=== PATIENT | male | born 1985 | race Caucasian/White ===

== ENCOUNTER 2019-12-07 22:58 | Emergency (ER) | payer OTHER ==
[~2019-12-07] VITALS: Ht 188 cm; Wt 106.6 kg
--- NOTE | 2019-12-07 23:02 | NUR ---
PT AAOX4. BIBRA 102 FROM HOME FOR OVERDOSE ON METH. PT AMBULATORY STATED -SI/HI. VSS. PLACED ON MONITOR AND PULSE OX. VSS. NO ACUTE DISTRESS NOTED.
[2019-12-07] MEDS ORDERED: diphenhydrAMINE HCL 50 MG/ML VIAL ONE (23:06)
[2019-12-07] MEDS ORDERED: HALOPERIDOL LACTATE INJ 5 MG/ML VIAL ONE (23:06)
[2019-12-07] MEDS ORDERED: LORAZEPAM INJ 2 MG/ML VIAL ONE (23:06)
[2019-12-07] MEDS ORDERED: diphenhydrAMINE HCL 25 MG CAPSULE ONE (23:23)
[2019-12-07] MEDS ORDERED: LORAZEPAM INJ 2 MG/ML VIAL IV ONE (23:30)
[2019-12-07] MEDS ORDERED: HALOPERIDOL LACTATE INJ 5 MG/ML VIAL IM ONE (23:30)
[2019-12-07] MEDS ORDERED: diphenhydrAMINE HCL 50 MG/ML VIAL IM ONE (23:30)
--- NOTE | 2019-12-07 23:35 | NUR ---
[employer] AT BEDSIDE
--- NOTE | 2019-12-08 00:53 | NUR ---
ambulated to the restroom and back
--- NOTE | 2019-12-08 01:53 | NUR ---
PT ASLEEP. VSS.
--- NOTE | 2019-12-08 03:51 | NUR ---
PT ASLEEP. PROVIDED WITH MORE BLANKETS.
--- NOTE | 2019-12-08 05:52 | NUR ---
PT RESTING COMFORTABLY IN BED. SITTER AT BEDSIDE FOR SAFETY AND CONSTANT MONITORING. VSS. NO ACUTE DISTRESS NOTED.
[2019-12-08 07:01] VITALS: BP 136/74
--- NOTE | 2019-12-08 07:01 | NUR ---
Pt alert and oriented. Pt ok to be discharged per Dr Hampton. Pt provided with meal tray. Patient discharged to home in stable condition. Written and verbal after care instructions given. Patient verbalizes understanding of instruction.Patient is awake and alert to self, day, and place.Pt ambulatory with a steady gait
== END 2019-12-08 07:02 | disposition home or self-care (01) ==
LOC: ER 23:00
DX: F15.10 Other stimulant abuse, uncomplicated (principal); F32.9 Major depressive disorder, single episode, unspecified; F41.9 Anxiety disorder, unspecified; F17.200 Nicotine dependence, unspecified, uncomplicated; R45.1 Restlessness and agitation
CPT/HCPCS: 71045; 96372 ×2; 96374; 99284; J1200; J1630; J2060; Q0163

== ENCOUNTER 2019-12-29 19:41 | Emergency (ER) | payer OTHER ==
[~2019-12-29] VITALS: Ht 177.8 cm; Wt 90.7 kg
--- NOTE | 2019-12-29 20:01 | NUR ---
PT AAOX4. BIBRA 102 FOR C/O ANXIETY AND GENRERALIZED BOSY SPASM S/P USING METH. PT PALCED ON MONITOR AND PULSE OX. AWAITING MD FOR EVAL.
[2019-12-29] MEDS ORDERED: diphenhydrAMINE HCL 50 MG/ML VIAL ONE (20:16)
[2019-12-29] MEDS ORDERED: LORAZEPAM INJ 2 MG/ML VIAL ONE (20:17)
[2019-12-29] MEDS ORDERED: HALOPERIDOL LACTATE INJ 5 MG/ML VIAL ONE (20:17)
[2019-12-29] MEDS ORDERED: diphenhydrAMINE HCL 50 MG/ML VIAL IM ONE (20:30)
[2019-12-29] MEDS ORDERED: HALOPERIDOL LACTATE INJ 5 MG/ML VIAL IM ONE (20:30)
[2019-12-29] MEDS ORDERED: LORAZEPAM INJ 2 MG/ML VIAL IM ONE (20:30)
[2019-12-29] MEDS ORDERED: LIDOCAINE 2% JEL UROJET 10 ML MM ONE (21:01)
[2019-12-29 21:29] LABS: BASOPHILS # (AUTO) 0.1 /CMM (0.0-0.2); BASOPHILS % (AUTO) 0.7 % (0.0-2.0); EOSINOPHILS % (AUTO) 0.5 % (0.0-6.0); HEMATOCRIT 43 % (39-51); HEMOGLOBIN 14.5 g/dL (13.5-17.5); LYMPHOCYTES # (AUTO) 2.4 /CMM (0.8-4.8); LYMPHOCYTES % (AUTO) 23.7 % (20.0-44.0); MEAN CORPUSCULAR HGB CONC 34 g/dl (31.0-36.0); MEAN CORPUSCULAR VOLUME 92 fL (80-96); MONOCYTES # (AUTO) 0.7 /CMM (0.1-1.30); MONOCYTES % (AUTO) 6.7 % (2.0-12.0); NEUTROPHILS % (AUTO) 68.4 % (43.0-81.0); PLATELET COUNT (AUTO) 374 /CMM (150-450); RED BLOOD CELL COUNT(AUTO) 4.68 MIL/uL (4.5-6.0); WHITE BLOOD COUNT (AUTO) 10.2 K/uL (4.3-11.0)
[2019-12-29 21:42] LABS: CARBON DIOXIDE 22 mmol/L (21-32); CHLORIDE 104 mmol/L (98-107); CREATININE 1.1 mg/dL (0.6-1.3); GLUCOSE 105 mg/dL (74-106); POTASSIUM 3.4 mmol/L (3.5-5.1); SODIUM SERUM 138 mmol/L (136-145); UREA NITROGEN, BLOOD 16 mg/dL (7-18)
[2019-12-29 21:48] LABS: ALANINE AMINOTRANSFERASE 34 U/L (12-78); ALBUMIN 3.8 g/dL (3.4-5.0); ALCOHOL, BLOOD < 3 mg/dL (0-0); ALKALINE PHOSPHATASE 103 U/L (46-116); ASPARTATE AMINOTRANSFERASE 28 U/L (15-37); BILIRUBIN,DIRECT 0.1 mg/dL (0.0-0.2); BILIRUBIN,TOTAL 0.5 mg/dL (0.2-1.0); TOTAL PROTEIN, SERUM 7.7 g/dL (6.4-8.2)
[2019-12-29 21:51] LABS: ACETAMINOPHEN 0 ug/ml (10-30)
--- NOTE | 2019-12-29 22:09 | NUR ---
URINE COLLECTED AND SENT TO LAB.
[2019-12-29 22:23] LABS: APPEARANCE,URINE CLEAR (CLEAR); BILIRUBIN,URINE NEGATIVE (NEGATIVE); BLOOD, URINE TRACE-INTA Ery/uL (NEGATIVE); COLOR,URINE YELLOW (YELLOW); KETONES,URINE NEGATIVE (NEGATIVE); LEUKOCYTE ESTERASE ,URINE NEGATIVE (NEGATIVE); NITRITE, URINE NEGATIVE (NEGATIVE); PROTEIN,URINE NEGATIVE (NEGATIVE); UGLUCOSE NEGATIVE (NEGATIVE); UROBILINOGEN,URINE 0.2 EU/dL (0.2)
[2019-12-29 22:38] LABS: BACTERIA,URINE Rare /HPF (None Seen); SQUAMOUS EPITHELIAL CELL,UR Rare /HPF (None Seen); WBC,URINE 0-2 /HPF (0-3)
--- NOTE | 2019-12-30 01:04 | NUR ---
PT ASLEEP. VSS/
--- NOTE | 2019-12-30 03:02 | NUR ---
Patient is resting comfortably in bed with eyes closed. Easily aroused. VSS
--- NOTE | 2019-12-30 03:24 | NUR ---
PT ASLEEP. VSS.
[2019-12-30 06:02] VITALS: BP 111/58
--- NOTE | 2019-12-30 08:46 | NUR ---
RECEIVED A CALL FROM [facility], STATING THAT DR. LEAL WANTS TO HAVE A CRISIS EVALUATION BECAUSE HE BELIEVES PATIENT IS A STRONG CANDIDATE FOR A 5150. GROCERY SUPERVISOR ANA MADE AWARE.
--- NOTE | 2019-12-30 09:47 | NUR ---
8:30 am Patient presented to [facility] ER, per MD note BIBRA 102 FOR C/O ANXIETY AND GENRERALIZED BOSY SPASM S/P USING. Patient is a 34-year-old male. Patient was alert and oriented x3. Patient lying in bed, did not want to open his eyes for this assessment. Patient at times mumbling under his breath. Patient confirmed demographics on face sheet including date of and address stating that is my parents house. Patient stating, he is currently hearing auditory hallucinations. Patient reported suicidal ideation stating, I want to kill myself using pills. Patient did not want to elaborate how he would get a hold of those medications. Patient stating, I cant talk to you right now hearing voices. Patient covered his face with the covers and refused to answer more questions.
--- NOTE | 2019-12-30 09:47 | NUR ---
8:45am This SW received a call from MARCELINO Alejandre that she had spoken with Dr. Thorpe from [facility]. Dr. Thorpe reviewed clinicals and would like that this patient should be evaluated by Crisis Team as patient may be a candidate for a 5150 hold. Addendum: 12/30/19 at 0948 by ANA VILLAVICENCIO Patient to be seen by brian VILLAVICENCIO and Birgit Briggs LCSW before calling Crisis Team.
--- NOTE | 2019-12-30 10:50 | NUR ---
This SW refaxed clinicals to [facility] intake per Miko's request . Patient is willing to enter voluntary psychiatric treatment.
--- NOTE | 2019-12-30 11:05 | NUR ---
This SW received a call from Johanna from [facility]. Johanna requesting new labs as patient's blood pressure and heart rate was high. This SW refaxed labs to [facility].
--- NOTE | 2019-12-30 11:56 | NUR ---
CALL FROM [facility] INTAKE, REQUESTING UPDATED HEART RATE, GIVEN
--- NOTE | 2019-12-30 12:05 | NUR ---
TRANSFER INFO: ACCEPTED BY DR PARRA, UNIT 2 ROOM 203-B, RN [phone] EXT [phone] Addendum: 12/30/19 at 1217 by NASH ACCEPTED TO [facility]
--- NOTE | 2019-12-30 12:10 | NUR ---
CALLED [facility] ETA 1500
--- NOTE | 2019-12-30 12:15 | NUR ---
[facility] ETA 1249
--- NOTE | 2019-12-30 12:45 | NUR ---
REPORT GIVEN TO MILAGROS BENSON AT [facility].
--- NOTE | 2019-12-30 13:14 | NUR ---
PATIENT TRANSFERRED TO [facility]. REPORT GIVEN TO DOOR SLINGER. PATIENT IN STABLE CONDITION. NEEDS ATTENDED. NO BELONGINGS.
== END 2019-12-30 13:16 ==
LOC: ER 19:43
DX: F15.159 Other stimulant abuse with stimulant-induced psychotic disorder, unspecified (principal); F15.10 Other stimulant abuse, uncomplicated; R40.4 Transient alteration of awareness; E87.6 Hypokalemia; R00.0 Tachycardia, unspecified; R44.0 Auditory hallucinations; R45.851 Suicidal ideations; R41.0 Disorientation, unspecified; R45.1 Restlessness and agitation; F32.9 Major depressive disorder, single episode, unspecified; F41.9 Anxiety disorder, unspecified; F17.200 Nicotine dependence, unspecified, uncomplicated
CPT/HCPCS: 36415; 80048; 80076; 80305; 80307; 80329; 81001; 85025; 96372 ×2; 99285; G0480; J1200; J1630; J2060; J3490; 81000-TC

== ENCOUNTER 2021-06-07 18:17 | Inpatient (IN) | payer OTHER ==
[~2021-06-07] VITALS: Ht 182.9 cm; Wt 88.9 kg
[2021-06-07] MEDS ORDERED: LORAZEPAM INJ 2 MG/ML VIAL ONE (18:57)
[2021-06-07] MEDS ORDERED: LORAZEPAM INJ 2 MG/ML VIAL IV ONE (19:00)
--- NOTE | 2021-06-07 19:00 | NUR ---
pt came in c/o sob x2days.pt stated it git worst today.pt is a/ox4.placed on monitor.
[2021-06-07] MEDS ORDERED: IOHEXOL-350 100 ML VIAL IV ONE (19:12)
[2021-06-07] MEDS ORDERED: CT SWABBABLE VALVE TRANS SET 1 EA INFUS.SET MC ONE (19:12)
[2021-06-07] MEDS ORDERED: IV NS 0.9% 250 ML IV ONE (19:13)
[2021-06-07 19:20] LABS: CREATININE 1.1 mg/dL (0.6-1.3); POTASSIUM 4.4 mmol/L (3.5-5.1)
[2021-06-07 19:53] LABS: BASOPHILS # (AUTO) 0.1 K/uL (0.0-0.2); BASOPHILS % (AUTO) 0.9 % (0.0-2.0); EOSINOPHILS % (AUTO) 0.9 % (0.0-6.0); HEMATOCRIT 37 % (39-51); HEMOGLOBIN 11.9 g/dL (13.5-17.5); LYMPHOCYTES # (AUTO) 1.7 K/uL (0.8-4.8); LYMPHOCYTES % (AUTO) 22.7 % (20.0-44.0); MEAN CORPUSCULAR HGB CONC 33 g/dl (31.0-36.0); MEAN CORPUSCULAR VOLUME 88 fL (80-96); MONOCYTES # (AUTO) 0.6 K/uL (0.1-1.30); MONOCYTES % (AUTO) 8.5 % (2.0-12.0); NEUTROPHILS # (AUTO) 5.1 K/uL (1.8-8.9); PLATELET COUNT (AUTO) 400 K/uL (150-450); RED BLOOD CELL COUNT(AUTO) 4.14 MIL/uL (4.5-6.0); WHITE BLOOD COUNT (AUTO) 7.6 K/uL (4.3-11.0)
--- NOTE | 2021-06-07 22:20 | NUR ---
BED ASSIGNMENT: 314-2
--- NOTE | 2021-06-07 22:30 | NUR ---
report given to Carina hamilton).
[2021-06-07] MEDS ORDERED: LOSA25TA27 PO (22:38)
[2021-06-07] MEDS ORDERED: APIX5TAB PO (22:38)
[2021-06-07] MEDS ORDERED: DAPA10TA PO (22:38)
[2021-06-07] MEDS ORDERED: MAG HYDROX/AL HYDROX/SIMETH 30 ML UDC PO PRN (23:00)
[2021-06-07] MEDS ORDERED: ONDANSETRON HCL/PF 4 MG/2 ML VIAL IVP PRN (23:00)
[2021-06-07] MEDS ORDERED: MORPHINE SULFATE INJ 2 MG/ML DISP.SYRIN IV PRN (23:00)
[2021-06-07] MEDS ORDERED: MAGNESIUM HYDROXIDE 30 ML UDC PO PRN (23:00)
[2021-06-07] MEDS ORDERED: DAPAGLIFLOZIN 10 MG PO SCH (23:00)
[2021-06-07] MEDS ORDERED: Z GUARD REMEDY 4 OZ OINT TP PRN (23:00)
[2021-06-07] MEDS ORDERED: HYDROCODONE/APAP 5/325MG TABLET PO PRN (23:00)
[2021-06-07] MEDS ORDERED: ACETAMINOPHEN 325 MG TABLET PO PRN (23:00)
[2021-06-07] MEDS ORDERED: DEXTROSE 50%-WATER 50 ML DISP.SYRIN IV PRN (23:00)
--- NOTE | 2021-06-07 23:37 | NUR ---
report given to yulissa hamilton).
--- NOTE | 2021-06-07 23:37 | NUR ---
RN NOTES REPORT RECEIVED FROM ER NURSE LITO.
[2021-06-08 00:05] VITALS: BP 131/91
--- NOTE | 2021-06-08 00:05 | NUR ---
BELLING MACHINE OPERATOR NOTES RECEIVED PATIENT FROM ER VIA [facility] IN STABLE CONDITION. PATIENT ALERT AND ORIENTED X 4. RESPIRATORY EVEN AND UNLABORED. NO SOB NOTED. NO RESPIRATORY DISTRESS NOTED. AFEBRILE. ON NASAL CANULA AT 3L/MIN SATING AT 100%. NOTED WITH IV ACCESS ON THE LEFT ANTECUBITAL G# 18 INTACT, PATENT AND FLUSHED WITH NS, NO INFILTRATION NOTED AT SITE. BASELINE VITAL SIGNS TAKEN AND RECORDED. COMPLETE BODY ASSESSMENT DONE, SKIN INTACT. ALL SAFETY MEASURES PROVIDED. BED IN THE LOWEST POSITION AND LOCKED. CALL LIGHT AND TABLE WITHIN REACH. WILL CONTINUE TO MONITOR.
[2021-06-08] MEDS: TEMAZEPAM 15 MG CAPSULE PO PRN ×2 (00:59→19:20)
[2021-06-08] MEDS ORDERED: FUROSEMIDE 40 MG/4 ML VIAL IV ONE (01:00)
--- NOTE | 2021-06-08 01:00 | NUR ---
RN NOTES NOTED RR-36 BREATH PER MINUTES, NOTIFIED DNP MARKEL LANDIN WITH NEW ORDER LASIX 40MG ONE TIME IV, NOTED AND CARRIED OUT.
[2021-06-08 04:00] VITALS: BP 132/78
[2021-06-08 06:35] LABS: BASOPHILS # (AUTO) 0.1 K/uL (0.0-0.2); BASOPHILS % (AUTO) 0.9 % (0.0-2.0); EOSINOPHILS % (AUTO) 1.2 % (0.0-6.0); HEMATOCRIT 35 % (39-51); LYMPHOCYTES # (AUTO) 2.1 K/uL (0.8-4.8); LYMPHOCYTES % (AUTO) 28.6 % (20.0-44.0); MEAN CORPUSCULAR HGB CONC 32 g/dl (31.0-36.0); MEAN CORPUSCULAR VOLUME 89 fL (80-96); MONOCYTES # (AUTO) 0.6 K/uL (0.1-1.30); MONOCYTES % (AUTO) 8.2 % (2.0-12.0); NEUTROPHILS # (AUTO) 4.4 K/uL (1.8-8.9); NEUTROPHILS % (AUTO) 61.1 % (43.0-81.0); PLATELET COUNT (AUTO) 365 K/uL (150-450); RED BLOOD CELL COUNT(AUTO) 3.92 MIL/uL (4.5-6.0); WHITE BLOOD COUNT (AUTO) 7.3 K/uL (4.3-11.0)
--- NOTE | 2021-06-08 07:20 | NUR ---
RN CLOSING NOTES REMAIN STABLE THROUGH OUT THE SHIFT, RESPIRATORY EVEN AND UNLABORED. NO SOB NOTED. NO RESPIRATORY DISTRESS NOTED. AFEBRILE. ON NASAL CANULA AT 3L/MIN SATING AT 100%. ALL DUE MEDS GIVEN ORDERED. ALL SAFETY MEASURES PROVIDED. BED IN THE LOWEST POSITION AND LOCKED. CALL LIGHT AND TABLE WITHIN REACH. WILL CONTINUE TO MONITOR.
[2021-06-08 07:30] LABS: THYROID STIMULATING HORMONE 2.11 uIU/mL (0.358-3.74)
--- NOTE | 2021-06-08 07:32 | NUR ---
RN OPENING NOTES RECIEVED PATIENT RESTING IN BED A/O X 4, RESPIRATORY EVEN AND UNLABORED. NO SOB NOTED. NO RESPIRATORY DISTRESS NOTED. AFEBRILE. ON NASAL CANULA AT 3L/MIN SATING AT 100%. ALL DUE MEDS GIVEN ORDERED. ALL SAFETY MEASURES PROVIDED. BED IN THE LOWEST POSITION AND LOCKED. CALL LIGHT AND TABLE WITHIN REACH.
[2021-06-08 07:33] LABS: MAGNESIUM 2.1 mg/dL (1.8-2.4); PHOSPHORUS 5.2 mg/dL (2.5-4.9); POTASSIUM 4.3 mmol/L (3.5-5.1)
[2021-06-08 08:00] VITALS: BP 143/95
[2021-06-08] MEDS: LOSARTAN POTASSIUM 25 MG TABLET PO SCH (08:07)
[2021-06-08] MEDS: ASPIRIN 81 MG TAB.CHEW PO SCH (08:08)
[2021-06-08] MEDS: PANTOPRAZOLE 40 MG TABLET.DR PO SCH (08:08)
[2021-06-08] MEDS: BLOOD SUGAR DIAGNOSTIC 1 EACH STRIP IN SCH ×4 (08:16→21:01)
[2021-06-08] MEDS: INSULIN REGULAR, HUMAN 100 UNIT/ML 3 ML VIAL SQ PRN ×2 (08:18→12:58)
[2021-06-08] MEDS ORDERED: APIXABAN 5 MG TABLET PO SCH ×2 (09:00→10:25)
[2021-06-08 12:00] VITALS: BP 121/85
[2021-06-08] MEDS: [UNRECOGNIZED DRUG - OTHER] PO SCH (12:07)
[2021-06-08] MEDS: DAPAGLIFLOZIN PO SCH (12:07)
[2021-06-08 16:00] VITALS: BP 121/74
[2021-06-08] MEDS: APIXABAN 5 MG TABLET PO SCH (16:49)
--- NOTE | 2021-06-08 18:40 | NUR ---
RN CLOSING NOTES PATIENT RESTING IN BED, A/O X4 ON NASAL CANULA AT 4L/MIN SATING AT 100%. ALL DUE MEDS GIVEN ORDERED.NO COMPLAINTS OF PAIN. IV ACCESS NOTED ON LAC 18G SL. ALL SAFETY MEASURES PROVIDED. BED IN THE LOWEST POSITION AND LOCKED. CALL LIGHT AND TABLE WITHIN REACH. WILL ENDORSE TO NIGHT NURSE FOR NOLBERTO.
--- NOTE | 2021-06-08 19:29 | NUR ---
RN NOTE RECEIVED PATIENT IN BED, AWAKE, ALERT, AND VERBALLY RESPONSIVE. AOX4, ABLE TO MAKE NEEDS KNOWN. BREATHING NOTED WITH MILD SHORTNESS OF BREATH, TACHYPNEIC, ON OXYGEN 4L/MIN VIA NASAL CANNULA, TOLERATING WELL, OXYGEN SATURATION OF 100 PERCENT. NO COUGH AND N/V. DENIES CHEST PAIN AT THIS TIME. SKIN WARM AND DRY, NOTED WITH LEFT AC 18G, NO IVF, FLUSHED WITH 10 CC, NO INFILTRATION. DENIES PAIN AT THIS TIME. URINAL AT BEDSIDE. PATIENT REQUESTING FOR SLEEPING MEDICATION, STATES HE IS UNABLE TO SLEEP. LIGHTS DIMMED, OFFERED EXTRA BLANKETS. ADMINISTERED TEMAZEPAM 15 MG PO. WILL CONTINUE TO MONITOR. REMINDED TO USE CALL LIGHT WHEN ASSISTANCE IS NEEDED. BED LOW IN LOCKED POSITION, CALL LIGHT WITHIN REACH.
[2021-06-08 20:00] VITALS: BP 135/87
[2021-06-09] VITALS: BP 116/79
[2021-06-09 04:00] VITALS: BP 127/84
[2021-06-09 07:05] LABS: CALCIUM, SERUM 8.5 mg/dL (8.5-10.1); CREATININE 1.1 mg/dL (0.6-1.3); POTASSIUM 3.8 mmol/L (3.5-5.1)
[2021-06-09 08:00] VITALS: BP 115/87
[2021-06-09] MEDS: ASPIRIN 81 MG TAB.CHEW PO SCH (08:35)
[2021-06-09] MEDS: LOSARTAN POTASSIUM 25 MG TABLET PO SCH (08:36)
[2021-06-09] MEDS: APIXABAN 5 MG TABLET PO SCH ×2 (08:37→16:49)
[2021-06-09] MEDS: PANTOPRAZOLE 40 MG TABLET.DR PO SCH (08:37)
[2021-06-09] MEDS: BLOOD SUGAR DIAGNOSTIC 1 EACH STRIP IN SCH ×4 (08:39→21:29)
[2021-06-09] MEDS: [UNRECOGNIZED DRUG - OTHER] PO SCH (08:39)
[2021-06-09] MEDS: DAPAGLIFLOZIN PO SCH (08:39)
[2021-06-09] MEDS: SPIRONOLACTONE 25 MG TABLET PO SCH (09:08)
[2021-06-09] MEDS: CARVEDILOL 3.125 MG TABLET PO SCH ×2 (09:08→21:18)
[2021-06-09 12:00] VITALS: BP 123/74
[2021-06-09 16:00] VITALS: BP 114/83
--- NOTE | 2021-06-09 19:40 | NUR ---
RN NOTES RECEIVED PT FOR CONTINUITY OF CARE. PATIENT A/OX4 IN NO S/SX OF ACUTE DISTRESS AT THIS TIME; CURRENTLY ON ROOM AIR; WITH 02 SAT >95% AT THIS TIME. WILL ENSURE SAFETY MEASURES WITHIN THE SHIFT. PATIENT BED ALARM IS ON. HEAD OF BED ELEVATED. BED IS LOCKED, IN LOWEST POSITION AND SIDE RAILS UP. CALL LIGHT WITHIN REACH OF THE PATIENT. APPLICABLE ISOLATION PRECAUTIONS IN PLACE. WILL CONTINUE TO MONITOR AND REASSESS FOR ANY CHANGES AND WILL CARRY OUT ANY ONGOING AND ACTIVE MD ORDER.
[2021-06-09 20:00] VITALS: BP 117/85
[2021-06-09] MEDS: INSULIN REGULAR, HUMAN 100 UNIT/ML 3 ML VIAL SQ PRN (21:30)
[2021-06-10] VITALS: BP 119/85
--- NOTE | 2021-06-10 | NUR ---
RN NOTES PATIENT REMAINED TO BE IN NO SIGNS OF ACUTE RESPIRATORY DISTRESS , VITAL SIGNS WNL AT THIS TIME. DIRECTOR OF MANUFACTURING OPERATIONS MADE AWARE. WILL CONTINUE TO MONITOR AND REASSESS FOR ANY CHANGES THROUGHOUT THE SHIFT.
[2021-06-10 04:00] VITALS: BP 125/81
[2021-06-10] MEDS: LORAZEPAM INJ 2 MG/ML VIAL IV PRN ×3 (04:42→23:16)
[2021-06-10 06:33] LABS: BASOPHILS # (AUTO) 0.1 K/uL (0.0-0.2); BASOPHILS % (AUTO) 0.9 % (0.0-2.0); EOSINOPHILS % (AUTO) 1.8 % (0.0-6.0); HEMATOCRIT 33 % (39-51); HEMOGLOBIN 10.4 g/dL (13.5-17.5); LYMPHOCYTES # (AUTO) 1.7 K/uL (0.8-4.8); LYMPHOCYTES % (AUTO) 25.3 % (20.0-44.0); MEAN CORPUSCULAR HGB CONC 32 g/dl (31.0-36.0); MEAN CORPUSCULAR VOLUME 88 fL (80-96); MONOCYTES # (AUTO) 0.5 K/uL (0.1-1.30); MONOCYTES % (AUTO) 8.2 % (2.0-12.0); NEUTROPHILS # (AUTO) 4.3 K/uL (1.8-8.9); NEUTROPHILS % (AUTO) 63.8 % (43.0-81.0); PLATELET COUNT (AUTO) 363 K/uL (150-450); RED BLOOD CELL COUNT(AUTO) 3.69 MIL/uL (4.5-6.0); WHITE BLOOD COUNT (AUTO) 6.7 K/uL (4.3-11.0)
--- NOTE | 2021-06-10 06:37 | NUR ---
RN CLOSING NOTE: PATIENT REMAINS IN ROOM IN NO SIGNS OF RESPIRATORY DISTRESS, PATIENT STILL ON ROOM AIR ;TOLERATING WELL SATURATING @ >95% SP02. SAFETY MEASURES IMPLEMENTED, BED IN LOWEST POSITION, LOCKED, SIDE RAILS UP, CALL LIGHT WITHIN REACH. ALL NEEDS AND ORDERS ADDRESSED DURING THE SHIFT. IV ACCESS MAINTAINED INTACT, SECURED AND FLUSHING WELL. ALL DUE MEDS GIVEN ORDERED & SCHEDULED ; PATIENT TOLERATED WELL. PATIENT KEPT CLEAN AND COMFORTABLE WITHIN THE SHIFT. PATIENT ENDORSED TO INCOMING SHIFT RN WITH STABLE VITAL SIGN AND FOR CONTINUITY OF CARE.
--- NOTE | 2021-06-10 07:30 | NUR ---
RN OPENING NOTE PATIENT RECEIVED SLEEPING COMFORTABLY IN BED. NO SIGNS OF RESPIRATORY DISTRESS, PATIENT ON ROOM AIR ;TOLERATING WELL SATURATING @ 95% SP02. PATIENT HAS L AC PIV PATENT AND INTACT. SAFETY MEASURES IMPLEMENTED, BED IN LOWEST POSITION, LOCKED, SIDE RAILS UP, CALL LIGHT WITHIN REACH. WILL CONTINUE TO MONITOR.
[2021-06-10 08:00] VITALS: BP 135/65
[2021-06-10 08:04] LABS: CALCIUM, SERUM 8.8 mg/dL (8.5-10.1); MAGNESIUM 2.1 mg/dL (1.8-2.4); PHOSPHORUS 4.4 mg/dL (2.5-4.9); POTASSIUM 3.9 mmol/L (3.5-5.1)
[2021-06-10] MEDS: BLOOD SUGAR DIAGNOSTIC 1 EACH STRIP IN SCH ×4 (08:50→21:12)
[2021-06-10] MEDS: ASPIRIN 81 MG TAB.CHEW PO SCH (08:51)
[2021-06-10] MEDS: CARVEDILOL 3.125 MG TABLET PO SCH ×2 (08:52→21:02)
[2021-06-10] MEDS: SPIRONOLACTONE 25 MG TABLET PO SCH (08:52)
[2021-06-10] MEDS: LOSARTAN POTASSIUM 25 MG TABLET PO SCH (08:52)
[2021-06-10] MEDS: PANTOPRAZOLE 40 MG TABLET.DR PO SCH (08:56)
[2021-06-10] MEDS: [UNRECOGNIZED DRUG - OTHER] PO SCH (08:57)
[2021-06-10] MEDS: DAPAGLIFLOZIN PO SCH (08:57)
[2021-06-10 12:00] VITALS: BP 128/81
[2021-06-10 16:00] VITALS: BP 142/81
--- NOTE | 2021-06-10 18:33 | NUR ---
RN CLOSING NOTE PATIENT REMAINED STABLE THROUGHOUT SHIFT. NO SIGNS OF RESPIRATORY DISTRESS, PATIENT ON NASAL CANNULA @ 3 LPM ;TOLERATING WELL SATURATING @ 97% SP02. PATIENT HAS L AC PIV PATENT AND INTACT. ALL NEEDS MET AND MEDS ADMINISTERED ORDERED DURING SHIFT. ALL SAFETY MEASURES IMPLEMENTED, BED IN LOWEST POSITION, LOCKED, SIDE RAILS UP, CALL LIGHT WITHIN REACH. WILL ENDORSE TO HUMAN RESOURCES LEADER RN.
--- NOTE | 2021-06-10 19:32 | NUR ---
RN NOTES RECEIVED PT FOR CONTINUITY OF CARE. PATIENT A/OX4 IN NO S/SX OF ACUTE DISTRESS AT THIS TIME; CURRENTLY ON 4L OF O2 VIA NC; WITH 02 SAT >95% AT THIS TIME. IV SITE ON L AC #18; PATENT, INTACT AND FLUSHING WELL; NO S/S OF INFECTION OR INFILTRATION.WILL ENSURE SAFETY MEASURES WITHIN THE SHIFT. PATIENT BED ALARM IS ON. HEAD OF BED ELEVATED. BED IS LOCKED, IN LOWEST POSITION AND SIDE RAILS UP. CALL LIGHT WITHIN REACH OF THE PATIENT. APPLICABLE ISOLATION PRECAUTIONS IN PLACE. WILL CONTINUE TO MONITOR AND REASSESS FOR ANY CHANGES AND WILL CARRY OUT ANY ONGOING AND ACTIVE MD ORDER.
[2021-06-10 20:00] VITALS: BP 121/87
[2021-06-10] MEDS: INSULIN REGULAR, HUMAN 100 UNIT/ML 3 ML VIAL SQ PRN (21:13)
[2021-06-10] MEDS: TEMAZEPAM 15 MG CAPSULE PO PRN (21:13)
--- NOTE | 2021-06-10 23:20 | NUR ---
RN NOTES FACILITATED INSERTION OF ADDITIONAL IV LINE/ACCESS ON L HAND G#22; SALINE LOCK, SECURED, INTACT AND FLUSHING WELL. CHEESE WEIGHER MADE AWARE.
[2021-06-11] VITALS: BP 120/85
[2021-06-11 04:00] VITALS: BP 102/60
--- NOTE | 2021-06-11 06:38 | NUR ---
RN CLOSING NOTE: PATIENT REMAINS IN ROOM IN NO SIGNS OF RESPIRATORY DISTRESS, PATIENT STILL ON 4L OF 02 VIA NC;TOLERATING WELL SATURATING @ >95% SP02. NOTED EPISODES OF ANXIETY DURING THE SHIFT, PRN MEDICATION GIVEN PER CLINICAL INDICATION. SAFETY MEASURES IMPLEMENTED, BED IN LOWEST POSITION, LOCKED, SIDE RAILS UP, CALL LIGHT WITHIN REACH. ALL NEEDS AND ORDERS ADDRESSED DURING THE SHIFT. IV ACCESS MAINTAINED INTACT, SECURED AND FLUSHING WELL. ALL DUE MEDS GIVEN ORDERED & SCHEDULED ; PATIENT TOLERATED WELL. PATIENT KEPT CLEAN AND COMFORTABLE WITHIN THE SHIFT. PATIENT ENDORSED TO INCOMING SHIFT RN WITH STABLE VITAL SIGN AND FOR CONTINUITY OF CARE.
[2021-06-11 06:46] LABS: BASOPHILS # (AUTO) 0.1 K/uL (0.0-0.2); HEMATOCRIT 35 % (39-51); HEMOGLOBIN 11.4 g/dL (13.5-17.5); LYMPHOCYTES % (AUTO) 25.8 % (20.0-44.0); MEAN CORPUSCULAR HGB CONC 33 g/dl (31.0-36.0); MEAN CORPUSCULAR VOLUME 87 fL (80-96); MONOCYTES # (AUTO) 0.6 K/uL (0.1-1.30); MONOCYTES % (AUTO) 8.2 % (2.0-12.0); NEUTROPHILS # (AUTO) 4.9 K/uL (1.8-8.9); PLATELET COUNT (AUTO) 381 K/uL (150-450); RED BLOOD CELL COUNT(AUTO) 3.98 MIL/uL (4.5-6.0); WHITE BLOOD COUNT (AUTO) 7.7 K/uL (4.3-11.0)
[2021-06-11 07:10] LABS: CALCIUM, SERUM 8.5 mg/dL (8.5-10.1); CREATININE 1.1 mg/dL (0.6-1.3); POTASSIUM 4.7 mmol/L (3.5-5.1)
--- NOTE | 2021-06-11 07:30 | NUR ---
RN OPENING NOTES RECEIVED PATIENT IN BED, ALERT ORIENTED X 4 VERBALLY RESPONSIVE, NOT IN DISTRESS NO COMPLAINTS OF PAIN NOTED. O2 @ 4LPM VIA NC WITH O2 SAT 96%. IV SITE LEFT AC AND L HAND G22. BED TO LOWEST POSITION AND LOCKED. CALL LIGHT WITHIN REACH.
[2021-06-11 08:00] VITALS: BP 120/56
[2021-06-11] MEDS: PANTOPRAZOLE 40 MG TABLET.DR PO SCH (08:16)
[2021-06-11] MEDS: DAPAGLIFLOZIN PO SCH (08:17)
[2021-06-11] MEDS: ASPIRIN 81 MG TAB.CHEW PO SCH (08:17)
[2021-06-11] MEDS: [UNRECOGNIZED DRUG - OTHER] PO SCH (08:17)
[2021-06-11] MEDS: SPIRONOLACTONE 25 MG TABLET PO SCH (08:17)
[2021-06-11] MEDS: CARVEDILOL 3.125 MG TABLET PO SCH ×2 (08:19→21:57)
[2021-06-11] MEDS: LOSARTAN POTASSIUM 25 MG TABLET PO SCH (08:20)
[2021-06-11] MEDS: BLOOD SUGAR DIAGNOSTIC 1 EACH STRIP IN SCH ×4 (08:25→22:27)
[2021-06-11] MEDS: INSULIN REGULAR, HUMAN 100 UNIT/ML 3 ML VIAL SQ PRN ×4 (08:26→22:27)
[2021-06-11] MEDS: ENOXAPARIN SODIUM 80 MG/0.8 ML DISP.SYRIN SQ SCH ×2 (10:51→21:58)
[2021-06-11 12:00] VITALS: BP 107/76
[2021-06-11] MEDS: LORAZEPAM INJ 2 MG/ML VIAL IV PRN (13:34)
[2021-06-11 16:00] VITALS: BP 96/73
--- NOTE | 2021-06-11 18:37 | NUR ---
RN CLOSING NOTES PATIENT ASLEEP IN BED, NOT DISTRESS, NO COMPLAINTS OF PAIN NOTED. PRN MED ATIVAN GIVEN PER PATIENT'S REQUEST AND VERBALIZED EFFECTIVENESS AFTER. LOVENOX DOSE GIVEN TODAY. FOR PLANNED THORACENTESIS TOMORROW OR SUNDAY.PER CHARGE NURSE ACQUISITIONS ANALYST TO ARRANGE FOR LIFEVEST ORDER FOR PATIENT PER CARDIO. BED TO LOWEST POSITION AND LOCKED. CALL LIGHT WITHIN REACH. WILL ENDORSE TO PUBLIC SPEAKING TEACHER RN ON DUTY.
--- NOTE | 2021-06-11 19:33 | NUR ---
RN NOTES RECEIVED PT FOR CONTINUITY OF CARE. PATIENT A/OX4 IN NO S/SX OF ACUTE DISTRESS AT THIS TIME; CURRENTLY ON 3L OF O2 VIA NC; WITH 02 SAT >95% AT THIS TIME. IV SITE ON L HAND #22; PATENT, INTACT AND FLUSHING WELL; NO S/S OF INFECTION OR INFILTRATION.WILL ENSURE SAFETY MEASURES WITHIN THE SHIFT. PATIENT BED ALARM IS ON. HEAD OF BED ELEVATED. BED IS LOCKED, IN LOWEST POSITION AND SIDE RAILS UP. CALL LIGHT WITHIN REACH OF THE PATIENT. APPLICABLE ISOLATION PRECAUTIONS IN PLACE. WILL CONTINUE TO MONITOR AND REASSESS FOR ANY CHANGES AND WILL CARRY OUT ANY ONGOING AND ACTIVE MD ORDER.
[2021-06-11 20:00] VITALS: BP 114/76
[2021-06-11] MEDS: TEMAZEPAM 15 MG CAPSULE PO PRN (21:58)
[2021-06-12] VITALS: BP 103/75
--- NOTE | 2021-06-12 02:00 | NUR ---
RN NOTES PATIENT REMAINED TO BE IN NO SIGNS OF ACUTE RESPIRATORY DISTRESS , VITAL SIGNS WNL AT THIS TIME. STEAM METER READER MADE AWARE. WILL CONTINUE TO MONITOR AND REASSESS FOR ANY CHANGES THROUGHOUT THE SHIFT.
[2021-06-12 04:00] VITALS: BP 128/86
--- NOTE | 2021-06-12 06:34 | NUR ---
RN CLOSING NOTE: PATIENT REMAINS IN ROOM IN NO SIGNS OF RESPIRATORY DISTRESS, PATIENT STILL ON 3L OF 02 VIA NC ;TOLERATING WELL SATURATING @ >95% SP02. SAFETY MEASURES IMPLEMENTED, BED IN LOWEST POSITION, LOCKED, SIDE RAILS UP, CALL LIGHT WITHIN REACH. ALL NEEDS AND ORDERS ADDRESSED DURING THE SHIFT. IV ACCESS MAINTAINED INTACT, SECURED AND FLUSHING WELL. ALL DUE MEDS GIVEN ORDERED & SCHEDULED ; PATIENT TOLERATED WELL. PATIENT KEPT CLEAN AND COMFORTABLE WITHIN THE SHIFT. PATIENT ENDORSED TO INCOMING SHIFT RN WITH STABLE VITAL SIGN AND FOR CONTINUITY OF CARE.
--- NOTE | 2021-06-12 07:30 | NUR ---
RN OPENING NOTE PATIENT RESTING IN ROOM IN NO SIGNS OF RESPIRATORY DISTRESS, PATIENT ON 3L OF 02 VIA NC ;TOLERATING WELL SATURATING @ >95% SP02. PATIENT HAS L HAND PIV INTACT AND PATENT. SAFETY MEASURES IMPLEMENTED, BED IN LOWEST POSITION, LOCKED, SIDE RAILS UP, CALL LIGHT WITHIN REACH. WILL CONTINUE TO MONITOR..
[2021-06-12 08:00] VITALS: BP 109/82
[2021-06-12] MEDS: BLOOD SUGAR DIAGNOSTIC 1 EACH STRIP IN SCH ×4 (08:14→21:44)
[2021-06-12] MEDS: PANTOPRAZOLE 40 MG TABLET.DR PO SCH (08:44)
[2021-06-12] MEDS: SPIRONOLACTONE 25 MG TABLET PO SCH (08:44)
[2021-06-12] MEDS: CARVEDILOL 3.125 MG TABLET PO SCH ×2 (08:44→21:30)
[2021-06-12] MEDS: ASPIRIN 81 MG TAB.CHEW PO SCH (08:44)
[2021-06-12] MEDS: ENOXAPARIN SODIUM 80 MG/0.8 ML DISP.SYRIN SQ SCH ×2 (08:45→21:36)
[2021-06-12] MEDS: DAPAGLIFLOZIN PO SCH (08:46)
[2021-06-12] MEDS: [UNRECOGNIZED DRUG - OTHER] PO SCH (08:46)
[2021-06-12] MEDS: LOSARTAN POTASSIUM 25 MG TABLET PO SCH (08:47)
[2021-06-12 12:00] VITALS: BP 109/86
[2021-06-12 16:00] VITALS: BP 112/84
--- NOTE | 2021-06-12 18:41 | NUR ---
RN CLOSING NOTE PATIENT REMAINED STABLE THROUGHOUT SHIFT. PATIENT RESTING IN ROOM IN NO SIGNS OF RESPIRATORY DISTRESS, PATIENT ON 3L OF 02 VIA NC ;TOLERATING WELL SATURATING @ >95% SP02. PATIENT HAS L HAND PIV INTACT AND PATENT. SAFETY MEASURES IMPLEMENTED, BED IN LOWEST POSITION, LOCKED, SIDE RAILS UP, CALL LIGHT WITHIN REACH. WILL ENDORSE TO VICE PRESIDENT OF SALES RN.
[2021-06-12 20:00] VITALS: BP 127/83
[2021-06-12] MEDS: TEMAZEPAM 15 MG CAPSULE PO PRN (22:57)
[2021-06-13] VITALS: BP 106/70
[2021-06-13 04:00] VITALS: BP 126/81
[2021-06-13 06:23] LABS: BASOPHILS # (AUTO) 0.1 K/uL (0.0-0.2); EOSINOPHILS % (AUTO) 1.3 % (0.0-6.0); HEMATOCRIT 34 % (39-51); LYMPHOCYTES # (AUTO) 2.4 K/uL (0.8-4.8); LYMPHOCYTES % (AUTO) 31.8 % (20.0-44.0); MEAN CORPUSCULAR HGB CONC 33 g/dl (31.0-36.0); MEAN CORPUSCULAR VOLUME 87 fL (80-96); MONOCYTES # (AUTO) 0.7 K/uL (0.1-1.30); MONOCYTES % (AUTO) 8.8 % (2.0-12.0); NEUTROPHILS # (AUTO) 4.4 K/uL (1.8-8.9); NEUTROPHILS % (AUTO) 57.1 % (43.0-81.0); PLATELET COUNT (AUTO) 333 K/uL (150-450); RED BLOOD CELL COUNT(AUTO) 3.89 MIL/uL (4.5-6.0); WHITE BLOOD COUNT (AUTO) 7.6 K/uL (4.3-11.0)
--- NOTE | 2021-06-13 06:46 | NUR ---
RN CLOSING NOTES PATIENT RESTING IN BED, NO COMPLAINS, ALL MEDS GIVEN, WILL ENDORSE PLAN OF CARE TO AM NURSE.
--- NOTE | 2021-06-13 07:03 | NUR ---
RN CLOSING NOTE PATIENT REMAINED STABLE THROUGHOUT THE NIGHT, NO CHANGES. WILL ENDORSE PLAN OF CARE TO AM NURSE.
[2021-06-13 07:12] LABS: CALCIUM, SERUM 8.2 mg/dL (8.5-10.1); CREATININE 1.1 mg/dL (0.6-1.3); POTASSIUM 4.1 mmol/L (3.5-5.1)
--- NOTE | 2021-06-13 07:15 | NUR ---
RN OPENING NOTES RECEIVED PATIENT IN BED, AWAKE, A/O X4. NO SIGNS OF ACUTE DISTRESS NOTED. REMAINS ON O2 @3LPM VIA N/C, SPO2 @ 98 %. WITH IV ACCESS ON LEFT HAND #22G, INTACT AND PATENT. ON TELE MONITOR WITH CURRENT READING OF SR @ 89. NO C/O PAIN ATB THIS TIME. SAFETY MEASURES IN PLACE. WILL CONTINUE TO MONITOR.
[2021-06-13] MEDS: BLOOD SUGAR DIAGNOSTIC 1 EACH STRIP IN SCH ×4 (07:42→22:04)
[2021-06-13] MEDS: PANTOPRAZOLE 40 MG TABLET.DR PO SCH (07:43)
[2021-06-13] MEDS: INSULIN REGULAR, HUMAN 100 UNIT/ML 3 ML VIAL SQ PRN ×3 (07:43→16:37)
[2021-06-13 08:00] VITALS: BP 120/88
[2021-06-13] MEDS: SPIRONOLACTONE 25 MG TABLET PO SCH (08:12)
[2021-06-13] MEDS: [UNRECOGNIZED DRUG - OTHER] PO SCH (08:12)
[2021-06-13] MEDS: LOSARTAN POTASSIUM 25 MG TABLET PO SCH (08:12)
[2021-06-13] MEDS: ASPIRIN 81 MG TAB.CHEW PO SCH (08:12)
[2021-06-13] MEDS: DAPAGLIFLOZIN PO SCH (08:12)
[2021-06-13] MEDS: ENOXAPARIN SODIUM 80 MG/0.8 ML DISP.SYRIN SQ SCH (08:13)
[2021-06-13] MEDS: CARVEDILOL 3.125 MG TABLET PO SCH ×2 (08:13→21:35)
[2021-06-13 12:00] VITALS: BP 104/75
[2021-06-13 16:00] VITALS: BP 116/82
--- NOTE | 2021-06-13 18:45 | NUR ---
RN CLOSING NOTES PATIENT IN BED, AWAKE, A/O X4. NO SIGNS OF ACUTE DISTRESS NOTED. REMAINS ON O2 @3LPM VIA N/C, SPO2 @ 98 %. WITH IV ACCESS ON LEFT HAND #22G, INTACT AND PATENT, SALINE LOCKED. ON TELE MONITOR WITH CURRENT READING OF SR @ 80. SAFETY MEASURES MAINTAINED, BED IN LOWEST LOCKED POSITION, SR UP X2, CALL LIGHT PLACED WITHIN EASY REACH. WILL ENDORSE TO NEXT SHIFT.
--- NOTE | 2021-06-13 19:26 | NUR ---
RN OPENING NOTES RECEIVED PATIENT IN BED, AWAKE, A/O X4. NO SIGNS OF ACUTE DISTRESS NOTED. REMAINS ON O2 @3LPM VIA N/C, SPO2 @ 99 %. WITH IV ACCESS ON LEFT HAND #22G, INTACT AND PATENT, SALINE LOCKED. ON TELE MONITOR WITH CURRENT READING OF SR IN THE 80S. SAFETY MEASURES MAINTAINED, BED IN LOWEST LOCKED POSITION, SR UP X2, CALL LIGHT PLACED WITHIN EASY REACH. WILL CONTINUE TO MONITOR PATIENT THROUGHOUT THE NIGHT
[2021-06-13 20:00] VITALS: BP 126/81
--- NOTE | 2021-06-13 21:51 | NUR ---
RN NOTE PATIENT COMPLAINING OF SHARP PAIN IN THE ARMS RADIATING DOWN TO HANDS.WILL ADMINISTER TYLENOL FOR PAIN MNGT AND MONITOR.
[2021-06-13] MEDS: LORAZEPAM INJ 2 MG/ML VIAL IV PRN (22:59)
[2021-06-14] VITALS: BP 108/78
[2021-06-14 04:00] VITALS: BP 108/78
[2021-06-14] MEDS: LORAZEPAM INJ 2 MG/ML VIAL IV PRN ×2 (04:35→10:09)
--- NOTE | 2021-06-14 04:35 | NUR ---
RN NOTE FORGOT TO SCAN ATIVAN AT 0435. ADMINISTERED 0.5ML. WASTED PARTIAL DOSE. CHARGE NURSE AWARE. WILL NOTIFY PHARMACY ALSO.
[2021-06-14 07:23] LABS: CALCIUM, SERUM 8.5 mg/dL (8.5-10.1); CREATININE 1.1 mg/dL (0.6-1.3); POTASSIUM 3.9 mmol/L (3.5-5.1)
[2021-06-14] MEDS: PANTOPRAZOLE 40 MG TABLET.DR PO SCH ×2 (07:30→09:34)
--- NOTE | 2021-06-14 07:30 | NUR ---
FAMILY DAY CARE WORKER OPENING NOTES RECEIVED PATIENT ON BED AWAKE AND A/O X4. ON O2 AT 3LPM VIA NASAL CANNULA TOLERATING WELL. NO SOB NOTED. NOT IN DISTRESS. ON TELE MONITOR CURRENTLY READING SINUS RHYTHM AT 85BPM. WITH NO COMPLAINTS OF PAIN OR DISCOMFORT AT THIS TIME. WITH IV ACCESS AT LEFT HAND G22 SALINE LOCKED, PATENT AND INTACT. SAFETY MEASURES IN PLACED. CALL LIGHT WITHIN REACH. BED ON LOWEST LOCKED POSITION, SIDE RAILS UP X2. WILL CONTINUE TO MONITOR.
[2021-06-14 07:57] LABS: BASOPHILS # (AUTO) 0.1 K/uL (0.0-0.2); BASOPHILS % (AUTO) 0.9 % (0.0-2.0); EOSINOPHILS % (AUTO) 1.2 % (0.0-6.0); HEMATOCRIT 33 % (39-51); HEMOGLOBIN 10.7 g/dL (13.5-17.5); LYMPHOCYTES # (AUTO) 2.1 K/uL (0.8-4.8); LYMPHOCYTES % (AUTO) 34.4 % (20.0-44.0); MEAN CORPUSCULAR HGB CONC 32 g/dl (31.0-36.0); MEAN CORPUSCULAR VOLUME 87 fL (80-96); MONOCYTES # (AUTO) 0.5 K/uL (0.1-1.30); MONOCYTES % (AUTO) 7.6 % (2.0-12.0); NEUTROPHILS # (AUTO) 3.4 K/uL (1.8-8.9); NEUTROPHILS % (AUTO) 55.9 % (43.0-81.0); PLATELET COUNT (AUTO) 302 K/uL (150-450); RED BLOOD CELL COUNT(AUTO) 3.81 MIL/uL (4.5-6.0)
[2021-06-14 08:00] VITALS: BP 130/76
[2021-06-14] MEDS: BLOOD SUGAR DIAGNOSTIC 1 EACH STRIP IN SCH ×2 (08:02→12:33)
[2021-06-14] MEDS: ASPIRIN 81 MG TAB.CHEW PO SCH (09:00)
--- NOTE | 2021-06-14 09:25 | NUR ---
RN NOTE CALLED RADIOLOGY AT 3072 TO ASK FOR THE EXACT SCHEDULE FOR THORACENTESIS BUT NO ONE ANSWERED.
[2021-06-14] MEDS: [UNRECOGNIZED DRUG - OTHER] PO SCH (09:32)
[2021-06-14] MEDS: DAPAGLIFLOZIN PO SCH (09:32)
[2021-06-14] MEDS: LOSARTAN POTASSIUM 25 MG TABLET PO SCH (09:33)
[2021-06-14] MEDS: CARVEDILOL 3.125 MG TABLET PO SCH (09:33)
[2021-06-14] MEDS: SPIRONOLACTONE 25 MG TABLET PO SCH (09:33)
--- NOTE | 2021-06-14 10:00 | NUR ---
RN NOTE CALLED RADIOLOGY AND STILL NOT ANSWERED.
--- NOTE | 2021-06-14 10:30 | NUR ---
RN NOTED CALLED RADIOLOGY TO ASK FOR THE EXACT TIME FOR THORACENTESIS AND STILL NO ONE ANSWERED.
[2021-06-14] MEDS ORDERED: SPIR25TA6 PO (11:24)
[2021-06-14] MEDS ORDERED: TEMA15CA5 PO (11:24)
[2021-06-14] MEDS ORDERED: CARV3.122 PO (11:24)
[2021-06-14] MEDS ORDERED: APIX5TAB PO (11:24)
[2021-06-14 12:00] VITALS: BP 116/71
--- NOTE | 2021-06-14 15:37 | NUR ---
MS SECURITIES ANALYST NOTES PATIENT WAS SEEN BY DR. KINGSTON AND ORDERED PATIENT FOR DISCHARGE TO HOME POST THORACENTESIS. DISCHARGE INSTRUCTIONS AND PRESCRIPTION EDUCATION PROVIDED TO THE PATIENT. IV LINE AND NAME WRIST BAND REMOVED. PATIENT VERBALIZED UNDERSTANDING. BELONGINGS LIST AND DISCHARGE INSTRUCTION GIVEN TO THE PATIENT. ACCOMPANIED PATIENT TO THE [facility] AMBULATORY AND LEFT IN STABLE CONDITION. MD AND CHARGE NURSE ARE AWARE OF THE DISCHARGE.
[2021-06-14] MEDS ORDERED: APIXABAN 5 MG TABLET PO SCH (17:00)
== END 2021-06-14 15:39 | disposition home or self-care (01) | DRG 133 ==
LOC: ER 18:21 → TELE 22:22 → TELE1 23:33 → TELE-TD 06-08 05:01 → TELE1 06-08 16:21
PROVIDERS: ADMIT Nurse Practitioner Acute Care; ATTEND Internal Medicine
PROC: 0W993ZZ Drainage of Right Pleural Cavity, Percutaneous Approach (ICD-10-PCS; principal; 2021-06-14)
DX: J96.01 Acute respiratory failure with hypoxia (principal); I26.99 Other pulmonary embolism without acute cor pulmonale; N17.0 Acute kidney failure with tubular necrosis; I21.A1 Myocardial infarction type 2; I42.9 Cardiomyopathy, unspecified; J90 Pleural effusion, not elsewhere classified; D63.8 Anemia in other chronic diseases classified elsewhere; I10 Essential (primary) hypertension; F32.A Depression, unspecified; F41.9 Anxiety disorder, unspecified; E11.9 Type 2 diabetes mellitus without complications; F15.10 Other stimulant abuse, uncomplicated; Z86.59 Personal history of other mental and behavioral disorders; Z86.711 Personal history of pulmonary embolism; Z79.01 Long term (current) use of anticoagulants; Z91.51 Personal history of suicidal behavior
CPT/HCPCS: 36415; 71045-TC; 80048-TC; 80061-TC; 82962-TC; 83735-TC; 83880; 84100-TC; 84155-TC; 84443-TC; 84484-TC; 85025-TC; 85378-TC; 85610-TC; 85730-TC; 87070-TC; 87075-TC; 87081-TC; 87102-TC; 88108-TC; 88305-TC; 89051-TC; 93307-TC; 93970-TC; C9803; G0378; J1650; J1815; J1940; J2060; J7050; Q9967

== ENCOUNTER 2021-06-22 17:53 | Inpatient (IN) | payer OTHER ==
[~2021-06-22] VITALS: Ht 182.9 cm; Wt 88.5 kg
[~2021-06-22 17:53] MED LIST: APIX5TAB PO; CARV3.122 PO; DAPA10TA PO; LOSA25TA27 PO; SPIR25TA6 PO; TEMA15CA5 PO
--- NOTE | 2021-06-22 17:54 | NUR ---
TO ER BED 6, BIB SELF C/O SHARP CHEST PAIN RADIATES TO BILATERAL ARM STARTED 2 HRS INFECTIOUS DISEASES PHYSICIAN, AAOX3, BREATHING EVEN AND NON LABORED, CONNECTED TO MONITOR, CHANGED INTO A GOWN, AWAITING MD MOORE
[2021-06-22] MEDS ORDERED: HYDROCODONE/APAP 10/325MG TABLET PO ONE (18:30)
--- NOTE | 2021-06-22 18:30 | NUR ---
SALINE LOCK ESTABLISHED, BLOOD DRAWN AND SENT TO LAB
[2021-06-22] MEDS ORDERED: HYDROCODONE/APAP 5/325MG TABLET ONE (18:39)
[2021-06-22] MEDS ORDERED: HYDROCODONE/APAP 10/325MG TABLET ONE (18:42)
--- NOTE | 2021-06-22 18:55 | NUR ---
UNABLE TO PROVIDE URINE AT THIS TIME
[2021-06-22 19:13] LABS: CREATININE 1.3 mg/dL (0.6-1.3)
[2021-06-22 19:22] LABS: ALBUMIN 3.4 g/dL (3.4-5.0); BILIRUBIN,DIRECT 0.6 mg/dL (0.0-0.2); BILIRUBIN,TOTAL 1.6 mg/dL (0.2-1.0); TOTAL PROTEIN, SERUM 8.2 g/dL (6.4-8.2)
--- NOTE | 2021-06-22 19:29 | NUR ---
URINE COLLECTED AND SENT TO LAB
[2021-06-22 20:01] LABS: BASOPHILS # (AUTO) 0.1 K/uL (0.0-0.2); BASOPHILS % (AUTO) 0.9 % (0.0-2.0); EOSINOPHILS % (AUTO) 0.2 % (0.0-6.0); HEMATOCRIT 41 % (39-51); HEMOGLOBIN 12.7 g/dL (13.5-17.5); LYMPHOCYTES # (AUTO) 1.6 K/uL (0.8-4.8); LYMPHOCYTES % (AUTO) 21.3 % (20.0-44.0); MEAN CORPUSCULAR HGB CONC 31 g/dl (31.0-36.0); MEAN CORPUSCULAR VOLUME 88 fL (80-96); MONOCYTES # (AUTO) 0.5 K/uL (0.1-1.30); MONOCYTES % (AUTO) 7.2 % (2.0-12.0); NEUTROPHILS # (AUTO) 5.2 K/uL (1.8-8.9); NEUTROPHILS % (AUTO) 70.4 % (43.0-81.0); PLATELET COUNT (AUTO) 313 K/uL (150-450); RED BLOOD CELL COUNT(AUTO) 4.66 MIL/uL (4.5-6.0); WHITE BLOOD COUNT (AUTO) 7.4 K/uL (4.3-11.0)
--- NOTE | 2021-06-22 20:50 | NUR ---
Dane edwards in [facility] - 06/22/21 at 2055 by OSCAR PT TAKEN TO CT VIA [facility]
--- NOTE | 2021-06-22 21:01 | NUR ---
NASH SWABBED AND SENT TO LAB
--- NOTE | 2021-06-22 21:35 | NUR ---
[facility] PAGED
--- NOTE | 2021-06-22 21:54 | NUR ---
TROPONIN 334.5. TRENDING DOWN FROM 335
--- NOTE | 2021-06-22 22:33 | NUR ---
BED 108
--- NOTE | 2021-06-22 22:33 | NUR ---
CONTRACT ADMINISTRATIVE ASSISTANT AT BEDSIDE
--- NOTE | 2021-06-22 22:42 | NUR ---
REPORT GIVEN TO ALEXIS
--- NOTE | 2021-06-22 23:11 | NUR ---
PATIENT TRANSFERRED UNDER ACLS.
[2021-06-22 23:30] VITALS: BP 116/85
[2021-06-22] MEDS ORDERED: DEXTROSE 50%-WATER 50 ML DISP.SYRIN IV PRN (23:30)
[2021-06-22] MEDS ORDERED: FUROSEMIDE 20 MG/2 ML VIAL IV ONE (23:30)
[2021-06-22] MEDS: APIXABAN 5 MG TABLET PO SCH (23:50)
--- NOTE | 2021-06-22 23:56 | NUR ---
RN NOTE 2300 RECEIVED PT FROM ER WITH DIAGNOSIS OF NSTEMI AND CHF EXACERBATION. PT ALERT AND ORIENTED X4. DENIES ANY PAIN AT THIS TIME, PT APPEARS TO BE ANXIOUS, DENIES ANY SHORTNESS OF BREATH, HOOKED TO O2 AT 2L. WITH 100% O2 SATURATION. PT VERBALIZES HE IS SCARED, RELAXATION TECHNIQUES GIVEN, REFUSED ANY MEDICATION REGIMEN FOR ANXIETY. TELE MONITOR SHOWS SR WITH HR OF 86. SKIN INTACT, WARM TO TOUCH. SWELLING NOTED ON BLE. ALL DUE MEDS WERE GIVEN ORDERED. IV ON RAC PATENT AND INTACT, FLUSHES WELL. ORIENTED TO BED OPERATION AND CALL. ALL SAFETY MEASURES IMPLEMENTED PER PROTOCOL. WILL CONTINUE TO MONITOR.
--- NOTE | 2021-06-23 01:00 | NUR ---
RN NOTE TROPONIN RESULT 304, REPORTED TO ROW BOSS LEAD OPERATOR DAVIS. NO ORDERS AT THIS TIME.
[2021-06-23 04:00] VITALS: BP 120/80
--- NOTE | 2021-06-23 06:36 | NUR ---
RN NOTE PT SLEEPING, AROUSES EASILY. PT DENIES ANY CHEST PAIN OR SOB. PT APPEARS TO BE CALM NOW. NO DISTRESS NOTED. REMAIN SR ON TELE MONITOR, ON FREQUENT VISUAL CHECKS. PT ON STRICT I&O. PT USING URINAL. ALL SAFETY MEASURES MAINTAINED. WILL ENDORSE TO NEXT SHIFT NURSE FOR NOLBERTO.
[2021-06-23 06:42] LABS: BASOPHILS # (AUTO) 0.1 K/uL (0.0-0.2); BASOPHILS % (AUTO) 1.1 % (0.0-2.0); EOSINOPHILS % (AUTO) 0.9 % (0.0-6.0); HEMATOCRIT 35 % (39-51); HEMOGLOBIN 11.3 g/dL (13.5-17.5); LYMPHOCYTES # (AUTO) 2.3 K/uL (0.8-4.8); LYMPHOCYTES % (AUTO) 35.1 % (20.0-44.0); MEAN CORPUSCULAR HGB CONC 33 g/dl (31.0-36.0); MEAN CORPUSCULAR VOLUME 87 fL (80-96); MONOCYTES # (AUTO) 0.5 K/uL (0.1-1.30); MONOCYTES % (AUTO) 8.3 % (2.0-12.0); NEUTROPHILS # (AUTO) 3.6 K/uL (1.8-8.9); NEUTROPHILS % (AUTO) 54.6 % (43.0-81.0); PLATELET COUNT (AUTO) 286 K/uL (150-450); RED BLOOD CELL COUNT(AUTO) 3.97 MIL/uL (4.5-6.0); WHITE BLOOD COUNT (AUTO) 6.6 K/uL (4.3-11.0)
[2021-06-23 07:04] LABS: CALCIUM, SERUM 8.7 mg/dL (8.5-10.1); CREATININE 1.1 mg/dL (0.6-1.3); MAGNESIUM 1.9 mg/dL (1.8-2.4); PHOSPHORUS 4.9 mg/dL (2.5-4.9); POTASSIUM 4.9 mmol/L (3.5-5.1)
[2021-06-23 08:00] VITALS: BP 132/89
--- NOTE | 2021-06-23 08:00 | NUR ---
SHIRLEY RN NOTE PATIENT IN BED , ALERT ORIENTED ON 2N NC SATURATION 95% AT THIS TIME
[2021-06-23] MEDS: CARVEDILOL 3.125 MG TABLET PO SCH ×2 (08:37→21:16)
[2021-06-23] MEDS: APIXABAN 5 MG TABLET PO SCH (08:37)
[2021-06-23] MEDS: SPIRONOLACTONE 25 MG TABLET PO SCH (08:37)
[2021-06-23] MEDS: LOSARTAN POTASSIUM 25 MG TABLET PO SCH (08:38)
[2021-06-23] MEDS: PANTOPRAZOLE 40 MG TABLET.DR PO SCH (08:39)
[2021-06-23] MEDS: ASPIRIN 81 MG TAB.CHEW PO SCH (08:39)
[2021-06-23] MEDS: FUROSEMIDE 40 MG/4 ML VIAL IV SCH ×3 (08:39→15:51)
[2021-06-23] MEDS: BLOOD SUGAR DIAGNOSTIC 1 EACH STRIP IN SCH ×4 (08:49→21:24)
--- NOTE | 2021-06-23 08:49 | NUR ---
jan rn note per dr van meng to give Lasix and Aldactone po
[2021-06-23] MEDS ORDERED: CT SWABBABLE VALVE TRANS SET 1 EA INFUS.SET MC ONE (11:27)
[2021-06-23] MEDS ORDERED: IV NS 0.9% 250 ML IV ONE (11:27)
[2021-06-23] MEDS ORDERED: IOHEXOL-350 100 ML VIAL IV ONE (11:27)
--- NOTE | 2021-06-23 11:51 | NUR ---
ORTHODONTIC LAB TECHNICIAN NOTE PULMONARY ANGIOGRAM DONE ORDERED
[2021-06-23 12:21] VITALS: BP 114/79
--- NOTE | 2021-06-23 14:55 | NUR ---
telecommunications network planner note per dr monzon order venous Dopplex and Lovenox will f\o, aware pulmo angio gram result
--- NOTE | 2021-06-23 15:18 | NUR ---
GERMAN PROFESSOR NOTE CALLED TO DR KINGSTON NOTIFIED THAT PATIENT C\O SEVERE ITCHING ON BODY WITH ORDER GIVEN BENADRYL ,ORDER CARRIED OUT
[2021-06-23] MEDS ORDERED: diphenhydrAMINE HCL ELIX 25 MG/10 ML UDC PO PRN (15:30)
[2021-06-23] MEDS: diphenhydrAMINE HCL 25 MG CAPSULE PO PRN (15:48)
[2021-06-23 16:00] VITALS: BP 131/69
--- NOTE | 2021-06-23 16:00 | NUR ---
jan rn not Benadryl 25 mg po given as ordered
--- NOTE | 2021-06-23 16:35 | NUR ---
SS Consult: MAYE metw ith pt. bedside.the pt is a 36 year old male who is familiar to this SW from multiple previous admissions. Upon SS consult, the pt. is Alert & Oriented x 4 and makes good eye contact. The pt. appears unkempt with dysphoric mood and affect. MAYE explored pt.s living situation. Per pt. he lives at home[[address] [facility] [address]; [phone]] with his parents. MAYE explored pt.s drug & ETOH use. Pt. denies any current drug use. Pt. has Hx. of polysubstance abuse and stated he has been sober and his brothers have been helping him. MAYE explored pt.s mental health Hx. Pt. states he is not sure if he has been diagnosed with a mental illness in the past. Pt. denies current SI/HI. Pt. states he huerta have intermittent visual hallucinations of shadow people and auditory hallucinations that tell him to do normal things or to hurt other but I dont listen. Pt. denies HI towards a specific individual. Per pt. he is ambulatory & independent with most his ADLs. MAYE explored pt.s support system. Pt. states his mother, Karine [phone] is his support system. Plan: Pt. states he will return to his previous living arrangement at home[[address] [facility] [address]; [phone]] with his parents. MAYE provided pt. with addiction resources and pt. accepted them. MAYE notified Charge Nurse Alanna about psych consult request. ADDICTION RESOURCES For Drugs and Alcohol [facility] Substance Abuse Helpline([facility] Outpatient treatment, residential treatment, recovery support for youth and adults [facility] www.actionfamilycounsfoc.us.[facility] [place] [place] Teen programs for drug/alcohol education and support [facility] [place]. Program for adults, sliding scale provides support and education [facility] www.Huiyuan.org [place]; Outpatient/residential treatment programs; transition to sober living [facility] www.cri-help.org [place]; Outpatient and residential treatment programs; transition to sober living [facility] Srinivasa [place]; Outpatient education and supportive programs for teens and adults [place] www.oasiswomensrecovery.org [place]; Residential treatment and work program for females only [place] www.[facility]Third [facility].org [place]: Outpatient/residential treatment program for teens and young adults [facility] www.legacy health.org [place] [facility], inpatient, outpatient for adults and youth [facility], [facility]. [place]; Outpatient programs and referrals to community residential programs. Alcoholics Anonymous -SFV information and meeting and schedules www.aa-intergroup.org [place] https://al-anon.org/ [place] support groups for family of alcoholics. Marijuana Anonymous www.madistrict6.org -sfv listing of meetings Narcotics Anonymous www.na.org SOBER LIVING RESOURCES [facility] www.soberhousing.net A non-profit agency that provides resources to recovery and sober living homes throughout [facility] Sober Living Homes: A Work in ProgressScot [facility] Recovery [facility], [facility] Srinivasa [place] Womens Sober Living Homes: [facility] [place] x [phone] [place], [place] [facility] Coed Sober Living Homes: [facility] Counseling--Outpatient [facility] [address] [place] [address] (Specializes in in-depth psychotherapy for emotional distress: anxiety, depression, interpersonal conflicts, life transitions, childhood abuse) [facility] [address] [place] [address] (Assist with solving problem marital difficulties, separation & divorce, aging parents, & grief, chronic & terminal illness) [facility] [address] [place] [address] (Deal with loss & grief, anxiety, marital difficulties) Homebound/Mental Health Services [address] [facility] [address] [place] [address] (Provide in-home mental services to people who are incapable of leaving their homes) [facility] Needs of the Elderly [facility] [address] [place] [address] [facility] [address] [place] [address] Mental Health Services [facility] [address] [place] [address] Services: Outpatient therapy for children, teens, young adults, adults, older adults, and families; Psychiatric services, medication support Psychiatric Outpatient Services [facility] Partial Hospitalization and Intensive Outpatient Program (Managed Care and [place] Only)[address] [facility] [phone] [facility] Partial Hospitalization and Outpatient [id number] [facility] [address] [place], [place] [phone] [facility] Partial Hospitalization and Outpatient [id number] [place], [place] [phone] [facility] Mental Health [place] [id number] [facility] [address] [place], [place] [phone] [facility] Partial Hospitalization and Outpatient [id number] [facility] Srinivasa [place], [phone] Crisis and Hotline Telephone Numbers 24-Hour service unless stated [place] Crisis Hotlines: [facility] Mental Health/Crisis Line........[phone] Suicide Prevention Center (24 Hours).......929.575.2005 Suicide Prevention Crisis Center.......[phone] (24 Hours) Assaults Against Women Hotline.........333.297.5541 (24 Hours -- [facility]) Women and Children Crisis Alf...........[phone] (24 Hours) Child Abuse Hotline............645.226.9983 [facility] (24 Hours)..........[phone] Alcoholics Anonymous (24 Hours)..........[phone] Cocaine Anonymous (24 Hours)............[phone] Narcotics Anonymous (24 Hours)..........[phone] [address] [facility] [address], [place] [address]
--- NOTE | 2021-06-23 17:34 | NUR ---
telecommunicator note called to radiology x3 for duplex study both legs stated that tech will be here soon
--- NOTE | 2021-06-23 18:06 | NUR ---
tele tn note duplex studding doing now
--- NOTE | 2021-06-23 18:20 | NUR ---
telescope operator note all needs attended, a, no sob noted call light within reach, still doing duplex study ,will cont to monitor
--- NOTE | 2021-06-23 19:30 | NUR ---
RN OPENING NOTES RECEIVED CARE OF PATIENT WHILE PATIENT IN BED, A/O X4, ABLE TO VERBALIZE NEEDS. PATIENT EXPRESSES NO DISCOMFORT OR PAIN AT THIS TIME. PATIENT ON O2 VIA NC RUNNING AT 2L/MIN, 02 SAT 100%, NO SOB NOTED. PATIENT ON TELE MONITOR SHOWING NSR WITH HR OF 82, NO DISTRESS NOTED. NO SIGNIFICANT FINDINGS UPON INITIAL NURSING ASSESSMENTS. PATIENT WITH IV ON RAC, PATENT AND FLUSHING WELL. ALL SAFETY MEASURES IMPLEMENTED PER PROTOCOL. WILL CONTINUE TO MONITOR PATIENT.
[2021-06-23 20:00] VITALS: BP 121/86
[2021-06-23] MEDS: ENOXAPARIN SODIUM 100 MG/ML DISP.SYRIN SQ SCH (21:15)
[2021-06-23] MEDS: TEMAZEPAM 15 MG CAPSULE PO PRN (21:30)
[2021-06-24] VITALS: BP 103/69
[2021-06-24 04:00] VITALS: BP 120/82
--- NOTE | 2021-06-24 06:32 | NUR ---
RN CLOSING NOTES WILL ENDORSE CARE OF PATIENT WHILE PATIENT IN BED, SLEEPING, WAKES UP TO NAME. PATIENT A/O X4, ABLE TO MAKE NEEDS KNOWN THROGHOUT SHIFT. ALL NEEDS ATTENDED TO, ALL DUE MEDS GIVEN. NO SIGNIFICANT FINDINGS UPON ALL NURSING ASSESSMENTS. OMN TELE MONITOR SHOWING NSR WITH HR OF 86, NO DISTRESS NOTED. ON O2 VIA NC AT 2L/MIN, O2 SAT 100%, [id number] EVEN AND UNLABORED. ALL SAFETY MEASURES IMPLEMENTED PER PROTOCOL. WILL ENDORSE TO AM NURSE FOR NOLBERTO.
[2021-06-24 06:46] LABS: BASOPHILS % (AUTO) 0.7 % (0.0-2.0); EOSINOPHILS % (AUTO) 1.3 % (0.0-6.0); HEMATOCRIT 34 % (39-51); HEMOGLOBIN 10.8 g/dL (13.5-17.5); LYMPHOCYTES # (AUTO) 1.9 K/uL (0.8-4.8); MEAN CORPUSCULAR HGB CONC 32 g/dl (31.0-36.0); MEAN CORPUSCULAR VOLUME 86 fL (80-96); MONOCYTES # (AUTO) 0.5 K/uL (0.1-1.30); MONOCYTES % (AUTO) 7.6 % (2.0-12.0); NEUTROPHILS # (AUTO) 3.6 K/uL (1.8-8.9); NEUTROPHILS % (AUTO) 59.4 % (43.0-81.0); PLATELET COUNT (AUTO) 267 K/uL (150-450); RED BLOOD CELL COUNT(AUTO) 3.96 MIL/uL (4.5-6.0); WHITE BLOOD COUNT (AUTO) 6.1 K/uL (4.3-11.0)
[2021-06-24 07:18] LABS: ALBUMIN 2.5 g/dL (3.4-5.0); BILIRUBIN,TOTAL 1.1 mg/dL (0.2-1.0); CALCIUM, SERUM 8.5 mg/dL (8.5-10.1); CREATININE 1.1 mg/dL (0.6-1.3); MAGNESIUM 1.9 mg/dL (1.8-2.4); PHOSPHORUS 5.6 mg/dL (2.5-4.9); POTASSIUM 3.8 mmol/L (3.5-5.1); TOTAL PROTEIN, SERUM 6.3 g/dL (6.4-8.2)
--- NOTE | 2021-06-24 07:47 | NUR ---
RN OPENING NOTE PATIENT RECEIVED IN BED, ASLEEP. PATIENT ON 2L O2 NC WITH NO SIGNS OF LABORED BREATHING AT THIS TIME. RIGHT AC 18G SL IN PLACE. NO SIGNS OF ACUTE DISTRESS NOTED AT THIS TIME. BED LOCKED AND IN LOWEST POSITION, CALL LIGHT WITHIN REACH, 2 SIDE RAILS UP. WILL CONTINUE TO MONITOR.
[2021-06-24] MEDS: BLOOD SUGAR DIAGNOSTIC 1 EACH STRIP IN SCH ×4 (07:58→22:00)
[2021-06-24 08:00] VITALS: BP 111/71
[2021-06-24] MEDS: FUROSEMIDE 100 MG/10 ML VIAL IV SCH ×3 (08:23→16:37)
[2021-06-24] MEDS: CARVEDILOL 3.125 MG TABLET PO SCH ×2 (08:24→21:00)
[2021-06-24] MEDS: SPIRONOLACTONE 25 MG TABLET PO SCH (08:24)
[2021-06-24] MEDS: PANTOPRAZOLE 40 MG TABLET.DR PO SCH (08:24)
[2021-06-24] MEDS: POTASSIUM CHLORIDE 20 MEQ TAB.PRT.SR PO SCH ×3 (08:24→11:28)
[2021-06-24] MEDS: ASPIRIN 81 MG TAB.CHEW PO SCH (08:24)
[2021-06-24] MEDS: LOSARTAN POTASSIUM 25 MG TABLET PO SCH (08:24)
[2021-06-24] MEDS: ENOXAPARIN SODIUM 100 MG/ML DISP.SYRIN SQ SCH ×2 (08:25→21:58)
[2021-06-24] MEDS: MORPHINE SULFATE INJ 2 MG/ML DISP.SYRIN IV PRN ×2 (08:26→12:53)
[2021-06-24 12:04] LABS: THYROID STIMULATING HORMONE 2.706 uIU/mL (0.358-3.74)
[2021-06-24 16:00] VITALS: BP 98/49
--- NOTE | 2021-06-24 18:45 | NUR ---
RN CLOSING NOTE PATIENT REMAINS IN BED, AWAKE, A&OX4, PLEASANT. PATIENT ON 2L O2 NC WITH NO SIGNS OF LABORED BREATHING AT THIS TIME. RIGHT AC 18G SL IN PLACE. PATIENT TO BE NPO EXCEPT MEDS AT MIDNIGHT FOR ABD US IN AM. NO SIGNS OF ACUTE DISTRESS NOTED AT THIS TIME. ALL NEEDS ATTENDED DURING SHIFT. BED LOCKED AND IN LOWEST POSITION, CALL LIGHT WITHIN REACH, 2 SIDE RAILS UP. WILL ENDORSE TO TRAVEL COUNSELOR AUTOMOBILE CLUB NURSE.
[2021-06-24 20:00] VITALS: BP_SYST 104; BP_SYST 127; BP_DIAS 63; BP_DIAS 74
[2021-06-24] MEDS: INSULIN REGULAR, HUMAN 100 UNIT/ML 3 ML VIAL SQ PRN (23:32)
[2021-06-25] VITALS: BP_SYST 123; BP_SYST 89; BP_DIAS 56; BP_DIAS 57
[2021-06-25 04:00] VITALS: BP_SYST 101; BP_SYST 89; BP_DIAS 57; BP_DIAS 69
[2021-06-25 07:07] LABS: IMMUNOGLOBULIN A, SERUM 1011 mg/dL (90-386); IMMUNOGLOBULIN G, SERUM 1611 mg/dL (603-1613); IMMUNOGLOBULIN M, SERUM 103 mg/dL (20-172)
[2021-06-25] MEDS: BLOOD SUGAR DIAGNOSTIC 1 EACH STRIP IN SCH ×4 (07:51→22:04)
[2021-06-25 08:00] VITALS: BP 105/64
--- NOTE | 2021-06-25 08:11 | NUR ---
TELE/RN OPENING NOTES RECEIVED PATIENT IN BED, AWAKE, A/O X4. PATIENT ON 2L OXYGEN VIA0 NASAL CANNULA WITH NO SIGNS OF LABORED BREATHING AT THIS TIME. RIGHT AC #18G SL IN PLACE. PATIENT TO BE NPO EXCEPT MEDS AT MIDNIGHT FOR ABD US TOMORROW AM. NO SIGNS OF ACUTE DISTRESS NOTED AT THIS TIME. SAFETY MEASURES IN PLACED: BED LOCKED AND IN LOWEST POSITION, CALL LIGHT WITHIN REACH, 2 SIDE RAILS UP. WILL CONTINUE WITH THE PLAN OF CARE.
[2021-06-25] MEDS: PANTOPRAZOLE 40 MG TABLET.DR PO SCH (08:21)
[2021-06-25] MEDS: SPIRONOLACTONE 25 MG TABLET PO SCH (08:21)
[2021-06-25] MEDS: LOSARTAN POTASSIUM 25 MG TABLET PO SCH (08:22)
[2021-06-25] MEDS: ASPIRIN 81 MG TAB.CHEW PO SCH (08:22)
[2021-06-25] MEDS: CARVEDILOL 3.125 MG TABLET PO SCH ×2 (08:22→22:04)
[2021-06-25] MEDS: ENOXAPARIN SODIUM 100 MG/ML DISP.SYRIN SQ SCH ×2 (08:29→21:59)
[2021-06-25] MEDS: diphenhydrAMINE HCL 25 MG CAPSULE PO PRN (08:31)
[2021-06-25 09:07] LABS: *ANA ANTI-CENTROMERE B AB <0.2 AI (0.0-0.9); *ANA ANTI-DNA(DS) AB, QN <1 IU/mL (0-9); *ANA ANTI-JO-1 <0.2 AI (0.0-0.9); *ANA ANTICHROMATIN ANTIBODY 0.4 AI (0.0-0.9); *ANA RNP ANTIBODIES 0.3 AI (0.0-0.9); *ANA SJOGREN'S ANTI-SS-A <0.2 AI (0.0-0.9); *ANA SJOGREN'S ANTI-SS-B <0.2 AI (0.0-0.9); *ANAANTI-SCLERODERMA-70 AB <0.2 AI (0.0-0.9); *ANASMITH AB <0.2 AI (0.0-0.9)
[2021-06-25 12:20] VITALS: BP 97/65
[2021-06-25 16:28] VITALS: BP 103/67
[2021-06-25] MEDS: FERROUS SULFATE (325 MG) 325 MG/TAB TABLET PO SCH (17:46)
--- NOTE | 2021-06-25 18:58 | NUR ---
TELE/RN CLOSING NOTES PATIENT IN BED, AWAKE, A/O X4. PATIENT ON 2L OXYGEN VIA0 NASAL CANNULA WITH NO SIGNS OF LABORED BREATHING AT THIS TIME. RIGHT AC #18G SL IN PLACE. PATIENT TO BE NPO EXCEPT MEDS AT MIDNIGHT FOR ABD US TOMORROW AM. NO SIGNS OF ACUTE DISTRESS NOTED AT THIS TIME. ALL NEEDS MET. KEPT PATIENT COMFORTABLE THROUGHOUT THE SHIFT. SAFETY MEASURES IN PLACED: BED LOCKED AND IN LOWEST POSITION, CALL LIGHT WITHIN REACH, 2 SIDE RAILS UP. WILL ENDORSE TO THE NEXT SHIFT FOR NOLBERTO.
[2021-06-25 20:00] VITALS: BP 101/62
[2021-06-25] MEDS: TEMAZEPAM 15 MG CAPSULE PO PRN (21:50)
[2021-06-25] MEDS: MORPHINE SULFATE INJ 2 MG/ML DISP.SYRIN IV PRN (22:06)
[2021-06-26] VITALS: BP 96/56
[2021-06-26] MEDS ORDERED: LR IV ONE (03:30)
[2021-06-26 04:00] VITALS: BP 96/53
--- NOTE | 2021-06-26 05:40 | NUR ---
RN notes In bed, resting comfortably with no distress noted. Breathing even and unlabored. On two lpm O2 via nasal cannula tolerating well. Complaining of pain in both upper and lower extremities with tingling sensation. Administered Morphine 2mg and Restoril 15mg for sleep with help and relief. Noted with elevated HR 120's and low BP 89/56. Relayed to MD with orders to give bolus of 200mls of LR. Increased BP to 108/73 and heart rate 104bpm. Kept clean and dry. Will endorse to next shift for continuity of care.
--- NOTE | 2021-06-26 07:51 | NUR ---
RN OPENING NOTE PATIENT IN BED, AWAKE, A/O X4. PATIENT ON 2L OXYGEN VIA0 NASAL CANNULA WITH NO SIGNS OF LABORED BREATHING AT THIS TIME. RIGHT AC #18G SL IN PLACE. NO SIGNS OF ACUTE DISTRESS NOTED AT THIS TIME. ALL SAFETY MEASURES NOTED AND ACCOUNTED FOR. SAFETY MEASURES IN PLACED: BED LOCKED AND IN LOWEST POSITION, CALL LIGHT WITHIN REACH, 2 SIDE RAILS UP. WILL CONTINUE TO MONITOR.
[2021-06-26 08:00] VITALS: BP 99/60
[2021-06-26] MEDS: PANTOPRAZOLE 40 MG TABLET.DR PO SCH (08:21)
[2021-06-26] MEDS: BLOOD SUGAR DIAGNOSTIC 1 EACH STRIP IN SCH ×4 (08:21→22:27)
[2021-06-26] MEDS: SPIRONOLACTONE 25 MG TABLET PO SCH (08:21)
[2021-06-26] MEDS: FERROUS SULFATE (325 MG) 325 MG/TAB TABLET PO SCH ×2 (08:22→16:33)
[2021-06-26] MEDS: ASPIRIN 81 MG TAB.CHEW PO SCH (08:22)
[2021-06-26] MEDS: ENOXAPARIN SODIUM 100 MG/ML DISP.SYRIN SQ SCH ×2 (08:24→21:48)
[2021-06-26] MEDS: CARVEDILOL 3.125 MG TABLET PO SCH ×2 (08:34→22:22)
[2021-06-26] MEDS: LOSARTAN POTASSIUM 25 MG TABLET PO SCH (08:35)
[2021-06-26 12:00] VITALS: BP 104/68
[2021-06-26] MEDS: ACETAMINOPHEN 325 MG TABLET PO PRN ×2 (15:47→21:48)
[2021-06-26 16:00] VITALS: BP 94/63
--- NOTE | 2021-06-26 18:36 | NUR ---
RN CLOSING NOTE PATIENT REMAINED STABLE THROUGHOUT SHIFT. PATIENT IN BED, AWAKE, A/O X4. PATIENT ON 2L OXYGEN VIA0 NASAL CANNULA WITH NO SIGNS OF LABORED BREATHING AT THIS TIME. RIGHT AC #18G SL IN PLACE. NO SIGNS OF ACUTE DISTRESS NOTED AT THIS TIME. ALL NEEDS MET AND MEDS ADM THROUGHOUT SHIFT. ALL SAFETY MEASURES NOTED AND ACCOUNTED FOR. SAFETY MEASURES IN PLACED: BED LOCKED AND IN LOWEST POSITION, CALL LIGHT WITHIN REACH, 2 SIDE RAILS UP. WILL ENDORSE TO AUTO REPAIR TECHNICIAN RN..
[2021-06-26 20:00] VITALS: BP 130/95
[2021-06-26] MEDS ORDERED: VANCOMYCIN 1 GM VIAL ONE (20:29)
[2021-06-26] MEDS ORDERED: VANCOMYCIN 2 GM in IV D5W 500 ML IV ONE (20:30)
--- NOTE | 2021-06-26 20:47 | NUR ---
RN NOTE RECEIVED PT SHIVERING. ALERT AND ORIENTED. BODY TEMP 100.6 WITH BUNDLE OF BLANKETS. REMOVED BLANKETS, COOLING MEASURES APPLIED. PT NOT DUE FOR TYLENOL. PT DENIES ANY PAIN OR SOB. HEART RATE GOES TO 140S. BP 130/95. RR 25. DR CURRY SEEN PT WITH NEW ORDERS. NOTIFIED MICROFICHE CAMERA OPERATOR EGG CANDLER SUSAN REGARDING PTS CONDITION. WITH NEW ORDERS WELL. ALSO ORDERED FOR RAPID COVID TEST. PT SHIVERING IMPROVED AFTER COOLING MEASURES. NO DISTRESS WERE NOTED. IV ATB STARTED ORDERED. WILL CONTINUE TO MONITOR.
--- NOTE | 2021-06-26 21:50 | NUR ---
RN NOTE PT STOPPED SHIVERING, BODY TEMP AXILLARY 103.1, CHECKED RECTALLY 104.4. TYLENOL 650MG GIVEN. NO CHANGES IN LOC NOTED. CONTINUE TO GIVE COOLING MEASURES. BETTE DAVIS MADE AWARE. PT CURRENTLY RECEIVING IV VANCOMYCIN.
--- NOTE | 2021-06-26 22:20 | NUR ---
RN NOTE PT BP 99/63 HR 116. PT DUE WITH COREG 3.125MG. DELIVERY DRIVER ASSISTANT PHOTOGRAPHIC EQUIPMENT TECHNICIAN SUSAN OK TO GIVE.
[2021-06-26 22:26] LABS: BILIRUBIN,URINE NEGATIVE (NEGATIVE); COLOR,URINE ORANGE (YELLOW); LEUKOCYTE ESTERASE ,URINE NEGATIVE (NEGATIVE); NITRITE, URINE NEGATIVE (NEGATIVE); PROTEIN,URINE 100 mg/dl (NEGATIVE); UGLUCOSE NEGATIVE (NEGATIVE)
[2021-06-26 23:01] LABS: BACTERIA,URINE None seen /HPF (None Seen); SQUAMOUS EPITHELIAL CELL,UR Few /HPF (None Seen)
[2021-06-26] MEDS ORDERED: PIPERACILLIN /TAZOBACTAM 3.375 G VIAL IV ONE (23:18)
[2021-06-26] MEDS: PIPERACILLIN /TAZOBACTAM 3.375 G in IV D5W 50 ML IV SCH (23:22)
[2021-06-27] VITALS: BP 90/55
--- NOTE | 2021-06-27 02:13 | NUR ---
RN NOTE PT SLEEPING, AROUSES EASILY. FEVER SUBSIDED. CURRENT TEMP 99.6. NO CHANGES IN LOC NOTED. DUE IV ATBS WERE GIVEN ORDERED.
[2021-06-27 04:00] VITALS: BP 93/58
[2021-06-27] MEDS ORDERED: PIPERACILLIN /TAZOBACTAM 3.375 G VIAL IV ONE (04:52)
[2021-06-27] MEDS: PIPERACILLIN /TAZOBACTAM 3.375 G in IV D5W 50 ML IV SCH ×4 (05:12→23:18)
--- NOTE | 2021-06-27 06:50 | NUR ---
RN NOTE PT SLEEPING AROUSES EASILY. NOT IN ANY DISTRESS. DENIES ANY PAIN OR SOB. CONTINUE ON O2 AT 2L. SR ON TELE MONITOR WITH HR OF 76. LATEST TEMP 97.4. IV REMAIN PATENT AND INTACT. ALL NEEDS WERE ATTENDED. WILL ENDORSE TO NEXT SHIFT NURSE FOR NOLBERTO.
[2021-06-27 07:06] LABS: *SPE A/G RATIO 0.8 (0.7-1.7); *SPE ALPHA-1-GLOBULIN 0.4 g/dL (0.0-0.4); *SPE ALPHA-2-GLOBULIN 0.6 g/dL (0.4-1.0); *SPE BETA GLOBULIN 1.4 g/dL (0.7-1.3); *SPE M-SPIKE Not Observed g/dL (Not Observed)
--- NOTE | 2021-06-27 07:17 | NUR ---
RN OPENING NOTES PATIENT IN BED, ASLEEP, A/O X4. PATIENT ON 2L OXYGEN VIA NASAL CANNULA WITH NO SIGNS OF LABORED BREATHING AT THIS TIME. RIGHT AC #18G SL IN PLACE. NO SIGNS OF ACUTE DISTRESS NOTED AT THIS TIME. ALL SAFETY MEASURES NOTED AND ACCOUNTED FOR. SAFETY MEASURES IN PLACED: BED LOCKED AND IN LOWEST POSITION, CALL LIGHT WITHIN REACH, 2 SIDE RAILS UP. WILL CONTINUE TO MONITOR THROUGHOUT SHIFT.
[2021-06-27 07:33] LABS: CALCIUM, SERUM 7.9 mg/dL (8.5-10.1); CREATININE 1.2 mg/dL (0.6-1.3); POTASSIUM 3.9 mmol/L (3.5-5.1)
[2021-06-27 07:39] LABS: BASOPHILS % (AUTO) 0.2 % (0.0-2.0); HEMATOCRIT 34 % (39-51); HEMOGLOBIN 10.9 g/dL (13.5-17.5); LYMPHOCYTES # (AUTO) 0.3 K/uL (0.8-4.8); LYMPHOCYTES % (AUTO) 3.1 % (20.0-44.0); MEAN CORPUSCULAR HGB CONC 32 g/dl (31.0-36.0); MEAN CORPUSCULAR VOLUME 87 fL (80-96); MONOCYTES # (AUTO) 0.3 K/uL (0.1-1.30); MONOCYTES % (AUTO) 3.6 % (2.0-12.0); NEUTROPHILS # (AUTO) 8.9 K/uL (1.8-8.9); NEUTROPHILS % (AUTO) 93.1 % (43.0-81.0); PLATELET COUNT (AUTO) 171 K/uL (150-450); RED BLOOD CELL COUNT(AUTO) 3.95 MIL/uL (4.5-6.0); WHITE BLOOD COUNT (AUTO) 9.6 K/uL (4.3-11.0)
[2021-06-27] MEDS: BLOOD SUGAR DIAGNOSTIC 1 EACH STRIP IN SCH ×4 (07:48→21:45)
[2021-06-27] MEDS: PANTOPRAZOLE 40 MG TABLET.DR PO SCH (07:48)
[2021-06-27 08:00] VITALS: BP 96/55
[2021-06-27] MEDS: ENOXAPARIN SODIUM 100 MG/ML DISP.SYRIN SQ SCH (08:36)
[2021-06-27] MEDS: PYRIDOXINE HCL 50 MG TABLET PO SCH (08:38)
[2021-06-27] MEDS: LOSARTAN POTASSIUM 25 MG TABLET PO SCH (08:38)
[2021-06-27] MEDS: FOLIC ACID 1 MG TABLET PO SCH (08:38)
[2021-06-27] MEDS: CARVEDILOL 3.125 MG TABLET PO SCH ×2 (08:39→20:13)
[2021-06-27] MEDS: CYANOCOBALAMIN 500 MCG TABLET PO SCH (08:39)
[2021-06-27] MEDS: FERROUS SULFATE (325 MG) 325 MG/TAB TABLET PO SCH ×2 (08:39→16:18)
[2021-06-27] MEDS: ASPIRIN 81 MG TAB.CHEW PO SCH (08:39)
[2021-06-27] MEDS: SPIRONOLACTONE 25 MG TABLET PO SCH (08:40)
[2021-06-27] MEDS: VANCOMYCIN 1.25 GM in IV D5W 250 ML IV SCH ×2 (08:56→20:18)
[2021-06-27 12:00] VITALS: BP 93/61
[2021-06-27] MEDS: ONDANSETRON HCL/PF 4 MG/2 ML VIAL IVP PRN (12:11)
[2021-06-27] MEDS: MORPHINE SULFATE INJ 2 MG/ML DISP.SYRIN IV PRN ×2 (13:31→20:11)
[2021-06-27 16:00] VITALS: BP 96/52
--- NOTE | 2021-06-27 19:00 | NUR ---
RN CLOSING NOTE PATIENT REMAINED STABLE THROUGHOUT SHIFT. NO S/S OF RESP DISTRESS. NO C/O PAIN AT THIS TIME. PATIENT IN BED, AWAKE, A/O X4. PATIENT ON 2L OXYGEN VIA0 NASAL CANNULA WITH NO SIGNS OF LABORED BREATHING AT THIS TIME. LEFT AC #18G SL IN PLACE. ALL NEEDS MET AND MEDS ADM THROUGHOUT SHIFT. ALL SAFETY MEASURES IN PLACE. BED LOCKED AND IN LOWEST POSITION, CALL LIGHT WITHIN REACH, 2 SIDE RAILS UP. WILL ENDORSE TO PROGRAM CONSULTANT NURSE FOR NOLBERTO.
[2021-06-27 20:00] VITALS: BP 95/65
--- NOTE | 2021-06-27 20:00 | NUR ---
RN NOTES, PATIENT A/O X4 ABLE TO VERBALIZE NEEDS AD CONCERNS, NO SOB/ACUTE DISTRESS NOTED, AT 2LPM VIA NC, NSR IN TELE MONITOR, AFEBRILE, C/O PAIN WILL ADM MEDICATION ORDERED, PATIENT WEARING LIFE VEST EVERYTHING IN PLACED, VERBALIZED THE PURPOSE OF THE VEST, ALL NEEDS ATTENDED, 1/2 S/R OF BED X2 UP, CALL LIGHT W/I REACH, WILL CONT TO MONITOR CLOSELY.
[2021-06-27] MEDS: INSULIN REGULAR, HUMAN 100 UNIT/ML 3 ML VIAL SQ PRN (21:45)
[2021-06-27] MEDS: TEMAZEPAM 15 MG CAPSULE PO PRN (23:39)
[2021-06-28] VITALS (7 sets, daily range): BP systolic 87–111; BP diastolic 54–69
[2021-06-28 00:06] LABS: *ANTITHROMBIN III AG 89 % (72-124); *DILUTE PROTHROMBIN TIME (dPT) 50.9 sec (0.0-47.6); *THROMBIN TIME 18.1 sec (0.0-23.0); *dPT CONFIRM RATIO 0.72 Ratio (0.00-1.34); *dRVVT 47.5 sec (0.0-47.0)
[2021-06-28] MEDS: ACETAMINOPHEN 325 MG TABLET PO PRN (04:31)
[2021-06-28] MEDS: PIPERACILLIN /TAZOBACTAM 3.375 G in IV D5W 50 ML IV SCH ×4 (05:02→23:24)
--- NOTE | 2021-06-28 06:42 | NUR ---
RN CLOSING NOTES, PATIENT IN BED, ON 2LPM VIA NC, NO SOB/ACUTE DISTRESS THROUGHOUT THE NIGHT, WITH O2 WNL, NSR IN TELE MONITOR, WEARING LIFE VEST ALL NIGHT, VERBALIZED PURPOSE OF LIFE VEST, IV FLUIDS INFUSING ORDERED, ALL NEEDS ATTENDED, SAFETY PRECAUTIONS AT ALL TIME, WILL HAVE US GUIDED THORACENTESIS TODAY, PT AWARE OF THAT, WITH EPISODE OF FEVER, TYLENOL ADMINISTERED ORDERED, BED LOCKED AND AT LOWEST POSITION. CALL LIGHT WITHIN REACH AT ALL TIMES, WILL ENDORSE CONTINUITY OF CARE TO ONCOMING NURSE.
[2021-06-28 07:07] LABS: *CARD ANTI-CARDIOLIPIN AB IgA <9 APL U/mL (0-11); *CARD ANTI-CARDIOLIPIN AB IgG 12 GPL U/mL (0-14); *CARD ANTI-CARDIOLIPIN AB IgM 15 MPL U/mL (0-12)
[2021-06-28] MEDS: BLOOD SUGAR DIAGNOSTIC 1 EACH STRIP IN SCH ×4 (07:30→22:53)
[2021-06-28] MEDS: PANTOPRAZOLE 40 MG TABLET.DR PO SCH (07:50)
--- NOTE | 2021-06-28 07:58 | NUR ---
RN OPENING NOTE- PT IN BED, ASLEEP, EASILY AWAKENED, A/O X4. PATIENT ON 2L OXYGEN VIA NASAL CANNULA. RIGHT AC #18G SL IN PLACE. NO SIGNS OF ACUTE DISTRESS NOTED AT THIS TIME. ALL SAFETY MEASURES NOTED AND ACCOUNTED FOR. SAFETY MEASURES IN PLACED: BED LOCKED AND IN LOWEST POSITION, CALL LIGHT WITHIN REACH, 2 SIDE RAILS UP. WILL CONTINUE TO MONITOR THROUGHOUT SHIFT.
[2021-06-28] MEDS: SPIRONOLACTONE 25 MG TABLET PO SCH (09:00)
[2021-06-28] MEDS: LOSARTAN POTASSIUM 25 MG TABLET PO SCH (09:00)
[2021-06-28] MEDS: CARVEDILOL 3.125 MG TABLET PO SCH ×2 (09:00→21:01)
[2021-06-28] MEDS: VANCOMYCIN 1.25 GM in IV D5W 250 ML IV SCH (09:18)
[2021-06-28] MEDS: CYANOCOBALAMIN 500 MCG TABLET PO SCH (09:19)
[2021-06-28] MEDS: FERROUS SULFATE (325 MG) 325 MG/TAB TABLET PO SCH ×2 (09:19→17:14)
[2021-06-28] MEDS: PYRIDOXINE HCL 50 MG TABLET PO SCH (09:19)
[2021-06-28] MEDS: ASPIRIN 81 MG TAB.CHEW PO SCH (09:19)
[2021-06-28] MEDS: FOLIC ACID 1 MG TABLET PO SCH (09:19)
[2021-06-28] MEDS: AMIODARONE HCL 200 MG TABLET PO SCH ×3 (09:20→17:00)
[2021-06-28] MEDS: diphenhydrAMINE HCL 25 MG CAPSULE PO PRN (09:51)
--- NOTE | 2021-06-28 09:51 | NUR ---
RN NOTE- PT C/O POPPING IN EARS, ETC. BENADRYL 25 MG CAP ADMINISTERED
[2021-06-28] MEDS: INSULIN REGULAR, HUMAN 100 UNIT/ML 3 ML VIAL SQ PRN ×2 (11:59→17:30)
[2021-06-28 12:20] LABS: BASOPHILS % (AUTO) 0.9 % (0.0-2.0); EOSINOPHILS % (AUTO) 0.3 % (0.0-6.0); HEMATOCRIT 33 % (39-51); HEMOGLOBIN 10.5 g/dL (13.5-17.5); MEAN CORPUSCULAR HGB CONC 32 g/dl (31.0-36.0); MEAN CORPUSCULAR VOLUME 87 fL (80-96); MONOCYTES # (AUTO) 0.6 K/uL (0.1-1.30); NEUTROPHILS # (AUTO) 4.1 K/uL (1.8-8.9); NEUTROPHILS % (AUTO) 70.8 % (43.0-81.0); PLATELET COUNT (AUTO) 149 K/uL (150-450); RED BLOOD CELL COUNT(AUTO) 3.82 MIL/uL (4.5-6.0); WHITE BLOOD COUNT (AUTO) 5.8 K/uL (4.3-11.0)
--- NOTE | 2021-06-28 13:00 | NUR ---
RN NOTE- THORACENTESIS COMPLETED BY MD AT THIS TIME. 1800 CC REMOVED AND SENT TO PATHOLOGY BY THIS RN. TOLERATED WELL. STAT CXR ORDERED. NO SOB OR DYSPNEA
[2021-06-28] MEDS: ENOXAPARIN SODIUM 80 MG/0.8 ML DISP.SYRIN SQ SCH (13:46)
[2021-06-28 16:00] LABS: LYMPHOCYTES % (MANUAL) 11 % (16-48); NEUTROPHILS % (MANUAL) 80 (42-76)
[2021-06-28 16:01] LABS: MONOCYTES % (MANUAL) 9 % (0-11.0)
--- NOTE | 2021-06-28 18:48 | NUR ---
RN CLOSING NOTE- PT IN BED, A/O X4. PATIENT ON 2L OXYGEN VIA NASAL CANNULA. RIGHT AC #18G SL IN PLACE. NO SIGNS OF ACUTE DISTRESS NOTED AT THIS TIME. ALL SAFETY MEASURES NOTED AND ACCOUNTED FOR. SAFETY MEASURES IN PLACED: BED LOCKED AND IN LOWEST POSITION, CALL LIGHT WITHIN REACH, 2 SIDE RAILS UP. MONITOR / ASSIST.
[2021-06-28] MEDS: VANCOMYCIN 1 GM in IV D5W 250 ML IV SCH (21:00)
[2021-06-28] MEDS: MORPHINE SULFATE INJ 2 MG/ML DISP.SYRIN IV PRN (23:20)
[2021-06-29] VITALS: BP 101/63
[2021-06-29] MEDS: ENOXAPARIN SODIUM 80 MG/0.8 ML DISP.SYRIN SQ SCH ×2 (00:56→12:05)
[2021-06-29 04:00] VITALS: BP 108/69
[2021-06-29] MEDS: PIPERACILLIN /TAZOBACTAM 3.375 G in IV D5W 50 ML IV SCH ×3 (06:03→17:27)
[2021-06-29 06:34] LABS: BASOPHILS % (AUTO) 0.7 % (0.0-2.0); EOSINOPHILS % (AUTO) 0.8 % (0.0-6.0); HEMATOCRIT 34 % (39-51); HEMOGLOBIN 10.8 g/dL (13.5-17.5); LYMPHOCYTES # (AUTO) 1.3 K/uL (0.8-4.8); LYMPHOCYTES % (AUTO) 20.9 % (20.0-44.0); MEAN CORPUSCULAR HGB CONC 32 g/dl (31.0-36.0); MEAN CORPUSCULAR VOLUME 86 fL (80-96); MONOCYTES # (AUTO) 0.5 K/uL (0.1-1.30); MONOCYTES % (AUTO) 7.9 % (2.0-12.0); NEUTROPHILS # (AUTO) 4.4 K/uL (1.8-8.9); NEUTROPHILS % (AUTO) 69.7 % (43.0-81.0); PLATELET COUNT (AUTO) 150 K/uL (150-450); RED BLOOD CELL COUNT(AUTO) 3.95 MIL/uL (4.5-6.0); WHITE BLOOD COUNT (AUTO) 6.3 K/uL (4.3-11.0)
[2021-06-29 07:01] LABS: CALCIUM, SERUM 8.1 mg/dL (8.5-10.1); CREATININE 1.2 mg/dL (0.6-1.3)
--- NOTE | 2021-06-29 07:03 | NUR ---
RN NOTE PATIENT RESTING IN BED. A/OX4. ON OXYGEN 2L MIN VIA NASAL CANNULA. NO RESPIRATORY DISTRESS. EQUAL CHEST RISE AND FALL, FOLLOWED UP WITH RADIOLOGY ON CXR S/P RIGHT THORACENTESIS, NO PNEUMOTHORAX SEEN. PAPER RESULTS WERE PLACED IN CHART. MANAGED PAIN WITH MORPHINE. AFEBRILE. VSS. PATIENT IS SINUS RHYTHM/ SINUS TACH, HE DOES HAVE A LIFE VEST ON THROUGHOUT SHIFT. NEW LINE PLACED IN RFA#22. LOVENOX GIVEN ORDERED TO BEGIN AFTER PROCEDURE. PENDING THORACENTESIS CULTURES. SAFETY MEASURES IN PLACE.
--- NOTE | 2021-06-29 07:25 | NUR ---
RN OPENING NOTES RECEIVED PATIENT IN BED, AWAKE, ALERT/ORIENTED X4. PATIENT ON 2L OXYGEN VIA NASAL CANNULA, TOLERATING WELL. NO SIGNS OF RESPIRATORY DISTRESS NOTED AT THE TIME. IV ACCESS ON RIGHT FOREARM #22G SL PATENT, AND INTACT, FLUSHED WELL. NO SIGNS OF INFILTRATION AT THE TIME. SAFETY MEASURES IN PLACED: BED LOCKED AND IN LOWEST POSITION, CALL LIGHT WITHIN REACH, 2 SIDE RAILS UP. WILL CONTINUE TO MONITOR AND ASSESS THROUGHOUT SHIFT.
[2021-06-29 08:00] VITALS: BP 105/51
[2021-06-29] MEDS: BLOOD SUGAR DIAGNOSTIC 1 EACH STRIP IN SCH ×4 (08:06→21:29)
[2021-06-29] MEDS: PANTOPRAZOLE 40 MG TABLET.DR PO SCH (09:02)
[2021-06-29] MEDS: CYANOCOBALAMIN 500 MCG TABLET PO SCH (09:03)
[2021-06-29] MEDS: ASPIRIN 81 MG TAB.CHEW PO SCH (09:03)
[2021-06-29] MEDS: AMIODARONE HCL 200 MG TABLET PO SCH ×3 (09:03→16:43)
[2021-06-29] MEDS: FOLIC ACID 1 MG TABLET PO SCH (09:03)
[2021-06-29] MEDS: PYRIDOXINE HCL 50 MG TABLET PO SCH (09:03)
[2021-06-29] MEDS: FERROUS SULFATE (325 MG) 325 MG/TAB TABLET PO SCH ×2 (09:03→16:39)
[2021-06-29] MEDS: LOSARTAN POTASSIUM 25 MG TABLET PO SCH (09:04)
[2021-06-29] MEDS: SPIRONOLACTONE 25 MG TABLET PO SCH (09:04)
[2021-06-29] MEDS: CARVEDILOL 3.125 MG TABLET PO SCH ×2 (09:04→21:05)
[2021-06-29] MEDS: VANCOMYCIN 1 GM in IV D5W 250 ML IV SCH ×2 (09:09→21:17)
[2021-06-29] MEDS: MORPHINE SULFATE INJ 2 MG/ML DISP.SYRIN IV PRN ×2 (09:51→21:29)
[2021-06-29 12:00] VITALS: BP 97/58
[2021-06-29 16:00] VITALS: BP 88/49
[2021-06-29] MEDS: WARFARIN SODIUM 5 MG TABLET PO SCH (16:41)
--- NOTE | 2021-06-29 16:44 | NUR ---
RN NOTES HELD MED CORDARONE BP 88/49, PULSE 70. NO S/S OF RESPIRATORY DISTRESS NOTED. ALL NEEDS ANTICIPATED. WILL CONTINUE TO MONITOR PATIENT.
[2021-06-29 17:06] LABS: *FACTOR II, DNA ANALYSIS Negative (.)
--- NOTE | 2021-06-29 19:36 | NUR ---
RN CLOSING NOTES PATIENT REMAINS IN STABLE CONDITION THROUGHOUT SHIFT. PATIENT IN BED, AWAKE, ALERT/ORIENTED X4. PATIENT ON 2L OXYGEN VIA NASAL CANNULA, TOLERATING WELL. NO SIGNS OF RESPIRATORY DISTRESS NOTED AT THE TIME. ALL DUE MEDS GIVEN ORDERED. KEPT PATIENT CLEAN, DRY AND COMFORTABLE. ALL NEEDS ATTENDED. SAFETY MEASURES IN PLACED: BED LOCKED AND IN LOWEST POSITION, CALL LIGHT WITHIN REACH, 2 SIDE RAILS UP. ENDORSED TO ONCOMING NURSE FOR CONTINUITY OF CARE.
[2021-06-29 20:00] VITALS: BP 95/58
[2021-06-29] MEDS: INSULIN REGULAR, HUMAN 100 UNIT/ML 3 ML VIAL SQ PRN (21:29)
--- NOTE | 2021-06-29 21:29 | NUR ---
PT C/O GENERALIZED PAIN 12/24, RESTLESSNESS, INCREASED HR, MORPHINE IVP PRN ADMINISTERED ORDERED, WILL CONTINUE TO MONITOR CLOSELY
--- NOTE | 2021-06-29 22:00 | NUR ---
BLOOD SUGAR 117MG/DL NO INSULIN ADMINISTERED PER SLIDING SCALE.
--- NOTE | 2021-06-29 22:33 | NUR ---
PT C/O GENERALIZED PAIN 12/24, RESTLESSNESS, INCREASED HR, MORPHINE IVP PRN ADMINISTERED ORDERED, WILL CONTINUE TO MONITOR CLOSELY.R Addendum: 06/29/21 at 2236 by ALEJANDRA HANNA RN WRONG TIME.
[2021-06-30] VITALS: BP 91/65
[2021-06-30] MEDS: PIPERACILLIN /TAZOBACTAM 3.375 G in IV D5W 50 ML IV SCH ×3 (00:29→12:08)
[2021-06-30] MEDS: ENOXAPARIN SODIUM 80 MG/0.8 ML DISP.SYRIN SQ SCH ×2 (00:39→12:09)
[2021-06-30] MEDS: TEMAZEPAM 15 MG CAPSULE PO PRN ×2 (00:44→22:13)
[2021-06-30 04:00] VITALS: BP 86/51
--- NOTE | 2021-06-30 06:35 | NUR ---
RN CLOSING NOTES, PATIENT IN BED, ON 2LPM VIA NC, NO SOB/ACUTE DISTRESS THROUGHOUT THE NIGHT, WITH O2 WNL, NSR IN TELE MONITOR, WEARING LIFE VEST ALL NIGHT, VERBALIZED PURPOSE OF LIFE VEST, ALL NEEDS ATTENDED, SAFETY PRECAUTIONS AT ALL TIME, X1 MORPHINE ADMINISTERED FOR PAIN DURING THE NIGHT, OTHERWISE NO SIGNIFICANT CHANGE IN CONDITION DURING THE NIGHT, BED LOCKED AND AT LOWEST POSITION. CALL LIGHT WITHIN REACH AT ALL TIMES, WILL ENDORSE CONTINUITY OF CARE TO ONCOMING NURSE.
[2021-06-30 07:12] LABS: CALCIUM, SERUM 8.3 mg/dL (8.5-10.1); CREATININE 1.1 mg/dL (0.6-1.3); POTASSIUM 3.2 mmol/L (3.5-5.1)
--- NOTE | 2021-06-30 07:30 | NUR ---
RN OPENING NOTE PATIENT IN BED, ON 2LPM VIA NC, NO SOB/ACUTE DISTRESS NSR IN TELE MONITOR, WEARING LIFE VEST AND UNDERSTANDS PURPOSE OF LIFE VEST. PATIENT HAS RFA 22G INTACT AND PATENT. NO FLUIDS RUNNING CURRENTLY. SAFETY PRECAUTIONS NOTED AND ACCOUNTED FOR. BED LOCKED AND AT LOWEST POSITION. CALL LIGHT WITHIN REACH AT ALL TIMES, WILL CONTINUE TO MONITOR.
[2021-06-30 08:00] VITALS: BP 96/67
[2021-06-30] MEDS: BLOOD SUGAR DIAGNOSTIC 1 EACH STRIP IN SCH ×4 (08:01→21:29)
[2021-06-30] MEDS: PANTOPRAZOLE 40 MG TABLET.DR PO SCH (08:01)
[2021-06-30] MEDS ORDERED: POTASSIUM CHLORIDE 20 MEQ TAB.PRT.SR PO ONE (09:00)
[2021-06-30] MEDS: PYRIDOXINE HCL 50 MG TABLET PO SCH (09:29)
[2021-06-30] MEDS: CYANOCOBALAMIN 500 MCG TABLET PO SCH (09:30)
[2021-06-30] MEDS: FOLIC ACID 1 MG TABLET PO SCH (09:30)
[2021-06-30] MEDS: LOSARTAN POTASSIUM 25 MG TABLET PO SCH (09:31)
[2021-06-30] MEDS: SPIRONOLACTONE 25 MG TABLET PO SCH (09:32)
[2021-06-30] MEDS: ASPIRIN 81 MG TAB.CHEW PO SCH (09:32)
[2021-06-30] MEDS: AMIODARONE HCL 200 MG TABLET PO SCH ×3 (09:32→16:32)
[2021-06-30] MEDS: CARVEDILOL 3.125 MG TABLET PO SCH ×2 (09:33→21:16)
[2021-06-30] MEDS: FERROUS SULFATE (325 MG) 325 MG/TAB TABLET PO SCH ×2 (09:34→16:29)
[2021-06-30] MEDS ORDERED: VANCOMYCIN HCL 0.75 GM in IV D5W 250 ML IV SCH (10:00)
--- NOTE | 2021-06-30 10:25 | NUR ---
RN NOTE VANCO TROUGH 24 1 GM VANCO HELD AT 0900. GIVE 0.75 GM VANCOMYCIN AT 1000 PER PHARMACY.
[2021-06-30 12:00] VITALS: BP 103/73
[2021-06-30] MEDS: MORPHINE SULFATE INJ 2 MG/ML DISP.SYRIN IV PRN (14:26)
[2021-06-30 16:00] VITALS: BP 104/72
[2021-06-30] MEDS: WARFARIN SODIUM 5 MG TABLET PO SCH (16:33)
[2021-06-30] MEDS: MEROPENEM 1 G in IV NS 0.9% 100 ML IV SCH ×2 (17:06→21:15)
--- NOTE | 2021-06-30 18:38 | NUR ---
RN CLOSING NOTE PATIENT REMAINED STABLE THROUGHOUT SHIFT. PATIENT IN BED, ON 2LPM VIA NC, NO SOB/ACUTE DISTRESS NSR IN TELE MONITOR, WEARING LIFE VEST AND UNDERSTANDS PURPOSE OF LIFE VEST. PATIENT HAS RFA 22G INTACT AND PATENT. NS RUNNING AT 10ML/HR TKO. SAFETY PRECAUTIONS NOTED AND ACCOUNTED FOR. BED LOCKED AND AT LOWEST POSITION. CALL LIGHT WITHIN REACH AT ALL TIMES, WILL ENDORSE TO INDUSTRIAL MACHINE SYSTEM TECHNICIAN RN.
[2021-06-30] MEDS: ONDANSETRON HCL/PF 4 MG/2 ML VIAL IVP PRN (18:52)
--- NOTE | 2021-06-30 19:00 | NUR ---
RN NOTE RECEIVED PATIENT IN BED, AO X 4, IN NO S/SX OF ACUTE DISTRESS AT THIS TIME. RESPIRATIONS UNLABORED, SATURATION AT 100% ON 2LPM, SR ON THE MONITOR, HR IS 72. NOTED IV SITE AT RFA 20G, PATENT AND FLUSHING WELL, NO S/S OF INFECTION OR INFILTRATION. PATIENT AMBULATORY WITH STANDBY ASSIST, CONTINENT AND ABLE TO USE URINAL. SAFETY MEASURES IMPLEMENTED. PATIENT BED ALARM IS ON. HEAD OF BED ELEVATED. BED IS LOCKED, IN LOWEST POSITION AND SIDE RAILS UP. CALL LIGHT WITHIN REACH OF THE PATIENT. WILL CONTINUE TO MONITOR AND REASSESS FOR ANY CHANGES. Addendum: 07/01/21 at 0106 by SIA CRAFT RN PATIENT WITH LIFE VEST ON, FUNCTIONING NORMALLY.
[2021-06-30 22:00] VITALS: BP 101/70
[2021-06-30] MEDS: diphenhydrAMINE HCL 25 MG CAPSULE PO PRN (23:21)
[2021-07-01] VITALS: BP 102/70
[2021-07-01] MEDS: ENOXAPARIN SODIUM 80 MG/0.8 ML DISP.SYRIN SQ SCH ×2 (00:43→13:53)
--- NOTE | 2021-07-01 01:43 | NUR ---
RN NOTE PATIENT IS NOTED TO BE RESTLESS, AND C/O INSOMNIA, RESTORIL 15MG GIVEN AT 220, AND DIPHENHYDRAMINE 25 MG AT 2330 PER ORDERS, PT STATES INEFFECTIVE AND IS REQUESTING FOR A DIFFERENT MEDICATION TO HELP HIM SLEEP. DR DIEHL WAS NOTIFIED, ORDER RECEIVED FRO AMBIEN 5 MG X 1. RESTORATION SILVERSMITHMARCELINO HALL
[2021-07-01] MEDS ORDERED: ZOLPIDEM TARTRATE 5 MG TABLET PO ONE (02:00)
[2021-07-01 04:00] VITALS: BP 111/73
[2021-07-01] MEDS: MEROPENEM 1 G in IV NS 0.9% 100 ML IV SCH ×3 (05:47→21:36)
[2021-07-01 07:29] LABS: CALCIUM, SERUM 8.3 mg/dL (8.5-10.1); POTASSIUM 3.6 mmol/L (3.5-5.1)
--- NOTE | 2021-07-01 07:30 | NUR ---
BRUSH CLEARING LABORER OPENING NOTES RECEIVED PATIENT ON BED RESTING AND A/O X4. ON O2 AT 2LPM VIA NASAL CANNULA TOLERATING WELL. NO SOB NOTED. NOT IN DISTRESS. WITH NO COMPLAINTS OF PAIN OR DISCOMFORT AT THIS TIME. ON TELE MONITOR CURRENTLY READING NORMAL SINUS RHYTHM AT 70BP0M. WITH IV ACCESS AT LEFT HAND G20 SALINE LOCKED, PATENT AND INTACT. SAFETY MEASURES IN PLACED. CALL LIGHT WITHIN REACH. BED ON LOWEST LOCKED POSITION, SIDE RAILS UP X2. WILL CONTINUE TO MONITOR.
[2021-07-01 08:00] VITALS: BP 112/73
[2021-07-01] MEDS: CYANOCOBALAMIN 500 MCG TABLET PO SCH (08:47)
[2021-07-01] MEDS: ASPIRIN 81 MG TAB.CHEW PO SCH (08:47)
[2021-07-01] MEDS: PYRIDOXINE HCL 50 MG TABLET PO SCH (08:47)
[2021-07-01] MEDS: SPIRONOLACTONE 25 MG TABLET PO SCH (08:47)
[2021-07-01] MEDS: PANTOPRAZOLE 40 MG TABLET.DR PO SCH (08:47)
[2021-07-01] MEDS: FERROUS SULFATE (325 MG) 325 MG/TAB TABLET PO SCH ×2 (08:48→16:41)
[2021-07-01] MEDS: AMIODARONE HCL 200 MG TABLET PO SCH ×3 (08:48→16:44)
[2021-07-01] MEDS: LOSARTAN POTASSIUM 25 MG TABLET PO SCH (08:48)
[2021-07-01] MEDS: CARVEDILOL 3.125 MG TABLET PO SCH ×2 (08:49→21:35)
[2021-07-01] MEDS: BLOOD SUGAR DIAGNOSTIC 1 EACH STRIP IN SCH ×4 (08:54→21:36)
[2021-07-01] MEDS: FOLIC ACID 1 MG TABLET PO SCH (09:21)
[2021-07-01 12:00] VITALS: BP 93/50
[2021-07-01 16:00] VITALS: BP 104/65
[2021-07-01] MEDS: WARFARIN SODIUM 5 MG TABLET PO SCH (16:44)
--- NOTE | 2021-07-01 18:41 | NUR ---
VISUAL DISPLAY MANAGER CLOSING NOTES PATIENT ON BED RESTING AND A/O X4. ON O2 AT 2LPM VIA NASAL CANNULA TOLERATING WELL. NO SOB NOTED. NOT IN DISTRESS. WITH NO COMPLAINTS OF PAIN OR DISCOMFORT AT THIS TIME. ON TELE MONITOR CURRENTLY READING NORMAL SINUS RHYTHM AT 75BP0M. WITH IV ACCESS AT LEFT HAND G20 SALINE LOCKED, PATENT AND INTACT. DUE MEDS GIVEN. SAFETY MEASURES IN PLACED. CALL LIGHT WITHIN REACH. BED ON LOWEST LOCKED POSITION, SIDE RAILS UP X2. WILL ENDORSE TO NEXT SHIFT FOR NOLBERTO.
--- NOTE | 2021-07-01 19:00 | NUR ---
RN NOTE RECEIVED PATIENT IN BED, AO X 4, IN NO ACUTE DISTRESS AT THIS TIME. RESPIRATIONS UNLABORED, SATURATION AT 100% ON 2LPM, SR ON THE MONITOR, HR IS 78. PATIENT WITH LIFE VEST IN PLACE, FUNCTIONING EXPECTED. NOTED IV SITE AT L HAND 20G, PATENT AND FLUSHING WELL, NO S/S OF INFECTION OR INFILTRATION. PATIENT AMBULATORY WITH STANDBY ASSIST, CONTINENT AND ABLE TO USE URINAL. SAFETY MEASURES IMPLEMENTED. PATIENT BED ALARM IS ON. HEAD OF BED ELEVATED. BED IS LOCKED, IN LOWEST POSITION AND SIDE RAILS UP. CALL LIGHT WITHIN REACH OF THE PATIENT. WILL CONTINUE TO MONITOR AND REASSESS FOR ANY CHANGES.
[2021-07-01 20:00] VITALS: BP 111/72
[2021-07-01] MEDS: TEMAZEPAM 15 MG CAPSULE PO PRN (23:00)
[2021-07-02] VITALS: BP 103/61
[2021-07-02] MEDS: ENOXAPARIN SODIUM 80 MG/0.8 ML DISP.SYRIN SQ SCH ×2 (00:24→12:39)
[2021-07-02 04:00] VITALS: BP 106/72
[2021-07-02] MEDS: MEROPENEM 1 G in IV NS 0.9% 100 ML IV SCH ×3 (05:39→21:38)
[2021-07-02 07:12] LABS: CALCIUM, SERUM 8.2 mg/dL (8.5-10.1); POTASSIUM 3.6 mmol/L (3.5-5.1)
[2021-07-02] MEDS: BLOOD SUGAR DIAGNOSTIC 1 EACH STRIP IN SCH ×4 (07:48→21:44)
--- NOTE | 2021-07-02 07:56 | NUR ---
RN OPENING NOTE Patient in bed, awake. A/O x 4, able to make needs known. On O2 at 2 LPM via NC, breathing evenly and unlabored. No SOB or s/s of distress noted. IV access on Left hand #20G, SL intact and patent. On tele monitoring showing SR, HR on the 70's. Safety precautions in place: bed in low, locked position; siderails up x 2; call light within reach. Will continue to monitor.
[2021-07-02 08:00] VITALS: BP 106/74
[2021-07-02] MEDS: FERROUS SULFATE (325 MG) 325 MG/TAB TABLET PO SCH ×2 (08:44→17:22)
[2021-07-02] MEDS: LOSARTAN POTASSIUM 25 MG TABLET PO SCH (08:44)
[2021-07-02] MEDS: PANTOPRAZOLE 40 MG TABLET.DR PO SCH (08:44)
[2021-07-02] MEDS: SPIRONOLACTONE 25 MG TABLET PO SCH (08:44)
[2021-07-02] MEDS: ASPIRIN 81 MG TAB.CHEW PO SCH (08:45)
[2021-07-02] MEDS: CYANOCOBALAMIN 500 MCG TABLET PO SCH (08:45)
[2021-07-02] MEDS: CARVEDILOL 3.125 MG TABLET PO SCH ×2 (08:45→21:38)
[2021-07-02] MEDS: PYRIDOXINE HCL 50 MG TABLET PO SCH (08:46)
[2021-07-02] MEDS: AMIODARONE HCL 200 MG TABLET PO SCH ×3 (08:46→17:22)
[2021-07-02] MEDS: FOLIC ACID 1 MG TABLET PO SCH (08:46)
[2021-07-02 14:17] LABS: BASOPHILS # (AUTO) 0.1 K/uL (0.0-0.2); BASOPHILS % (AUTO) 1.2 % (0.0-2.0); EOSINOPHILS % (AUTO) 0.5 % (0.0-6.0); HEMATOCRIT 36 % (39-51); HEMOGLOBIN 11.3 g/dL (13.5-17.5); LYMPHOCYTES # (AUTO) 1.7 K/uL (0.8-4.8); LYMPHOCYTES % (AUTO) 26.8 % (20.0-44.0); MEAN CORPUSCULAR HGB CONC 32 g/dl (31.0-36.0); MEAN CORPUSCULAR VOLUME 86 fL (80-96); MONOCYTES # (AUTO) 0.5 K/uL (0.1-1.30); MONOCYTES % (AUTO) 7.4 % (2.0-12.0); NEUTROPHILS # (AUTO) 4.1 K/uL (1.8-8.9); NEUTROPHILS % (AUTO) 64.1 % (43.0-81.0); PLATELET COUNT (AUTO) 238 K/uL (150-450); RED BLOOD CELL COUNT(AUTO) 4.14 MIL/uL (4.5-6.0); WHITE BLOOD COUNT (AUTO) 6.4 K/uL (4.3-11.0)
[2021-07-02 16:00] VITALS: BP 101/66
[2021-07-02] MEDS: WARFARIN SODIUM 5 MG TABLET PO SCH (17:24)
--- NOTE | 2021-07-02 18:57 | NUR ---
MS RN CLOSING NOTE Patient in bed, awake. A/O x 4, able to make needs known. On O2 at 2 LPM via NC, breathing evenly and unlabored. No SOB or s/s of distress noted. IV access on Left hand #20G, SL intact and patent. All needs attended to. Due meds given. Safety precautions maintained: bed in low, locked position; siderails up x 2; call light within reach. Will endorse to wedding transportation driver nurse for NOLBERTO.
--- NOTE | 2021-07-02 19:36 | NUR ---
RN NOTES RECEIVED PT FOR CONTINUITY OF CARE. PATIENT A/OX4 AND AMBULATORY CURRENTLY IN BED RESTING COMFORTABLY IN NO S/SX OF ACUTE DISTRESS AT THIS TIME; CURRENTLY ON 2L OF 02 VIA NC; WITH 02 SAT OF 95% AT THIS TIME. NO FLUIDS RUNNING. WILL ENSURE SAFETY MEASURES WITHIN THE SHIFT. PATIENT BED ALARM IS ON. HEAD OF BED ELEVATED. BED IS LOCKED, IN LOWEST POSITION AND SIDE RAILS UP. CALL LIGHT WITHIN REACH OF THE PATIENT. APPLICABLE ISOLATION PRECAUTIONS IN PLACE. WILL CONTINUE TO MONITOR AND REASSESS FOR ANY CHANGES AND WILL CARRY OUT ANY ONGOING AND ACTIVE MD ORDER.
[2021-07-02 20:00] VITALS: BP 104/61
[2021-07-02] MEDS: TEMAZEPAM 15 MG CAPSULE PO PRN (21:37)
[2021-07-02] MEDS: INSULIN REGULAR, HUMAN 100 UNIT/ML 3 ML VIAL SQ PRN (21:44)
[2021-07-03] MEDS: ENOXAPARIN SODIUM 80 MG/0.8 ML DISP.SYRIN SQ SCH ×2 (00:11→14:15)
[2021-07-03 04:00] VITALS: BP 100/57
[2021-07-03] MEDS: MEROPENEM 1 G in IV NS 0.9% 100 ML IV SCH ×3 (04:00→21:35)
--- NOTE | 2021-07-03 04:00 | NUR ---
RN NOTES NO NOTED CHANGES IN PATIENT CONDITION AT THIS TIME; PATIENT VITALS STABLE, NO SIGNS OF ACUTE RESPIRATORY DISTRESS. AM PATIENT CARE RENDERED. WILL CONTINUE TO MONITOR AND REASSESS FOR ANY CHANGES THROUGHOUT THE SHIFT.
--- NOTE | 2021-07-03 06:24 | NUR ---
RN CLOSING NOTE: PATIENT REMAINS IN ROOM IN NO SIGNS OF RESPIRATORY DISTRESS, PATIENT STILL ON 2L OF 02 VIA NC;TOLERATING WELL SATURATING @95% SP02. SAFETY MEASURES IMPLEMENTED, BED IN LOWEST POSITION, LOCKED, SIDE RAILS UP, CALL LIGHT WITHIN REACH. ALL NEEDS AND ORDERS ADDRESSED DURING THE SHIFT. IV ACCESS MAINTAINED INTACT, SECURED AND FLUSHING WELL. ALL DUE MEDS GIVEN ORDERED & SCHEDULED ; PATIENT TOLERATED WELL. PATIENT KEPT CLEAN AND COMFORTABLE WITHIN THE SHIFT. PATIENT ENDORSED TO INCOMING SHIFT RN WITH STABLE VITAL SIGN AND FOR CONTINUITY OF CARE.
[2021-07-03 07:04] LABS: CALCIUM, SERUM 8.1 mg/dL (8.5-10.1); CREATININE 0.9 mg/dL (0.6-1.3); POTASSIUM 3.9 mmol/L (3.5-5.1)
[2021-07-03] MEDS: BLOOD SUGAR DIAGNOSTIC 1 EACH STRIP IN SCH ×4 (07:30→21:49)
[2021-07-03] MEDS: ASPIRIN 81 MG TAB.CHEW PO SCH (10:50)
[2021-07-03] MEDS: SPIRONOLACTONE 25 MG TABLET PO SCH (10:50)
[2021-07-03] MEDS: PANTOPRAZOLE 40 MG TABLET.DR PO SCH (10:51)
[2021-07-03] MEDS: FOLIC ACID 1 MG TABLET PO SCH (10:51)
[2021-07-03] MEDS: CYANOCOBALAMIN 500 MCG TABLET PO SCH (10:51)
[2021-07-03] MEDS: PYRIDOXINE HCL 50 MG TABLET PO SCH (10:53)
[2021-07-03] MEDS: LOSARTAN POTASSIUM 25 MG TABLET PO SCH (10:53)
[2021-07-03] MEDS: AMIODARONE HCL 200 MG TABLET PO SCH ×3 (10:54→17:50)
[2021-07-03] MEDS: CARVEDILOL 3.125 MG TABLET PO SCH ×2 (10:55→21:35)
[2021-07-03] MEDS: FERROUS SULFATE (325 MG) 325 MG/TAB TABLET PO SCH ×2 (11:00→17:49)
[2021-07-03 12:00] VITALS: BP 112/62
[2021-07-03] MEDS: WARFARIN SODIUM 5 MG TABLET PO SCH (17:49)
--- NOTE | 2021-07-03 18:50 | NUR ---
RN CLOSING NOTES PATIENT RESTING IN BED, COOPERATIVE, NO SOB, NO SIGNS OF RESPIRATORY DISTRESS, NO DISTRESS, PATIENT STILL ON 2L OF 02 VIA NC;TOLERATING WELL SATURATING @999 % SP02. BS 122 NO INSULIN NEEDED AT THIS TIME, ABLE TO MAKE ALL NEEDS KNOWN, SAFETY MEASURES IN PLACE , BED IN LOWEST POSITION, LOCKED, SIDE RAILS UP X 2 , CALL LIGHT WITHIN REACH. ALL NEEDS AND ORDERS ADDRESSED DURING THE SHIFT. IV ACCESS MAINTAINED INTACT, SECURED AND FLUSHING WELL. ALL DUE MEDS GIVEN ORDERED & SCHEDULED, PATIENT TOLERATING TREATMENTS WELL. PATIENT CLEAN AND COMFORTABLE EDUCATED ON REPOSITIONING SELF AND IMPORTANCE OF DOING SO UNDERSTOOD AND COMPLIANT, ALL VS REMAINED WITHIN NORMAL BASELINE RANGE, PT STABLE AND AWAKE WATCHING TV, IV INTACT PATENT FLUSHING.
[2021-07-03 20:00] VITALS: BP 100/68
[2021-07-03] MEDS: INSULIN REGULAR, HUMAN 100 UNIT/ML 3 ML VIAL SQ PRN (21:50)
[2021-07-04] MEDS: ENOXAPARIN SODIUM 80 MG/0.8 ML DISP.SYRIN SQ SCH (01:19)
[2021-07-04 04:00] VITALS: BP 96/65
[2021-07-04] MEDS: MEROPENEM 1 G in IV NS 0.9% 100 ML IV SCH ×3 (05:22→21:51)
[2021-07-04 06:44] LABS: HEMATOCRIT 34 % (39-51); HEMOGLOBIN 10.7 g/dL (13.5-17.5); LYMPHOCYTES % (AUTO) 33.1 % (20.0-44.0); MEAN CORPUSCULAR HGB CONC 31 g/dl (31.0-36.0); MEAN CORPUSCULAR VOLUME 88 fL (80-96); MONOCYTES % (AUTO) 9.1 % (2.0-12.0); NEUTROPHILS % (AUTO) 55.8 % (43.0-81.0); PLATELET COUNT (AUTO) 275 K/uL (150-450); RED BLOOD CELL COUNT(AUTO) 3.92 MIL/uL (4.5-6.0); WHITE BLOOD COUNT (AUTO) 6.8 K/uL (4.3-11.0)
[2021-07-04 06:45] LABS: BASOPHILS # (AUTO) 0.1 K/uL (0.0-0.2); BASOPHILS % (AUTO) 0.9 % (0.0-2.0); EOSINOPHILS % (AUTO) 1.1 % (0.0-6.0); LYMPHOCYTES # (AUTO) 2.3 K/uL (0.8-4.8); MONOCYTES # (AUTO) 0.6 K/uL (0.1-1.30); NEUTROPHILS # (AUTO) 3.8 K/uL (1.8-8.9)
[2021-07-04 07:01] LABS: CALCIUM, SERUM 8.4 mg/dL (8.5-10.1); CREATININE 0.8 mg/dL (0.6-1.3); POTASSIUM 4.7 mmol/L (3.5-5.1)
--- NOTE | 2021-07-04 07:30 | NUR ---
PATIENT RECEIVED RESTING COMFORTABLY IN BED. NO S/S OR C/O PAIN OR DISTRESS NOTED. SIDE RAILS UP X2, CALL LIGHT LEFT WITHIN REACH. WILL CONTINUE PLAN OF CARE.
--- NOTE | 2021-07-04 07:40 | NUR ---
RN CLOSING NOTES, PATIENT RESTING IN BED, AT ROOM AIR , NO SOB/ NO SIGNS OF RESPIRATORY DISTRESS, WITH OPTIMAL O2 SAT LEVEL, NO SIGNIFICANT CHANGE IN CONDITION, COMPLIANT WEARING LIFE VEST, CALL LIGHT WITHIN REACH, ALL NEEDS PROVIDED, PATIENT KEPT CLEAN, EXTENSIVE WOUND TREATMENT DONE, WILL ENDORSE CONTINUITY OF CARE TO ONCOMING NURSE. Addendum: 07/04/21 at 2049 by ALEJANDRA HANNA RN EXTENSIVE TREATMENT DONE TO ANOTHER PATIENT, THIS PATIENT SKIN INTACT.
[2021-07-04] MEDS: LOSARTAN POTASSIUM 25 MG TABLET PO SCH (09:06)
[2021-07-04] MEDS: PYRIDOXINE HCL 50 MG TABLET PO SCH (09:07)
[2021-07-04] MEDS: PANTOPRAZOLE 40 MG TABLET.DR PO SCH (09:07)
[2021-07-04] MEDS: FERROUS SULFATE (325 MG) 325 MG/TAB TABLET PO SCH ×2 (09:07→17:23)
[2021-07-04] MEDS: FOLIC ACID 1 MG TABLET PO SCH (09:07)
[2021-07-04] MEDS: AMIODARONE HCL 200 MG TABLET PO SCH ×3 (09:07→17:23)
[2021-07-04] MEDS: CARVEDILOL 3.125 MG TABLET PO SCH ×2 (09:08→21:52)
[2021-07-04] MEDS: SPIRONOLACTONE 25 MG TABLET PO SCH (09:08)
[2021-07-04] MEDS: ASPIRIN 81 MG TAB.CHEW PO SCH (09:08)
[2021-07-04] MEDS: CYANOCOBALAMIN 500 MCG TABLET PO SCH (09:08)
[2021-07-04] MEDS: BLOOD SUGAR DIAGNOSTIC 1 EACH STRIP IN SCH (09:09)
[2021-07-04 12:00] VITALS: BP 122/73
[2021-07-04] MEDS: MORPHINE SULFATE INJ 2 MG/ML DISP.SYRIN IV PRN ×2 (17:22→22:01)
[2021-07-04] MEDS: WARFARIN SODIUM 5 MG TABLET PO SCH (17:33)
--- NOTE | 2021-07-04 18:34 | NUR ---
CHANGE OF SHIFT REPORT PT RESTING COMFORTABLY IN BED. NO S/S OR C/O PAIN OR DISTRESS NOTED. SIDE RAILS UP X2, CALL LIGHT LEFT WITHIN REACH. PT KEPT CLEAN, DRY, AND COMFORTABLE. NO SIGNIFICANT CHANGES SINCE PREVIOUS SHIFT. WILL GIVE REPORT TO OSEAS BENSON.
[2021-07-04 20:00] VITALS: BP 102/66
[2021-07-05 04:00] VITALS: BP 98/62
[2021-07-05] MEDS: MEROPENEM 1 G in IV NS 0.9% 100 ML IV SCH ×3 (05:29→20:36)
--- NOTE | 2021-07-05 07:00 | NUR ---
RN CLOSING NOTES, PATIENT RESTING IN BED, AT ROOM AIR , NO SOB/ NO SIGNS OF RESPIRATORY DISTRESS, WITH OPTIMAL O2 SAT LEVEL, NO SIGNIFICANT CHANGE IN CONDITION, COMPLIANT WEARING LIFE VEST, CALL LIGHT WITHIN REACH, ALL NEEDS PROVIDED, WILL ENDORSE CONTINUITY OF CARE TO ONCOMING NURSE.
[2021-07-05] MEDS: LOSARTAN POTASSIUM 25 MG TABLET PO SCH (08:31)
[2021-07-05] MEDS: SPIRONOLACTONE 25 MG TABLET PO SCH (08:32)
[2021-07-05] MEDS: CYANOCOBALAMIN 500 MCG TABLET PO SCH (08:32)
[2021-07-05] MEDS: CARVEDILOL 3.125 MG TABLET PO SCH ×2 (08:32→20:37)
[2021-07-05] MEDS: FERROUS SULFATE (325 MG) 325 MG/TAB TABLET PO SCH ×2 (08:33→17:30)
[2021-07-05] MEDS: ASPIRIN 81 MG TAB.CHEW PO SCH (08:33)
[2021-07-05] MEDS: FOLIC ACID 1 MG TABLET PO SCH (08:33)
[2021-07-05] MEDS: PANTOPRAZOLE 40 MG TABLET.DR PO SCH (08:33)
[2021-07-05] MEDS: PYRIDOXINE HCL 50 MG TABLET PO SCH (08:33)
[2021-07-05] MEDS: AMIODARONE HCL 200 MG TABLET PO SCH ×2 (08:34→17:32)
[2021-07-05] MEDS: MORPHINE SULFATE INJ 2 MG/ML DISP.SYRIN IV PRN (11:44)
[2021-07-05 12:00] VITALS: BP 116/86
[2021-07-05] MEDS: WARFARIN SODIUM 5 MG TABLET PO SCH (17:33)
--- NOTE | 2021-07-05 19:45 | NUR ---
RN OPENING NOTES RECEIVED CARE OF PATIENT WHILE PATIENT IN BED, A/O X4, ABLE TO MAKE NEEDS KNOWN. PATIENT IS AMBULATORY AND INDEPENDENT WITH ADLS. PATIENT EXPRESSES NO DISCOMFORT OR PAIN AT THIS TIME. PATIENT ON ROOM AIR, O2 SAT 95%, BREATHING EVEN AND UNLABORED, NO SOB NOTED. IV ACCESS ON L HAND #20 PATENT AND FLUSHING WELL. NO SIGNIFICANT FINDINGS UPON INITIAL NURSING ASSESSMENTS. SAFETY PRECAUTIONS RENDERED ACCORDING TO HOSPITAL PROTOCOL. WILL CONTINUE TO MONITOR PATIENT.
[2021-07-05 20:00] VITALS: BP 113/79
[2021-07-06 04:00] VITALS: BP 106/73
[2021-07-06] MEDS: MEROPENEM 1 G in IV NS 0.9% 100 ML IV SCH ×2 (05:12→12:00)
--- NOTE | 2021-07-06 06:27 | NUR ---
RN CLOSING NOTES WILL ENDORSE CARE OF PATIENT TO AM NURSE WHILE PATIENT IN BED, A/O X4, ABLE TO MAKE VERBALIZE NEEDS. ON ROOM AIR, NO RESPIRATORY ISSUES NOTED THROUGHOUT SHIFT. ALL PATIENT NEEDS MET, ALL DUE MEDS GIVEN. NO SIGNIFICANT FINDINGS UPON ALL NURSING ASSESSMENTS. SAFETY MEASURES RENDERED ACCORDING TO HOSPITAL PROTOCOL. WILL ENDORSE TO AM NURSE FOR NOLBERTO.
--- NOTE | 2021-07-06 07:27 | NUR ---
RN OPENING NOTES RECEIVED PATIENT IN BED, A/O X4, ABLE TO MAKE NEEDS KNOWN. PATIENT IS AMBULATORY AND INDEPENDENT WITH ADLS. PATIENT EXPRESSES NO DISCOMFORT OR PAIN AT THIS TIME. PATIENT ON ROOM AIR, O2 SAT 95%, BREATHING EVEN AND UNLABORED, NO SOB NOTED. IV ACCESS ON L HAND #20 PATENT AND FLUSHING WELL. NO SIGNIFICANT FINDINGS UPON INITIAL NURSING ASSESSMENTS. SAFETY MEASURES IN PLACE, BED IN LOWEST LOCKED POSITION, CALL LIGHT WITHIN REACH. WILL CONTINUE TO MONITOR PATIENT.
[2021-07-06] MEDS: PANTOPRAZOLE 40 MG TABLET.DR PO SCH (07:44)
[2021-07-06] MEDS: CYANOCOBALAMIN 500 MCG TABLET PO SCH (09:14)
[2021-07-06] MEDS: LOSARTAN POTASSIUM 25 MG TABLET PO SCH (09:14)
[2021-07-06] MEDS: PYRIDOXINE HCL 50 MG TABLET PO SCH (09:14)
[2021-07-06] MEDS: SPIRONOLACTONE 25 MG TABLET PO SCH (09:14)
[2021-07-06] MEDS: FERROUS SULFATE (325 MG) 325 MG/TAB TABLET PO SCH (09:14)
[2021-07-06] MEDS: ASPIRIN 81 MG TAB.CHEW PO SCH (09:14)
[2021-07-06] MEDS: FOLIC ACID 1 MG TABLET PO SCH (09:15)
[2021-07-06] MEDS: AMIODARONE HCL 200 MG TABLET PO SCH (09:15)
[2021-07-06] MEDS: CARVEDILOL 3.125 MG TABLET PO SCH (09:15)
[2021-07-06] MEDS ORDERED: TEMA15CA5 PO (10:54)
[2021-07-06] MEDS ORDERED: MERO1VIA23 IV (10:54)
[2021-07-06] MEDS ORDERED: WARF3TAB59 PO (10:54)
[2021-07-06] MEDS ORDERED: HYDR-3976 PO (11:00)
[2021-07-06 12:00] VITALS: BP 114/89
--- NOTE | 2021-07-06 12:43 | NUR ---
DC NOTES PT DC' D TO HOME IN STABLE CONDITION. DC INSTRUCTIONS GIVEN AND EXPLAINED TO PT AND FAMILY. ALL PARTIES VERBALIZED UNDERSTANDING. ALL PAPERWORK SIGNED AND COMPLETED. ALL BELONGINGS SENT. IV ACCESS IN PLACE FOR HOME HEALTH ANTIBIOTIC TREATMENT. NO S/S OF DISTRESS OR C/O PAIN AT THIS TIME. PT AND FAMILY HAPPILY WALKED OUT OF UNIT.
== END 2021-07-06 12:46 | disposition home or self-care (01) | DRG 194 ==
LOC: ER 17:54 → TELE-TD 22:37 → TELE1 06-23 17:49 → MEDSG1 07-02 07:56
PROVIDERS: ADMIT Nurse Practitioner Family; ATTEND Internal Medicine
PROC: 0W993ZZ Drainage of Right Pleural Cavity, Percutaneous Approach (ICD-10-PCS; principal; 2021-06-30)
DX: I11.0 Hypertensive heart disease with heart failure (principal); I26.99 Other pulmonary embolism without acute cor pulmonale; I21.A1 Myocardial infarction type 2; R78.81 Bacteremia; E87.1 Hypo-osmolality and hyponatremia; E88.09 Other disorders of plasma-protein metabolism, not elsewhere classified; D63.8 Anemia in other chronic diseases classified elsewhere; E11.9 Type 2 diabetes mellitus without complications; B96.5 Pseudomonas (aeruginosa) (mallei) (pseudomallei) as the cause of diseases classified elsewhere; I50.23 Acute on chronic systolic (congestive) heart failure; I42.0 Dilated cardiomyopathy; D64.9 Anemia, unspecified; F32.A Depression, unspecified; Z79.01 Long term (current) use of anticoagulants; Z86.711 Personal history of pulmonary embolism; F41.9 Anxiety disorder, unspecified; K76.0 Fatty (change of) liver, not elsewhere classified; Z79.4 Long term (current) use of insulin; I50.84 End stage heart failure; Z20.822 Contact with and (suspected) exposure to COVID-19; Z79.899 Other long term (current) drug therapy; J90 Pleural effusion, not elsewhere classified; R79.89 Other specified abnormal findings of blood chemistry; Z16.24 Resistance to multiple antibiotics; Z83.3 Family history of diabetes mellitus
CPT/HCPCS: 36415; 71045-TC; 76700-TC; 80048-TC; 80053-TC; 80076-TC; 80202-TC; 81001; 81240; 81241; 82728-TC; 82784; 82962-TC; 83090; 83540-TC; 83735-TC; 83880; 84100-TC; 84155; 84155-TC; 84165; 84443-TC; 84484-TC; 85025-TC; 85300; 85301; 85303; 85610-TC; 85613; 85670; 85705; 85730-TC; 85732; 86140-TC; 86147; 86225; 86235; 86334; 86431-TC; 87040-TC; 87070-TC; 87075-TC; 87081-TC; 87102-TC; 87116; 87186-TC; 87206; 88108-TC; 88305-TC; 89051-TC; 93970-TC; 97530-TC; 97535-TC; C9803; G0378; J1650; J1815; J1940; J2185; J2270; J2405; J2543; J3370; J7030; J7050; J7060; J7120; Q0163; Q9967

== ENCOUNTER 2021-09-14 05:08 | Emergency (ER) | payer OTHER ==
[~2021-09-14] VITALS: Ht 172.7 cm; Wt 81.6 kg
[~2021-09-14 05:08] MED LIST changes: -APIX5TAB PO; +HYDR-3976 PO; +MERO1VIA23 IV; +WARF3TAB59 PO
[2021-09-14 05:27] VITALS: BP 129/87
--- NOTE | 2021-09-14 05:38 | NUR ---
BIBRA TO ER BED 19. AAOX4. NOT IN RESP DISTRESS. BROUGHT IN FOR METH USE. PT IS NOTED JITTERY AND TWITCHING. PT ADMITS TO USING METH YESTERDAY. AWAITING MD FOR EVAL.
[2021-09-14 06:13] LABS: BASOPHILS # (AUTO) 0.1 K/uL (0.0-0.2); BASOPHILS % (AUTO) 0.8 % (0.0-2.0); EOSINOPHILS % (AUTO) 1.7 % (0.0-6.0); HEMATOCRIT 34 % (39-51); HEMOGLOBIN 11.3 g/dL (13.5-17.5); LYMPHOCYTES # (AUTO) 1.5 K/uL (0.8-4.8); MEAN CORPUSCULAR HGB CONC 34 g/dl (31.0-36.0); MEAN CORPUSCULAR VOLUME 88 fL (80-96); MONOCYTES # (AUTO) 0.5 K/uL (0.1-1.30); MONOCYTES % (AUTO) 6.7 % (2.0-12.0); NEUTROPHILS # (AUTO) 5.1 K/uL (1.8-8.9); NEUTROPHILS % (AUTO) 70.8 % (43.0-81.0); PLATELET COUNT (AUTO) 266 K/uL (150-450); RED BLOOD CELL COUNT(AUTO) 3.82 MIL/uL (4.5-6.0); WHITE BLOOD COUNT (AUTO) 7.3 K/uL (4.3-11.0)
--- NOTE | 2021-09-14 06:48 | NUR ---
Patient discharged to home in stable condition. Written and verbal after care instructions given. Patient verbalizes understanding of instruction. Pt ambulatory with a steady gait and is escorted by the security.
--- NOTE | 2021-09-14 06:49 | NUR ---
PT NON- COMPLIANT AND ABUSIVE, WAS SEEN BY MD AND MEDICALLY STABLE PER HIM FOR D/C. PATIENT WAS DISCHARGED WITHOUT DC PAPERS
[2021-09-14 07:30] LABS: ALANINE AMINOTRANSFERASE 25 U/L (12-78); ALBUMIN 3.5 g/dL (3.4-5.0); ALKALINE PHOSPHATASE 87 U/L (46-116); ASPARTATE AMINOTRANSFERASE 23 U/L (15-37); BILIRUBIN,DIRECT 0.2 mg/dL (0.0-0.2); BILIRUBIN,TOTAL 0.6 mg/dL (0.2-1.0); CARBON DIOXIDE 27 mmol/L (21-32); CHLORIDE 104 mmol/L (98-107); CREATININE 0.9 mg/dL (0.6-1.3); GLUCOSE 87 mg/dL (74-106); POTASSIUM 3.7 mmol/L (3.5-5.1); SODIUM SERUM 138 mmol/L (136-145); TOTAL PROTEIN, SERUM 7.1 g/dL (6.4-8.2); UREA NITROGEN, BLOOD 14 mg/dL (7-18)
[2021-09-14 07:31] LABS: ACETAMINOPHEN < 10 ug/ml (10-30); ALCOHOL, BLOOD < 3 mg/dL (0-0)
[2021-09-14 08:13] LABS: CALCIUM, SERUM 9.2 mg/dL (8.5-10.1)
== END 2021-09-14 06:51 | disposition home or self-care (01) ==
LOC: ER 05:09
DX: F15.10 Other stimulant abuse, uncomplicated (principal); Z60.2 Problems related to living alone; Z79.899 Other long term (current) drug therapy
CPT/HCPCS: 36415; 80048-TC; 80076-TC; 85025-TC; G0480

== ENCOUNTER 2022-01-24 08:20 | Inpatient (IN) | payer OTHER ==
[~2022-01-24] VITALS: Ht 182.9 cm; Wt 81.6 kg
[~2022-01-24 08:20] MED LIST changes: +APIX5TAB PO; +LOSA50TA39 PO; +MULT-447 PO; +THIA100T74 PO
--- NOTE | 2022-01-24 08:25 | NUR ---
TO ER BED 4. BIB RA 102 FROM [facility] VN,CHEST PAIN AFTER HAVING COFFEE AND SMOKE THIS MORNING,ASA 324 MG AND NTG X 2 GIVEN SALOONKEEPER. PT STATED PAIN STARTED AT 0100 THIS MORNING MIDSTERNAL SHARP PAIN NON RADIATING, PAIN IS 9/10 ONPAINS SCALE. PT DENIES N/V AND HEADACHE. PT HAS HX OF CHF. ATTACHED TO MONITOR, VITALS ARE WITHIN NORMAL LIMITS. DR ROCKWELL AT BEDSIDE. AWAITING MD ORDERS.
[2022-01-24 08:55] LABS: BASOPHILS # (AUTO) 0.1 K/uL (0.0-0.2); EOSINOPHILS % (AUTO) 2.5 % (0.0-6.0); HEMATOCRIT 38 % (39-51); HEMOGLOBIN 12.1 g/dL (13.5-17.5); LYMPHOCYTES # (AUTO) 1.3 K/uL (0.8-4.8); LYMPHOCYTES % (AUTO) 17.8 % (20.0-44.0); MEAN CORPUSCULAR HGB CONC 32 g/dl (31.0-36.0); MEAN CORPUSCULAR VOLUME 91 fL (80-96); MONOCYTES # (AUTO) 0.4 K/uL (0.1-1.30); MONOCYTES % (AUTO) 5.2 % (2.0-12.0); NEUTROPHILS # (AUTO) 5.5 K/uL (1.8-8.9); NEUTROPHILS % (AUTO) 73.5 % (43.0-81.0); PLATELET COUNT (AUTO) 347 K/uL (150-450); RED BLOOD CELL COUNT(AUTO) 4.16 MIL/uL (4.5-6.0); WHITE BLOOD COUNT (AUTO) 7.4 K/uL (4.3-11.0)
--- NOTE | 2022-01-24 08:57 | NUR ---
URINAL AT BEDSIDE
--- NOTE | 2022-01-24 08:57 | NUR ---
COVID TEST COLLECTED AND SENT
[2022-01-24 09:36] LABS: CALCIUM, SERUM 8.7 mg/dL (8.5-10.1); CARBON DIOXIDE 25 mmol/L (21-32); CHLORIDE 108 mmol/L (98-107); CREATININE 0.9 mg/dL (0.6-1.3); GLUCOSE 96 mg/dL (74-106); POTASSIUM 4.3 mmol/L (3.5-5.1); SODIUM SERUM 140 mmol/L (136-145); UREA NITROGEN, BLOOD 24 mg/dL (7-18)
[2022-01-24 09:58] LABS: ALCOHOL, BLOOD < 3 mg/dL (0-0)
[2022-01-24 10:03] LABS: ACETAMINOPHEN 0 ug/ml (10-30)
[2022-01-24] MEDS ORDERED: TEMA15CA PO (10:27)
[2022-01-24] MEDS ORDERED: FOLI0.8T3 PO (10:27)
[2022-01-24] MEDS ORDERED: FURO40TA5 PO (10:27)
[2022-01-24] MEDS ORDERED: LORA-259 PO (10:27)
[2022-01-24] MEDS ORDERED: ESCI10TA PO (10:27)
[2022-01-24] MEDS ORDERED: QUET200T PO (10:27)
[2022-01-24] MEDS ORDERED: ENOXAPARIN SODIUM 80 MG/0.8 ML DISP.SYRIN SQ ONE ×2 (10:30→11:22)
--- NOTE | 2022-01-24 10:39 | NUR ---
CALLED NURSING SUP FOR BED
--- NOTE | 2022-01-24 11:17 | NUR ---
RN CALLED AND GAVE REPORT TO MARCELINO TOBIAS. ALL QUESTIONS ANSWERED. RN WILL TRANSPORT PT TO TELE FOR ADMIT
[2022-01-24] MEDS ORDERED: FOLIC ACID 1 MG TABLET PO SCH ×2 (11:30→13:00)
[2022-01-24] MEDS ORDERED: TEMAZEPAM 15 MG CAPSULE PO PRN (11:30)
[2022-01-24] MEDS ORDERED: LORAZEPAM 1 MG TABLET PO PRN (11:30)
[2022-01-24] MEDS ORDERED: ESCITALOPRAM OXALATE (10 MG) 10 MG TABLET PO SCH ×2 (11:30→13:00)
[2022-01-24] MEDS ORDERED: FUROSEMIDE 40 MG TABLET PO SCH ×2 (11:30→13:00)
[2022-01-24] MEDS ORDERED: ACETAMINOPHEN 325 MG TABLET PO PRN (11:30)
[2022-01-24] MEDS ORDERED: CARVEDILOL 3.125 MG TABLET PO SCH ×2 (11:30→17:00)
[2022-01-24] MEDS ORDERED: ONDANSETRON HCL/PF 4 MG/2 ML VIAL IVP PRN (11:30)
[2022-01-24] MEDS ORDERED: LOSARTAN POTASSIUM 25 MG TABLET PO SCH ×2 (11:30→13:00)
--- NOTE | 2022-01-24 11:49 | NUR ---
PT REDIRECTED TO [facility], RN GAVE BEDSIDE REPORT TO MARCELINO JC. ALL QUESTIONS ANSWERED.
--- NOTE | 2022-01-24 12:00 | NUR ---
FLATWORK FOLDERHORSE RACING MANAGER NOTES: RECEIVED PT FROM ER STAFF VIA [employer]. OBSERVED PT AMBULATE TO BED. BEDSIDE REPORT GIVEN BY MARCELINO CHILDERS. PT A/O X4, ABLE TO MAKE NEEDS KNOWN. ON RA WITH NO S/S OF SOB NOTED. VITALS WNL: BP 100/72; HR 87, O2 SAT 100%, RR- 18. CURRENTLY DENIES ANY CHEST PAIN. TELE BOX AND ID BAND PLACED; TELE MONITOR READING SR 86. IV ACCESS NOTED AT L WRIST # 20, INTACT, PATENT AND SALINE LOCKED. SKIN INTACT. ORIENTED PT TO STAFF AND UNIT. URINAL PLACED AT BEDSIDE. SAFETY MEASURES IN PLACE, CALL LIGHT TABLE WITHIN REACH, WILL CONTINUE PLAN OF CARE DURING SHIFT. .
[2022-01-24] MEDS: QUETIAPINE FUMARATE 100 MG TABLET PO SCH ×2 (13:15→17:15)
--- NOTE | 2022-01-24 13:28 | NUR ---
HELD BP MEDS AND DIURETIC DUE TO LOW BP- 100/65
[2022-01-24 16:00] VITALS: BP 91/56
--- NOTE | 2022-01-24 18:39 | NUR ---
STAFF ACCOUNTANT CLOSING NOTES: PATIENT IS AWAKE BUT EASILY A/O X4, ABLE TO MAKE NEEDS KNOWN. ON RA WITH NO S/S OF SOB NOTED. CURRENTLY DENIES ANY CHEST PAIN, FAMILY AT BEDSIDE. TELE MONITOR READING SR 105, IV ACCESS NOTED AT L WRIST # 20, INTACT, PATENT AND SALINE LOCKED. SKIN INTACT. URINAL PLACED AT BEDSIDE. DUE MEDS GIVEN, MADE PT COMFORTABLE. SAFETY MEASURES IN PLACE, CALL LIGHT AND TABLE WITHIN REACH, WILL ENDORSE TO PM SHIFT.
--- NOTE | 2022-01-24 19:55 | NUR ---
SENIOR SCHEDULER OPENING NOTE RECEIVED PATIENT AWAKE IN BED, ALERT/ORIENTED X 4, PT ABLE TO MAKE NEEDS KNOWN. PATIENT STABLE ON RA, NO S/S OF DISTRESS OR SOB NOTED, BREATHING EVEN AND UNLABORED. PATIENT DENIES CHEST PAIN AT THIS TIME. PATIENT ON EXTERNAL GARMENT STEAMER READING SINUS TACH, HR: 102. IV ACCESS ON LEFT WRIST #20G INTACT AND SALINE LOCKED. PATIENT AMBULATORY TO BATHROOM. SAFETY MEASURES IN PLACE: CALL LIGHT WITHIN REACH, SIDE RAILS UP X 2, BED LOCKED IN LOWEST POSITION. WILL CONTINUE TO MONITOR PATIENT
[2022-01-24 20:00] VITALS: BP 103/59
[2022-01-24] MEDS ORDERED: ENOXAPARIN SODIUM 80 MG/0.8 ML DISP.SYRIN SQ SCH (21:00)
[2022-01-25] VITALS: BP 98/58
[2022-01-25 04:00] VITALS: BP 111/61
[2022-01-25] MEDS ORDERED: NITROGLYCERIN 0.4 MG/TAB BOTTLE SL PRN (04:00)
--- NOTE | 2022-01-25 04:00 | NUR ---
LUMBER PILER OPERATOR NOTE PATIENT C/O 7/10 CHEST AND RIGHT SIDED HEAD PAIN. PATIENT ON TELE SINUS RHYTHM, HR: 98. BLOOD PRESSURE 111/61, HR: 98, O2: 99% ON ROOM AIR, RESPIRATIONS 22, TEMP 97.5. NOTIFIED MIXER OPERATOR MD WITH ORDERS FOR NITRO SL X 3 PRN. ORDER VERIFIED AND CARRIED OUT. WILL CONTINUE TO MONITOR PATIENT
--- NOTE | 2022-01-25 04:18 | NUR ---
MACHINE ENGRAVER NOTE PATIENT STATES HE'S NO LONGER FEELING CHEST PAIN OR HEADACHE AFTER 1 DOSE OF NITRO 0.4 MG SL. WILL CONTINUE TO MONITOR PATIENT
--- NOTE | 2022-01-25 06:42 | NUR ---
SLURRY PLANT OPERATOR CLOSING NOTE PATIENT AWAKE IN BED, ALERT/ORIENTED X 4, PT ABLE TO MAKE NEEDS KNOWN. PATIENT STABLE ON RA, NO S/S OF DISTRESS OR SOB NOTED, BREATHING EVEN AND UNLABORED. PATIENT DENIES CHEST PAIN AT THIS TIME. PATIENT ON EXTERNAL TECHNICAL SOLUTION ARCHITECT READING SINUS RHYTHM, HR: 98. IV ACCESS ON LEFT WRIST #20G INTACT AND SALINE LOCKED. MEDICATIONS GIVEN ORDERED, PT NEEDS MET THROUGHOUT SHIFT. PATIENT AMBULATORY TO BATHROOM. SAFETY MEASURES IN PLACE: CALL LIGHT WITHIN REACH, SIDE RAILS UP X 2, BED LOCKED IN LOWEST POSITION. WILL ENDORSE TO DAYSHIFT NURSE FOR CONTINUITY OF CARE
[2022-01-25 07:22] LABS: BASOPHILS # (AUTO) 0.1 K/uL (0.0-0.2); BASOPHILS % (AUTO) 1.2 % (0.0-2.0); EOSINOPHILS % (AUTO) 2.5 % (0.0-6.0); HEMATOCRIT 37 % (39-51); HEMOGLOBIN 11.9 g/dL (13.5-17.5); LYMPHOCYTES # (AUTO) 1.8 K/uL (0.8-4.8); MEAN CORPUSCULAR HGB CONC 32 g/dl (31.0-36.0); MEAN CORPUSCULAR VOLUME 92 fL (80-96); MONOCYTES # (AUTO) 0.4 K/uL (0.1-1.30); MONOCYTES % (AUTO) 7.3 % (2.0-12.0); NEUTROPHILS # (AUTO) 3.1 K/uL (1.8-8.9); PLATELET COUNT (AUTO) 376 K/uL (150-450); RED BLOOD CELL COUNT(AUTO) 4.06 MIL/uL (4.5-6.0); WHITE BLOOD COUNT (AUTO) 5.6 K/uL (4.3-11.0)
--- NOTE | 2022-01-25 07:38 | NUR ---
AGAINST MEDICAL ADVICE RN NOTE RECEIVED PT AWAKE SITTING DOWN IN BED. PT IS A/O X4 AND ABLE TO MAKE NEEDS KNOWN. PT VERBALIZING THAT HE WANTS TO LEAVE THE HOSPITAL RIGHT NOW. EXPLAINED HIS CURRENT HEART CONDITION AND THE HIGH RISK OF LEAVING RIGHT NOW. MADE PT AWARE THAT HIS CURRENT TROPONIN LEVEL IS HIGH AT 7860 AND REMINDED HIM THAT HE JUST HAD A CHEST PAIN AT 4AM. ENCOURAGED HIM TO STAY FOR MOTION PICTURE PROJECTIONIST APPRENTICE CONSULT. PT STILL REFUSED TO STAY AND INSISTED ON LEAVING THE FACILITY. MADE CHARGED NURSE, DIANDRA AWARE AND DIANDRA ALSO EXPLAINED THE HIGH RISK AND BENEFITS OF STAYING IN THE HOSPITAL FOR FURTHER EVALUATION OF HIS HEART CONDITION. PT VERBALIZED HE FULLY UNDERSTANDS HIS CONDITION BUT STILL STRONGLY REFUSED AND STILL WANTS TO LEAVE. WHEN ASKED IF HE HAS A FAMILY TO CONTACT, PER PT, HE WOULD JUST CONTACT HIS FAMILY WHILE HE'S ON THE STREET. WHEN ASKED WHERE HE WAS INITIALLY ADMITTED, PER PT HE CAME FROM [facility]. HE ALSO STATED THAT HE VOLUNTARILY WENT THERE TO BE ADMITTED. PT ALSO STATED THAT HE IS NOT SUICIDAL OR AGGRESSIVE TOWARDS ANYTHING OR ANYBODY, HE JUST WANT TO LEAVE. PT SIGNED THE AGAINST MEDICAL ADVICE FORM BUT REFUSED TO TAKE THE EDUCATIONAL MATERIALS WITH HIM. PT LEFT THE UNIT AT 0735, AMBULATORY. PT REFUSED TO BE ACCOMPANIED BY STAFF. IV ACCESS IN L WRIST G #20 REMOVED WITH NO ACTIVE BLEEDING NOTED. DRY PRESSURE DRESSING APPLIED AT SITE. NAME BAND REMOVED. AWARE THAT PT LEFT THE UNIT AGAINST MEDICAL ADVICE. Addendum: 01/25/22 at 1921 by KATLIN THOMAS RN ADDENDUM PT'S TELE BOX REMOVED AND GAVE TO THE RESOURCING ADVISOR.
[2022-01-25 07:46] LABS: ALBUMIN 2.6 g/dL (3.4-5.0); BILIRUBIN,TOTAL 0.6 mg/dL (0.2-1.0); CALCIUM, SERUM 8.4 mg/dL (8.5-10.1); CREATININE 0.9 mg/dL (0.6-1.3); MAGNESIUM 2.1 mg/dL (1.8-2.4); PHOSPHORUS 4.2 mg/dL (2.5-4.9); POTASSIUM 4.1 mmol/L (3.5-5.1); TOTAL PROTEIN, SERUM 6.2 g/dL (6.4-8.2)
[2022-01-25 08:00] VITALS: BP 110/65
[2022-01-25] MEDS ORDERED: ENOXAPARIN SODIUM 40 MG/0.4 ML DISP.SYRIN SQ SCH (09:00)
== END 2022-01-25 08:00 | disposition left against medical advice (07) | DRG 205 ==
LOC: ER 08:22 → TELE1 11:11 → TELE 11:40
PROVIDERS: ADMIT Nurse Practitioner Acute Care; ATTEND Nurse Practitioner Acute Care
DX: I42.0 Dilated cardiomyopathy (principal); I50.23 Acute on chronic systolic (congestive) heart failure; I21.A1 Myocardial infarction type 2; D63.8 Anemia in other chronic diseases classified elsewhere; F20.0 Paranoid schizophrenia; J90 Pleural effusion, not elsewhere classified; F15.90 Other stimulant use, unspecified, uncomplicated; Z79.899 Other long term (current) drug therapy; Z53.29 Procedure and treatment not carried out because of patient's decision for other reasons; Z86.711 Personal history of pulmonary embolism; Z79.01 Long term (current) use of anticoagulants; E11.9 Type 2 diabetes mellitus without complications; F32.A Depression, unspecified
CPT/HCPCS: 36415; 71045-TC; 80048-TC; 80053-TC; 83735-TC; 83880; 84100-TC; 84484-TC; 85025-TC; C9803; G0378; G0480; J1650

== ENCOUNTER 2022-02-16 11:50 | Inpatient (IN) | payer OTHER ==
[~2022-02-16] VITALS: Ht 182.9 cm; Wt 109.8 kg
[~2022-02-16 11:50] MED LIST changes: -APIX5TAB PO; -DAPA10TA PO; +ESCI10TA PO; +FOLI0.8T3 PO; +FURO40TA5 PO; -HYDR-3976 PO; +LORA-259 PO; -LOSA50TA39 PO; -MERO1VIA23 IV; -MULT-447 PO; +QUET200T PO; -SPIR25TA6 PO; +TEMA15CA PO; -TEMA15CA5 PO; -THIA100T74 PO; -WARF3TAB59 PO
--- NOTE | 2022-02-16 12:10 | NUR ---
Received pt 36 yrs male came from home c/o sob for five days and swallen in [facility]
--- NOTE | 2022-02-16 12:30 | NUR ---
INserted angop catheter g 18 on [address] ac blood drow and sent to lab
[2022-02-16 12:37] LABS: HEMATOCRIT 37 % (39-51); HEMOGLOBIN 11.5 g/dL (13.5-17.5); MEAN CORPUSCULAR HGB CONC 32 g/dl (31.0-36.0); MEAN CORPUSCULAR VOLUME 89 fL (80-96); NEUTROPHILS % (AUTO) 66.8 % (43.0-81.0); PLATELET COUNT (AUTO) 227 K/uL (150-450); RED BLOOD CELL COUNT(AUTO) 4.08 MIL/uL (4.5-6.0); WHITE BLOOD COUNT (AUTO) 6.3 K/uL (4.3-11.0)
[2022-02-16 12:38] LABS: BASOPHILS # (AUTO) 0.1 K/uL (0.0-0.2); BASOPHILS % (AUTO) 1.3 % (0.0-2.0); EOSINOPHILS % (AUTO) 1.3 % (0.0-6.0); LYMPHOCYTES # (AUTO) 1.4 K/uL (0.8-4.8); LYMPHOCYTES % (AUTO) 21.4 % (20.0-44.0); MONOCYTES # (AUTO) 0.6 K/uL (0.1-1.30); MONOCYTES % (AUTO) 9.2 % (2.0-12.0); NEUTROPHILS # (AUTO) 4.2 K/uL (1.8-8.9)
[2022-02-16 13:01] LABS: CALCIUM, SERUM 8.6 mg/dL (8.5-10.1); CARBON DIOXIDE 26 mmol/L (21-32); CHLORIDE 106 mmol/L (98-107); CREATININE 1.2 mg/dL (0.6-1.3); GLUCOSE 136 mg/dL (74-106); POTASSIUM 4.6 mmol/L (3.5-5.1); SODIUM SERUM 139 mmol/L (136-145); UREA NITROGEN, BLOOD 30 mg/dL (7-18)
[2022-02-16] MEDS ORDERED: SACU1TAB PO (13:19)
[2022-02-16] MEDS ORDERED: SPIR25TA6 PO (13:19)
[2022-02-16] MEDS ORDERED: TORS20TA3 PO (13:19)
[2022-02-16] MEDS ORDERED: EMPA25TA PO (13:19)
[2022-02-16] MEDS ORDERED: APIX5TAB PO (13:19)
--- NOTE | 2022-02-16 13:56 | NUR ---
DR CRAWFORD AWARE AND NOTTEFYED ABOUT PT ASKING FOR MEDICTION ANXOUSE
--- NOTE | 2022-02-16 14:00 | NUR ---
COVED SWAB SENT TO LAB
[2022-02-16] MEDS ORDERED: DOXYCYCLINE 100 MG in IV D5W 100 ML IV ONE (14:30)
[2022-02-16] MEDS ORDERED: FUROSEMIDE 40 MG/4 ML VIAL IV ONE (14:30)
[2022-02-16] MEDS ORDERED: ASPIRIN 81 MG TAB.CHEW PO ONE (14:30)
[2022-02-16] MEDS ORDERED: FUROSEMIDE 40 MG/4 ML VIAL ONE (14:37)
[2022-02-16] MEDS ORDERED: ASPIRIN 325 MG TABLET ONE (14:38)
[2022-02-16] MEDS ORDERED: DOXYCYCLINE 100 MG VIAL ONE (14:38)
[2022-02-16] MEDS ORDERED: LORAZEPAM 1 MG TABLET PO ONE (15:00)
--- NOTE | 2022-02-16 15:43 | NUR ---
RESTING AND ASLEEPY NO SOB OR DISTRESS
[2022-02-16] MEDS ORDERED: LORAZEPAM 0.5 MG TABLET ONE (16:20)
--- NOTE | 2022-02-16 18:30 | NUR ---
PT VODING TOTALE OF 2500 CLEAR YELLOW COLOR AFTER LASIX 20 MG IVP GIIVEN
[2022-02-16] MEDS ORDERED: MAGNESIUM HYDROXIDE 30 ML UDC PO PRN (19:00)
[2022-02-16] MEDS ORDERED: Z GUARD REMEDY 4 OZ OINT TP PRN (19:00)
[2022-02-16] MEDS ORDERED: MAG HYDROX/AL HYDROX/SIMETH 30 ML UDC PO PRN (19:00)
--- NOTE | 2022-02-16 19:15 | NUR ---
HAND OFF JACQUELINE BENSON
--- NOTE | 2022-02-16 21:29 | NUR ---
REPORT GIVEN TO MARCELINO SALDIVAR FOR NOLBERTO
[2022-02-16 22:00] VITALS: BP 124/84
--- NOTE | 2022-02-16 22:01 | NUR ---
PT TRANSFERRED TO [facility] VIA ACLS PROTOCOL. VSS. ALL BELONGINGS WITH PT.
[2022-02-16 22:15] VITALS: BP 124/54
--- NOTE | 2022-02-16 22:30 | NUR ---
NEIGHBORHOOD PLANNEREDUCATIONAL TECHNOLOGIST NOTE RECEIVED PATIENT FROM ER VIA GURNEY; AMBULATORY. PATIENT IS AWAKE, ALERT AND ORIENTED X 4, VERBALLY RESPONSIVE. BREATHING EVEN AND NONLABORED. ON ROOM AIR; TOLERATING WELL. NOT IN ANY FORM OF RESPIRATORY DISTRESS. DENIES ANY PAIN OR DISCOMFORT AT THIS TIME. ON TELEMETRY MONITORING: SINUS RHYTHM HR-85 BPM. WITH IV ACCESS ON RIGHT ANTECUBITAL 18g: PATENT, INTACT AND SALINE LOCKED. ABLE TO MAKE NEEDS KNOWN. INITIAL VS TAKEN FOLLOWS: T 97.2, LA 87, RR 20, O2 SAT 95%, BP 124/54 MM HG. ORIENTED TO STAFF, ROOM AND UNIT. SAFETY MEASURES IMPLEMENTED: CALL LIGHT AND TABLE WITHIN REACH, SIDE RAILS UP X 2, BED IN LOWEST LOCKED POSITION. WILL CONTINUE PLAN OF CARE.
[2022-02-16] MEDS: FUROSEMIDE 40 MG/4 ML VIAL IV SCH (23:02)
[2022-02-16] MEDS: ENOXAPARIN SODIUM 40 MG/0.4 ML DISP.SYRIN SQ SCH (23:03)
[2022-02-17] VITALS: BP 122/92
[2022-02-17 04:00] VITALS: BP 128/89
--- NOTE | 2022-02-17 06:40 | NUR ---
SHOP TEACHER CLOSING NOTE PATIENT IN BED; AWAKE, A/O X 4, VERBALLY RESPONSIVE. STABLE ON ROOM AIR. BREATHING EQUAL AND UNLABORED. IN NO ACUTE DISTRESS. NO C/O ANY PAIN OR DISCOMFORT AT THIS TIME. ON TELE MONITOR: SR HR- 98 BPM. WITH IV ACCESS ON RIGHT AC 18g: PATENT, INTACT AND SALINE LOCKED. ALL NEEDS ATTENDED. ALL DUE MEDS GIVEN ORDERED. SAFETY MEASURES MAINTAINED: CALL LIGHT AND TABLE WITHIN EASY REACH, SIDE RAILS UP X 2, BED IN LOWEST LOCKED POSITION. ENDORSED TO MORNING SHIFT FOR NOLBERTO.
[2022-02-17 07:00] VITALS: BP 128/86
--- NOTE | 2022-02-17 07:30 | NUR ---
RN OPENING NOTE RECEIVED PATIENT IN BED, AWAKE, A/O X4, VERBALLY RESPONSIVE. NO SIGNS OF ACUTE DISTRESS NOTED. CURRENTLY ON ROOM AIR, O2 @ 2LPM VIA N/C PRN FOR C/O SOB. NO SOB NOTED AT THIS TIME. BREATHING EVEN AND UNLABORED. ON YARD MANAGER, SHOWING SINUS RHYTHM, HR @ 95. DENIES ANY PAIN AT THIS TIME. NOTED WITH IV ACCESS ON RIGHT AC #18G, INTACT AND PATENT, SALINE LOCKED. SAFETY MEASURE IN PLACE. BED IN LOWEST AND LOCKED POSITION. SIDE RAILS UP X2, CALL LIGHT PLACED WITHIN EASY REACH. WILL CONTINUE TO MONITOR PATIENT.
[2022-02-17 07:39] LABS: BASOPHILS # (AUTO) 0.1 K/uL (0.0-0.2); BASOPHILS % (AUTO) 0.9 % (0.0-2.0); HEMATOCRIT 35 % (39-51); HEMOGLOBIN 11.2 g/dL (13.5-17.5); LYMPHOCYTES % (AUTO) 30.8 % (20.0-44.0); MEAN CORPUSCULAR HGB CONC 32 g/dl (31.0-36.0); MEAN CORPUSCULAR VOLUME 89 fL (80-96); MONOCYTES # (AUTO) 0.6 K/uL (0.1-1.30); MONOCYTES % (AUTO) 8.7 % (2.0-12.0); NEUTROPHILS # (AUTO) 3.9 K/uL (1.8-8.9); NEUTROPHILS % (AUTO) 58.6 % (43.0-81.0); PLATELET COUNT (AUTO) 226 K/uL (150-450); RED BLOOD CELL COUNT(AUTO) 3.95 MIL/uL (4.5-6.0); WHITE BLOOD COUNT (AUTO) 6.6 K/uL (4.3-11.0)
[2022-02-17 08:10] LABS: THYROID STIMULATING HORMONE 3.129 uIU/mL (0.358-3.74)
[2022-02-17 08:19] LABS: CALCIUM, SERUM 8.9 mg/dL (8.5-10.1); CREATININE 1.2 mg/dL (0.6-1.3); MAGNESIUM 2.1 mg/dL (1.8-2.4); PHOSPHORUS 4.3 mg/dL (2.5-4.9); POTASSIUM 3.8 mmol/L (3.5-5.1)
[2022-02-17] MEDS: APIXABAN 5 MG TABLET PO SCH ×2 (08:39→16:44)
[2022-02-17] MEDS: FUROSEMIDE 40 MG/4 ML VIAL IV SCH ×4 (08:40→17:48)
[2022-02-17] MEDS: EMPAGLIFLOZIN 25 MG TABLET PO SCH (08:40)
[2022-02-17] MEDS: PANTOPRAZOLE 40 MG TABLET.DR PO SCH (08:40)
[2022-02-17] MEDS: ASPIRIN 81 MG TAB.CHEW PO SCH (08:41)
[2022-02-17] MEDS: SPIRONOLACTONE 25 MG TABLET PO SCH (08:41)
[2022-02-17] MEDS: CARVEDILOL 3.125 MG TABLET PO SCH ×2 (08:41→16:45)
--- NOTE | 2022-02-17 09:56 | NUR ---
RN NOTE LASIX 40 MG DOSE @0930 NOT ADMINISTERED. 1 DOSE ADMINISTERED ALREADY AT 0842 AM. PHARMACY AWARE C/O HIRAM.
[2022-02-17] MEDS: POTASSIUM CHLORIDE 20 MEQ TAB.PRT.SR PO SCH ×3 (09:59→12:12)
[2022-02-17] MEDS: SACUBITRIL/VALSARTAN 1 EACH TABLET PO SCH ×2 (10:03→16:44)
[2022-02-17] MEDS: ACETAMINOPHEN 325 MG TABLET PO PRN (10:42)
[2022-02-17 12:00] VITALS: BP_SYST 104; BP_SYST 121; BP_DIAS 59; BP_DIAS 64
--- NOTE | 2022-02-17 13:00 | NUR ---
RN NOTE PATIENT NOTED WITH EPISODES OF VTACH, JANNETH DIEHL AND DR. YEE MADE AWARE.
[2022-02-17] MEDS: AMIODARONE HCL 200 MG TABLET PO SCH ×2 (13:41→16:46)
--- NOTE | 2022-02-17 18:51 | NUR ---
RN CLOSING NOTE PATIENT IN BED, AWAKE. VERBALLY RESPONSIVE. NO SIGNS OF ACUTE DISTRESS NOTED. CURRENTLY ON ROOM AIR. NO SOB NOTED AT THIS TIME. BREATHING EVEN AND UNLABORED. ON PUTTER IN, SHOWING SINUS RHYTHM, HR @ 69. IV ACCESS ON RIGHT AC #18G, INTACT AND PATENT, SALINE LOCKED. SAFETY MEASURE IN PLACE. BED IN LOWEST AND LOCKED POSITION. SIDE RAILS UP X2, CALL LIGHT PLACED WITHIN EASY REACH. WILL ENDORSE TO NEXT SHIFT FOR NOLBERTO.
[2022-02-17] MEDS ORDERED: diphenhydrAMINE HCL 25 MG CAPSULE PO ONE (21:00)
[2022-02-17] MEDS: ENOXAPARIN SODIUM 40 MG/0.4 ML DISP.SYRIN SQ SCH (21:27)
[2022-02-17] MEDS: ONDANSETRON HCL/PF 4 MG/2 ML VIAL IVP PRN (21:42)
[2022-02-17 21:45] VITALS: BP 85/54
[2022-02-17 21:47] VITALS: BP 120/69
[2022-02-18] VITALS (7 sets, daily range): BP systolic 89–118; BP diastolic 56–84
--- NOTE | 2022-02-18 00:33 | NUR ---
RN NOTE PT REPORTING DIZZINESS WHEN STANDING UP PER PT " I FEEL LIKE IM GOING TO PASS OUT WHEN I MOVE" PT BP NOTED TO BE LOW OTHER VITALS WITHIN NORMAL LIMITS PT ALSO HAD AN EPISODE OF EMESIS PRN ZOFRAN GIVEN. RIP MACHINE OPERATOR ORDERED NS 500ML [id number] WILL ADMINISTER ALL THOUGH PT FEELS DIZZY IS NOT COMPLAINT WITH ASKING FOR HELP WHEN GETTING UP BED ALARM ARMED FOR SAFETY. HOB ELEVATED. EMESIS BASIN PROVIDED WELL.
[2022-02-18] MEDS ORDERED: IV NS 0.9% 500 ML IV ONE (01:00)
--- NOTE | 2022-02-18 06:42 | NUR ---
N CLOSING NOTE PATIENT IN BED, AWAKE. VERBALLY RESPONSIVE. NO SIGNS OF ACUTE DISTRESS NOTED. CURRENTLY ON ROOM AIR. NO SOB NOTED AT THIS TIME. BREATHING EVEN AND UNLABORED. ON STUDIO DATA ANALYST, SHOWING SINUS RHYTHM, HR @ 70S. IV ACCESS ON RIGHT AC #18G, INTACT AND PATENT, SALINE LOCKED. SAFETY MEASURE IN PLACE. BED IN LOWEST AND LOCKED POSITION. SIDE RAILS UP X2, CALL LIGHT PLACED WITHIN EASY REACH. WILL ENDORSE TO NEXT SHIFT FOR NOLBERTO.
[2022-02-18 07:01] LABS: BASOPHILS % (AUTO) 0.8 % (0.0-2.0); EOSINOPHILS % (AUTO) 1.1 % (0.0-6.0); HEMATOCRIT 38 % (39-51); HEMOGLOBIN 12.2 g/dL (13.5-17.5); LYMPHOCYTES # (AUTO) 1.7 K/uL (0.8-4.8); LYMPHOCYTES % (AUTO) 25.8 % (20.0-44.0); MEAN CORPUSCULAR HGB CONC 32 g/dl (31.0-36.0); MEAN CORPUSCULAR VOLUME 89 fL (80-96); MONOCYTES # (AUTO) 0.7 K/uL (0.1-1.30); MONOCYTES % (AUTO) 10.1 % (2.0-12.0); NEUTROPHILS # (AUTO) 4.1 K/uL (1.8-8.9); NEUTROPHILS % (AUTO) 62.2 % (43.0-81.0); PLATELET COUNT (AUTO) 227 K/uL (150-450); RED BLOOD CELL COUNT(AUTO) 4.31 MIL/uL (4.5-6.0); WHITE BLOOD COUNT (AUTO) 6.6 K/uL (4.3-11.0)
[2022-02-18 07:15] LABS: CREATININE 1.5 mg/dL (0.6-1.3); MAGNESIUM 2.1 mg/dL (1.8-2.4); PHOSPHORUS 5.1 mg/dL (2.5-4.9); POTASSIUM 4.8 mmol/L (3.5-5.1)
--- NOTE | 2022-02-18 08:16 | NUR ---
RN OPENING NOTE PATIENT RECEIVED IN BED, AO X 4, FORGETFUL AND ANXIOUS, ABLE TO RESPONDS ALL STIMULI. IN NO ACUTE DISTRESS NOTED. RESPIRATORY EVEN AND UNLABORED IN ROOM AIR. SKIN IS WARM TO TOUCH, KEEP CLEAN/DRY. KEPT ELEVATED HOB FOR ENSURE AIRWAY AND ASPIRATION PRECAUTION, ALSO LOWEST POSITION OF THE BED, S/R UP X 2, BED ALARM IS ON AT ALL THE TIMES. ALL SAFETY PRECAUTION APPLIED. CALL LIGHT WITHIN REACH, WILL CONTINUE TO MONITOR.
[2022-02-18] MEDS: CARVEDILOL 3.125 MG TABLET PO SCH ×2 (09:00→17:00)
[2022-02-18] MEDS: SACUBITRIL/VALSARTAN 1 EACH TABLET PO SCH ×2 (09:00→17:00)
[2022-02-18] MEDS: SPIRONOLACTONE 25 MG TABLET PO SCH (09:00)
[2022-02-18] MEDS: ASPIRIN 81 MG TAB.CHEW PO SCH (09:33)
[2022-02-18] MEDS: APIXABAN 5 MG TABLET PO SCH ×2 (09:34→17:44)
[2022-02-18] MEDS: AMIODARONE HCL 200 MG TABLET PO SCH ×3 (09:38→17:00)
[2022-02-18] MEDS: PANTOPRAZOLE 40 MG TABLET.DR PO SCH (09:44)
[2022-02-18] MEDS: EMPAGLIFLOZIN 25 MG TABLET PO SCH (09:44)
[2022-02-18] MEDS ORDERED: ALPRAZOLAM 0.25 MG TABLET PO ONE (13:00)
[2022-02-18] MEDS ORDERED: ALPRAZOLAM 0.25 MG TABLET PO PRN ×2 (13:00→17:30)
[2022-02-18] MEDS: SERTRALINE HCL 25 MG TABLET PO SCH ×2 (13:12→17:43)
--- NOTE | 2022-02-18 17:26 | NUR ---
PATIENT RECEIVED XANAX 0.5 MG PRN FOR ANXIETY HOWEVER, C/O DIZZINESS AND PASSED OUT. DR. JENNINGS MADE AWARE AND REDUCED 0.25 MG PRN Q6 HOURS.
--- NOTE | 2022-02-18 18:40 | NUR ---
RN CLOSING NOTE PATIENT IN BED RESTING. IN NO ACUTE DISTRESS NOTED, KEPT TAKE OFF OXYGEN, OXYGEN SATURATION 94% IN ROOM AIR AND 99% ON OXYGEN AT 2Ls VIA NC. SKIN IS WARM TO TOUCH, KEEP CLEAN/DRY. KEPT ELEVATED HOB FOR ENSURE AIRWAY AND ASPIRATION PRECAUTION. BED IN LOWEST POSITION AND LOCKED. BED ALARM IS ON AT ALL THE TIMES. ALL SAFETY MEASURE APPLIED. CALL LIGHT WITHIN REACH, WILL ENDORSED TO NEXT SHIFT.
--- NOTE | 2022-02-18 19:40 | NUR ---
RN OPENING NOTES; PATIENT RECEIVED IN BED,A AO X 4,ARMOND WELL ON RM AIR,NO SIGN SOB/DISTRESS NOTED,BREATHING EVEN AND UNLABORED IN ROOM AIR.IV ACCESS ON RAC 18G PATENT AND INTACT,NO COMPLAINE OF PAIN/DISCOMFORT AT THIS TIME,ALL SAFETY PRECAUTION APPLIED. CALL LIGHT WITHIN REACH, WILL CONTINUE TO MONITOR.
[2022-02-18] MEDS: ENOXAPARIN SODIUM 40 MG/0.4 ML DISP.SYRIN SQ SCH (20:25)
[2022-02-18] MEDS: ZOLPIDEM TARTRATE 5 MG TABLET PO PRN (21:09)
[2022-02-19] VITALS: BP 110/71
[2022-02-19 04:00] VITALS: BP 123/79
--- NOTE | 2022-02-19 06:24 | NUR ---
RN CLOSING NOTES; PATIENT IN BED,A AO X 4,ARMOND WELL ON RM AIR,NO SIGN SOB/DISTRESS NOTED,BREATHING EVEN AND UNLABORED,NO COMPLAINED OF PAIN/DISCOMFORT AT THIS TIME,DUE MEDS GIVEN ORDER,ALL NEEDS ATTENDED,IV ACCESS ON RAC 18G PATENT AND INTACT,NO COMPLAINE OF PAIN/DISCOMFORT DURING SHIFT,ALL NEEDS ATTENDED,,ALL SAFETY PRECAUTION APPLIED. CALL LIGHT WITHIN REACH, WILL ENDORSED TO NEXT SHIFT.
[2022-02-19 07:13] LABS: BASOPHILS % (AUTO) 0.7 % (0.0-2.0); EOSINOPHILS % (AUTO) 0.2 % (0.0-6.0); HEMATOCRIT 37 % (39-51); HEMOGLOBIN 11.8 g/dL (13.5-17.5); LYMPHOCYTES # (AUTO) 1.3 K/uL (0.8-4.8); LYMPHOCYTES % (AUTO) 20.2 % (20.0-44.0); MEAN CORPUSCULAR HGB CONC 32 g/dl (31.0-36.0); MEAN CORPUSCULAR VOLUME 88 fL (80-96); MONOCYTES # (AUTO) 0.7 K/uL (0.1-1.30); MONOCYTES % (AUTO) 10.6 % (2.0-12.0); NEUTROPHILS # (AUTO) 4.5 K/uL (1.8-8.9); NEUTROPHILS % (AUTO) 68.3 % (43.0-81.0); PLATELET COUNT (AUTO) 263 K/uL (150-450); RED BLOOD CELL COUNT(AUTO) 4.23 MIL/uL (4.5-6.0); WHITE BLOOD COUNT (AUTO) 6.6 K/uL (4.3-11.0)
[2022-02-19 07:20] LABS: CALCIUM, SERUM 8.9 mg/dL (8.5-10.1); CREATININE 1.6 mg/dL (0.6-1.3); MAGNESIUM 2.1 mg/dL (1.8-2.4); PHOSPHORUS 5.2 mg/dL (2.5-4.9); POTASSIUM 5.3 mmol/L (3.5-5.1)
--- NOTE | 2022-02-19 07:35 | NUR ---
CHARTER BOAT OPERATOR OPENING NOTE RECEIVED PATIENT IN BED, AWAKE, A/O X4, VERBALLY RESPONSIVE. NO SIGNS OF ANY ACUTE DISTRESS NOTED. ON ROOM AIR, TOLERATING WELL WITH NO SOB NOTED AT THIS TIME. BREATHING EVEN AND UNLABORED. TELE MONITOR SHOWS SINUS RHYTHM, HR @ 67. DENIES ANY PAIN AT THIS TIME. WITH IV ACCESS ON RIGHT AC #18G, SALINE LOCKED, INTACT AND PATENT. SAFETY MEASURE IN PLACE. BED IN LOWEST AND LOCKED POSITION. SIDE RAILS UP X2, CALL LIGHT AND TRAY TABLE WITHIN EASY REACH. WILL CONTINUE TO MONITOR PATIENT.
[2022-02-19] MEDS: PANTOPRAZOLE 40 MG TABLET.DR PO SCH (07:40)
[2022-02-19 08:00] VITALS: BP 116/81
[2022-02-19] MEDS: SACUBITRIL/VALSARTAN 1 EACH TABLET PO SCH ×2 (08:20→16:37)
[2022-02-19] MEDS: EMPAGLIFLOZIN 25 MG TABLET PO SCH (08:20)
[2022-02-19] MEDS: AMIODARONE HCL 200 MG TABLET PO SCH ×3 (08:21→16:37)
[2022-02-19] MEDS: ASPIRIN 81 MG TAB.CHEW PO SCH (08:21)
[2022-02-19] MEDS: CARVEDILOL 3.125 MG TABLET PO SCH ×2 (08:22→16:37)
[2022-02-19] MEDS: SPIRONOLACTONE 25 MG TABLET PO SCH (08:22)
[2022-02-19] MEDS: SERTRALINE HCL 25 MG TABLET PO SCH ×2 (08:23→16:37)
[2022-02-19] MEDS: APIXABAN 5 MG TABLET PO SCH ×2 (08:24→16:36)
[2022-02-19 12:00] VITALS: BP 99/62
[2022-02-19] MEDS: ALPRAZOLAM 0.25 MG TABLET PO PRN (14:44)
[2022-02-19] MEDS: ONDANSETRON HCL/PF 4 MG/2 ML VIAL IVP PRN (14:48)
--- NOTE | 2022-02-19 15:00 | NUR ---
RN NOTES - N/V PT HAD 1 EPISODE OF VOMITING, ADMINISTERED ZOFRAN 4MG VIA IV VIA LEFT HAND G#20 (NEW LINE). PATIENT'S RAC IV ACCESS DISLODGED.
--- NOTE | 2022-02-19 15:30 | NUR ---
RN NOTES - ANXIETY AND SOB PATIENT REPORTS SHORTNESS OF BREATH, DIZZINESS, AND N/V. PATIENT WALKED TO THE BATHROOM AND FELT EXHAUSTED AFTER, CHECK VS SIGNS AND TELE MONITORING, STABLE EXCEPT FOR O2 SAT AT 88%. PATIENT LOOKED ANXIOUS AND WAS TOSSING AND TURNING IN HIS BED. ADMINISTERED XANAX 0.5 MG ORDERED. PATIENT REPORTS FEELING BETTER AFTER PUTTING OXYGEN 3LPM VIA NC. WILL CONTINUE TO MONITOR.
[2022-02-19 16:00] VITALS: BP 127/50
--- NOTE | 2022-02-19 19:25 | NUR ---
TRAVEL MONEY ADVISOR CLOSING NOTE PATIENT IN BED, SLEEPING, EASILY AWAKEN, A/O X4, NO SIGNS OF ANY ACUTE DISTRESS NOTED. ON 3 LPM O2 VIA NCA ORDERED TOLERATING WELL AT 98%. BREATHING EVEN AND UNLABORED. TELE MONITOR SHOWS SINUS RHYTHM WITH DEPRESSED ST AT HR @ 60 BPM. DENIES ANY PAIN AT THIS TIME. WITH IV ACCESS ON LEFT HAND G#20, SALINE LOCKED, INTACT AND PATENT. SAFETY MEASURE MAINTAINED. BED IN LOWEST AND LOCKED POSITION. SIDE RAILS UP X2, CALL LIGHT AND TRAY TABLE WITHIN EASY REACH. ALL NEEDS MET. ALL DUE MEDS GIVEN. ENDORSED TO TRAFFIC MONITOR SPECIALIST.
--- NOTE | 2022-02-19 19:30 | NUR ---
RN OPENING NOTES; PATIENT RECEIVED IN BED,A AO X 4,ARMOND WELL ON RM AIR,NO SIGN SOB/DISTRESS NOTED,BREATHING EVEN AND UNLABORED IN ROOM AIR.IV ACCESS ON LHAND 18G PATENT AND INTACT,NO COMPLAINE OF PAIN/DISCOMFORT AT THIS TIME,ALL SAFETY PRECAUTION APPLIED. CALL LIGHT WITHIN REACH, WILL CONTINUE TO MONITOR.
[2022-02-19 20:00] VITALS: BP 94/50
[2022-02-19] MEDS: ENOXAPARIN SODIUM 40 MG/0.4 ML DISP.SYRIN SQ SCH (20:26)
[2022-02-19] MEDS: ZOLPIDEM TARTRATE 5 MG TABLET PO PRN (23:44)
[2022-02-20] VITALS: BP 91/52
[2022-02-20 04:00] VITALS: BP 96/62
--- NOTE | 2022-02-20 06:13 | NUR ---
RN CLOSING NOTES; PATIENT IN BED,A AO X 4,ARMOND WELL ON RM AIR,NO SIGN SOB/DISTRESS NOTED,BREATHING EVEN AND UNLABORED,NO COMPLAINED OF PAIN/DISCOMFORT AT THIS TIME,DUE MEDS GIVEN ORDER,ALL NEEDS ATTENDED,IV ACCESS ON LHAND 20G PATENT AND INTACT,NO COMPLAINE OF PAIN/DISCOMFORT DURING SHIFT,ALL NEEDS ATTENDED,,ALL SAFETY PRECAUTION APPLIED. CALL LIGHT WITHIN REACH, WILL ENDORSED TO NEXT SHIFT.
[2022-02-20 06:48] LABS: BASOPHILS % (AUTO) 0.5 % (0.0-2.0); EOSINOPHILS % (AUTO) 0.7 % (0.0-6.0); HEMATOCRIT 36 % (39-51); HEMOGLOBIN 11.5 g/dL (13.5-17.5); LYMPHOCYTES # (AUTO) 1.6 K/uL (0.8-4.8); LYMPHOCYTES % (AUTO) 25.5 % (20.0-44.0); MEAN CORPUSCULAR HGB CONC 32 g/dl (31.0-36.0); MEAN CORPUSCULAR VOLUME 88 fL (80-96); MONOCYTES # (AUTO) 0.7 K/uL (0.1-1.30); MONOCYTES % (AUTO) 10.8 % (2.0-12.0); NEUTROPHILS % (AUTO) 62.5 % (43.0-81.0); PLATELET COUNT (AUTO) 266 K/uL (150-450); RED BLOOD CELL COUNT(AUTO) 4.09 MIL/uL (4.5-6.0); WHITE BLOOD COUNT (AUTO) 6.3 K/uL (4.3-11.0)
--- NOTE | 2022-02-20 07:10 | NUR ---
COURT ABSTRACTOR OPENING NOTE RECEIVED PT AWAKE IN BED, WATCHING TV AT THIS TIME. A/O X4. ON RA WITH NO SIGNS OF SOB OR LABORED BREATHING. PT DENIES PAIN/DISCOMFORT AT THIS TIME. IV L HAND #20G SL, PATENT AND INTACT. SAFETY PRECAUTIONS IN PLACE: BED IN LOW, LOCKED POSITION; SIDE RAILS UP X3; CALL LIGHT AND TRAY TABLE WITHIN REACH. WILL CONTINUE TO MONITOR AND ASSIST.
[2022-02-20 07:26] LABS: CALCIUM, SERUM 8.8 mg/dL (8.5-10.1); CREATININE 1.7 mg/dL (0.6-1.3); MAGNESIUM 2.3 mg/dL (1.8-2.4); PHOSPHORUS 4.7 mg/dL (2.5-4.9); POTASSIUM 4.8 mmol/L (3.5-5.1)
[2022-02-20] MEDS: PANTOPRAZOLE 40 MG TABLET.DR PO SCH (07:36)
[2022-02-20 08:00] VITALS: BP 111/76
[2022-02-20] MEDS: EMPAGLIFLOZIN 25 MG TABLET PO SCH (08:14)
[2022-02-20] MEDS: SPIRONOLACTONE 25 MG TABLET PO SCH (08:14)
[2022-02-20] MEDS: SACUBITRIL/VALSARTAN 1 EACH TABLET PO SCH ×2 (08:14→17:00)
[2022-02-20] MEDS: SERTRALINE HCL 25 MG TABLET PO SCH ×2 (08:18→17:01)
[2022-02-20] MEDS: APIXABAN 5 MG TABLET PO SCH ×2 (08:18→17:02)
[2022-02-20] MEDS: AMIODARONE HCL 200 MG TABLET PO SCH ×3 (08:19→17:00)
[2022-02-20] MEDS: ASPIRIN 81 MG TAB.CHEW PO SCH (08:19)
[2022-02-20] MEDS: CARVEDILOL 3.125 MG TABLET PO SCH ×2 (08:21→17:00)
[2022-02-20 12:00] VITALS: BP 89/59
[2022-02-20] MEDS: ALPRAZOLAM 0.25 MG TABLET PO PRN (12:04)
[2022-02-20] MEDS: ACETAMINOPHEN 325 MG TABLET PO PRN (12:04)
[2022-02-20] MEDS: MIDODRINE HCL (5MG) 5 MG TABLET PO SCH ×2 (12:44→17:00)
[2022-02-20 16:58] VITALS: BP 98/49
--- NOTE | 2022-02-20 18:40 | NUR ---
VAULT WORKER CLOSING NOTE PT SLEEPING IN BED AT THIS TIME. A/O X4. EASILY AROUSABLE. STABLE ON RA WITH NO SIGNS OF SOB OR LABORED BREATHING. ON TELE MONITOR WITH CURRENT READING OF SR @ 60 BPM. IV ACCESS L HAND #20G SL, PATENT AND INTACT. ALL NEEDS AND CARE PROVIDED. PRESCRIBED MEDS ADMINISTERED AND TOLERATED. SAFETY PRECAUTIONS MAINTAINED: BED IN LOW, LOCKED POSITION; SIDE RAILS UP X2; CALL LIGHT AND TRAY TABLE WITHIN REACH. WILL ENDORSE NOLBERTO TO CD MANUFACTURING SUPERVISOR NURSE.
--- NOTE | 2022-02-20 19:55 | NUR ---
RN OPENING NOTES RECEIVED PT IN BED, ASLEEP, AWAKENS TO VERBAL STIMULI. AOx4, ABLE TO MAKE NEEDS KNOWN. ON RA AND TOLERATING WELL. NO SOB NOTED. NO S/SX OF RESPIRATORY DISTRESS NOTED. TELE MONITOR DETECTS SINUS RHYTHM WITH RATE OF 64. IV ACCESS IN L HAND #20G. IV IS INTACT, PATENT, AND FLUSHING WELL. SAFETY PRECAUTIONS IN PLACE: BED IN LOWEST, LOCKED POSITION, SIDERAILS UPx2, AND BRAKES ON. TABLE AND CALL LIGHT WITHIN REACH. ALL NEEDS MET AT THIS TIME.
[2022-02-20 20:00] VITALS: BP 95/58
[2022-02-20] MEDS: ENOXAPARIN SODIUM 40 MG/0.4 ML DISP.SYRIN SQ SCH (20:18)
[2022-02-21] VITALS: BP 129/57
[2022-02-21 04:00] VITALS: BP 96/58
[2022-02-21 06:22] LABS: BASOPHILS % (AUTO) 0.6 % (0.0-2.0); EOSINOPHILS % (AUTO) 0.9 % (0.0-6.0); HEMATOCRIT 37 % (39-51); HEMOGLOBIN 11.6 g/dL (13.5-17.5); LYMPHOCYTES # (AUTO) 1.5 K/uL (0.8-4.8); LYMPHOCYTES % (AUTO) 27.2 % (20.0-44.0); MEAN CORPUSCULAR HGB CONC 32 g/dl (31.0-36.0); MEAN CORPUSCULAR VOLUME 89 fL (80-96); MONOCYTES # (AUTO) 0.7 K/uL (0.1-1.30); MONOCYTES % (AUTO) 12.6 % (2.0-12.0); NEUTROPHILS # (AUTO) 3.3 K/uL (1.8-8.9); NEUTROPHILS % (AUTO) 58.7 % (43.0-81.0); PLATELET COUNT (AUTO) 264 K/uL (150-450); RED BLOOD CELL COUNT(AUTO) 4.15 MIL/uL (4.5-6.0); WHITE BLOOD COUNT (AUTO) 5.6 K/uL (4.3-11.0)
[2022-02-21 06:39] LABS: CALCIUM, SERUM 8.6 mg/dL (8.5-10.1); CREATININE 1.8 mg/dL (0.6-1.3); MAGNESIUM 2.3 mg/dL (1.8-2.4); PHOSPHORUS 4.3 mg/dL (2.5-4.9); POTASSIUM 4.6 mmol/L (3.5-5.1)
--- NOTE | 2022-02-21 06:46 | NUR ---
RN CLOSING NOTES PT IN BED, AWAKE, WATCHING TV. AOx4, ABLE TO MAKE NEEDS KNOWN. ON RA AND TOLERATING WELL. NO SOB NOTED. NO S/SX OF RESPIRATORY DISTRESS NOTED. TELE MONITOR DETECTS SINUS RHYTHM WITH RATE OF 64. IV ACCESS IN L HAND #20G. IV IS INTACT, PATENT, AND FLUSHING WELL. ALL ORDERS CARRIED OUT. ALL NEEDS MET. PT KEPT CLEAN AND DRY. SAFETY PRECAUTIONS IN PLACE: BED IN LOWEST, LOCKED POSITION, SIDERAILS UPx2, AND BRAKES ON. TABLE AND CALL LIGHT WITHIN REACH. WILL ENDORSE TO ONCOMING SHIFT FOR NOLBERTO.
[2022-02-21 07:00] VITALS: BP 100/75
--- NOTE | 2022-02-21 07:55 | NUR ---
RN OPENING NOTES PATIENT AWAKE IN BED RESTING, A/O X 4. NO S/S OF PAIN NOTED AT THIS TIME. ON ROOM AIR, NO DISTRESS OR SHORTNESS OF BREATH NOTED. IV ACCESS L HAND #20G, INTACT, PATENT, FLUSHING WELL. 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 FALL AND SAFETY MEASURES IN PLACE, BED ALARM ON, BED IN LOW LOCK POSITION, CALL LIGHT AND TABLE WITHIN EASY REACH, SIDE RAILS UP X2. WILL CONTINUE TO MONITOR.
[2022-02-21] MEDS: ONDANSETRON HCL/PF 4 MG/2 ML VIAL IVP PRN (08:45)
[2022-02-21] MEDS: SACUBITRIL/VALSARTAN 1 EACH TABLET PO SCH ×2 (08:49→18:04)
[2022-02-21] MEDS: SERTRALINE HCL 25 MG TABLET PO SCH ×2 (08:50→17:55)
[2022-02-21] MEDS: PANTOPRAZOLE 40 MG TABLET.DR PO SCH (08:50)
[2022-02-21] MEDS: EMPAGLIFLOZIN 25 MG TABLET PO SCH (08:50)
[2022-02-21] MEDS: SPIRONOLACTONE 25 MG TABLET PO SCH (08:51)
[2022-02-21] MEDS: APIXABAN 5 MG TABLET PO SCH ×2 (08:51→17:55)
[2022-02-21] MEDS: MIDODRINE HCL (5MG) 5 MG TABLET PO SCH ×3 (08:52→17:56)
[2022-02-21] MEDS: AMIODARONE HCL 200 MG TABLET PO SCH ×3 (08:52→17:00)
[2022-02-21] MEDS: CARVEDILOL 3.125 MG TABLET PO SCH ×2 (08:52→17:00)
[2022-02-21] MEDS: ASPIRIN 81 MG TAB.CHEW PO SCH (08:53)
[2022-02-21] MEDS: ALPRAZOLAM 0.25 MG TABLET PO PRN (11:17)
--- NOTE | 2022-02-21 19:09 | NUR ---
RN CLOSING NOTES PATIENT AWAKE IN BED RESTING, A/O X 4. NO S/S OF PAIN NOTED AT THIS TIME. ON ROOM AIR, NO DISTRESS OR SHORTNESS OF BREATH NOTED. IV ACCESS L HAND #20G, INTACT, PATENT, FLUSHING WELL. 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 SCHEDULE MEDICATIONS ADMINISTERED. ALL NEEDS ATTENDED AND ANTICIPATED. FALL AND SAFETY MEASURES IN PLACE, BED ALARM ON, BED IN LOW LOCK POSITION, CALL LIGHT AND TABLE WITHIN EASY REACH, SIDE RAILS UP X2. WILL ENDORSE TO ADA ACCOMMODATION CONSULTANT.
--- NOTE | 2022-02-21 19:40 | NUR ---
RN CLOSING NOTES PT IN BED, ASLEEP, AWAKENS TO VERBAL STIMULI. AOx4, ABLE TO MAKE NEEDS KNOWN. ON RA AND TOLERATING WELL. NO SOB NOTED. NO S/SX OF RESPIRATORY DISTRESS NOTED. TELE MONITOR DETECTS SINUS RHYTHM WITH RATE OF 64. IV ACCESS IN L HAND #20G. IV IS INTACT, PATENT, AND FLUSHING WELL. SAFETY PRECAUTIONS IN PLACE: BED IN LOWEST, LOCKED POSITION, SIDERAILS UPx2, AND BRAKES ON. TABLE AND CALL LIGHT WITHIN REACH. ALL NEEDS MET AT THIS TIME. Addendum: 02/22/22 at 0636 by VENTURA PADGETT RN SHOULD READ RN OPENING NOTES
[2022-02-21 20:00] VITALS: BP 152/66
[2022-02-22] VITALS (7 sets, daily range): BP systolic 99–135; BP diastolic 63–77
[2022-02-22] MEDS ORDERED: ALBUTEROL FS 2.5 MG/0.5 ML VIAL.NEB NEB PRN (06:30)
[2022-02-22] MEDS ORDERED: IPRATROPIUM NEB FS 0.5 MG/2.5 ML AMPUL.NEB NEB PRN (06:30)
[2022-02-22] MEDS: PANTOPRAZOLE 40 MG TABLET.DR PO SCH (06:35)
[2022-02-22] MEDS: ALPRAZOLAM 0.25 MG TABLET PO PRN ×2 (06:36→22:05)
--- NOTE | 2022-02-22 06:36 | NUR ---
RN NOTES ADMINISTERED XANAX FOR ANXIETY PER MD ORDER. VS WNL.
--- NOTE | 2022-02-22 06:44 | NUR ---
RN CLOSING NOTES PT IN BED,AWAKE, TEXTING ON PHONE. AOx4, ABLE TO MAKE NEEDS KNOWN. ON RA AND TOLERATING WELL. NO SOB NOTED. NO S/SX OF RESPIRATORY DISTRESS NOTED. TELE MONITOR DETECTS SINUS RHYTHM WITH RATE OF 64. IV ACCESS IN L HAND #20G. IV IS INTACT, PATENT, AND FLUSHING WELL.ALL ORDERS CARRIED OUT. ALL NEEDS MET. PT KEPT CLEAN AND DRY. SAFETY PRECAUTIONS IN PLACE: BED IN LOWEST, LOCKED POSITION, SIDERAILS UPx2, AND BRAKES ON. TABLE AND CALL LIGHT WITHIN REACH. WILL ENDORSE TO ONCOMING SHIFT FOR NOLBERTO.
--- NOTE | 2022-02-22 07:30 | NUR ---
RN Receiving Report Patient AOx4 able to express his own concerns. Patient sleeping, easily aroused. Discussed plan of care, patient agrees. Will monitor and provide care as needed throughout shift. All safety precautions taken, call light and table within reach, bed at lowest position.
[2022-02-22] MEDS: APIXABAN 5 MG TABLET PO SCH ×2 (08:48→16:41)
[2022-02-22] MEDS: MIDODRINE HCL (5MG) 5 MG TABLET PO SCH ×3 (08:49→16:41)
[2022-02-22] MEDS: SERTRALINE HCL 25 MG TABLET PO SCH ×2 (08:49→16:40)
[2022-02-22] MEDS: ASPIRIN 81 MG TAB.CHEW PO SCH (08:49)
[2022-02-22] MEDS: SPIRONOLACTONE 25 MG TABLET PO SCH (08:53)
[2022-02-22] MEDS: EMPAGLIFLOZIN 25 MG TABLET PO SCH (08:54)
[2022-02-22] MEDS: SACUBITRIL/VALSARTAN 1 EACH TABLET PO SCH ×2 (09:12→16:40)
[2022-02-22] MEDS: CARVEDILOL 3.125 MG TABLET PO SCH ×2 (11:23→16:41)
[2022-02-22] MEDS: AMIODARONE HCL 200 MG TABLET PO SCH ×3 (11:23→16:41)
--- NOTE | 2022-02-22 17:57 | NUR ---
RN closing report. Patient AOx4 with family at bedside. Per patient, ok to answer mothers questions. Patient and mother made aware of plan of care and procedure scheduled for tomorrow. Patient confirmed agreement and states he decided to go forward as scheduled. Patients medications administered as scheduled, b/p med and eliquis were held, MD notified. All safety precautions taken, call light and table within reach.
--- NOTE | 2022-02-22 19:29 | NUR ---
RN Opening report Patient AOx4 pt for procedure tomorrow to be NPO after midnight Patient confirmed agreement and states he decided to go forward as scheduled. All safety precautions taken, call light and table within reach.
--- NOTE | 2022-02-22 22:06 | NUR ---
RN NOTE prn xanax given per pt request tolerated well.
--- NOTE | 2022-02-22 22:08 | NUR ---
rn note pr reminded he is to be npo after midnight pt agreed.
[2022-02-23] VITALS (8 sets, daily range): BP systolic 102–119; BP diastolic 58–88
--- NOTE | 2022-02-23 06:11 | NUR ---
RN Closing report Patient AOx4 pt NPO since midnight for icd placement today @1:[address] Rene.consents signed and in chart. all nursing needs met throughout the shift. All safety precautions taken, call light and table within reach. will endorse care to day shift nurse.
[2022-02-23 06:40] LABS: BASOPHILS % (AUTO) 0.7 % (0.0-2.0); EOSINOPHILS % (AUTO) 0.7 % (0.0-6.0); HEMATOCRIT 37 % (39-51); HEMOGLOBIN 12.1 g/dL (13.5-17.5); LYMPHOCYTES # (AUTO) 1.7 K/uL (0.8-4.8); LYMPHOCYTES % (AUTO) 28.8 % (20.0-44.0); MEAN CORPUSCULAR HGB CONC 33 g/dl (31.0-36.0); MEAN CORPUSCULAR VOLUME 88 fL (80-96); MONOCYTES # (AUTO) 0.6 K/uL (0.1-1.30); MONOCYTES % (AUTO) 10.9 % (2.0-12.0); NEUTROPHILS # (AUTO) 3.5 K/uL (1.8-8.9); NEUTROPHILS % (AUTO) 58.9 % (43.0-81.0); PLATELET COUNT (AUTO) 262 K/uL (150-450); RED BLOOD CELL COUNT(AUTO) 4.22 MIL/uL (4.5-6.0); WHITE BLOOD COUNT (AUTO) 5.9 K/uL (4.3-11.0)
[2022-02-23 07:04] LABS: CALCIUM, SERUM 8.4 mg/dL (8.5-10.1); CREATININE 1.6 mg/dL (0.6-1.3); MAGNESIUM 2.6 mg/dL (1.8-2.4); POTASSIUM 4.4 mmol/L (3.5-5.1)
[2022-02-23] MEDS: PANTOPRAZOLE 40 MG TABLET.DR PO SCH (07:30)
--- NOTE | 2022-02-23 07:30 | NUR ---
RN Opening Note Patient AOx4 able to express his own concerns. Patient sleeping, easily aroused. Discussed plan of care, and made aware of patients scheduled procedure at 1 pm, patient agrees. Will monitor and provide care as needed throughout shift. All safety precautions taken, call light and table within reach, bed at lowest position.
[2022-02-23] MEDS: SACUBITRIL/VALSARTAN 1 EACH TABLET PO SCH ×2 (09:00→18:15)
[2022-02-23] MEDS: SPIRONOLACTONE 25 MG TABLET PO SCH (09:00)
[2022-02-23] MEDS: CARVEDILOL 3.125 MG TABLET PO SCH ×2 (09:00→18:12)
[2022-02-23] MEDS: MIDODRINE HCL (5MG) 5 MG TABLET PO SCH ×3 (09:00→18:13)
[2022-02-23] MEDS: AMIODARONE HCL 200 MG TABLET PO SCH ×3 (09:00→18:12)
[2022-02-23] MEDS: ASPIRIN 81 MG TAB.CHEW PO SCH (09:00)
[2022-02-23] MEDS: APIXABAN 5 MG TABLET PO SCH ×2 (09:00→17:00)
[2022-02-23] MEDS: EMPAGLIFLOZIN 25 MG TABLET PO SCH (09:00)
[2022-02-23] MEDS: SERTRALINE HCL 25 MG TABLET PO SCH ×2 (09:00→18:13)
[2022-02-23] MEDS ORDERED: IOHEXOL 240MG/ML 50 ML IV ONE (09:33)
[2022-02-23] MEDS ORDERED: LIDOCAINE 1% INJ 50 ML MDV IJ ONE ×2 (09:34→15:33)
[2022-02-23] MEDS ORDERED: BUPIVACAINE 0.25% 75 MG/30 ML VIAL ONE (09:34)
--- NOTE | 2022-02-23 13:50 | NUR ---
RN note Patient transported out of unit to surgery unit.
[2022-02-23] MEDS ORDERED: FENTANYL PF 100MCG/2ML AMPUL ONE (14:17)
[2022-02-23] MEDS ORDERED: MIDAZOLAM HCL 2 MG/2ML VIAL ONE (14:34)
--- NOTE | 2022-02-23 15:30 | NUR ---
RN Accepting Report. Patien arrived to unit from surgery, Vitals signs stable, all safety precautions taken. Patient able to express his concerns, states he is in no pain but hungry. Educated on importance of slowly advancing from NPO diet. Educated on signs and symptoms that require medical attention. Patient verbalized understanding. No signs of distress. IV site s/l, no signs of infiltration.
--- NOTE | 2022-02-23 18:51 | NUR ---
RN Closing Report Patient AOx4 able to express his own concerns. Monitored patient after procedure, remained stable, vitals stable, Patient being monitored on Tele. Patient remained safe throughout shift, all safety precautions taken, call light and table within reach, bed at lowest position..
--- NOTE | 2022-02-23 19:30 | NUR ---
RN Opening Note Patient AOx4 able to express his own concerns. pt s/p icd placement and s/p thoracenteses Patient being monitored on Tele.all safety precautions taken, call light and table within reach, bed at lowest position.
[2022-02-24] VITALS: BP 108/66
[2022-02-24] MEDS: HYDROCODONE/APAP 5/325MG TABLET PO PRN ×3 (01:13→13:48)
--- NOTE | 2022-02-24 01:15 | NUR ---
RN NOTE COVERING FOR MARCELINO GRAMAJO. PT COMPLAINED OF PAIN OF RIGHT CHEST PAIN 10/23. ADMINISTERED NORCO 5/323 MG FOR MODERATE PAIN ORDERED. MADE COMFORTABLE IN BED. ALL NEEDS MET AT THIS TIME.
[2022-02-24 04:00] VITALS: BP 110/62
--- NOTE | 2022-02-24 06:31 | NUR ---
RN Closing Note Patient AOx4 able to express his own concerns. pt s/p icd placement and s/p thoracenteses yesterday both on the right side Patient being monitored on Tele.all safety precautions taken, call light and table within reach, bed at lowest position.will endorse care to day shift nurse.
--- NOTE | 2022-02-24 07:30 | NUR ---
RN OPENING NOTE- PT IN BED, AWAKE, . AOx4, ABLE TO MAKE NEEDS KNOWN. ON RA AND TOLERATING WELL. NO SOB NOTED. NO S/SX OF RESPIRATORY DISTRESS NOTED. TELE MONITOR DC THIS MORNING BY DR YEE, IV ACCESS IN L HAND #20G. IV ALL ORDERS CARRIED OUT. RX FOR PAIN, ALL NEEDS MET. SAFETY PRECAUTIONS IN PLACE: BED IN LOWEST, LOCKED POSITION, SIDERAILS UPx2, AND LOCKED. TABLE AND CALL LIGHT WITHIN REACH.
[2022-02-24 07:48] LABS: CALCIUM, SERUM 8.5 mg/dL (8.5-10.1); CREATININE 1.3 mg/dL (0.6-1.3); POTASSIUM 4.5 mmol/L (3.5-5.1)
[2022-02-24 07:56] LABS: BASOPHILS % (AUTO) 0.2 % (0.0-2.0); EOSINOPHILS % (AUTO) 0.4 % (0.0-6.0); HEMATOCRIT 35 % (39-51); HEMOGLOBIN 11.2 g/dL (13.5-17.5); LYMPHOCYTES % (AUTO) 14.3 % (20.0-44.0); MEAN CORPUSCULAR HGB CONC 32 g/dl (31.0-36.0); MEAN CORPUSCULAR VOLUME 89 fL (80-96); MONOCYTES # (AUTO) 0.6 K/uL (0.1-1.30); MONOCYTES % (AUTO) 9.2 % (2.0-12.0); NEUTROPHILS # (AUTO) 5.2 K/uL (1.8-8.9); NEUTROPHILS % (AUTO) 75.9 % (43.0-81.0); PLATELET COUNT (AUTO) 235 K/uL (150-450); RED BLOOD CELL COUNT(AUTO) 3.98 MIL/uL (4.5-6.0); WHITE BLOOD COUNT (AUTO) 6.9 K/uL (4.3-11.0)
[2022-02-24] MEDS: PANTOPRAZOLE 40 MG TABLET.DR PO SCH (07:57)
[2022-02-24] MEDS: SERTRALINE HCL 25 MG TABLET PO SCH ×2 (09:06→16:37)
[2022-02-24] MEDS: SPIRONOLACTONE 25 MG TABLET PO SCH (09:06)
[2022-02-24] MEDS: ASPIRIN 81 MG TAB.CHEW PO SCH (09:06)
[2022-02-24] MEDS: AMIODARONE HCL 200 MG TABLET PO SCH ×2 (09:07→16:39)
[2022-02-24] MEDS: CARVEDILOL 3.125 MG TABLET PO SCH ×2 (09:08→16:39)
[2022-02-24] MEDS: APIXABAN 5 MG TABLET PO SCH ×2 (09:08→16:38)
[2022-02-24] MEDS: EMPAGLIFLOZIN 25 MG TABLET PO SCH (09:10)
[2022-02-24] MEDS: SACUBITRIL/VALSARTAN 1 EACH TABLET PO SCH ×2 (09:10→16:39)
[2022-02-24 09:32] VITALS: BP 110/74
[2022-02-24] MEDS: ALPRAZOLAM 0.25 MG TABLET PO PRN (11:33)
--- NOTE | 2022-02-24 11:34 | NUR ---
RN NOTE- ANXIETY AND RESTLESSNESS. XANAX 0.5 MG GIVEN
[2022-02-24 16:16] VITALS: BP 104/68
--- NOTE | 2022-02-24 18:41 | NUR ---
RN CLOSING NOTE- PT IN BED, AWAKE, . AOx4, ABLE TO MAKE NEEDS KNOWN. ON RA AND TOLERATING WELL. NO SOB NOTED. NO S/SX OF RESPIRATORY DISTRESS NOTED. IV ACCESS IN L HAND #20G. IV ALL ORDERS CARRIED OUT. RX FOR PAIN, ALL NEEDS MET. SAFETY PRECAUTIONS IN PLACE: BED IN LOWEST, LOCKED POSITION, SIDERAILS UPx2, AND LOCKED. TABLE AND CALL LIGHT WITHIN REACH.
--- NOTE | 2022-02-24 19:30 | NUR ---
MS RN OPENING NOTE RECEIVED PT AWAKE IN BED. A/O X4 AND ABLE TO MAKE NEEDS KNOWN. PT STABLE ON ROOM AIR. NO SOB OR S/S OF RESPIRATORY DISTRESS. BREATHING EVEN AND UNLABORED. IV ACCESS R HAND 20 G, INTACT AND PATENT. SAFETY PRECAUTIONS IN PLACE. BED IN LOWEST LOCKED POSITION, HOB ELEVATED, SIDE RAILS UP X2, AND CALL LIGHT AND TABLE WITHIN REACH. ALL NEEDS MET AT THIS TIME.
--- NOTE | 2022-02-24 22:48 | NUR ---
RN NOTE PT COMPLAINING OF PRURITUS. NO RASH NOTED. PT REQUESTING BENEDRYL. INFORMED BACKUP OPERATOR DAVIS WITH NEW ORDER. ADMINISTERED BENEDRYL 25 MG FOR PRURITUS ORDERED. ALL NEEDS MET AT THIS TIME.
[2022-02-24] MEDS ORDERED: diphenhydrAMINE HCL 25 MG CAPSULE PO PRN (23:00)
--- NOTE | 2022-02-25 06:52 | NUR ---
MS RN CLOSING NOTE PT AWAKE IN BED. A/O X4 AND ABLE TO MAKE NEEDS KNOWN. PT STABLE ON ROOM AIR. NO SOB OR S/S OF RESPIRATORY DISTRESS. BREATHING EVEN AND UNLABORED. IV ACCESS R HAND 20 G, INTACT AND PATENT. ALL DUE MEDS GIVEN ORDERED. SAFETY PRECAUTIONS IN PLACE AT ALL TIMES. BED IN LOWEST LOCKED POSITION, HOB ELEVATED, SIDE RAILS UP X2, AND CALL LIGHT AND TABLE WITHIN REACH. ALL NEEDS MET AT THIS TIME AND WILL ENDORSE TO ONCOMING NURSE FOR NOLBERTO.
--- NOTE | 2022-02-25 07:49 | NUR ---
MS RN OPENING NOTE: RECEIVED PT ASLEEP IN BED. A/O X4 AND ABLE TO MAKE NEEDS KNOWN. PT STABLE ON ROOM AIR. NO SOB OR S/S OF RESPIRATORY DISTRESS NOTED. BREATHING EVEN AND UNLABORED. IV ACCESS R HAND 20 G, INTACT AND PATENT. SAFETY PRECAUTIONS IN PLACE AT ALL TIMES. BED IN LOWEST LOCKED POSITION, HOB ELEVATED, SIDE RAILS UP X2, AND CALL LIGHT AND TABLE WITHIN REACH, WILL CONT WITH PLAN OF CARE DURING SHIFT.
[2022-02-25 08:00] VITALS: BP 110/78
[2022-02-25] MEDS: ASPIRIN 81 MG TAB.CHEW PO SCH (08:56)
[2022-02-25] MEDS: PANTOPRAZOLE 40 MG TABLET.DR PO SCH (08:57)
[2022-02-25] MEDS: AMIODARONE HCL 200 MG TABLET PO SCH (08:57)
[2022-02-25] MEDS: APIXABAN 5 MG TABLET PO SCH (08:59)
[2022-02-25 09:00] VITALS: BP 110/78
[2022-02-25] MEDS: CARVEDILOL 3.125 MG TABLET PO SCH (09:00)
[2022-02-25] MEDS: HYDROCODONE/APAP 5/325MG TABLET PO PRN (09:01)
[2022-02-25] MEDS: SERTRALINE HCL 25 MG TABLET PO SCH (09:01)
[2022-02-25] MEDS: SPIRONOLACTONE 25 MG TABLET PO SCH (09:01)
[2022-02-25] MEDS: EMPAGLIFLOZIN 25 MG TABLET PO SCH (09:05)
[2022-02-25] MEDS: SACUBITRIL/VALSARTAN 1 EACH TABLET PO SCH (09:05)
--- NOTE | 2022-02-25 11:14 | NUR ---
MS RN DC NOTES: PT IS STABLE FOR DC, MD ORDERS CARRIED OUT. PT STABLE ON RA, NO S/S OF SOB OR ACUTE DISTRESS, DENIES PAIN, VS WNL. NEW MEDICATIONS, DISCHARGE INSTRUCTIONS AND FOLLOW UP APPOINTMENTS DISCUSSED WITH PATIENT, ADDRESSED QUESTIONS AND CONCERNS APPROPRIATE, PT VERBALIZED UNDERSTANDING. BELONGINGS RETURNED, DC DOCS SIGNED. IV ACCESS AND ID BAND REMOVED, ESCORTED PT TO LOBBY BY 2 NURSING STUDENTS.
== END 2022-02-25 11:45 | disposition home or self-care (01) | DRG 179 ==
LOC: ER 11:51 → TELE 20:52 → MED 02-24 08:07
PROVIDERS: ADMIT Student in an Organized Health Care Education/Training Program; ATTEND Nurse Practitioner Acute Care
PROC: 0JH608Z Insertion of Defibrillator Generator into Chest Subcutaneous Tissue and Fascia, Open Approach (ICD-10-PCS; principal; 2022-02-23)
PROC: 02HK3KZ Insertion of Defibrillator Lead into Right Ventricle, Percutaneous Approach (ICD-10-PCS; 2022-02-23)
PROC: 0W993ZZ Drainage of Right Pleural Cavity, Percutaneous Approach (ICD-10-PCS; 2022-02-23)
PROC: B517YZZ Fluoroscopy of Left Subclavian Vein using Other Contrast (ICD-10-PCS; 2022-02-23)
DX: I11.0 Hypertensive heart disease with heart failure (principal); I21.4 Non-ST elevation (NSTEMI) myocardial infarction; I42.7 Cardiomyopathy due to drug and external agent; F20.0 Paranoid schizophrenia; J90 Pleural effusion, not elsewhere classified; E11.9 Type 2 diabetes mellitus without complications; F15.20 Other stimulant dependence, uncomplicated; D64.9 Anemia, unspecified; I50.23 Acute on chronic systolic (congestive) heart failure; Z79.01 Long term (current) use of anticoagulants; Z20.822 Contact with and (suspected) exposure to COVID-19; Z86.711 Personal history of pulmonary embolism; Z83.3 Family history of diabetes mellitus; F32.A Depression, unspecified; T43.655A Adverse effect of methamphetamines, initial encounter; Y92.009 Unspecified place in unspecified non-institutional (private) residence as the place of occurrence of the external cause; F39 Unspecified mood [affective] disorder; F41.9 Anxiety disorder, unspecified; J98.11 Atelectasis; Z59.00 Homelessness unspecified; Z79.899 Other long term (current) drug therapy; Z72.0 Tobacco use
CPT/HCPCS: 36415; 71045-TC; 71250-TC; 80048-TC; 83735-TC; 83880; 84100-TC; 84443-TC; 84484-TC; 85025-TC; 85730-TC; 87070-TC; 87075-TC; 87081-TC; 87102-TC; 89051-TC; 93307-TC; A4565; A4649; A6209; A6402; C1722; C1769; C9803; G0378; J0690; J1650; J1940; J2250; J2405; J2704; J3010; J3490; J7030; J7040; J7050; J7060; Q0163; Q9966

== ENCOUNTER 2022-03-06 16:15 | Inpatient (IN) | payer OTHER ==
[~2022-03-06] VITALS: Ht 182.9 cm; Wt 103.9 kg
[~2022-03-06 16:15] MED LIST changes: +APIX5TAB PO; -ESCI10TA PO; -FOLI0.8T3 PO; -FURO40TA5 PO; -LORA-259 PO; -LOSA25TA27 PO; -QUET200T PO; +SACU1TAB PO; +SPIR25TA6 PO; -TEMA15CA PO
--- NOTE | 2022-03-06 16:35 | NUR ---
CHEST PAIN, SHORTNESS OF BREATH, HEADACHE SINCE THIS MORNING.
--- NOTE | 2022-03-06 16:38 | NUR ---
STARTED O2 VIA NC AT 2-3L/MIN , O2SAT AT 98
--- NOTE | 2022-03-06 16:38 | NUR ---
EKG PERFORMED BY EMT
--- NOTE | 2022-03-06 16:40 | NUR ---
BILATERAL LEG EDEMA NOTED
--- NOTE | 2022-03-06 16:49 | NUR ---
ESTABLISHED IV LINE RIGHT AC 20 G INFUSING
[2022-03-06] MEDS ORDERED: ACETAMINOPHEN ES 500 MG TABLET ONE (16:52)
[2022-03-06] MEDS ORDERED: ASPIRIN 325 MG TABLET ONE (16:52)
[2022-03-06] MEDS ORDERED: NITROGLYCERIN PACKET 1 GM PACKET ONE (16:53)
[2022-03-06 16:58] LABS: BASOPHILS # (AUTO) 0.1 K/uL (0.0-0.2); BASOPHILS % (AUTO) 0.8 % (0.0-2.0); EOSINOPHILS % (AUTO) 0.9 % (0.0-6.0); HEMATOCRIT 39 % (39-51); HEMOGLOBIN 12.2 g/dL (13.5-17.5); LYMPHOCYTES % (AUTO) 15.3 % (20.0-44.0); MEAN CORPUSCULAR HGB CONC 31 g/dl (31.0-36.0); MEAN CORPUSCULAR VOLUME 88 fL (80-96); MONOCYTES # (AUTO) 0.7 K/uL (0.1-1.30); MONOCYTES % (AUTO) 10.7 % (2.0-12.0); NEUTROPHILS # (AUTO) 4.8 K/uL (1.8-8.9); NEUTROPHILS % (AUTO) 72.3 % (43.0-81.0); PLATELET COUNT (AUTO) 277 K/uL (150-450); RED BLOOD CELL COUNT(AUTO) 4.45 MIL/uL (4.5-6.0); WHITE BLOOD COUNT (AUTO) 6.6 K/uL (4.3-11.0)
[2022-03-06] MEDS ORDERED: NITROGLYCERIN PACKET 1 GM PACKET TD ONE (17:00)
[2022-03-06] MEDS ORDERED: ACETAMINOPHEN ES 500 MG TABLET PO ONE (17:00)
[2022-03-06] MEDS ORDERED: ASPIRIN 325 MG TABLET PO ONE (17:00)
--- NOTE | 2022-03-06 17:05 | NUR ---
MOVE SHEET SUBMITTED.
--- NOTE | 2022-03-06 17:09 | NUR ---
COVID SWAB COLLECTED SENT TO LAB
[2022-03-06 17:12] LABS: ALANINE AMINOTRANSFERASE 30 U/L (12-78); ALBUMIN 3.1 g/dL (3.4-5.0); ALKALINE PHOSPHATASE 102 U/L (46-116); ASPARTATE AMINOTRANSFERASE 25 U/L (15-37); BILIRUBIN,DIRECT 0.9 mg/dL (0.0-0.2); BILIRUBIN,TOTAL 1.8 mg/dL (0.2-1.0); CALCIUM, SERUM 8.2 mg/dL (8.5-10.1); CARBON DIOXIDE 28 mmol/L (21-32); CHLORIDE 114 mmol/L (98-107); CREATININE 1.7 mg/dL (0.6-1.3); GLUCOSE 92 mg/dL (74-106); POTASSIUM 4.3 mmol/L (3.5-5.1); SODIUM SERUM 140 mmol/L (136-145); TOTAL PROTEIN, SERUM 6.8 g/dL (6.4-8.2); UREA NITROGEN, BLOOD 28 mg/dL (7-18)
--- NOTE | 2022-03-06 17:25 | NUR ---
TROPONIN = 257 MADE AWARE
--- NOTE | 2022-03-06 19:03 | NUR ---
CALLED [facility] HOSPITALIST, DR. SOFÍA BULL SPEAKING WITH DR. SALAZAR.
--- NOTE | 2022-03-06 19:04 | NUR ---
DR. BULL [phone]
--- NOTE | 2022-03-06 19:11 | NUR ---
[facility] CALLED MOTOR PATROL OPERATOR PAGED.
--- NOTE | 2022-03-06 19:35 | NUR ---
RECEIVED REPORT FROM MARCELINO CAICEDO. PATIENT CAME HERE FOR CP. PATIENT IS AAOX4. STILL WITH CHEST PAIN. SCALE OF 6/10. ANXIOUS. WITH IV CANNULA G20 ON RIGHT AC. PATIENT IS ATTACHED TO MONITOR. VITALS CHECKED.
[2022-03-06] MEDS ORDERED: FUROSEMIDE 40 MG/4 ML VIAL IV ONE (20:00)
--- NOTE | 2022-03-06 20:47 | NUR ---
BED GIVEN 112-1
[2022-03-06] MEDS ORDERED: ONDANSETRON HCL/PF 4 MG/2 ML VIAL IVP PRN (21:00)
[2022-03-06] MEDS ORDERED: MAG HYDROX/AL HYDROX/SIMETH 30 ML UDC PO PRN (21:00)
[2022-03-06] MEDS ORDERED: IPRATROPIUM NEB FS 0.5 MG/2.5 ML AMPUL.NEB NEB PRN (21:00)
[2022-03-06] MEDS ORDERED: ACETAMINOPHEN 325 MG TABLET PO PRN (21:00)
[2022-03-06] MEDS ORDERED: Z GUARD REMEDY 4 OZ OINT TP PRN (21:00)
[2022-03-06] MEDS ORDERED: ALBUTEROL FS 2.5 MG/3 ML VIAL.NEB NEB PRN (21:00)
[2022-03-06] MEDS ORDERED: MAGNESIUM HYDROXIDE 30 ML UDC PO PRN (21:00)
[2022-03-06] MEDS ORDERED: FUROSEMIDE 40 MG/4 ML VIAL ONE (21:07)
--- NOTE | 2022-03-06 21:36 | NUR ---
REPORT GIVEN TO MARCELINO BARRERA
[2022-03-06 22:00] VITALS: BP 116/80
--- NOTE | 2022-03-06 22:02 | NUR ---
URINE SPECIMEN SENT TO LAB
--- NOTE | 2022-03-06 22:02 | NUR ---
TRANSFER PATIENT TO ROOM
--- NOTE | 2022-03-06 22:10 | NUR ---
RN INITIAL NOTE PT ARRIVED TO UNIT VIA [place], ABLE TO AMBULATE TO BED FROM [facility]. PT IS ON 2L NC WITH CURRENT O2SAT OF 98%; NO S/S OF RESP DISTRESS, NO SOB OR COUGH, NON-LABORED AND EQUAL BREATHING. PT ATTACHED TO EXTERNAL MONITOR, SR WITH HR OF 74. IV ACCESS ON RAC 20G, INTACT AND PATENT; KEPT SL. PT NOTED TO BE VACCINATED AGAINST COVID AND HAS RECEIVED 2 DOSES. ALSO RECEIVED FLU VACCINE. DENIES HISTORY OF SMOKING. PT REPORTS OF HAVING HIS PACEMAKER PLACED JUST ON Sunday03/04/[address] YEE. SKIN ASSESSMENT PERFORMED, NO SKIN ISSUES IDENTIFIED. ALL BELONGINGS, INCLUDING PT'S OWN MEDICATIONS, CHECKED AND ACCOUNTED FOR. BED IN LOWEST POSITION, CALL LIGHT WITHIN REACH, SIDE RAILS UP X2. WILL INITIATE PLAN OF CARE.
[2022-03-06] MEDS: FUROSEMIDE 20 MG/2 ML VIAL IV SCH (22:33)
--- NOTE | 2022-03-06 22:55 | NUR ---
RN NOTE PT COMPLAINS OF 10/10 HEADACHE AND REQUESTS FOR MEDICINE STRONGER THAN TYLENOL. ORDER RECEIVED FROM KATHE FOR TRAMADOL 50 MG PO Q6H PRN. ORDER OBTAINED AND CARRIED OUT.
[2022-03-06] MEDS: TRAMADOL HCL 50 MG TABLET PO PRN (23:10)
--- NOTE | 2022-03-06 23:11 | NUR ---
RN NOTE PT REPORTS OF 10/10 HEADACHE. PT ADMINISTERED TRAMADOL 50 MG. WILL MONITOR FOR EFFECTIVENESS.
[2022-03-06 23:20] LABS: BILIRUBIN,URINE 1+ (NEGATIVE); COLOR,URINE DARK YELLOW (YELLOW); LEUKOCYTE ESTERASE ,URINE NEGATIVE (NEGATIVE); NITRITE, URINE NEGATIVE (NEGATIVE); PROTEIN,URINE NEGATIVE (NEGATIVE); UGLUCOSE NEGATIVE (NEGATIVE)
[2022-03-06 23:33] LABS: BACTERIA,URINE Rare /HPF (None Seen); RBC,URINE 0-2 /HPF (0-2); SQUAMOUS EPITHELIAL CELL,UR Moderate /HPF (None Seen); WBC,URINE 0-2 /HPF (0-3)
[2022-03-07] VITALS: BP 110/72
[2022-03-07 04:00] VITALS: BP 129/77
--- NOTE | 2022-03-07 06:46 | NUR ---
STROKE BELT SANDER OPERATOR CLOSING PT REMAINS IN BED, AWAKE, A&O X4, CALM, COOPERATIVE. CONTINUES TO BE ON 2L NC WITH O2SAT RANGING FROM 95%- 98%; NO S/S OF RESP DISTRESS, NO SOB OR COUGH, NON-LABORED AND EQUAL BREATHING. ATTACHED TO EXTERNAL MONITOR, SR WITH HR RANGING FROM 71-81. IV ACCESS ON RAC 20G, INTACT AND PATENT; NO MEDS/FLUIDS INFUSING THROUGH IT. ALL DUE MEDS ADMINISTERED DURING THE NIGHT. BED IN LOWEST POSITION, CALL LIGHT WITHIN REACH, SIDE RAILS UP X2. WILL CONTINUE WITH PLAN OF CARE.
[2022-03-07 07:24] LABS: BASOPHILS % (AUTO) 0.7 % (0.0-2.0); EOSINOPHILS % (AUTO) 1.1 % (0.0-6.0); HEMATOCRIT 37 % (39-51); HEMOGLOBIN 11.4 g/dL (13.5-17.5); LYMPHOCYTES # (AUTO) 1.7 K/uL (0.8-4.8); MEAN CORPUSCULAR HGB CONC 31 g/dl (31.0-36.0); MEAN CORPUSCULAR VOLUME 88 fL (80-96); MONOCYTES # (AUTO) 0.7 K/uL (0.1-1.30); MONOCYTES % (AUTO) 10.2 % (2.0-12.0); NEUTROPHILS # (AUTO) 4.3 K/uL (1.8-8.9); PLATELET COUNT (AUTO) 264 K/uL (150-450); RED BLOOD CELL COUNT(AUTO) 4.17 MIL/uL (4.5-6.0); WHITE BLOOD COUNT (AUTO) 6.8 K/uL (4.3-11.0)
[2022-03-07 08:00] VITALS: BP 113/76
[2022-03-07 08:10] LABS: CALCIUM, SERUM 8.4 mg/dL (8.5-10.1); CREATININE 1.4 mg/dL (0.6-1.3); MAGNESIUM 2.1 mg/dL (1.8-2.4); PHOSPHORUS 4.1 mg/dL (2.5-4.9); POTASSIUM 3.9 mmol/L (3.5-5.1)
[2022-03-07 08:46] LABS: THYROID STIMULATING HORMONE 8.289 uIU/mL (0.358-3.74)
[2022-03-07] MEDS: FUROSEMIDE 20 MG/2 ML VIAL IV SCH ×2 (08:50→21:04)
[2022-03-07] MEDS: TRAMADOL HCL 50 MG TABLET PO PRN ×3 (08:50→22:26)
[2022-03-07] MEDS: AMIODARONE HCL 200 MG TABLET PO SCH (08:51)
[2022-03-07] MEDS: SERTRALINE HCL 50 MG TABLET PO SCH ×2 (08:51→16:38)
[2022-03-07] MEDS: CARVEDILOL 3.125 MG TABLET PO SCH ×2 (08:51→16:36)
[2022-03-07] MEDS: SPIRONOLACTONE 25 MG TABLET PO SCH (08:51)
[2022-03-07] MEDS: APIXABAN 5 MG TABLET PO SCH ×2 (08:53→16:38)
[2022-03-07] MEDS ORDERED: PANTOPRAZOLE 40 MG VIAL IV SCH (09:00)
[2022-03-07] MEDS: SACUBITRIL/VALSARTAN 1 EACH TABLET PO SCH ×2 (09:01→16:35)
[2022-03-07 12:00] VITALS: BP 113/76
[2022-03-07 16:00] VITALS: BP 101/68
--- NOTE | 2022-03-07 19:42 | NUR ---
RN OPENING NOTE PT A&OX4 SITTING IN HIGH-FOWLERS POSITION. SKIN IS INTACT, WARM AND DRY. RESPIRATIONS EVEN AND UNLABORED ON NC 2LPM. IV R AC IS INTACT AND FLUSHED. PT C/O THROBBING HEADACHE. OFFERED PT TYLENOL BUT PT REFUSED ASKING FOR NORCO. SAFETY PRECAUTIONS IN PLACE. BED LOCKED AND AT LOWEST LEVEL. X2 RAILS UP. CALL LIGHT WITHIN REACH.
[2022-03-07 20:00] VITALS: BP 111/73
[2022-03-07] MEDS: ZOLPIDEM TARTRATE 5 MG TABLET PO PRN (21:04)
[2022-03-08] VITALS: BP 109/83
[2022-03-08 04:00] VITALS: BP 132/81
[2022-03-08 06:00] LABS: BASOPHILS # (AUTO) 0.1 K/uL (0.0-0.2); BASOPHILS % (AUTO) 0.8 % (0.0-2.0); EOSINOPHILS % (AUTO) 1.7 % (0.0-6.0); HEMATOCRIT 36 % (39-51); HEMOGLOBIN 11.3 g/dL (13.5-17.5); LYMPHOCYTES # (AUTO) 1.4 K/uL (0.8-4.8); LYMPHOCYTES % (AUTO) 21.6 % (20.0-44.0); MEAN CORPUSCULAR HGB CONC 32 g/dl (31.0-36.0); MEAN CORPUSCULAR VOLUME 88 fL (80-96); MONOCYTES # (AUTO) 0.7 K/uL (0.1-1.30); MONOCYTES % (AUTO) 10.6 % (2.0-12.0); NEUTROPHILS # (AUTO) 4.1 K/uL (1.8-8.9); NEUTROPHILS % (AUTO) 65.3 % (43.0-81.0); PLATELET COUNT (AUTO) 250 K/uL (150-450); WHITE BLOOD COUNT (AUTO) 6.3 K/uL (4.3-11.0)
--- NOTE | 2022-03-08 06:27 | NUR ---
RN CLOSING NOTE PT A&OX4 BUT WAS UNABLE TO SLEEP DESPITE RECEIVING AMBIEN. SKIN WARM, DRY, AND INTACT. VS WNL. PT AMBULATORY. IV L AC 20G INTACT. SAFETY PRECAUTIONS IN PLACE. BED LOCKED AND AT LOWEST LEVEL WITH 2 RAILS UP. CALL LIGHT WITHIN REACH.
[2022-03-08 06:31] LABS: ALBUMIN 3.2 g/dL (3.4-5.0); BILIRUBIN,TOTAL 1.3 mg/dL (0.2-1.0); CALCIUM, SERUM 8.8 mg/dL (8.5-10.1); CREATININE 1.5 mg/dL (0.6-1.3); PHOSPHORUS 4.7 mg/dL (2.5-4.9); POTASSIUM 3.7 mmol/L (3.5-5.1); TOTAL PROTEIN, SERUM 6.9 g/dL (6.4-8.2)
--- NOTE | 2022-03-08 07:00 | NUR ---
RN OPENING NOTE RECEIVED PT IN BED ASLEEP PER REPORT A/O X 4. SKIN IS INTACT, WARM AND DRY. RESPIRATIONS EVEN AND UNLABORED ON NC 2LPM. IV R AC SALINE LOCK IS INTACT AND FLUSHED. . SAFETY PRECAUTIONS IN PLACE. BED LOCKED AND AT LOWEST LEVEL. X2 RAILS UP. CALL LIGHT WITHIN REACH, WILL MONITOR
[2022-03-08] MEDS: FUROSEMIDE 40 MG/4 ML VIAL IV SCH ×3 (07:45→15:00)
[2022-03-08 08:00] VITALS: BP 102/66
[2022-03-08] MEDS: SPIRONOLACTONE 25 MG TABLET PO SCH (08:41)
[2022-03-08] MEDS: PANTOPRAZOLE 40 MG TABLET.DR PO SCH (08:42)
[2022-03-08] MEDS: APIXABAN 5 MG TABLET PO SCH ×2 (08:43→17:04)
[2022-03-08] MEDS: SERTRALINE HCL 50 MG TABLET PO SCH ×2 (08:43→17:04)
[2022-03-08] MEDS: AMIODARONE HCL 200 MG TABLET PO SCH (08:43)
[2022-03-08] MEDS: SACUBITRIL/VALSARTAN 1 EACH TABLET PO SCH ×4 (08:44→17:00)
[2022-03-08] MEDS: CARVEDILOL 3.125 MG TABLET PO SCH ×2 (08:56→17:04)
--- NOTE | 2022-03-08 15:48 | NUR ---
RN NOTES: BP [address] YEE IF I CAN GIVE IV LAIX40 MG HE SAID TO HOLD THE DOSE Addendum: 03/08/22 at 1549 by PRICILA TILLMAN RN CARLYN HELD PER DR NAKIA SNYDER
[2022-03-08 16:00] VITALS: BP 92/61
--- NOTE | 2022-03-08 17:06 | NUR ---
RN NOTES: BP 113/77 SPOKE TO LEANNE EVANS NP IF OK TO GIVE COREG AND MALDONADO WHO SAID TO GIVE ONLY CARVEDILOL
--- NOTE | 2022-03-08 19:10 | NUR ---
FIELD AGRONOMIST CLOSING NOTES: PT A&OX4 SITTING IN HIGH-FOWLERS POSITION. SKIN IS INTACT, WARM AND DRY. RESPIRATIONS EVEN AND UNLABORED ON ROOM AIR,NO SOB NOTED. IV L FA IS INTACT AND FLUSHED.. SAFETY PRECAUTIONS IN PLACE. BED LOCKED AND AT LOWEST LEVEL. X2 RAILS UP. CALL LIGHT WITHIN REACH.ENDORSED TO IMMIGRATION CASE WORKER RN FO NOLBERTO
--- NOTE | 2022-03-08 19:10 | NUR ---
MS RN OPENING NOTES: RECEIVED PT AWAKE STANDING IN ROOM,PT IS AMBULATORY AND ABLE TO MAKE NEEDS KNOWN. A/OX4, ON RA, TOLERATING WELL, NO S/S OF DISTRESS. IV ACCESS LFA, INTACT AND PATENT S/L.ALL SAFETY PRECAUTIONS IN PLACE. BED LOCKED AND AT LOWEST LEVEL. X2 RAILS UP. CALL LIGHT WITHIN REACH.WILL CONTINUE TO MONITOR THROUGH OUT SHIFT.
[2022-03-08 20:00] VITALS: BP 112/65
[2022-03-09 04:00] VITALS: BP 119/70
[2022-03-09 06:05] LABS: BASOPHILS # (AUTO) 0.1 K/uL (0.0-0.2); BASOPHILS % (AUTO) 0.9 % (0.0-2.0); EOSINOPHILS % (AUTO) 1.7 % (0.0-6.0); HEMATOCRIT 34 % (39-51); HEMOGLOBIN 10.9 g/dL (13.5-17.5); LYMPHOCYTES # (AUTO) 1.2 K/uL (0.8-4.8); LYMPHOCYTES % (AUTO) 20.5 % (20.0-44.0); MEAN CORPUSCULAR HGB CONC 32 g/dl (31.0-36.0); MEAN CORPUSCULAR VOLUME 87 fL (80-96); MONOCYTES # (AUTO) 0.7 K/uL (0.1-1.30); MONOCYTES % (AUTO) 11.3 % (2.0-12.0); NEUTROPHILS # (AUTO) 3.8 K/uL (1.8-8.9); NEUTROPHILS % (AUTO) 65.6 % (43.0-81.0); PLATELET COUNT (AUTO) 230 K/uL (150-450); RED BLOOD CELL COUNT(AUTO) 3.94 MIL/uL (4.5-6.0); WHITE BLOOD COUNT (AUTO) 5.9 K/uL (4.3-11.0)
--- NOTE | 2022-03-09 06:51 | NUR ---
MS RN CLOSING NOTES: PT ASLEEP IN BED EASILY AROUSABLE ,PT IS AMBULATORY AND ABLE TO MAKE NEEDS KNOWN. A/OX4, ON RA, TOLERATING WELL, NO S/S OF DISTRESS. IV ACCESS LFA, INTACT AND PATENT S/L.ALL DUE MEDS GIVEN.ALL SAFETY PRECAUTIONS IN PLACE. BED LOCKED AND AT LOWEST LEVEL. X2 RAILS UP. CALL LIGHT WITHIN REACH. WILL ENDORSE TO MORNING SHIFT FOR NOLBERTO.
[2022-03-09 07:19] LABS: ALBUMIN 2.9 g/dL (3.4-5.0); BILIRUBIN,TOTAL 1.2 mg/dL (0.2-1.0); CALCIUM, SERUM 8.3 mg/dL (8.5-10.1); CREATININE 1.3 mg/dL (0.6-1.3); MAGNESIUM 1.8 mg/dL (1.8-2.4); PHOSPHORUS 4.1 mg/dL (2.5-4.9); POTASSIUM 3.5 mmol/L (3.5-5.1); TOTAL PROTEIN, SERUM 6.5 g/dL (6.4-8.2)
--- NOTE | 2022-03-09 07:55 | NUR ---
MS RN OPENING NOTES: RECEIVED PATIENT, ALERT AND VERBALLY RESPONSIVE WHEN AWAKEN, ON RA, TOLERATING WELL, NO S/S OF DISTRESS. NO C/O OF PAIN OR CHEST PAIN AT THIS TIME. IV ACCESS LFA, INTACT. ALL SAFETY PRECAUTIONS IN PLACE. BED LOCKED AND AT LOWEST LEVEL. X2 RAILS UP. CALL LIGHT WITHIN REACH. WILL CONTINUE PLAN OF CARE.
[2022-03-09] MEDS: SPIRONOLACTONE 25 MG TABLET PO SCH (08:12)
[2022-03-09] MEDS: CARVEDILOL 3.125 MG TABLET PO SCH ×2 (08:12→16:35)
[2022-03-09] MEDS: SERTRALINE HCL 50 MG TABLET PO SCH ×2 (08:12→16:35)
[2022-03-09] MEDS: AMIODARONE HCL 200 MG TABLET PO SCH (08:13)
[2022-03-09] MEDS: PANTOPRAZOLE 40 MG TABLET.DR PO SCH (08:13)
[2022-03-09] MEDS: SACUBITRIL/VALSARTAN 1 EACH TABLET PO SCH ×2 (08:13→16:35)
[2022-03-09] MEDS: APIXABAN 5 MG TABLET PO SCH ×2 (08:14→16:36)
[2022-03-09] MEDS: FUROSEMIDE 40 MG/4 ML VIAL IV SCH ×3 (09:41→16:36)
[2022-03-09] MEDS: POTASSIUM CHLORIDE 20 MEQ TAB.PRT.SR PO SCH ×3 (10:21→12:36)
[2022-03-09 12:00] VITALS: BP 112/71
--- NOTE | 2022-03-09 18:27 | NUR ---
MS RN CLOSING NOTES: PATIENT IS AWAKE, ALERT AND VERBALLY RESPONSIVE, PT IS AMBULATORY AND ABLE TO MAKE NEEDS KNOWN. A/OX4, ON RA, TOLERATING WELL, NO S/S OF DISTRESS. DENIES PAIN OR CHEST PAIN, PIV ACCESS ON RFA, INTACT AND PATENT S/L. CONTINUED ON FLUID RESTRICTION. ALL SAFETY PRECAUTIONS IN PLACE. BED LOCKED AND AT LOWEST LEVEL. X2 RAILS UP. CALL LIGHT WITHIN REACH. WILL ENDORSE TO SCHEDULE HANGER FOR NOLBERTO.
--- NOTE | 2022-03-09 19:10 | NUR ---
MS RN OPENING NOTES: RECEIVED PT AWAKE IN BED,PT IS AMBULATORY AND ABLE TO MAKE NEEDS KNOWN. A/OX4, ON RA, TOLERATING WELL, NO S/S OF DISTRESS. IV ACCESS RFA, INTACT AND PATENT S/L.ALL SAFETY PRECAUTIONS IN PLACE. BED LOCKED AND AT LOWEST LEVEL. X2 RAILS UP. CALL LIGHT WITHIN REACH.WILL CONTINUE TO MONITOR THROUGH OUT SHIFT.
[2022-03-09 20:00] VITALS: BP 107/71
[2022-03-09] MEDS: ZOLPIDEM TARTRATE 5 MG TABLET PO PRN (21:47)
[2022-03-10 04:00] VITALS: BP 98/58
[2022-03-10 06:42] LABS: HEMATOCRIT 31 % (39-51); HEMOGLOBIN 9.9 g/dL (13.5-17.5); LYMPHOCYTES # (AUTO) 1.2 K/uL (0.8-4.8); LYMPHOCYTES % (AUTO) 26.3 % (20.0-44.0); MEAN CORPUSCULAR HGB CONC 32 g/dl (31.0-36.0); MEAN CORPUSCULAR VOLUME 86 fL (80-96); MONOCYTES # (AUTO) 0.5 K/uL (0.1-1.30); MONOCYTES % (AUTO) 11.5 % (2.0-12.0); NEUTROPHILS # (AUTO) 2.6 K/uL (1.8-8.9); NEUTROPHILS % (AUTO) 59.2 % (43.0-81.0); PLATELET COUNT (AUTO) 209 K/uL (150-450); RED BLOOD CELL COUNT(AUTO) 3.58 MIL/uL (4.5-6.0); WHITE BLOOD COUNT (AUTO) 4.4 K/uL (4.3-11.0)
--- NOTE | 2022-03-10 06:44 | NUR ---
MS RN CLOSING NOTES: PT ASLEEP IN BED,AROUSES EASILY,PT IS AMBULATORY AND ABLE TO MAKE NEEDS KNOWN. A/OX4, ON RA, TOLERATING WELL, NO S/S OF DISTRESS. IV ACCESS RFA, INTACT AND PATENT S/L. ALL SAFETY PRECAUTIONS IN PLACE. BED LOCKED AND AT LOWEST LEVEL. X2 RAILS UP. CALL LIGHT WITHIN REACH.WILL ENDORSE TO MORNING SHIFT FOR NOLBERTO.
[2022-03-10 07:15] LABS: ALBUMIN 2.6 g/dL (3.4-5.0); BILIRUBIN,TOTAL 1.5 mg/dL (0.2-1.0); CALCIUM, SERUM 8.6 mg/dL (8.5-10.1); CREATININE 1.2 mg/dL (0.6-1.3); MAGNESIUM 1.8 mg/dL (1.8-2.4); PHOSPHORUS 3.7 mg/dL (2.5-4.9); POTASSIUM 3.7 mmol/L (3.5-5.1); TOTAL PROTEIN, SERUM 5.8 g/dL (6.4-8.2)
--- NOTE | 2022-03-10 07:43 | NUR ---
MS RN NOTES: PT ASLEEP IN BED,AROUSES EASILY ABLE TO MAKE NEEDS KNOWN. A/OX4, ON RA, TOLERATING WELL, NO S/S OF DISTRESS. IV ACCESS RFA, INTACT AND PATENT ON 2L NC NO SOB NOTED AT THIS TIME . ALL SAFETY PRECAUTIONS IN PLACE. BED LOCKED AND AT LOWEST POSITION SIDE . X2 RAILS UP. CALL LIGHT WITHIN REACH.
[2022-03-10 08:00] VITALS: BP 110/77
[2022-03-10] MEDS: SERTRALINE HCL 50 MG TABLET PO SCH (08:39)
[2022-03-10] MEDS: SPIRONOLACTONE 25 MG TABLET PO SCH (08:40)
[2022-03-10] MEDS: CARVEDILOL 3.125 MG TABLET PO SCH (08:40)
[2022-03-10] MEDS: APIXABAN 5 MG TABLET PO SCH (08:41)
[2022-03-10] MEDS: PANTOPRAZOLE 40 MG TABLET.DR PO SCH (08:41)
[2022-03-10] MEDS: AMIODARONE HCL 200 MG TABLET PO SCH (08:41)
[2022-03-10] MEDS: SACUBITRIL/VALSARTAN 1 EACH TABLET PO SCH (08:42)
[2022-03-10 08:50] VITALS: BP 110/77
--- NOTE | 2022-03-10 10:36 | NUR ---
ms rn note rounds made resting comfortably in bed , all needs attended will cont to monitor closely
[2022-03-10] MEDS ORDERED: AMIO200T7 PO (11:44)
[2022-03-10] MEDS ORDERED: SERT50TA PO (11:44)
--- NOTE | 2022-03-10 12:46 | NUR ---
MS RN NOTE PER DR GARDUNO OK TO DISCHARGE PATIENT HOME , DISCHARGE INSTRUCTION GIVEN UNDERSTANDS, EXPLAINED HOW TO TAKE NEW PRESCRIPTION AND HOME MEDS AND POSSIBLE SIDE EFFECTS ,INSTRUCTED PATIENT ABOUT MEDICATION TO BE TAKEN FROM [facility], ADDRESS GIVEN , UNDERSTOOD, INSTRUCTED TO FOLLOW UP WITH PRIMARY CARE DOCTOR WITHIN 2 WEEKS , BELONGING CHECKED BY WICHO ARTEAGA, STATED THAT HIS MOTHER WILL COME TO PICK HIM UP ABOUT 3 PM ,WILL F\U
--- NOTE | 2022-03-10 14:55 | NUR ---
MS RN NOTE HL REMOVED ON RT FA ,DRY DRESSING APPLIED, NO BLEEDING NOTED , HOME MEDS GIVEN TO PATIENT FROM OUR PHARMACY , TAKEN TO LOBBY BY WALKING WITH ACCOMPANY SEO ANALYST , WENT TO HOME WITH STABLE CONDITION
== END 2022-03-10 17:27 | disposition home or self-care (01) | DRG 206 ==
LOC: ER 16:21 → TELE1 20:46 → MEDSG1 03-07 10:35 → TELE1 03-07 21:17 → MEDSG1 03-08 06:28
PROVIDERS: ADMIT Nurse Practitioner Acute Care; ATTEND Internal Medicine
DX: T82.847A Pain due to cardiac prosthetic devices, implants and grafts, initial encounter (principal); N17.0 Acute kidney failure with tubular necrosis; I22.2 Subsequent non-ST elevation (NSTEMI) myocardial infarction; I21.9 Acute myocardial infarction, unspecified; I42.7 Cardiomyopathy due to drug and external agent; J90 Pleural effusion, not elsewhere classified; F20.0 Paranoid schizophrenia; I50.9 Heart failure, unspecified; I13.0 Hypertensive heart and chronic kidney disease with heart failure and stage 1 through stage 4 chronic kidney disease, or unspecified chronic kidney disease; N18.9 Chronic kidney disease, unspecified; Z20.822 Contact with and (suspected) exposure to COVID-19; F15.10 Other stimulant abuse, uncomplicated; Z79.01 Long term (current) use of anticoagulants; Z79.899 Other long term (current) drug therapy; J98.11 Atelectasis; E11.22 Type 2 diabetes mellitus with diabetic chronic kidney disease; Z95.810 Presence of automatic (implantable) cardiac defibrillator; Z87.891 Personal history of nicotine dependence; Z86.711 Personal history of pulmonary embolism; F32.A Depression, unspecified; F41.9 Anxiety disorder, unspecified; Z68.34 Body mass index [BMI] 34.0-34.9, adult; E66.9 Obesity, unspecified; Z91.199 Patient's noncompliance with other medical treatment and regimen due to unspecified reason; Z91.14 Patient's other noncompliance with medication regimen; I25.2 Old myocardial infarction; Z83.3 Family history of diabetes mellitus; Y84.8 Other medical procedures as the cause of abnormal reaction of the patient, or of later complication, without mention of misadventure at the time of the procedure; Y92.009 Unspecified place in unspecified non-institutional (private) residence as the place of occurrence of the external cause
CPT/HCPCS: 36415; 71045-TC; 76770-TC; 80048-TC; 80053-TC; 80061-TC; 80076-TC; 81001; 83735-TC; 84100-TC; 84443-TC; 84484-TC; 85025-TC; 87081-TC; 97116-TC; 97530-TC; C9113; C9803; G0378; J1940

== ENCOUNTER 2022-06-03 16:40 | Emergency (ER) | payer OTHER ==
[~2022-06-03] VITALS: Ht 182.9 cm; Wt 99.8 kg
[~2022-06-03 16:40] MED LIST changes: +AMIO200T7 PO; +SERT50TA PO
--- NOTE | 2022-06-03 16:47 | NUR ---
BIBRA86 FR STREETS,ACTIVE DELIRIUM (TACHYPNEIC, TACHYCARDIC AT 160's AND AGGRESSIVE), ON METH TODAY AT 1545, 5MG VERSED IM & 5MG VERSED IV GIVEN EN ROUTE, BMG/DL, W PACEMAKER, ON ELIQUIS, HAS HISTORY OF METH USE FOR 10YEARS. TO ER BED 11, HOOKED TO TUBING DRIER, CHANGED TO HOSP GOWN, WARM BLANKET PROVIDED, AWAITING MD MOORE
--- NOTE | 2022-06-03 18:47 | NUR ---
Patient discharged to home in stable condition. Written and verbal after care instructions given. Patient verbalizes understanding of instruction.IV removed. Catheter intact and site benign. Pressure and 4x4 applied to site. No bleeding noted.
[2022-06-03 18:48] VITALS: BP 164/88
== END 2022-06-03 18:48 | disposition home or self-care (01) ==
LOC: ER 16:47
DX: F15.10 Other stimulant abuse, uncomplicated (principal); Z98.890 Other specified postprocedural states; Z60.2 Problems related to living alone; Z79.899 Other long term (current) drug therapy

== ENCOUNTER 2022-06-04 22:58 | Emergency (ER) | payer OTHER ==
[~2022-06-04] VITALS: Ht 167.6 cm; Wt 70.3 kg
[2022-06-04] MEDS ORDERED: LORAZEPAM INJ 2 MG/ML VIAL IV ONE (23:30)
[2022-06-04] MEDS ORDERED: ASPIRIN 325 MG TABLET PO ONE (23:30)
[2022-06-04] MEDS ORDERED: LORAZEPAM INJ 2 MG/ML VIAL ONE (23:36)
[2022-06-04] MEDS ORDERED: ASPIRIN 325 MG TABLET ONE (23:40)
[2022-06-05 00:21] LABS: BASOPHILS % (AUTO) 0.1 % (0.0-2.0); EOSINOPHILS % (AUTO) 0.1 % (0.0-6.0); HEMATOCRIT 40 % (39-51); HEMOGLOBIN 11.4 g/dL (13.5-17.5); LYMPHOCYTES # (AUTO) 0.6 K/uL (0.8-4.8); LYMPHOCYTES % (AUTO) 7.8 % (20.0-44.0); MEAN CORPUSCULAR HGB CONC 29 g/dl (31.0-36.0); MEAN CORPUSCULAR VOLUME 98 fL (80-96); MONOCYTES # (AUTO) 0.8 K/uL (0.1-1.30); NEUTROPHILS # (AUTO) 6.1 K/uL (1.8-8.9); PLATELET COUNT (AUTO) 159 K/uL (150-450); RED BLOOD CELL COUNT(AUTO) 4.08 MIL/uL (4.5-6.0); WHITE BLOOD COUNT (AUTO) 7.6 K/uL (4.3-11.0)
--- NOTE | 2022-06-05 00:35 | NUR ---
PT RETURN FROM CT
[2022-06-05 01:05] LABS: CALCIUM, SERUM 9.3 mg/dL (8.5-10.1); CARBON DIOXIDE 11 mmol/L (21-32); CHLORIDE 100 mmol/L (98-107); CREATININE 2.1 mg/dL (0.6-1.3); GLUCOSE 74 mg/dL (74-106); POTASSIUM 5.1 mmol/L (3.5-5.1); SODIUM SERUM 136 mmol/L (136-145); UREA NITROGEN, BLOOD 44 mg/dL (7-18)
[2022-06-05 01:16] LABS: ALANINE AMINOTRANSFERASE 966 U/L (12-78); ALBUMIN 3.4 g/dL (3.4-5.0); ALKALINE PHOSPHATASE 139 U/L (46-116); ASPARTATE AMINOTRANSFERASE 2345 U/L (15-37); BILIRUBIN,DIRECT 1.6 mg/dL (0.0-0.2); BILIRUBIN,TOTAL 2.6 mg/dL (0.2-1.0); TOTAL PROTEIN, SERUM 8.1 g/dL (6.4-8.2)
--- NOTE | 2022-06-05 02:15 | NUR ---
TARIK TO ER BED 14. AAOX3. NOT IN RESP DISTRESS. BROUGHT IN FOR DRUG USE. PT VERBALIZED TO MD THAT HE IS HAVING A L SIDE CP DURING EVAL. WILL WILL CONTINUE TO MONITOR. PT ON MONITOR-+
--- NOTE | 2022-06-05 02:21 | NUR ---
URINE COLLECTED AND SENT TO LAB.
--- NOTE | 2022-06-05 02:38 | NUR ---
DR. DEAN ON THE PHONE WITH DR. ZAPATA FROM [facility] FOR PEER TO PEER
--- NOTE | 2022-06-05 02:38 | NUR ---
DR. ZAPATA ([facility]) [phone]
[2022-06-05] MEDS ORDERED: IV NS 0.9% 500 ML IV ONE (03:00)
--- NOTE | 2022-06-05 03:23 | NUR ---
Patient Tranfers to outside Facility Physician:Dr. Villar Location:[facility] [phone] number for report going to ER.
--- NOTE | 2022-06-05 03:34 | NUR ---
[facility] ETA 7:30
--- NOTE | 2022-06-05 04:03 | NUR ---
[facility] ER and spoke to elana, to call back after shift for report.
--- NOTE | 2022-06-05 07:47 | NUR ---
nurse in [facility] will call in 5 min to get a report ,
--- NOTE | 2022-06-05 07:57 | NUR ---
report given to scotty Burk
[2022-06-05 07:58] VITALS: BP 146/88
--- NOTE | 2022-06-05 07:58 | NUR ---
taken to [address] via transport.
== END 2022-06-05 07:59 | disposition short-term general hospital (02) ==
LOC: ER 23:00
DX: I21.4 Non-ST elevation (NSTEMI) myocardial infarction (principal); F15.10 Other stimulant abuse, uncomplicated; Z98.890 Other specified postprocedural states; Z79.899 Other long term (current) drug therapy; Z60.2 Problems related to living alone; Z20.822 Contact with and (suspected) exposure to COVID-19
CPT/HCPCS: 99285; 96374; 70450; 71045; 93005 ×2; 85025; 80048; 80076; 36415 ×2; 84484 ×3; 80307; 87426; 82962; J2060; C9803

== ENCOUNTER 2022-08-10 03:01 | Inpatient (IN) | payer MEDICAID, OTHER ==
[~2022-08-10] VITALS: Ht 182.9 cm; Wt 98.5 kg
--- NOTE | 2022-08-10 03:19 | NUR ---
BIBSELF FROM HOME WITH CC OF SOB, PT HAS HX OF NSTEMI, + PACEMAKER ON RIGHT CHEST, INSTALLED LAST 02/2022. SOB STARTED YESTERDAY AFTERNOON WITH SLIGHT PAIN, NOW IT INTENSIFY TO 7/10, CRUSHING IN PRESENTATION ON LEFT ANTERIOR CHEST. PATIENT IS AAOX4. ABLE TO MAKE NEEDS KNOWN. ATTACHED TO MONITOR, VITALS CHECKED.
--- NOTE | 2022-08-10 03:20 | NUR ---
EKG DONE AT BEDSIDE
[2022-08-10] MEDS ORDERED: ASPIRIN 325 MG TABLET ONE ×2 (03:23→05:12)
--- NOTE | 2022-08-10 03:28 | NUR ---
ON PRN NASAL CANNULA AT 2LPM SUPPLEMENTARY ONLY
[2022-08-10] MEDS ORDERED: ASPIRIN 325 MG TABLET PO ONE ×2 (03:30→05:30)
[2022-08-10 04:21] LABS: BASOPHILS # (AUTO) 0.1 K/uL (0.0-0.2); BASOPHILS % (AUTO) 1.8 % (0.0-2.0); EOSINOPHILS % (AUTO) 0.2 % (0.0-6.0); HEMATOCRIT 35 % (39-51); LYMPHOCYTES # (AUTO) 1.3 K/uL (0.8-4.8); LYMPHOCYTES % (AUTO) 26.9 % (20.0-44.0); MEAN CORPUSCULAR HGB CONC 32 g/dl (31.0-36.0); MEAN CORPUSCULAR VOLUME 95 fL (80-96); MONOCYTES # (AUTO) 0.5 K/uL (0.1-1.30); MONOCYTES % (AUTO) 10.2 % (2.0-12.0); NEUTROPHILS # (AUTO) 2.9 K/uL (1.8-8.9); NEUTROPHILS % (AUTO) 60.9 % (43.0-81.0); PLATELET COUNT (AUTO) 301 K/uL (150-450); RED BLOOD CELL COUNT(AUTO) 3.68 MIL/uL (4.5-6.0); WHITE BLOOD COUNT (AUTO) 4.7 K/uL (4.3-11.0)
[2022-08-10 04:54] LABS: ALANINE AMINOTRANSFERASE 82 U/L (12-78); ALBUMIN 3.3 g/dL (3.4-5.0); ALKALINE PHOSPHATASE 144 U/L (46-116); ASPARTATE AMINOTRANSFERASE 55 U/L (15-37); BILIRUBIN,DIRECT 0.6 mg/dL (0.0-0.2); BILIRUBIN,TOTAL 1.7 mg/dL (0.2-1.0); CALCIUM, SERUM 9.2 mg/dL (8.5-10.1); CARBON DIOXIDE 23 mmol/L (21-32); CHLORIDE 103 mmol/L (98-107); CREATININE 0.9 mg/dL (0.6-1.3); GLUCOSE 81 mg/dL (74-106); POTASSIUM 4.9 mmol/L (3.5-5.1); SODIUM SERUM 134 mmol/L (136-145); UREA NITROGEN, BLOOD 16 mg/dL (7-18)
[2022-08-10] MEDS ORDERED: NITROGLYCERIN 0.4 MG/TAB BOTTLE SL ONE (05:00)
[2022-08-10] MEDS ORDERED: NITROGLYCERIN 0.4 MG/TAB BOTTLE ONE (05:05)
--- NOTE | 2022-08-10 05:21 | NUR ---
[facility] PAGED
--- NOTE | 2022-08-10 05:26 | NUR ---
DR EMERY DO ON PHONE CALL WITH JENN MOREL NP
[2022-08-10] MEDS ORDERED: ACETAMINOPHEN 325 MG TABLET PO PRN (05:30)
[2022-08-10] MEDS ORDERED: Z GUARD REMEDY 4 OZ OINT TP PRN (05:30)
[2022-08-10] MEDS ORDERED: MAGNESIUM HYDROXIDE 30 ML UDC PO PRN (05:30)
[2022-08-10] MEDS ORDERED: ONDANSETRON HCL/PF 4 MG/2 ML VIAL IVP PRN (05:30)
[2022-08-10] MEDS ORDERED: MAG HYDROX/AL HYDROX/SIMETH 30 ML UDC PO PRN (05:30)
[2022-08-10] MEDS ORDERED: ENOXAPARIN SODIUM 40 MG/0.4 ML DISP.SYRIN SQ SCH (05:30)
[2022-08-10] MEDS ORDERED: FUROSEMIDE 40 MG/4 ML VIAL IV ONE (06:00)
[2022-08-10] MEDS ORDERED: FUROSEMIDE 40 MG/4 ML VIAL ONE (06:39)
--- NOTE | 2022-08-10 06:43 | NUR ---
Note jerry in EDM - 08/10/22 at 0654 by MARRY REC'D A CALL FROM [facility]; PATIENT IS ACCEPTED AT [facility] UNDER CARE OF DR. ROBERTS. GOING TO ED, # FOR REPORT: [phone]. [facility] WITH ETA: [id number]
--- NOTE | 2022-08-10 07:25 | NUR ---
REPORT GIVEN TO MARCELINO CROSS
--- NOTE | 2022-08-10 07:56 | NUR ---
Pt recieved resting in stretcher, pt respirations are equal and unlabored. Pt currently denies CP and SOB
--- NOTE | 2022-08-10 08:51 | NUR ---
room 306-1
--- NOTE | 2022-08-10 08:56 | NUR ---
Attempted to call report to the 3rd floor, no pick up attendant at this time
--- NOTE | 2022-08-10 09:08 | NUR ---
REPORT GIVEN TO MOMO BENSON
--- NOTE | 2022-08-10 09:44 | NUR ---
moved to inpatient room safely per acls protocol
--- NOTE | 2022-08-10 10:00 | NUR ---
TELE ADMISSION NOTES Patient admitted to unit via gurney at 0935 accompanied by molding machine operator helper with diagnosis of NSTEMI. Pt is A/O x 4, able to make needs known, ambulatory. No c/o pain/discomfort at this time. Pt oriented to staff and room. V/S taken and recorded. On room air, tolerating well. Connected to property assessment monitor with current reading of SR-96. Skin intact. IV access in the RAC #20g, sl. Admission care done. Safety measures implemented: bed in lowest locked position, side rails up x 2, call light and tray table within easy reach. Will continue to monitor.
[2022-08-10] MEDS: CARVEDILOL 3.125 MG TABLET PO SCH ×2 (10:28→16:36)
[2022-08-10] MEDS: AMIODARONE HCL 200 MG TABLET PO SCH (10:28)
[2022-08-10] MEDS: SERTRALINE HCL 50 MG TABLET PO SCH ×2 (10:28→16:13)
[2022-08-10] MEDS: ASPIRIN 81 MG TAB.CHEW PO SCH (10:38)
--- NOTE | 2022-08-10 15:15 | NUR ---
RN NOTES Patient c/o pain in the leg, Tylenol 650mg po prn given at 1505. Will continue to monitor.
[2022-08-10] MEDS: APIXABAN 5 MG TABLET PO SCH ×2 (15:37→21:08)
[2022-08-10] MEDS: SACUBITRIL/VALSARTAN 1 EACH TABLET PO SCH (16:37)
--- NOTE | 2022-08-10 18:55 | NUR ---
WATER SAFETY TEACHER CLOSING NOTES Patient resting in bed. A/O x 4, no c/o pain/discomfort at this time. On room air, tolerating well. On night monitor with current reading of SR-62. IV access in the RAC #20g, sl. Needs attended. Safety measures implemented: bed in lowest locked position, side rails up x 2, call light and tray table within easy reach. Will endorse maryan to night time nanny.
--- NOTE | 2022-08-10 19:30 | NUR ---
BREAD WRAPPER OPERATOR OPENING NOTE RECEIVED PATIENT IN BED, ASLEEP BUT EASY TO AROUSE AND RESPONSIVE. ALERT AND ORIENTED X4. ABLE TO MAKE NEEDS KNOWN. AFEBRILE AND NOT IN ANY FORM OF ACUTE DISTRESS. BREATHING EVEN AND NON LABORED. ON TELE MONITORING WITH CURRENT READING OF SR 62. WITH IV ACCESS ON RAC 20G-SL. SAFETY MEASURES IN PLACE. KEPT BED IN LOCKED AND IN LOW POSITION. SIDE RAILS UP X2. ADVISED TO USE THE CALL LIGHT WHEN IN NEED OF ASSISTANCE.
[2022-08-10 20:00] VITALS: BP 107/78
[2022-08-10] MEDS: ZOLPIDEM TARTRATE 5 MG TABLET PO PRN (20:45)
[2022-08-11] VITALS: BP 112/66
[2022-08-11 05:00] VITALS: BP 110/75
[2022-08-11 06:27] LABS: BASOPHILS # (AUTO) 0.1 K/uL (0.0-0.2); BASOPHILS % (AUTO) 1.1 % (0.0-2.0); EOSINOPHILS % (AUTO) 0.6 % (0.0-6.0); HEMATOCRIT 33 % (39-51); HEMOGLOBIN 10.7 g/dL (13.5-17.5); LYMPHOCYTES # (AUTO) 1.2 K/uL (0.8-4.8); LYMPHOCYTES % (AUTO) 25.7 % (20.0-44.0); MEAN CORPUSCULAR HGB CONC 32 g/dl (31.0-36.0); MEAN CORPUSCULAR VOLUME 92 fL (80-96); MONOCYTES # (AUTO) 0.6 K/uL (0.1-1.30); MONOCYTES % (AUTO) 13.7 % (2.0-12.0); NEUTROPHILS # (AUTO) 2.6 K/uL (1.8-8.9); NEUTROPHILS % (AUTO) 58.9 % (43.0-81.0); PLATELET COUNT (AUTO) 272 K/uL (150-450); RED BLOOD CELL COUNT(AUTO) 3.62 MIL/uL (4.5-6.0); WHITE BLOOD COUNT (AUTO) 4.5 K/uL (4.3-11.0)
--- NOTE | 2022-08-11 06:30 | NUR ---
COKE STILL CLEANER CLOSING NOTE PATIENT IN BED, ASLEEP BUT EASY TO AROUSE AND RESPONSIVE. ALERT AND ORIENTED X4. ABLE TO MAKE NEEDS KNOWN. AFEBRILE AND NOT IN ANY FORM OF ACUTE DISTRESS. BREATHING EVEN AND NON LABORED. ON TELE MONITORING WITH CURRENT READING OF SR 66. WITH IV ACCESS ON RAC 20G-SL. MEDICATED ORDERED. SAFETY MEASURES IN PLACE. KEPT BED IN LOCKED AND IN LOW POSITION. SIDE RAILS UP X2. ADVISED TO USE THE CALL LIGHT WHEN IN NEED OF ASSISTANCE. ALL NURSING NEEDS ATTENDED. ENDORSED TO INCOMING SHIFT FOR CONTINUITY OF CARE.
[2022-08-11 07:00] VITALS: BP 134/89
[2022-08-11 07:04] LABS: CALCIUM, SERUM 8.6 mg/dL (8.5-10.1); MAGNESIUM 1.8 mg/dL (1.8-2.4); PHOSPHORUS 3.4 mg/dL (2.5-4.9); POTASSIUM 4.5 mmol/L (3.5-5.1)
--- NOTE | 2022-08-11 07:59 | NUR ---
WEAVER APPRENTICE OPENING NOTE PATIENT AWAKE IN BED, ALERT AND ORIENTED X4. ABLE TO MAKE NEEDS KNOWN. AFEBRILE AND NOT IN ANY FORM OF ACUTE DISTRESS. BREATHING EVEN AND NON LABORED. ON TELE MONITORING WITH CURRENT READING OF SR 65. WITH IV ACCESS ON RAC 20G-SL. SAFETY MEASURES IN PLACE. KEPT BED IN LOCKED AND IN LOW POSITION. SIDE RAILS UP X2. ADVISED TO USE THE CALL LIGHT WHEN IN NEED OF ASSISTANCE. WILL CONTINUE TO MONITOR.
[2022-08-11] MEDS: CARVEDILOL 3.125 MG TABLET PO SCH ×2 (08:43→17:40)
[2022-08-11] MEDS: ASPIRIN 81 MG TAB.CHEW PO SCH (08:43)
[2022-08-11] MEDS: AMIODARONE HCL 200 MG TABLET PO SCH (08:44)
[2022-08-11] MEDS: SERTRALINE HCL 50 MG TABLET PO SCH ×2 (08:44→17:42)
[2022-08-11] MEDS: APIXABAN 5 MG TABLET PO SCH ×2 (08:46→17:41)
[2022-08-11] MEDS: FUROSEMIDE 40 MG/4 ML VIAL IV SCH ×2 (08:50→17:40)
[2022-08-11] MEDS: SACUBITRIL/VALSARTAN 1 EACH TABLET PO SCH ×2 (08:51→17:42)
[2022-08-11 12:00] VITALS: BP 105/63
--- NOTE | 2022-08-11 15:30 | NUR ---
RN NOTES PATIENT C/O CHEST PAIN, VITALS TAKEN,STABLE BP-110/76 HR-75 SPO2-96% TELE MONITOR REVEALS SINUS RHYTHM. CRISTINA SANDERS EQUITY SALES ASSISTANT NOTIFIED WITH STAT ECG AND TROPONIN ORDERED. WILL MONITOR.
--- NOTE | 2022-08-11 18:53 | NUR ---
ACCOUNTS RECEIVABLE CLERK CLOSING NOTE PATIENT AWAKE IN BED ALERT AND ORIENTED X4. ABLE TO MAKE NEEDS KNOWN. AFEBRILE AND NOT IN ANY FORM OF ACUTE DISTRESS. BREATHING EVEN AND NON LABORED. ON TELE MONITORING WITH CURRENT READING OF SR 74. WITH IV ACCESS ON RAC 20G-SL. MEDICATED ORDERED. SAFETY MEASURES IN PLACE. KEPT BED IN LOCKED AND IN LOW POSITION. SIDE RAILS UP X2. ADVISED TO USE THE CALL LIGHT WHEN IN NEED OF ASSISTANCE. ALL NURSING NEEDS ATTENDED. ENDORSED TO INCOMING SHIFT FOR CONTINUITY OF CARE.
--- NOTE | 2022-08-11 19:30 | NUR ---
RN OPENING NOTE RECEIVED PATIENT IN BED; AWAKE, ALERT AND ORIENTED X 4. ON ROOM AIR; TOLERATING WELL SATING @ 98%. AFEBRILE. BREATHING EVEN AND NONLABORED. NOT IN ANY FORM OF RESPIRATORY OR CARDIAC DISTRESS. DENIES ANY PAIN OR DISCOMFORT AT THIS TIME. WITH IV ACCESS ON RIGHT ANTECUBITAL 20g; PATENT, INTACT AND SALINE LOCKED. ABLE TO MAKE NEEDS KNOWN. SAFETY MEASURES IMPLEMENTED: CALL LIGHT AND TABLE WITHIN EASY REACH, SIDE RAILS UP X 2, BED IN LOWEST LOCKED POSITION. WILL CONTINUE TO MONITOR THROUGHOUT SHIFT.
[2022-08-11 20:00] VITALS: BP 101/67
[2022-08-11] MEDS: ZOLPIDEM TARTRATE 5 MG TABLET PO PRN (21:35)
--- NOTE | 2022-08-11 21:35 | NUR ---
RN NOTE PATIENT REQUESTED RACHAEL. PRN ZOLPIDEM 5 MG 1 TAB GIVEN PO ORDERED. WILL CONTINUE TO MONITOR.
[2022-08-12] VITALS: BP 93/61
[2022-08-12 04:00] VITALS: BP 100/63
[2022-08-12 06:06] LABS: BASOPHILS # (AUTO) 0.1 K/uL (0.0-0.2); BASOPHILS % (AUTO) 1.2 % (0.0-2.0); EOSINOPHILS % (AUTO) 0.6 % (0.0-6.0); HEMATOCRIT 34 % (39-51); HEMOGLOBIN 10.9 g/dL (13.5-17.5); LYMPHOCYTES # (AUTO) 1.3 K/uL (0.8-4.8); LYMPHOCYTES % (AUTO) 31.8 % (20.0-44.0); MEAN CORPUSCULAR HGB CONC 32 g/dl (31.0-36.0); MEAN CORPUSCULAR VOLUME 93 fL (80-96); MONOCYTES # (AUTO) 0.5 K/uL (0.1-1.30); MONOCYTES % (AUTO) 11.3 % (2.0-12.0); NEUTROPHILS # (AUTO) 2.3 K/uL (1.8-8.9); NEUTROPHILS % (AUTO) 55.1 % (43.0-81.0); PLATELET COUNT (AUTO) 282 K/uL (150-450); RED BLOOD CELL COUNT(AUTO) 3.69 MIL/uL (4.5-6.0); WHITE BLOOD COUNT (AUTO) 4.2 K/uL (4.3-11.0)
--- NOTE | 2022-08-12 06:40 | NUR ---
RN CLOSING NOTE PATIENT IN BED; AWAKE, ALERT AND ORIENTED X 4. ON ROOM AIR;TOLERATING WELL SATING @ 98%. AFEBRILE. BREATHING EVEN AND NONLABORED. NOT IN ANY FORM OF RESPIRATORY OR CARDIAC DISTRESS. DENIES ANY PAIN OR DISCOMFORT AT THIS TIME. ON TELE MONITORING WITH READING OF SR WITH 1ST DEGREE AV BLOCK HR-63 BPM. WITH IV ACCESS ON RIGHT ANTECUBITAL 20g; PATENT, INTACT AND SALINE LOCKED. ALL NEEDS ATTENDED. SAFETY MEASURES MAINTAINED: CALL LIGHT AND TABLE WITHIN EASY REACH, SIDE RAILS UP X 2, BED IN LOWEST LOCKED POSITION. ENDORSED TO MORNING SHIFT FOR CONTINUITY OF CARE.
[2022-08-12 06:42] LABS: CALCIUM, SERUM 8.7 mg/dL (8.5-10.1); MAGNESIUM 1.8 mg/dL (1.8-2.4); PHOSPHORUS 4.2 mg/dL (2.5-4.9)
--- NOTE | 2022-08-12 07:40 | NUR ---
RETOUCHER PHOTOENGRAVING OPENING NOTES: RECEIVED PATIENT IN BED; A/OX 4, ABLE TO MAKE NEEDS KNOW. ON RA WITH NO S/S OF SOB, DENIES PAIN AT THIS TIME. BREATHING EVEN AND NONLABORED. IV ACCES AT R AC# 20; PATENT, INTACT AND SALINE LOCKED. FINISHED YARN EXAMINER READ SR,, HR= 66. AMBULATES TO TOILET. ALL SAFETY MEASURES IMPLEMENTED: CALL LIGHT AND TABLE WITHIN EASY REACH, WILL CONT WITH PLAN OF CARE DURING SHIFT.
[2022-08-12 08:00] VITALS: BP 102/69
[2022-08-12] MEDS: FUROSEMIDE 40 MG/4 ML VIAL IV SCH ×2 (08:54→16:19)
[2022-08-12] MEDS: ASPIRIN 81 MG TAB.CHEW PO SCH (08:54)
[2022-08-12] MEDS: APIXABAN 5 MG TABLET PO SCH ×2 (08:55→16:16)
[2022-08-12] MEDS: AMIODARONE HCL 200 MG TABLET PO SCH (08:56)
[2022-08-12] MEDS: SERTRALINE HCL 50 MG TABLET PO SCH ×2 (08:56→16:18)
[2022-08-12] MEDS: CARVEDILOL 3.125 MG TABLET PO SCH ×2 (08:56→16:19)
[2022-08-12] MEDS: SACUBITRIL/VALSARTAN 1 EACH TABLET PO SCH ×2 (09:26→16:21)
[2022-08-12 12:00] VITALS: BP 96/70
[2022-08-12 16:00] VITALS: BP 100/62
--- NOTE | 2022-08-12 18:38 | NUR ---
GERONTOLOGY AIDE CLOSING NOTES: PATIENT IN BED; A/OX 4, ABLE TO MAKE NEEDS KNOW. ON RA WITH NO S/S OF SOB, DENIES CHEST PAIN/ GENERAL PAIN AT THIS TIME. BREATHING EVEN AND NONLABORED. IV ACCES AT R AC# 20; PATENT, INTACT AND SALINE LOCKED. RADIOLOGY SCHEDULER READ SR, HR= 65. AMBULATES TO TOILET. ALL DUE MEDS GIVEN, KEPT PT CLEAN, DRY AND COMFORTABLE. ALL SAFETY MEASURES IMPLEMENTED: CALL LIGHT AND TABLE WITHIN EASY REACH, WILL ENDORSE TO PM SHIFT
--- NOTE | 2022-08-12 19:00 | NUR ---
RN OPENING NOTE RECEIVED PATIENT IN BED; A/OX 4, ABLE TO MAKE NEEDS KNOW. ON RA WITH NO S/S OF SOB, DENIES CHEST PAIN/ GENERAL PAIN AT THIS TIME. BREATHING EVEN AND NONLABORED. IV ACCES AT R AC# 20; PATENT, INTACT AND SALINE LOCKED. SUPERVISOR CARDING READ SR, HR 65BPM. AMBULATES TO TOILET. ALL SAFETY MEASURES IMPLEMENTED: BED LOCKED AND IN LOWEST POSITION, CALL LIGHT AND TABLE WITHIN EASY REACH.
[2022-08-12 20:24] VITALS: BP 97/64
[2022-08-13] VITALS: BP 100/69
[2022-08-13 06:01] LABS: BASOPHILS # (AUTO) 0.1 K/uL (0.0-0.2); BASOPHILS % (AUTO) 1.4 % (0.0-2.0); EOSINOPHILS % (AUTO) 0.6 % (0.0-6.0); HEMATOCRIT 35 % (39-51); HEMOGLOBIN 11.1 g/dL (13.5-17.5); LYMPHOCYTES # (AUTO) 1.3 K/uL (0.8-4.8); LYMPHOCYTES % (AUTO) 34.6 % (20.0-44.0); MEAN CORPUSCULAR HGB CONC 31 g/dl (31.0-36.0); MEAN CORPUSCULAR VOLUME 93 fL (80-96); MONOCYTES # (AUTO) 0.6 K/uL (0.1-1.30); MONOCYTES % (AUTO) 14.6 % (2.0-12.0); NEUTROPHILS # (AUTO) 1.9 K/uL (1.8-8.9); NEUTROPHILS % (AUTO) 48.8 % (43.0-81.0); PLATELET COUNT (AUTO) 280 K/uL (150-450); WHITE BLOOD COUNT (AUTO) 3.8 K/uL (4.3-11.0)
[2022-08-13 06:08] LABS: CALCIUM, SERUM 8.9 mg/dL (8.5-10.1); MAGNESIUM 1.9 mg/dL (1.8-2.4); PHOSPHORUS 4.2 mg/dL (2.5-4.9)
--- NOTE | 2022-08-13 06:54 | NUR ---
RN CLOSING NOTE PATIENT IN BED SLEEPING BUT EASILY AWAKEN WHEN CALLED BY NAME; A/OX 4, ABLE TO MAKE NEEDS KNOW. ON ROOM AIR WITH NO S/S OF SOB, DENIES CHEST PAIN/ GENERAL PAIN AT THIS TIME. BREATHING EVEN AND NONLABORED. IV ACCES AT R AC# 20; PATENT, INTACT AND SALINE LOCKED. BEACH EXPERT READ SR, HR 65BPM. AMBULATES TO TOILET INDEPENDENTLY. ALL NEEDS ARE MET. MADE SURE PATIENT IS COMFORTABLE. ALL SAFETY MEASURES IMPLEMENTED: BED LOCKED AND IN LOWEST POSITION, CALL LIGHT AND TABLE WITHIN EASY REACH. ENDORSED TO NEXT SHIFT NURSE FOR CONTINUITY OF CARE.
[2022-08-13 07:00] VITALS: BP 87/50
--- NOTE | 2022-08-13 07:35 | NUR ---
SPEEDER FRAME TENDER OPENING NOTES: RECEIVED PATIENT IN BED; A/OX 4, ABLE TO MAKE NEEDS KNOW. ON RA WITH NO S/S OF SOB, DENIES PAIN AT THIS TIME. BREATHING EVEN AND NONLABORED. IV ACCES AT R AC# 20; PATENT, INTACT AND SALINE LOCKED. RN ENDOCRINOLOGY READ SR,, HR= 69. AMBULATES TO TOILET. ALL SAFETY MEASURES IMPLEMENTED: CALL LIGHT AND TABLE WITHIN EASY REACH, WILL CONT WITH PLAN OF CARE DURING SHIFT.
[2022-08-13] MEDS: FUROSEMIDE 40 MG/4 ML VIAL IV SCH ×2 (08:29→16:35)
[2022-08-13] MEDS: ASPIRIN 81 MG TAB.CHEW PO SCH (08:30)
[2022-08-13] MEDS: SERTRALINE HCL 50 MG TABLET PO SCH ×2 (08:31→16:35)
[2022-08-13] MEDS: APIXABAN 5 MG TABLET PO SCH ×2 (08:33→16:32)
[2022-08-13] MEDS: CARVEDILOL 3.125 MG TABLET PO SCH ×2 (08:34→16:37)
[2022-08-13] MEDS: AMIODARONE HCL 200 MG TABLET PO SCH (08:34)
[2022-08-13] MEDS: SACUBITRIL/VALSARTAN 1 EACH TABLET PO SCH ×2 (09:00→16:39)
--- NOTE | 2022-08-13 09:15 | NUR ---
RN NOTES: MALDONADO RN CALLED PHARMACY, ENTREO IS MISSING FROM PT'S CASSETTE, PHARMACY WILL REFILL
--- NOTE | 2022-08-13 09:30 | NUR ---
RN NOTES: BP MEDS HELD LASIX AND BP MEDS DUE TO LOW BP, MADE MD AWARE 0800- BP = 87/50, HR= 68 0900- BP= 99/57, HR= 70
[2022-08-13 12:00] VITALS: BP 101/58
[2022-08-13 16:09] VITALS: BP 106/64
--- NOTE | 2022-08-13 18:50 | NUR ---
RESIDENCY PROGRAM COORDINATOR CLOSING NOTES: PATIENT IN BED; A/OX 4, ABLE TO MAKE NEEDS KNOW. ON RA WITH NO S/S OF SOB, DENIES CHEST PAIN/ GENERAL PAIN AT THIS TIME. BREATHING EVEN AND NONLABORED. IV ACCES AT R FA# 22; PATENT, INTACT AND SALINE LOCKED. FORESTRY SUPPORT SPECIALIST READ SR, HR= 72. AMBULATES TO TOILET. ALL DUE MEDS GIVEN, KEPT PT CLEAN, DRY AND COMFORTABLE. ALL SAFETY MEASURES IMPLEMENTED: CALL LIGHT AND TABLE WITHIN EASY REACH, WILL ENDORSE TO PM SHIFT
--- NOTE | 2022-08-13 19:00 | NUR ---
RN OPENING NOTE RECEIVED PATIENT IN BED AWAKE WITH FAMILY ON BEDSIDE; A/OX 4, ABLE TO MAKE NEEDS KNOW. ON ROOM AIR WITH NO S/S OF SOB, DENIES CHEST PAIN/ GENERAL PAIN AT THIS TIME. BREATHING EVEN AND NONLABORED. IV ACCES AT RIGHT FOREARM # 22 SALINE LOCK NOTED TO BE PATENT AND INTACT. PATIENT ON PICK UP DRIVER READING OF SR HR 69BPM. AMBULATES TO TOILET INDEPENDENTLY. ALL SAFETY MEASURES IMPLEMENTED: BED LOCKED AND IN LOWEST POSITION, CALL LIGHT AND TABLE WITHIN EASY REACH.
[2022-08-13 20:00] VITALS: BP 97/56
[2022-08-13] MEDS: ZOLPIDEM TARTRATE 5 MG TABLET PO PRN (21:58)
--- NOTE | 2022-08-13 21:58 | NUR ---
RN NOTE PATIENT REQUESTED SOMETHING TO HELP HIM SLEEP. AMBIEN IS GIVEN ORDERED. WILL REASSESS.
--- NOTE | 2022-08-13 22:58 | NUR ---
RN NOTE INSOMNIA RESOLVED. PATIENT IS IN BED SLEEPING BREATHING EVENLY AND UNLABORED.
[2022-08-14] VITALS: BP_SYST 102; BP_DIAS 87; BP_DIAS 89
[2022-08-14 05:00] VITALS: BP 97/65
[2022-08-14 05:57] LABS: BASOPHILS # (AUTO) 0.1 K/uL (0.0-0.2); BASOPHILS % (AUTO) 1.5 % (0.0-2.0); EOSINOPHILS % (AUTO) 0.6 % (0.0-6.0); HEMATOCRIT 34 % (39-51); HEMOGLOBIN 10.8 g/dL (13.5-17.5); LYMPHOCYTES # (AUTO) 1.3 K/uL (0.8-4.8); LYMPHOCYTES % (AUTO) 31.9 % (20.0-44.0); MEAN CORPUSCULAR HGB CONC 32 g/dl (31.0-36.0); MEAN CORPUSCULAR VOLUME 93 fL (80-96); MONOCYTES # (AUTO) 0.7 K/uL (0.1-1.30); MONOCYTES % (AUTO) 16.2 % (2.0-12.0); NEUTROPHILS # (AUTO) 2.1 K/uL (1.8-8.9); NEUTROPHILS % (AUTO) 49.8 % (43.0-81.0); PLATELET COUNT (AUTO) 296 K/uL (150-450); RED BLOOD CELL COUNT(AUTO) 3.62 MIL/uL (4.5-6.0); WHITE BLOOD COUNT (AUTO) 4.2 K/uL (4.3-11.0)
[2022-08-14 06:29] LABS: MAGNESIUM 2.2 mg/dL (1.8-2.4); PHOSPHORUS 4.7 mg/dL (2.5-4.9); POTASSIUM 3.9 mmol/L (3.5-5.1)
--- NOTE | 2022-08-14 06:45 | NUR ---
RN CLOSING NOTE PATIENT IN BED SLEEPING BREATHING EVENLY AND UNLABORED. A/OX 4, ABLE TO MAKE NEEDS KNOW. ON ROOM AIR WITH NO S/S OF SOB, DENIES CHEST PAIN/ GENERAL PAIN AT THIS TIME. IV ACCES AT RIGHT FOREARM # 22 SALINE LOCK NOTED TO BE PATENT AND INTACT. PATIENT ON INBOUND TELEMARKETER READING OF SR HR 67BPM. AMBULATES TO TOILET INDEPENDENTLY. ALL NEEDS ARE MET. MADE SURE PATIENT IS COMFORTABLE.. ALL SAFETY MEASURES IMPLEMENTED: BED LOCKED AND IN LOWEST POSITION, CALL LIGHT AND TABLE WITHIN EASY REACH. WILL ENDORSE TO NEXT SHIFT NURSE FOR CONTINUITY OF CARE.
[2022-08-14 07:00] VITALS: BP 100/64
--- NOTE | 2022-08-14 07:42 | NUR ---
NURSING CLERK OPENING NOTE Patient in bed, awake. A/O x 4, able to make needs known. On room air breathing evenly and unlabored. No SOB or s/s of distress noted. IV access on RFA #22 SL, intact and patent. On external monitoring showing SR, HR on the 60's. Safety precautions in place: bed in low, locked position; siderails up x 2; call light within reach. Will continue to monitor.
--- NOTE | 2022-08-14 07:46 | NUR ---
LENS GENERATOR OPENING NOTE Patient in bed, asleep. A/O x 3-4. On room air breathing evenly and unlabored. No SOB or s/s of distress noted. IV access on RAC #20 infusing NS at 75 ml/hr. On external monitoring showing SR, HR on the 70's. RLE swelling noted. Safety precautions in place: bed in low, locked position; siderails up x 2; call light within reach. Will continue to monitor. Addendum: 08/14/22 at 0748 by TEZ BRAVO RN ERROR: Wrong patient
[2022-08-14] MEDS: FUROSEMIDE 40 MG/4 ML VIAL IV SCH (08:31)
[2022-08-14] MEDS: AMIODARONE HCL 200 MG TABLET PO SCH (08:36)
[2022-08-14] MEDS: APIXABAN 5 MG TABLET PO SCH (08:38)
[2022-08-14] MEDS: ASPIRIN 81 MG TAB.CHEW PO SCH (08:40)
[2022-08-14] MEDS: SERTRALINE HCL 50 MG TABLET PO SCH (08:40)
[2022-08-14] MEDS: SACUBITRIL/VALSARTAN 1 EACH TABLET PO SCH (08:51)
[2022-08-14] MEDS: CARVEDILOL 3.125 MG TABLET PO SCH (10:45)
[2022-08-14] MEDS ORDERED: DAPA10TA PO (11:19)
[2022-08-14] MEDS ORDERED: FURO-144 PO (11:19)
[2022-08-14 11:57] VITALS: BP 106/59
--- NOTE | 2022-08-14 15:22 | NUR ---
Patient stable for d/c. VS WNR. O2 sat @98% RA. Denied pain. No s/s of distress/SOB. D/c instruction and belongings reviewed with patient and signed documents. Med record printed and given to patient. IV access removed. Patient left unit escorted by staff to lobby.
== END 2022-08-14 14:30 | disposition home or self-care (01) | DRG 194 ==
LOC: ER 03:03 → TELE 09:07
PROVIDERS: ADMIT Nurse Practitioner Acute Care; ATTEND Nurse Practitioner Acute Care
DX: I13.0 Hypertensive heart and chronic kidney disease with heart failure and stage 1 through stage 4 chronic kidney disease, or unspecified chronic kidney disease (principal); I21.A1 Myocardial infarction type 2; E44.1 Mild protein-calorie malnutrition; E11.22 Type 2 diabetes mellitus with diabetic chronic kidney disease; E87.1 Hypo-osmolality and hyponatremia; E88.09 Other disorders of plasma-protein metabolism, not elsewhere classified; F20.0 Paranoid schizophrenia; D64.9 Anemia, unspecified; E66.9 Obesity, unspecified; N18.9 Chronic kidney disease, unspecified; I50.43 Acute on chronic combined systolic (congestive) and diastolic (congestive) heart failure; Z95.810 Presence of automatic (implantable) cardiac defibrillator; Z91.199 Patient's noncompliance with other medical treatment and regimen due to unspecified reason; Z86.711 Personal history of pulmonary embolism; Z79.01 Long term (current) use of anticoagulants; Z68.34 Body mass index [BMI] 34.0-34.9, adult; Z83.3 Family history of diabetes mellitus; F17.200 Nicotine dependence, unspecified, uncomplicated; F32.A Depression, unspecified; I25.2 Old myocardial infarction; I48.91 Unspecified atrial fibrillation; Z79.82 Long term (current) use of aspirin; Z79.899 Other long term (current) drug therapy
CPT/HCPCS: 36415; 71045-TC; 80048-TC; 80061-TC; 80076-TC; 83735-TC; 83880; 84100-TC; 84484-TC; 85025-TC; 85730-TC; 87081-TC; 93307-TC; C9803; G0378; J1940

== ENCOUNTER 2022-09-11 13:24 | Inpatient (IN) | payer OTHER ==
[~2022-09-11] VITALS: Ht 182.9 cm; Wt 96.2 kg
[~2022-09-11 13:24] MED LIST changes: +DAPA10TA PO; +FURO-144 PO
--- NOTE | 2022-09-11 13:35 | NUR ---
SHORTNESS OF BREATH SINCE LAST NIGHT. HISTORY OF HEART FAILURE. DENIES CHEST PAIN AT THIS MOMENT. PLACED ON MONITOR. MADE AWARE
[2022-09-11] MEDS ORDERED: LORAZEPAM INJ 2 MG/ML VIAL IV ONE (14:00)
--- NOTE | 2022-09-11 14:00 | NUR ---
PHLEB AT BEDSIDE FOR BLOOD DRAW
[2022-09-11] MEDS ORDERED: LORAZEPAM INJ 2 MG/ML VIAL ONE (14:02)
[2022-09-11 14:08] LABS: BASOPHILS # (AUTO) 0.1 K/uL (0.0-0.2); BASOPHILS % (AUTO) 1.2 % (0.0-2.0); EOSINOPHILS % (AUTO) 0.2 % (0.0-6.0); HEMATOCRIT 35 % (39-51); HEMOGLOBIN 10.9 g/dL (13.5-17.5); LYMPHOCYTES # (AUTO) 1.1 K/uL (0.8-4.8); MEAN CORPUSCULAR HGB CONC 31 g/dl (31.0-36.0); MEAN CORPUSCULAR VOLUME 91 fL (80-96); MONOCYTES # (AUTO) 0.5 K/uL (0.1-1.30); MONOCYTES % (AUTO) 10.2 % (2.0-12.0); NEUTROPHILS # (AUTO) 3.4 K/uL (1.8-8.9); NEUTROPHILS % (AUTO) 66.4 % (43.0-81.0); PLATELET COUNT (AUTO) 230 K/uL (150-450); RED BLOOD CELL COUNT(AUTO) 3.89 MIL/uL (4.5-6.0); WHITE BLOOD COUNT (AUTO) 5.2 K/uL (4.3-11.0)
[2022-09-11 14:30] LABS: ALANINE AMINOTRANSFERASE 27 U/L (12-78); ALBUMIN 3.2 g/dL (3.4-5.0); ALKALINE PHOSPHATASE 130 U/L (46-116); ASPARTATE AMINOTRANSFERASE 27 U/L (15-37); BILIRUBIN,DIRECT 0.9 mg/dL (0.0-0.2); BILIRUBIN,TOTAL 1.8 mg/dL (0.2-1.0); CALCIUM, SERUM 8.8 mg/dL (8.5-10.1); CARBON DIOXIDE 24 mmol/L (21-32); CHLORIDE 102 mmol/L (98-107); GLUCOSE 125 mg/dL (74-106); POTASSIUM 3.7 mmol/L (3.5-5.1); SODIUM SERUM 136 mmol/L (136-145); UREA NITROGEN, BLOOD 17 mg/dL (7-18)
--- NOTE | 2022-09-11 14:36 | NUR ---
TROPONIN 215. DR. MICHAEL MADE AWARE
--- NOTE | 2022-09-11 15:07 | NUR ---
covid swab collected and sent to lab
[2022-09-11] MEDS ORDERED: FUROSEMIDE 40 MG/4 ML VIAL ONE (15:08)
[2022-09-11] MEDS ORDERED: FUROSEMIDE 40 MG/4 ML VIAL IV ONE (15:30)
--- NOTE | 2022-09-11 15:38 | NUR ---
RECEIVED AUTH FROM INSURANCE FOR PT TO STAY, NOTIFIED
--- NOTE | 2022-09-11 17:19 | NUR ---
ROOM 110. ER ADMITTING MADE AWARE.
--- NOTE | 2022-09-11 17:42 | NUR ---
CALLED FOR REPORT NURSE UNAVALABLE.
[2022-09-11] MEDS ORDERED: HOME MED MISCELLANEOUS XX SCH (18:00)
[2022-09-11] MEDS ORDERED: ACETAMINOPHEN 325 MG TABLET PO PRN (18:00)
[2022-09-11] MEDS ORDERED: BUMETANIDE INJ 6 MG in IV NS 0.9% 36 ML IV ONE (18:00)
[2022-09-11] MEDS ORDERED: ONDANSETRON HCL/PF 4 MG/2 ML VIAL IVP PRN (18:00)
[2022-09-11] MEDS ORDERED: Z GUARD REMEDY 4 OZ OINT TP PRN (18:00)
[2022-09-11] MEDS: AMIODARONE HCL 200 MG TABLET PO SCH (18:22)
[2022-09-11] MEDS: CARVEDILOL 3.125 MG TABLET PO SCH (18:22)
[2022-09-11] MEDS: APIXABAN 5 MG TABLET PO SCH (18:23)
--- NOTE | 2022-09-11 18:26 | NUR ---
PT TRANSFERED TO [facility] WITH TELE MONITORING RN AND EMT AT BEDSIDE FOR TRANSFER PT WAS STABLE THROUGHT TRANSPORT.
--- NOTE | 2022-09-11 18:30 | NUR ---
RN NOTE Received patient from ER via [facility]. Report given by MARCELINO Roldan. Patient is A/O x 4, able to make needs known. On O2 at 2 LPM via NC, no distress noted. Patient oriented to room and how to use the call light. VS as follows: BP 146/100, HR 83, RR 21, SPO2 100 %. PM meds given. All needs attended to. IV access on RAC #18 currently infusing Bumex IV at 10 ml/hr. Safety precautions in place: bed in low, locked position; siderails up x 2; call light within reach. Will endorse to ear muff assembler nurse for NOLBERTO. Addendum: 09/11/22 at 1858 by TEZ BRAVO RN ADD: External monitor attached, currently reading SR, HR on the 80's.
--- NOTE | 2022-09-11 19:45 | NUR ---
RN OPENING NOTES: RECEIVED PT IN BED, SLEEPING BUT EASILY AROUSABLE, ALERT/ORIENTED X4 AND VERBALLY RESPONSIVE. ON O2 AT 2L/MIN VIA N/C AND PT TOLERATED WELL. O2 SAT 97%. STILL NOTED SLIGHT SOB. IV ACCESS ON RAC#18G INTACT AND PATENT. NO S/S OF INFILTRATIONS. CURRENTLY RUNNING BUMEX 10CC/HR. BODY ASSESSMENT DONE. NOTED DRY SCABS ALL OVER HIS BODY. NO OPEN SKIN NOTED. NO C/O ITCHINESS. NO C/O PAIN OR DISCOMFORT. NO ACUTE DISTRESS. ABLE TO USE URINAL. ALL SAFETY MEASURES IN PLACE. BED IN LOWEST POSITION AND LOCKED. SIDE RAILS UP X3, PLACE CALL LIGHT WITH IN REACH. WILL CONTINUE TO MONITOR
[2022-09-11 20:00] VITALS: BP 116/86
--- NOTE | 2022-09-11 22:28 | NUR ---
RN NOTES: PT WANTS SOMETHING FOR SLEEPING. NOTIFIED DR. ARCHULETA. ORDER- RESTORIL 15 MG TAB PO QHS PRN. ORDER NOTED AND CARRIED OUT.
[2022-09-11] MEDS: TEMAZEPAM 15 MG CAPSULE PO PRN (23:05)
[2022-09-12] VITALS: BP 113/60
[2022-09-12 04:00] VITALS: BP 115/85
[2022-09-12 06:23] LABS: BASOPHILS # (AUTO) 0.1 K/uL (0.0-0.2); BASOPHILS % (AUTO) 1.5 % (0.0-2.0); EOSINOPHILS % (AUTO) 0.4 % (0.0-6.0); HEMATOCRIT 33 % (39-51); HEMOGLOBIN 10.5 g/dL (13.5-17.5); LYMPHOCYTES # (AUTO) 1.3 K/uL (0.8-4.8); LYMPHOCYTES % (AUTO) 27.1 % (20.0-44.0); MEAN CORPUSCULAR HGB CONC 32 g/dl (31.0-36.0); MEAN CORPUSCULAR VOLUME 89 fL (80-96); MONOCYTES # (AUTO) 0.5 K/uL (0.1-1.30); PLATELET COUNT (AUTO) 229 K/uL (150-450); RED BLOOD CELL COUNT(AUTO) 3.71 MIL/uL (4.5-6.0); WHITE BLOOD COUNT (AUTO) 4.9 K/uL (4.3-11.0)
[2022-09-12 06:41] LABS: CALCIUM, SERUM 8.6 mg/dL (8.5-10.1); MAGNESIUM 1.7 mg/dL (1.8-2.4); PHOSPHORUS 4.2 mg/dL (2.5-4.9); POTASSIUM 3.5 mmol/L (3.5-5.1)
--- NOTE | 2022-09-12 06:41 | NUR ---
RN CLOSING NOTES: PT IN BED, SLEEPING BUT EASILY AROUSABLE, ALERT/ORIENTED X4 AND VERBALLY RESPONSIVE. ON O2 AT 2L/MIN VIA N/C AND PT TOLERATED WELL. O2 SAT 100%. IV ACCESS ON RAC#18G INTACT AND PATENT. NO S/S OF INFILTRATIONS. BUMEX COMPLETED. NO C/O ITCHINESS. NO C/O PAIN OR DISCOMFORT. NO ACUTE DISTRESS. ABLE TO USE URINAL. NO SIGNIFICANT CHANGES NOTED. ALL SAFETY MEASURES IN PLACE. BED IN LOWEST POSITION AND LOCKED. SIDE RAILS UP X3, PLACE CALL LIGHT WITH IN REACH. WILL ENDORSE TO MORNING SHIFT NURSE.
--- NOTE | 2022-09-12 07:30 | NUR ---
BLACK JACK DEALER AM NOTES: RECEIVED PT IN BED, ASLEEP, RESPONDS TO NAME AND TOUCH EASILY, ALERT/ORIENTED X4, ABLE TO MAKE NEEDS KNOWN, ON O2 AT 2L/MIN VIA N/C, O2 SAT AT 98%, NO SOB, RESPIRATION UNLABORED. SR HR 76 WITH BBB, DENIES CHEST PAIN/DISCOMFORT. IV ACCESS ON RAC#18G INTACT AND PATENT. FLUSHES WELL, SITE CLEAR. CARDIAC DIET. DRY SCABS ALL OVER THE BODY, AMBULATORY. POC DISCUSSED VERBALIZED UNDERSTANDING. ALL SAFETY MEASURES IN PLACE. BED IN LOWEST POSITION AND LOCKED. SIDE RAILS UP X3, PLACE CALL LIGHT WITH IN REACH. WILL CONTINUE TO MONITOR
[2022-09-12 08:00] VITALS: BP 99/65
[2022-09-12] MEDS: SERTRALINE HCL 50 MG TABLET PO SCH ×2 (08:42→16:38)
[2022-09-12] MEDS: SPIRONOLACTONE 25 MG TABLET PO SCH (08:42)
[2022-09-12] MEDS: CARVEDILOL 3.125 MG TABLET PO SCH ×2 (08:43→16:38)
[2022-09-12] MEDS: AMIODARONE HCL 200 MG TABLET PO SCH (08:43)
[2022-09-12] MEDS: ASPIRIN EC 81 MG TABLET.DR PO SCH (08:44)
[2022-09-12] MEDS: APIXABAN 5 MG TABLET PO SCH ×2 (08:44→16:37)
[2022-09-12] MEDS: FUROSEMIDE 40 MG TABLET PO SCH ×2 (08:44→16:38)
--- NOTE | 2022-09-12 09:30 | NUR ---
RN NOTES DUE MEDS GIVEN
[2022-09-12] MEDS ORDERED: MAGNESIUM OXIDE 400 MG TABLET PO ONE (10:30)
[2022-09-12 12:00] VITALS: BP 103/56
[2022-09-12 16:00] VITALS: BP 113/86
[2022-09-12] MEDS ORDERED: ALPRAZOLAM 0.5 MG TABLET PO PRN (18:00)
--- NOTE | 2022-09-12 18:49 | NUR ---
ORACLE SCM CONSULTANT CLOSING NOTES: PT IN BED, ASLEEP, RESPONDS TO NAME AND TOUCH EASILY, ALERT/ORIENTED X4, ABLE TO MAKE NEEDS KNOWN, ON O2 AT 2L/MIN VIA N/C, O2 SAT AT 98%, NO SOB, RESPIRATION UNLABORED. SR HR 76 WITH BBB, DENIES CHEST PAIN/DISCOMFORT. IV ACCESS ON RAC#18G INTACT AND PATENT. FLUSHES WELL, SITE CLEAR. CARDIAC DIET. DRY SCABS ALL OVER THE BODY, AMBULATORY. POC DISCUSSED VERBALIZED UNDERSTANDING. ALL SAFETY MEASURES IN PLACE. BED IN LOWEST POSITION AND LOCKED. SIDE RAILS UP X3, PLACE CALL LIGHT WITH IN REACH. ALL NEEDS MET AT THIS TIME. TROPONIN LEVEL TRENDING DOWN FROM [address] JAMAL COFFEY AWARE. NNO
--- NOTE | 2022-09-12 19:40 | NUR ---
RN OPENING NOTES: RECEIVED PT IN BED, SLEEPING BUT EASILY AROUSABLE, ALERT/ORIENTED X4 AND VERBALLY RESPONSIVE. ON O2 AT 2L/MIN VIA N/C AND PT TOLERATED WELL. IV ACCESS ON RAC#18G INTACT AND PATENT. NO S/S OF INFILTRATIONS. NO C/O ITCHINESS. NO C/O PAIN OR DISCOMFORT. NO ACUTE DISTRESS. ABLE TO USE URINAL. ALL SAFETY MEASURES IN PLACE. BED IN LOWEST POSITION AND LOCKED. SIDE RAILS UP X3, PLACE CALL LIGHT WITH IN REACH. WILL CONTINUE TO MONITOR.
[2022-09-12 20:00] VITALS: BP 128/84
[2022-09-12] MEDS: TEMAZEPAM 15 MG CAPSULE PO PRN (21:12)
[2022-09-13] VITALS: BP 99/65
[2022-09-13 04:00] VITALS: BP 95/51
--- NOTE | 2022-09-13 06:41 | NUR ---
RN CLOSING NOTES: PT IN BED, SLEEPING BUT EASILY AROUSABLE, ALERT/ORIENTED X4 AND VERBALLY RESPONSIVE. ON RA, NO S/S OF RESPIRATORY DISTRESS, O2 SATURATION 98%. IV ACCESS ON RAC#18G INTACT AND PATENT. NO S/S OF INFILTRATIONS. NO C/O ITCHINESS. NO C/O PAIN OR DISCOMFORT. NO ACUTE DISTRESS. ABLE TO USE URINAL. ALL SAFETY MEASURES IN PLACE. BED IN LOWEST POSITION AND LOCKED. SIDE RAILS UP X2, PLACE CALL LIGHT WITH IN REACH. WILL ENDORSE TO THE NEXT SHIFT FOR NOLBERTO.
--- NOTE | 2022-09-13 07:00 | NUR ---
RN OPENING NOTES: PATIENT IN BED, SLEEPING BUT EASILY AROUSABLE, ALERT/ORIENTED X4 AND VERBALLY RESPONSIVE. ON ROOM AIR, NO SOB, DISTRESS OR PAIN NOTED. IV ACCESS ON RAC#18G INTACT AND PATENT. NO S/S OF INFILTRATIONS. ABLE TO USE URINAL. WITH SCABS ALL OVER BODY, DENIES ITCHING OR DISCOMFORT AT THIS TIME. ALL SAFETY MEASURES IN PLACE. BED IN LOWEST AND LOCKED, SIDE RAILS UP X3, CALL LIGHT AND TABLE WITHIN REACH. WILL CONTINUE TO MONITOR.
[2022-09-13 08:00] VITALS: BP 127/88
[2022-09-13 08:38] VITALS: BP 127/88
[2022-09-13] MEDS: CARVEDILOL 3.125 MG TABLET PO SCH (08:38)
[2022-09-13] MEDS: AMIODARONE HCL 200 MG TABLET PO SCH (08:38)
[2022-09-13] MEDS: SERTRALINE HCL 50 MG TABLET PO SCH (08:39)
[2022-09-13] MEDS: SPIRONOLACTONE 25 MG TABLET PO SCH (08:39)
[2022-09-13] MEDS: ASPIRIN EC 81 MG TABLET.DR PO SCH (08:39)
[2022-09-13] MEDS: FUROSEMIDE 40 MG TABLET PO SCH (08:39)
[2022-09-13] MEDS: APIXABAN 5 MG TABLET PO SCH (08:41)
--- NOTE | 2022-09-13 10:12 | NUR ---
TRAFFIC MANAGER NOTE PATIENT IS READY FOR DISCHARGE, NO SOB, PAIN OR DISCOMFORT NOTED. IV ACCESS REMOVED, NO BLEEDING NOTED, DRESSING INTACT, GENERALIZED BODY RASH NOTED BUT SKIN INTACT. ALL DISCHARGE AND BELONGING FORMS SIGNED. PATIENT LEFT WALKING, REFUSED WHEELCHAIR. AIDE SANDS ASSISTED HIM TO THE OUTSIDE OF THE HOSPITAL.
== END 2022-09-13 10:53 | disposition home or self-care (01) | DRG 194 ==
LOC: ER 13:26 → TELE1 17:26
PROVIDERS: ADMIT Nurse Practitioner Acute Care; ATTEND Nurse Practitioner Acute Care
DX: I11.0 Hypertensive heart disease with heart failure (principal); J96.01 Acute respiratory failure with hypoxia; I21.4 Non-ST elevation (NSTEMI) myocardial infarction; I31.39 Other pericardial effusion (noninflammatory); D63.8 Anemia in other chronic diseases classified elsewhere; I27.20 Pulmonary hypertension, unspecified; J90 Pleural effusion, not elsewhere classified; I50.41 Acute combined systolic (congestive) and diastolic (congestive) heart failure; I42.7 Cardiomyopathy due to drug and external agent; Z20.822 Contact with and (suspected) exposure to COVID-19; Z95.810 Presence of automatic (implantable) cardiac defibrillator; Z79.01 Long term (current) use of anticoagulants; Z79.899 Other long term (current) drug therapy; F15.10 Other stimulant abuse, uncomplicated; E80.6 Other disorders of bilirubin metabolism; T43.655A Adverse effect of methamphetamines, initial encounter; Y92.9 Unspecified place or not applicable; E11.9 Type 2 diabetes mellitus without complications; F32.A Depression, unspecified; F41.9 Anxiety disorder, unspecified; I25.2 Old myocardial infarction; I36.1 Nonrheumatic tricuspid (valve) insufficiency; Z86.711 Personal history of pulmonary embolism; Z87.891 Personal history of nicotine dependence; Z83.3 Family history of diabetes mellitus; F20.9 Schizophrenia, unspecified
CPT/HCPCS: 36415; 71045-TC; 80048-TC; 80076-TC; 83735-TC; 83880; 84100-TC; 84484-TC; 85025-TC; 85730-TC; 87081-TC; A4223; C9803; G0378; J1940; J2060; J3490; J7050

== ENCOUNTER 2022-10-01 20:40 | Inpatient (IN) | payer OTHER ==
[~2022-10-01] VITALS: Ht 182.9 cm; Wt 93.7 kg
--- NOTE | 2022-10-01 22:50 | NUR ---
TO ER BED 11, CC LEFT CHEST PAIN SCALE OF 10/10, - MEDS TAKEN. HX OF CHF, W/ IHD 03/04/22, AAOX4, BREATHING EVEN AND NON LABORED, CONNECTED TO MONITOR, AWAITING MD ORDERS
[2022-10-01] MEDS ORDERED: ASPIRIN 81 MG TAB.CHEW PO ONE (23:00)
[2022-10-01] MEDS ORDERED: NITROGLYCERIN 0.4 MG/TAB BOTTLE SL ONE (23:00)
[2022-10-01] MEDS ORDERED: NITROGLYCERIN PACKET 1 GM PACKET TD ONE (23:00)
--- NOTE | 2022-10-01 23:05 | NUR ---
MOVE SHEET SUBMITTED
[2022-10-01] MEDS ORDERED: NITROGLYCERIN PACKET 1 GM PACKET ONE (23:07)
[2022-10-01] MEDS ORDERED: NITROGLYCERIN 0.4 MG/TAB BOTTLE ONE (23:07)
[2022-10-01] MEDS ORDERED: ASPIRIN EC 81 MG TABLET.DR PO ONE (23:07)
[2022-10-01 23:33] LABS: BASOPHILS # (AUTO) 0.1 K/uL (0.0-0.2); BASOPHILS % (AUTO) 1.2 % (0.0-2.0); EOSINOPHILS % (AUTO) 0.1 % (0.0-6.0); HEMATOCRIT 35 % (39-51); HEMOGLOBIN 11.2 g/dL (13.5-17.5); LYMPHOCYTES % (AUTO) 23.1 % (20.0-44.0); MEAN CORPUSCULAR HGB CONC 32 g/dl (31.0-36.0); MEAN CORPUSCULAR VOLUME 87 fL (80-96); MONOCYTES # (AUTO) 0.5 K/uL (0.1-1.30); MONOCYTES % (AUTO) 11.5 % (2.0-12.0); NEUTROPHILS # (AUTO) 2.9 K/uL (1.8-8.9); NEUTROPHILS % (AUTO) 64.1 % (43.0-81.0); PLATELET COUNT (AUTO) 254 K/uL (150-450); RED BLOOD CELL COUNT(AUTO) 4.09 MIL/uL (4.5-6.0); WHITE BLOOD COUNT (AUTO) 4.5 K/uL (4.3-11.0)
--- NOTE | 2022-10-01 23:41 | NUR ---
COVID SWAB DONE AND SENT TO LAB
[2022-10-01 23:46] LABS: CALCIUM, SERUM 9.2 mg/dL (8.5-10.1); CARBON DIOXIDE 23 mmol/L (21-32); CHLORIDE 98 mmol/L (98-107); CREATININE 1.4 mg/dL (0.6-1.3); GLUCOSE 87 mg/dL (74-106); POTASSIUM 3.5 mmol/L (3.5-5.1); SODIUM SERUM 133 mmol/L (136-145); UREA NITROGEN, BLOOD 20 mg/dL (7-18)
[2022-10-02] VITALS (7 sets, daily range): BP systolic 101–127; BP diastolic 65–79; TEMP 96.3–97.8
[2022-10-02] LABS: ALANINE AMINOTRANSFERASE 21 U/L (12-78); ALBUMIN 3.3 g/dL (3.4-5.0); ALKALINE PHOSPHATASE 122 U/L (46-116); ASPARTATE AMINOTRANSFERASE 27 U/L (15-37); BILIRUBIN,DIRECT 1.3 mg/dL (0.0-0.2); TOTAL PROTEIN, SERUM 7.4 g/dL (6.4-8.2)
--- NOTE | 2022-10-02 00:25 | NUR ---
TROPONIN 200; DR ROCKWELL AND LEANNE PAGAN AWARE.
[2022-10-02] MEDS ORDERED: ONDANSETRON HCL/PF 4 MG/2 ML VIAL IVP PRN (00:30)
[2022-10-02] MEDS ORDERED: ACETAMINOPHEN 325 MG TABLET PO PRN (00:30)
[2022-10-02] MEDS ORDERED: ONDANSETRON HCL/PF 4 MG/2 ML VIAL IV ONE (00:30)
[2022-10-02] MEDS ORDERED: MORPHINE SULFATE INJ 2 MG/ML DISP.SYRIN IV ONE (00:30)
[2022-10-02] MEDS ORDERED: diphenhydrAMINE HCL 50 MG/ML VIAL IV ONE (00:30)
[2022-10-02] MEDS ORDERED: MORPHINE SULFATE INJ 4 MG/ML DISP.SYRIN ONE (00:37)
[2022-10-02] MEDS ORDERED: LABETALOL 20 MG/4 ML VIAL IV ONE (01:00)
[2022-10-02] MEDS ORDERED: LEVOFLOXACIN 750 MG /D5W 150ML PIGGYBACK IV ONE (01:00)
--- NOTE | 2022-10-02 01:30 | NUR ---
REPORT GIVEN TO PAULO BENSON FOR NOLBERTO
--- NOTE | 2022-10-02 02:00 | NUR ---
RN NOTES LAB CALLED TO SLAB POLISHER AND REPORTED TROPONIN LEVEL 195. THE LEVEL IS TRENDING DOWN.
[2022-10-02] MEDS ORDERED: LABETALOL HCL IV 100MG VIAL ONE (02:03)
[2022-10-02] MEDS ORDERED: LEVOFLOXACIN 750 MG /D5W 150ML 150 ML IV ONE (02:03)
--- NOTE | 2022-10-02 02:56 | NUR ---
RN NOTES RECEIVED PATIENT FROM ER WITH TRINITY AT 0256. PATIENT IS ALERT AND ORIENTED TIMES 4. NO PAIN NOTED. NO SOB NOTED. NO DISTRESS NOTED. PATIENT WAS ABLE TO WALK FROM OUTSIDE OF THE ROOM FROM [facility] TO THE BED WITH ASSISTANCE. ON TELE MONITOR READING SR 75. IV ACCESS ON THE RAC # 20 INTACT AND FLUSHING WELL. GENERALIZED SCAB NOTED ON THE BODY. PATIENT FEELS ITCHY. REFUSED BENADRYL AT THIS TIME. ALL THE BELONGINGS ACCOUNTED AND SIGNED FOR. EDUCATE THE PATIENT HOW TO USE THE CALL LIGHT AND STAY IN BED AND ASK FOR HELP FOR AMBULATION. PATIENT VERBALIZED UNDERSTANDING. ALL SAFETY MEASURES IN PLACE. BED LOCKED IN THE LOWEST POSITION. CALL LIGHT AND TABLE IN EASY REACH. SIDE RAILS UP TIMES 2. WILL CONTINUE TO MONITOR CLOSELY.
--- NOTE | 2022-10-02 02:56 | NUR ---
PT TRANSFERRING TO 3W 323-1 VIA ACLS PROTOCOL. VSS. ALL BELONGINGS WITH PT.
[2022-10-02] MEDS: FUROSEMIDE 40 MG TABLET PO SCH ×2 (03:24→08:41)
[2022-10-02] MEDS: SERTRALINE HCL 50 MG TABLET PO SCH ×3 (03:24→17:08)
[2022-10-02] MEDS: ENOXAPARIN SODIUM 100 MG/ML DISP.SYRIN SQ SCH ×2 (03:25→14:50)
[2022-10-02 06:26] LABS: CALCIUM, SERUM 9.8 mg/dL (8.5-10.1); CREATININE 1.5 mg/dL (0.6-1.3); MAGNESIUM 1.9 mg/dL (1.8-2.4); PHOSPHORUS 4.7 mg/dL (2.5-4.9)
[2022-10-02] MEDS: diphenhydrAMINE HCL 50 MG/ML VIAL IV PRN ×2 (06:42→15:02)
--- NOTE | 2022-10-02 06:46 | NUR ---
YACHT MASTER CLOSING NOTES PATIENT IS ALERT AND ORIENTED TIMES 4. NO PAIN NOTED. NO SOB NOTED. NO DISTRESS NOTED. ON TELE MONITOR READING SR 83. IV ACCESS ON THE RAC # 20 INTACT AND FLUSHING WELL. GENERALIZED SCAB NOTED ON THE BODY. PATIENT FEELS ITCHY. I GAVE PRN BENADRYL AT 0642 FOR ITCHING. REMIND THE PATIENT HOW TO USE THE CALL LIGHT AND STAY IN BED AND ASK FOR HELP FOR AMBULATION. PATIENT VERBALIZED UNDERSTANDING. 1 EPISODE OF VOMITING NOTED. PATIENT REFUSED MEDICATION.ALL DUE MEDS GIVEN ORDER.ALL SAFETY MEASURES IN PLACE. BED LOCKED IN THE LOWEST POSITION. CALL LIGHT AND TABLE IN EASY REACH. SIDE RAILS UP TIMES 2. WILL ENDORSE FOR NOLBERTO.
[2022-10-02 06:57] LABS: BASOPHILS % (AUTO) 0.9 % (0.0-2.0); EOSINOPHILS % (AUTO) 0.2 % (0.0-6.0); HEMATOCRIT 35 % (39-51); HEMOGLOBIN 10.9 g/dL (13.5-17.5); LYMPHOCYTES # (AUTO) 1.1 K/uL (0.8-4.8); LYMPHOCYTES % (AUTO) 26.1 % (20.0-44.0); MEAN CORPUSCULAR HGB CONC 32 g/dl (31.0-36.0); MEAN CORPUSCULAR VOLUME 89 fL (80-96); MONOCYTES # (AUTO) 0.5 K/uL (0.1-1.30); MONOCYTES % (AUTO) 11.3 % (2.0-12.0); NEUTROPHILS # (AUTO) 2.7 K/uL (1.8-8.9); NEUTROPHILS % (AUTO) 61.5 % (43.0-81.0); PLATELET COUNT (AUTO) 358 K/uL (150-450); RED BLOOD CELL COUNT(AUTO) 3.91 MIL/uL (4.5-6.0); WHITE BLOOD COUNT (AUTO) 4.4 K/uL (4.3-11.0)
--- NOTE | 2022-10-02 07:35 | NUR ---
COMPUTER PROGRAMMER OPENING NOTE RECEIVED PT AWAKE IN BED. PT IS A/OX4, ABLE TO MAKE NEEDS KNOWN. PATIENT IS IN ROOM AIR, TOLERATING WELL, BREATHING EVEN AND UNLABORED, NO S/S OF DISTRESS NOTED. PATIENT HAS IV ON RAC #20G SL, INTACT AND PATENT. GENERALIZED SCAB WOUND NOTED ALL OVER THE BODY. SAFETY MEASURES IN PLACE. BED IN LOWEST & LOCKED POSITION. SIDE RAILS X 2. BEDSIDE TABLE & CALL LIGHT IS EASY REACH. BED ALARM IS ON. WILL CONTINUE TO MONITOR PATIENT ACCORDINGLY.
--- NOTE | 2022-10-02 07:51 | NUR ---
RN NOTE LAB CALLED INFORMED CRITICAL LAB TROP 204. INFORMED MD VIA TEXT AWAITING ADVISE. WILL CONTINUE TO MONITOR THE PATIENT
[2022-10-02] MEDS: AMIODARONE HCL 200 MG TABLET PO SCH (08:41)
[2022-10-02] MEDS: DAPAGLIFLOZIN PROPANEDIOL 5 MG TABLET PO SCH (08:41)
[2022-10-02] MEDS: SPIRONOLACTONE 25 MG TABLET PO SCH (08:41)
[2022-10-02] MEDS: SACUBITRIL/VALSARTAN 1 EACH TABLET PO SCH ×2 (08:45→17:08)
--- NOTE | 2022-10-02 10:26 | NUR ---
WOUND CARE CONSULT: PT PRESENTS SCRATCHING HIS SKIN WITH MULTIPLE SCABS, SCRATCH FORRESTER ON SKIN, PRESENT ON ADMISSION. DEFER TO PMD FOR SKIN CONDITION. WILL SEE PRN.
[2022-10-02] MEDS: FUROSEMIDE 40 MG/4 ML VIAL IV SCH ×3 (10:30→18:04)
[2022-10-02] MEDS: MORPHINE SULFATE INJ 2 MG/ML DISP.SYRIN IV PRN ×2 (11:34→18:04)
--- NOTE | 2022-10-02 11:34 | NUR ---
RN NOTE PATIENT VERBALIZED PAIN (HEADACHE) 10/10. ADMINISTERED PAIN MEDICATION ORDERED. WILL CONTINUE TO MONITOR PATIENT
[2022-10-02 13:07] LABS: BILIRUBIN,URINE NEGATIVE (NEGATIVE); COLOR,URINE DARK YELLOW (YELLOW); LEUKOCYTE ESTERASE ,URINE NEGATIVE (NEGATIVE); NITRITE, URINE NEGATIVE (NEGATIVE); PROTEIN,URINE 1+ mg/dl (NEGATIVE); UGLUCOSE TRACE mg/dL (NEGATIVE); UROBILINOGEN,URINE 0.2 EU/dL (0.2)
[2022-10-02 13:09] LABS: BACTERIA,URINE Rare /HPF (None Seen); RBC,URINE 0-2 /HPF (0-2); SQUAMOUS EPITHELIAL CELL,UR Rare /HPF (None Seen); WBC,URINE 0-2 /HPF (0-3)
[2022-10-02 13:13] LABS: CREATININE, URINE 98.9 MG/DL (30.0-125.0)
--- NOTE | 2022-10-02 15:10 | NUR ---
RN NOTE PATIENT VERBALIZED HEADACHE OF 4/10. PRN PAIN MEDICATIONS ADMINISTERED
--- NOTE | 2022-10-02 18:05 | NUR ---
RN NOTE PATIENT VERBALIZED HEADACHE 11/23. ADMINISTERED PAIN MEDICATION ORDERED. WILL CONTINUE TO MONITOR THE PATIENT
--- NOTE | 2022-10-02 18:30 | NUR ---
RN CLOSING NOTE PATIENT AWAKE IN BED. PATIENT IS A/OX4, ABLE TO MAKE NEEDS KNOWN. PATIENT IS IN ROOM AIR, TOLERATING WELL, BREATHING EVEN AND UNLABORED, NO S/S OF DISTRESS NOTED. PATIENT HAS IV ON RAC #20G SL, INTACT, PATENT AND FLUSHING WELL. PAIN MEDICATION ADMINISTERED ORDERED. WITH EXTERNAL DEDICATED OWNER OPERATOR WITH READING OF SINUS RHYTHM WITH HR OF 92. ALL NEEDS ATTENDED AND ANTICIPATED. SAFETY MEASURES IN PLACE. BED IN LOWEST & LOCKED POSITION. SIDE RAILS X 2. BEDSIDE TABLE & CALL LIGHT IS EASY REACH. BED ALARM IS ON. WILL ENDORSE TO COLORIST PHOTOGRAPHY NURSE
--- NOTE | 2022-10-02 19:35 | NUR ---
SALESPERSON FLOWERS OPENING NOTES PATIENT IS ALERT AND ORIENTED TIMES 4. NO PAIN NOTED. NO SOB NOTED. NO DISTRESS NOTED. ON TELE MONITOR READING SR 92. IV ACCESS ON THE RAC # 20 INTACT AND FLUSHING WELL. GENERALIZED SCAB NOTED ON THE BODY. PATIENT FEELS ITCHY. REMIND THE PATIENT HOW TO USE THE CALL LIGHT AND STAY IN BED AND ASK FOR HELP FOR AMBULATION. PATIENT VERBALIZED UNDERSTANDING. 1 EPISODE OF VOMITING NOTED.ALL SAFETY MEASURES IN PLACE. BED LOCKED IN THE LOWEST POSITION. CALL LIGHT AND TABLE IN EASY REACH. SIDE RAILS UP TIMES 2. WILL CONTINUE TO MONITOR CLOSELY
[2022-10-03] MEDS: ENOXAPARIN SODIUM 100 MG/ML DISP.SYRIN SQ SCH ×2 (02:03→14:15)
[2022-10-03 05:56] LABS: BASOPHILS # (AUTO) 0.1 K/uL (0.0-0.2); BASOPHILS % (AUTO) 1.2 % (0.0-2.0); EOSINOPHILS % (AUTO) 0.4 % (0.0-6.0); HEMATOCRIT 35 % (39-51); HEMOGLOBIN 10.9 g/dL (13.5-17.5); LYMPHOCYTES # (AUTO) 1.4 K/uL (0.8-4.8); LYMPHOCYTES % (AUTO) 22.4 % (20.0-44.0); MEAN CORPUSCULAR HGB CONC 31 g/dl (31.0-36.0); MEAN CORPUSCULAR VOLUME 88 fL (80-96); MONOCYTES # (AUTO) 0.7 K/uL (0.1-1.30); MONOCYTES % (AUTO) 11.3 % (2.0-12.0); NEUTROPHILS # (AUTO) 3.9 K/uL (1.8-8.9); NEUTROPHILS % (AUTO) 64.7 % (43.0-81.0); PLATELET COUNT (AUTO) 258 K/uL (150-450); RED BLOOD CELL COUNT(AUTO) 3.99 MIL/uL (4.5-6.0)
[2022-10-03 06:15] LABS: ALBUMIN 2.9 g/dL (3.4-5.0); BILIRUBIN,TOTAL 3.2 mg/dL (0.2-1.0); CALCIUM, SERUM 8.9 mg/dL (8.5-10.1); CREATININE 1.7 mg/dL (0.6-1.3); MAGNESIUM 1.8 mg/dL (1.8-2.4); POTASSIUM 4.1 mmol/L (3.5-5.1); TOTAL PROTEIN, SERUM 6.7 g/dL (6.4-8.2)
--- NOTE | 2022-10-03 06:17 | NUR ---
ORIENTAL RUG REPAIRER OPENING NOTES PATIENT IS ALERT AND ORIENTED TIMES 4. NO PAIN NOTED. NO SOB NOTED. NO DISTRESS NOTED. ON TELE MONITOR READING SR 91. IV ACCESS ON THE RAC # 20 INTACT AND FLUSHING WELL. GENERALIZED SCAB NOTED ON THE BODY. PATIENT FEELS ITCHY. REMIND THE PATIENT HOW TO USE THE CALL LIGHT AND STAY IN BED AND ASK FOR HELP FOR AMBULATION. PATIENT VERBALIZED UNDERSTANDING. ALL SAFETY MEASURES IN PLACE. BED LOCKED IN THE LOWEST POSITION. CALL LIGHT AND TABLE IN EASY REACH. SIDE RAILS UP TIMES 2. WILL CONTINUE TO MONITOR CLOSELY Addendum: 10/03/22 at 0619 by MITZY BOWMAN RN CLOSING NOTE
[2022-10-03 06:18] VITALS: BP 115/69; TEMP 97.9
[2022-10-03 07:00] VITALS: BP 109/67; TEMP 97.8
--- NOTE | 2022-10-03 07:30 | NUR ---
CAD DESIGN ENGINEER OPENING NOTES RECEIVED PT IN BED, AWAKE, ALERT AND ORIENTED X 4. NO C/O OF PAIN OR S/S OF DISTRESS NOTED. NO SOB NOTED. ON TELE MONITOR READING SR 91. IV ACCESS ON THE RIGHT WRIST # 22, INTACT AND FLUSHING WELL, NO REDNESS OR SWELLING NOTED. GENERALIZED SCABS NOTED ON THE BODY, PATIENT C/O FEELING ITCHY. ENCOURAGED PT TO USE CALL LIGHT AND STAY IN BED AND ASK FOR HELP FOR AMBULATION. PT VERBALIZED UNDERSTANDING. ALL SAFETY MEASURES IN PLACE, BED LOCKED IN THE LOWEST POSITION. CALL LIGHT AND TABLE IN EASY REACH. SIDE RAILS UP X 2. WILL CONTINUE TO MONITOR CLOSELY.
[2022-10-03] MEDS: SERTRALINE HCL 50 MG TABLET PO SCH ×2 (08:59→17:50)
[2022-10-03] MEDS: SPIRONOLACTONE 25 MG TABLET PO SCH (08:59)
[2022-10-03] MEDS: AMIODARONE HCL 200 MG TABLET PO SCH (08:59)
[2022-10-03] MEDS: DAPAGLIFLOZIN PROPANEDIOL 5 MG TABLET PO SCH (09:35)
[2022-10-03] MEDS: SACUBITRIL/VALSARTAN 1 EACH TABLET PO SCH ×2 (09:35→17:50)
[2022-10-03] MEDS: FUROSEMIDE 100 MG/10 ML VIAL IV SCH ×3 (10:28→17:49)
[2022-10-03 12:00] VITALS: BP 85/52; TEMP 97.7
[2022-10-03] MEDS: MORPHINE SULFATE INJ 2 MG/ML DISP.SYRIN IV PRN (12:21)
--- NOTE | 2022-10-03 12:21 | NUR ---
Patient requested Morphine 2 mg IV push for severe pain OF HEAD, NECK, SHOULDERS, AND GENERALIZED BODY. MORPHINE 2 MG IV PUSH ADMINISTERED PER MD ORDER, PT TOLERATED WELL, WILL CONTINUE TO MONITOR AND REASSESS PAIN RESPONSE IN 30 MIN.
[2022-10-03 16:00] VITALS: BP 103/60; TEMP 97.7
--- NOTE | 2022-10-03 18:52 | NUR ---
TELE-RN CLOSING NOTES PATIENT IN BED AWAKE AND WATCHING TV AT THIS TIME. A/O X4. ABLE TO VERBALIZED NEEDS. AMBULATORY. ON ROOM AIR, TOLERATING WELL, NO DISTRESS NOTED. ON TELE MONITOR WITH CURRENT READING OF SR, HR 83, NO C/O CARDIAC DISTRESS VOICED DURING SHIFT. IV ACCESS ON THE RIGHT WRIST #22G SL, INTACT AND FLUSHING WELL. ALL NEEDS AND CARE ATTENDED WELL. ALL SAFETY MEASURES KEPT IN PLACE: BED LOCKED AND IN THE LOWEST POSITION. SIDE RAILS UP X2, CALL LIGHT AND TRAY TABLE W/IN EASY REACH. WILL ENDORSE NOLBERTO TO PRICING CLERK NURSE.
--- NOTE | 2022-10-03 19:30 | NUR ---
ULTRASOUND MANAGER OPENING NOTES - RECEIVED PATIENT AWAKE LAYING IN BED. A/O X4, RESTLESSNESS NOTED. BREATHING EVEN AND NON-LABORED ON ROOM AIR. VERBALIZED HE HAS A MILD HEADACHE. ON TELE MONITOR READING SINUS RHYTHM AT 87 BPM. HAS RIGHT WRIST IV ACCESS #22G AND SALINE LOCKED. NO S/S OF INFILTRATION NOTED. GENERALIZED DRY SCABS NOTED. SAFETY PRECAUTIONS IN PLACE: BED LOCKED AND IN LOW POSITION, SIDE RAILS UP X2, CALL LIGHT WITHIN REACH. WILL CONTINUE PLAN OF CARE.
[2022-10-03 20:00] VITALS: BP 106/63; TEMP 97.4
[2022-10-03] MEDS: NEOMY SULF/BACITRAC ZN/POLY 15 GM TUBE TP SCH (22:30)
--- NOTE | 2022-10-03 23:24 | NUR ---
GOT AN ORDER FROM HOSPITALIST JENN FOR PRN ATIVAN 1MG IV Q6H PRN TO MANAGE WITHDRAWAL SYMPTOMS.
[2022-10-04] VITALS: BP 100/70; TEMP 98.6
[2022-10-04] MEDS: LORAZEPAM INJ 2 MG/ML VIAL IV PRN (00:41)
--- NOTE | 2022-10-04 00:41 | NUR ---
PARTIAL DOSE OF ATIVAN WASTED AND RECORDED BY RN SEPTEMBER AND WITNESSED BY THIS CHAIR CAR DRIVER.
--- NOTE | 2022-10-04 00:41 | NUR ---
PARTIAL DOSE: WASTED 1MG WITNESSED BY MARCELINO SALMON.
[2022-10-04 04:00] VITALS: BP 112/69; TEMP 98
[2022-10-04 06:26] LABS: BASOPHILS # (AUTO) 0.1 K/uL (0.0-0.2); BASOPHILS % (AUTO) 0.9 % (0.0-2.0); EOSINOPHILS % (AUTO) 0.4 % (0.0-6.0); HEMATOCRIT 35 % (39-51); HEMOGLOBIN 11.3 g/dL (13.5-17.5); LYMPHOCYTES # (AUTO) 1.4 K/uL (0.8-4.8); MEAN CORPUSCULAR HGB CONC 32 g/dl (31.0-36.0); MEAN CORPUSCULAR VOLUME 86 fL (80-96); MONOCYTES # (AUTO) 0.7 K/uL (0.1-1.30); MONOCYTES % (AUTO) 9.9 % (2.0-12.0); NEUTROPHILS # (AUTO) 4.6 K/uL (1.8-8.9); NEUTROPHILS % (AUTO) 67.8 % (43.0-81.0); PLATELET COUNT (AUTO) 267 K/uL (150-450); RED BLOOD CELL COUNT(AUTO) 4.04 MIL/uL (4.5-6.0); WHITE BLOOD COUNT (AUTO) 6.8 K/uL (4.3-11.0)
--- NOTE | 2022-10-04 06:43 | NUR ---
SEWING MACHINE ASSEMBLER CLOSING NOTES - PATIENT RESTING IN BED, ABLE TO MAKE NEEDS KNOWN. RESTLESS AND KEPT SCRATCHING. NO RESPIRATORY OR CARDIAC DISTRESS THROUGHOUT THE NIGHT. AFEBRILE. NO C/O PAIN OR DISCOMFORT. TELE MONITOR SHOWS SINUS RHYTHM AT 77-88 BPM. RIGHT WRIST IV ACCESS INTACT, PATENT AND FLUSHING. ALL DUE MEDS GIVEN AND NEEDS ATTENDED. PATIENT EDUCATION ON FLUID RESTRICTION GIVEN, VERBALIZED UNDERSTANDING. SAFETY PRECAUTIONS MAINTAINED. WILL ENDORSE TO AM RN FOR NOLBERTO.
[2022-10-04 06:52] LABS: BILIRUBIN,TOTAL 2.6 mg/dL (0.2-1.0); CALCIUM, SERUM 8.7 mg/dL (8.5-10.1); CREATININE 1.5 mg/dL (0.6-1.3); MAGNESIUM 1.6 mg/dL (1.8-2.4); PHOSPHORUS 3.5 mg/dL (2.5-4.9); POTASSIUM 3.2 mmol/L (3.5-5.1); TOTAL PROTEIN, SERUM 6.9 g/dL (6.4-8.2)
--- NOTE | 2022-10-04 06:59 | NUR ---
RECEIVED CALL FROM JENNIFER (LAB) CRITICAL VALUE OF TROPONIN 155. TRENDING DOWN.
[2022-10-04 07:00] VITALS: BP 109/64; TEMP 97.5
--- NOTE | 2022-10-04 07:42 | NUR ---
CHILD DAYCARE WORKER OPENING NOTES RECEIVED PT IN BED, AWAKE, ALERT AND ORIENTED X 4. NO C/O OF PAIN AND DISCOMFORT , NO SOB OR DISTRESS NOTED . ON TELE MONITOR READING SR 80. IV ACCESS ON THE RIGHT WRIST # 22, INTACT. GENERALIZED SCABS NOTED ON THE BODY, PATIENT C/O FEELING ITCHY. ENCOURAGED PT TO USE CALL LIGHT AND STAY IN BED AND ASK FOR HELP FOR AMBULATION. PT VERBALIZED UNDERSTANDING. ALL SAFETY MEASURES IN PLACE, BED LOCKED IN THE LOWEST POSITION. CALL LIGHT AND TABLE IN EASY REACH. SIDE RAILS UP X 2. WILL CONTINUE TO MONITOR CLOSELY.
[2022-10-04] MEDS: DAPAGLIFLOZIN PROPANEDIOL 5 MG TABLET PO SCH (08:36)
[2022-10-04] MEDS: SPIRONOLACTONE 25 MG TABLET PO SCH (08:36)
[2022-10-04] MEDS: AMIODARONE HCL 200 MG TABLET PO SCH (08:38)
[2022-10-04] MEDS: SERTRALINE HCL 50 MG TABLET PO SCH ×2 (08:38→17:08)
[2022-10-04] MEDS ORDERED: FUROSEMIDE 40 MG TABLET PO SCH (09:00)
[2022-10-04] MEDS: POTASSIUM CHLORIDE 20 MEQ TAB.PRT.SR PO SCH ×3 (09:00→10:38)
[2022-10-04] MEDS: CARVEDILOL 3.125 MG TABLET PO SCH ×2 (09:00→17:08)
[2022-10-04] MEDS: APIXABAN 5 MG TABLET PO SCH ×2 (09:06→17:11)
[2022-10-04] MEDS: NEOMY SULF/BACITRAC ZN/POLY 15 GM TUBE TP SCH (09:07)
[2022-10-04] MEDS ORDERED: MAGNESIUM OXIDE 400 MG TABLET PO ONE (10:00)
[2022-10-04] MEDS: SACUBITRIL/VALSARTAN 1 EACH TABLET PO SCH ×2 (10:23→17:10)
[2022-10-04 16:00] VITALS: BP 146/60; TEMP 97.6
--- NOTE | 2022-10-04 18:38 | NUR ---
RN CLOSING NOTES PT IN BED, AWAKE, ALERT AND ORIENTED X 4. NO C/O OF PAIN AND DISCOMFORT , NO SOB OR DISTRESS NOTED , DISCHARGE TO MED SURGE . IV ACCESS ON THE RIGHT WRIST # 22, INTACT. GENERALIZED SCABS NOTED ON THE BODY AND OINTMENT ORDERED PROVIDED . ALL DUE MEDS GIVEN , SEEN BY REHAB AND ABLE TO AMBULATE , SAFETY MEASURES IN PLACE, BED LOCKED IN THE LOWEST POSITION. CALL LIGHT AND TABLE IN EASY REACH. SIDE RAILS UP X 2. ENDORSED TO NEXT SHIFT .
--- NOTE | 2022-10-04 19:30 | NUR ---
MS RN OPENING NOTE RECEIVED PATIENT FROM AM NURSE; PATIENT AWAKE IN BED, A/O X 4, ABLE TO MAKE NEEDS KNOWN; STABLE ON ROOM AIR, BREATHING EVENLY AND NO S/S OF DISTRESS NOTED; WITH IV ACCESS ON RIGHT WRIST G#22, INTACT AND PATENT; NOTED WITH GENERALIZED SCABS AROUND THE BODY, WITH OINTMENT PRESCRIBED BY MD; ENCOURAGED VERBALIZATION OF NEEDS; SAFETY MEASURES IMPLEMENTED, BED LOCKED IN LOWEST POSITION, SIDE RAILS UP X 2, CALL LIGHT AND TABLE WITHIN REACH; WILL CONTINUE TO MONITOR THROUGHOUT SHIFT
[2022-10-04 20:00] VITALS: BP 90/60; TEMP 97.8
--- NOTE | 2022-10-04 20:45 | NUR ---
MS RN NOTE AT AROUND 2014H, MAP DRAFTER INFORMED THAT PT'S BLOOD PRESSURE IS SHOWING LOW BP OF 79/35 ON THE AUTOMATIC BP MACHINE; RECHECKED BP MANUALLY AND IT WAS 90/60, ASKED PATIENT FOR ANY FEELINGS OF DISCOMFORT AND DIZZINESS, PATIENT DENIED ANY SYMPTOMS. AT AROUND 2034H, PATIENT CALLED AND INFORMED ME THAT HE IS STARTING TO FEEL DIZZY, RECHECKED BP AGAIN MANUALLY AND BP WAS 80/40. ONCALL HOSPITALIST MADE AWARE. NO ADVISE GIVEN ASIDE FROM MONITORING THE PATIENT. ELEVATED PATIENT'S FOOT OF BED. WILL CONTINUE TO MONITOR
--- NOTE | 2022-10-04 21:15 | NUR ---
MS RN NOTE RECHECKED PATIENT'S BLOOD PRESSURE MANUALLY, BP IS 85/50 MMHG; WILL CONTINUE TO MONITOR
--- NOTE | 2022-10-04 21:45 | NUR ---
MS RN NOTE MAINTAINED PATIENT'S FEET ELEVATED. RECHECKED BLOOD PRESSURE MANUALLY; PATIENT'S BLOOD PRESSURE IS 85/60 MMHG, WILL CONTINUE TO MONITOR. PATIENT IS ASKING FOR ATIVAN BUT EXPLAINED THAT I COULDN'T GIVE ATIVAN RIGHT NOW DUE TO THE REASON THAT ONE OF THE SIDE EFFECTS OF THE SAID MEDICATION IS TO FURTHER DECREASE THE BLOOD PRESSURE, PATIENT VERBALIZED UNDERSTANDING
--- NOTE | 2022-10-04 22:20 | NUR ---
MS RN NOTE PATIENT'S BLOOD PRESSURE IS 90/60 MMHG VIA MANUAL BLOOD PRESSURE CUFF. VERBALIZED NOT FEELING DIZZY ANYMORE AT THIS TIME. PATIENT ASKED IF HE CAN TAKE THE ATIVAN NOW BUT EXPLAINED THAT HIS BLOOD PRESSURE IS TILL ON THE LOW SIDE. WILL CONTINUE TO MONITOR
--- NOTE | 2022-10-04 23:00 | NUR ---
MS RN NOTE PATIENT'S BLOOD PRESSURE REMAINS 90/60 UPON MANUAL BP MELINDA, NO DIZZINESS AT THIS TIME VERBALIZED BY THE PATIENT.
--- NOTE | 2022-10-04 23:55 | NUR ---
MS RN NOTE RECHECKED PATIENT'S BLOOD PRESSURE, 95/60 MMHG WITH NO DIZZINESS AND ANY DISCOMFORT PER PATIENT.
--- NOTE | 2022-10-05 00:50 | NUR ---
MS RN NOTE UPON MANUAL AUSCULTATION, BP INCREASED TO 100/70 MMHG. PATIENT IS DOZING OFF INTERMITTENTLY
[2022-10-05] MEDS: LORAZEPAM INJ 2 MG/ML VIAL IV PRN (02:02)
--- NOTE | 2022-10-05 02:12 | NUR ---
MS RN NOTE PATIENT ASKED FOR DOSE OF ATIVAN. RECHECKED BP MANUALLY, BP WAS 110/80 MMHG PRIOR TO ADMINISTRATION OF ATIVAN, CHARGE NURSE MADE AWARE. ADMINISTERED ATIVAN PRN PRESCRIBED AT 0202H, PATIENT TOLERATED WELL, WILL CONTINUE TO MONITOR
--- NOTE | 2022-10-05 06:50 | NUR ---
MS RN CLOSING NOTE PATIENT RESTING IN BED, A/O X 4, ABLE TO MAKE NEEDS KNOWN; STABLE ON ROOM AIR, BREATHING EVENLY AND NO S/S OF DISTRESS NOTED; WITH IV ACCESS ON RIGHT WRIST G#22 SALINE LOCK, INTACT AND PATENT; NOTED WITH GENERALIZED SCABS AROUND THE BODY; ADMINISTERED MEDICATIONS PRESCRIBED; PATIENT'S NEEDS ATTENDED; MONITORED PATIENT ACCORDINGLY; SAFETY MEASURES IMPLEMENTED, BED LOCKED IN LOWEST POSITION, SIDE RAILS UP X 2, CALL LIGHT AND TABLE WITHIN REACH; WILL ENDORSE TO AM NURSE FOR NOLBERTO.
[2022-10-05 08:00] VITALS: BP 122/69; TEMP 97.6
--- NOTE | 2022-10-05 08:00 | NUR ---
received pt. in rm.vs stable.monitoring vitals.some bp meds held this am.
[2022-10-05] MEDS: SPIRONOLACTONE 25 MG TABLET PO SCH (09:00)
[2022-10-05] MEDS: SACUBITRIL/VALSARTAN 1 EACH TABLET PO SCH (09:00)
[2022-10-05] MEDS: AMIODARONE HCL 200 MG TABLET PO SCH (09:19)
[2022-10-05] MEDS: CARVEDILOL 3.125 MG TABLET PO SCH (09:20)
[2022-10-05] MEDS: POTASSIUM CHLORIDE 20 MEQ TAB.PRT.SR PO SCH (09:22)
[2022-10-05] MEDS: SERTRALINE HCL 50 MG TABLET PO SCH (09:28)
[2022-10-05] MEDS: APIXABAN 5 MG TABLET PO SCH (09:31)
[2022-10-05] MEDS: DAPAGLIFLOZIN PROPANEDIOL 5 MG TABLET PO SCH (09:33)
[2022-10-05] MEDS: NEOMY SULF/BACITRAC ZN/POLY 15 GM TUBE TP SCH (09:35)
--- NOTE | 2022-10-05 09:37 | NUR ---
WOUND CARE CONSULT: PT CONTINUES TO PRESENT WITH ITCHING AND SCABS ON HIS SKIN INCLUDING SCALP, WHICH WERE PRESENT ON ADMISSION. SKIN CONDITION HAS UNKNOWN ETIOLOGY. DEFER TO PMD. WILL SEE PRN.
[2022-10-05 11:00] VITALS: BP 98/63
--- NOTE | 2022-10-05 11:00 | NUR ---
vital signs rechecked bp 98/63,heart rate 62.no c/o dizziness.bp med held at this time.
[2022-10-05 14:00] VITALS: BP 97/59
--- NOTE | 2022-10-05 14:00 | NUR ---
bp at this time 97/59,heart rate 60.bp meds including lasix held.
--- NOTE | 2022-10-05 14:30 | NUR ---
pt. for dc.iv hep lock removed.bandage to site.given papers for dc in [place] and [place].review of meds to take.mother at bedside to transport pt. home.escorted to lobby by mother and rn.
== END 2022-10-05 16:38 | disposition home or self-care (01) | DRG 812 ==
LOC: ER 20:44 → TELE 10-02 02:00 → MED 10-04 09:08
DX: T43.651A Poisoning by methamphetamines accidental (unintentional), initial encounter (principal); N17.0 Acute kidney failure with tubular necrosis; I21.4 Non-ST elevation (NSTEMI) myocardial infarction; I50.43 Acute on chronic combined systolic (congestive) and diastolic (congestive) heart failure; I31.39 Other pericardial effusion (noninflammatory); J18.9 Pneumonia, unspecified organism; E87.1 Hypo-osmolality and hyponatremia; E88.09 Other disorders of plasma-protein metabolism, not elsewhere classified; J90 Pleural effusion, not elsewhere classified; I27.20 Pulmonary hypertension, unspecified; I11.0 Hypertensive heart disease with heart failure; Z95.810 Presence of automatic (implantable) cardiac defibrillator; I42.9 Cardiomyopathy, unspecified; Z79.01 Long term (current) use of anticoagulants; Z79.899 Other long term (current) drug therapy; I25.2 Old myocardial infarction; F41.9 Anxiety disorder, unspecified; F32.A Depression, unspecified; F20.9 Schizophrenia, unspecified; Z87.891 Personal history of nicotine dependence; E03.9 Hypothyroidism, unspecified; F15.10 Other stimulant abuse, uncomplicated; E11.9 Type 2 diabetes mellitus without complications; E87.6 Hypokalemia; Z86.711 Personal history of pulmonary embolism; Z83.3 Family history of diabetes mellitus; Z91.148 Patient's other noncompliance with medication regimen for other reason
CPT/HCPCS: 36415; 71045-TC; 76770-TC; 80048-TC; 80053-TC; 80061-TC; 80076-TC; 81001; 82570-TC; 83735-TC; 83880; 84100-TC; 84300-TC; 84439-TC; 84443-TC; 84484-TC; 85025-TC; 87040-TC; 87081-TC; 97112-TC; 97116-TC; 97530-TC; G0378; J1200; J1650; J1940; J1956; J2060; J2270; J2405; J3490

== ENCOUNTER 2022-11-11 16:00 | Inpatient (IN) | payer OTHER ==
[~2022-11-11] VITALS: Ht 182.9 cm; Wt 87.1 kg
--- NOTE | 2022-11-11 16:00 | NUR ---
BIBRA FOR CHEST PAIN BEGINNING THIS AFTERNOON. A/O X 3, TOLERATING WELL ON ROOM AIR, WILL CONTINUE TO MONITOR.
[2022-11-11] MEDS ORDERED: ASPIRIN 325 MG TABLET PO ONE (16:30)
[2022-11-11] MEDS ORDERED: NITROGLYCERIN PACKET 1 GM PACKET TD ONE (16:30)
[2022-11-11] MEDS ORDERED: NITROGLYCERIN PACKET 1 GM PACKET ONE (16:33)
[2022-11-11] MEDS ORDERED: ASPIRIN 325 MG TABLET ONE (16:34)
[2022-11-11 16:57] LABS: BASOPHILS % (AUTO) 0.4 % (0.0-2.0); EOSINOPHILS % (AUTO) 3.2 % (0.0-6.0); HEMATOCRIT 34 % (39-51); HEMOGLOBIN 10.5 g/dL (13.5-17.5); LYMPHOCYTES % (AUTO) 15.8 % (20.0-44.0); MEAN CORPUSCULAR HGB CONC 31 g/dl (31.0-36.0); MEAN CORPUSCULAR VOLUME 87 fL (80-96); MONOCYTES # (AUTO) 0.5 K/uL (0.1-1.30); MONOCYTES % (AUTO) 8.3 % (2.0-12.0); NEUTROPHILS # (AUTO) 4.5 K/uL (1.8-8.9); NEUTROPHILS % (AUTO) 72.3 % (43.0-81.0); PLATELET COUNT (AUTO) 289 K/uL (150-450); RED BLOOD CELL COUNT(AUTO) 3.88 MIL/uL (4.5-6.0); WHITE BLOOD COUNT (AUTO) 6.2 K/uL (4.3-11.0)
[2022-11-11 17:08] LABS: CALCIUM, SERUM 8.6 mg/dL (8.5-10.1); CARBON DIOXIDE 21 mmol/L (21-32); CHLORIDE 103 mmol/L (98-107); CREATININE 0.9 mg/dL (0.6-1.3); GLUCOSE 88 mg/dL (74-106); POTASSIUM 3.4 mmol/L (3.5-5.1); SODIUM SERUM 136 mmol/L (136-145); UREA NITROGEN, BLOOD 17 mg/dL (7-18)
[2022-11-11 17:20] LABS: ALANINE AMINOTRANSFERASE 25 U/L (12-78); ALBUMIN 2.9 g/dL (3.4-5.0); ALKALINE PHOSPHATASE 123 U/L (46-116); ASPARTATE AMINOTRANSFERASE 28 U/L (15-37); BILIRUBIN,DIRECT 1.2 mg/dL (0.0-0.2); TOTAL PROTEIN, SERUM 7.1 g/dL (6.4-8.2)
--- NOTE | 2022-11-11 17:39 | NUR ---
TROPONIN 184, MD AWARE
[2022-11-11] MEDS ORDERED: FUROSEMIDE 40 MG/4 ML VIAL IV ONE (18:00)
[2022-11-11] MEDS ORDERED: FUROSEMIDE 40 MG/4 ML VIAL ONE (18:07)
--- NOTE | 2022-11-11 18:17 | NUR ---
ROOM 310-2 , ADMITTING AWARE
--- NOTE | 2022-11-11 18:51 | NUR ---
Dane edwards in [facility] - 11/11/22 at 1851 by MARCELO REPORT GIVEN TO MARCELINO ROME
--- NOTE | 2022-11-11 18:52 | NUR ---
REPORT GIVEN TO MARCELINO ROME
[2022-11-11] MEDS ORDERED: DEXTROSE 50%-WATER 50 ML DISP.SYRIN IV PRN (19:30)
[2022-11-11] MEDS ORDERED: Z GUARD REMEDY 4 OZ OINT TP PRN (19:30)
[2022-11-11] MEDS ORDERED: MAGNESIUM HYDROXIDE 30 ML UDC PO PRN (19:30)
[2022-11-11] MEDS ORDERED: NITROGLYCERIN 0.4 MG/TAB BOTTLE SL PRN (19:30)
[2022-11-11] MEDS ORDERED: ONDANSETRON HCL/PF 4 MG/2 ML VIAL IVP PRN (19:30)
[2022-11-11] MEDS ORDERED: MAG HYDROX/AL HYDROX/SIMETH 30 ML UDC PO PRN (19:30)
[2022-11-11] MEDS ORDERED: ACETAMINOPHEN 325 MG TABLET PO PRN (19:30)
--- NOTE | 2022-11-11 19:38 | NUR ---
pt transferred to [facility] 310-2 via acls protocol. vs wnl.
[2022-11-11 19:39] VITALS: BP 134/75; TEMP 97.4; O2SAT 99
--- NOTE | 2022-11-11 20:00 | NUR ---
AFTERSCHOOL BABYSITTERNEEDLE CONTROL CHENILLER NOTES - RECEIVED PATIENT FROM ED AT 1931 VIA GURNEY UNDER THE CARE OF [facility] MD WITH DX OF CHEST PAIN. PATIENT IS A/O X4, DENIES ANY MEDICAL HISTORY ASIDE FROM HEART FAILURE. PMI TAKEN FROM PATIENT AND PREVIOUS MEDICAL RECORDS. SHORTNESS OF BREATH NOTED, ON O2 AT 2LPM VIA NASAL CANULA. DENIES HEADACHE, NAUSEA OR DIZZINESS. VERBALIZED MILD TO MODERATE SHARP, NON-RADIATING CHEST PAIN. HAS RIGHT ANTECUBITAL IV ACCESS #20G AND SALINE LOCKED. NO S/S OF INFILTRATION NOTED. HAS RIGHT CHEST WALL ICD. VITAL SIGNS TAKEN AND COMPREHENSIVE PHYSICAL ASSESSMENT DONE. NO ABDOMINAL TENDERNESS AND BLADDER DISTENTION. HAD AN EPISODE OF VOMITING IN THE ER. RESTLESSNESS OF THE BILATERAL LEGS NOTED. GENERALIZED BROWNISH WOUND SCARS AND PINK SCABS NOTED. ALL BELONGINGS ACCOUNTED FOR. ORIENTED PATIENT TO UNIT AND STAFF. PATIENT IS AMBULATORY AND INDEPENDENT WITH ADLS. PER PATIENT, HIS LAST USE OF METHAMPHETAMINE WAS 2 MONTHS AGO. SAFETY PRECAUTIONS IN PLACE: BED LOCKED AND IN LOW POSITION, SIDE RAILS UP X2, CALL LIGHT WITHIN REACH. WILL CONTINUE PLAN OF CARE.
[2022-11-11] MEDS: SERTRALINE HCL 50 MG TABLET PO SCH (21:25)
[2022-11-11] MEDS: APIXABAN 5 MG TABLET PO SCH (21:25)
[2022-11-11] MEDS: CARVEDILOL 3.125 MG TABLET PO SCH (21:25)
[2022-11-11] MEDS: BLOOD SUGAR DIAGNOSTIC 1 EACH STRIP VI SCH (21:34)
[2022-11-11] MEDS: *INSULIN REGULAR(HUMULIN R)HUM 100 UNIT/ML VIAL SQ PRN (21:35)
[2022-11-11] MEDS ORDERED: ZOLPIDEM TARTRATE 5 MG TABLET PO PRN (22:00)
--- NOTE | 2022-11-11 22:01 | NUR ---
PATIENT ASKED FOR A SLEEPING PILL. GAVE PRN AMBIEN 5MG 1 TAB PO AND TURNED OFF TV. WILL MONITOR SLEEP.
--- NOTE | 2022-11-11 23:06 | NUR ---
STAT EKG ORDERED, PATIENT'S HEART RHYTHM KEPT CHANGING. HOSPITALIST [facility] AWARE. Addendum: 11/12/22 at 0011 by September SRINATH BENSON EKG RESULT SENT TO [facility] WITH NO NEW ORDER. Addendum: 11/12/22 at 042 by September SRINATH BENSON RECEIVED NEW ORDER FROM HOSPITALIST TO ADDRESS EKG WITH DR. YEE THAT QT INTERVAL IS GREATER THAN 500. PATIENT IS RECEIVING ZOLOFT 50MG BID.
[2022-11-12] VITALS: BP 95/58; TEMP 97.8; O2SAT 96
[2022-11-12 01:25] VITALS: BP 110/90
[2022-11-12] MEDS: LORAZEPAM INJ 2 MG/ML VIAL IV PRN ×4 (01:30→22:32)
--- NOTE | 2022-11-12 01:34 | NUR ---
TOOK PRN ATIVAN 2MG FROM [facility] AND WASTED 1 MG. WITNESSED BY DANIELLA BENSON. ADMINISTERED 1MG TO MANAGE RESTLESSNESS AND ANXIETY.
--- NOTE | 2022-11-12 01:35 | NUR ---
GAS PUMPING STATION HELPER WITNESSED WASTING OF MEDICATION NOTE WITNESSED WASTING OF 1MG OUT OF 2MG ATIVAN BY ALEXANDER YO RN.
[2022-11-12 05:00] VITALS: BP 112/55; TEMP 97.8; O2SAT 94
[2022-11-12] MEDS: INSULIN REGULAR, HUMAN 100 UNIT/ML 3 ML VIAL SQ PRN (06:33)
[2022-11-12] MEDS: BLOOD SUGAR DIAGNOSTIC 1 EACH STRIP VI SCH ×4 (06:33→22:24)
[2022-11-12 06:48] LABS: BASOPHILS # (AUTO) 0.1 K/uL (0.0-0.2); EOSINOPHILS % (AUTO) 2.3 % (0.0-6.0); HEMATOCRIT 33 % (39-51); HEMOGLOBIN 10.2 g/dL (13.5-17.5); LYMPHOCYTES # (AUTO) 0.8 K/uL (0.8-4.8); LYMPHOCYTES % (AUTO) 15.2 % (20.0-44.0); MEAN CORPUSCULAR HGB CONC 31 g/dl (31.0-36.0); MEAN CORPUSCULAR VOLUME 87 fL (80-96); MONOCYTES # (AUTO) 0.5 K/uL (0.1-1.30); MONOCYTES % (AUTO) 8.6 % (2.0-12.0); NEUTROPHILS % (AUTO) 71.9 % (43.0-81.0); PLATELET COUNT (AUTO) 284 K/uL (150-450); RED BLOOD CELL COUNT(AUTO) 3.77 MIL/uL (4.5-6.0); WHITE BLOOD COUNT (AUTO) 5.5 K/uL (4.3-11.0)
--- NOTE | 2022-11-12 06:48 | NUR ---
MARKETING OPERATIONS CONSULTANT CLOSING NOTES - PATIENT RESTING IN BED, ABLE TO VERBALIZED NEEDS. NO C/O OF SOB/ AND CHEST PAIN AT THIS TIME. SATURATING WELL ON ROOM AIR. ON TELE MONITOR READING SINUS RHYTHM AT 79 BPM. PATIENT HAD EPISODES OF SVT, SINUS BRADYCARDIA AND CONTROLLED A-FIB. AFEBRILE. RIGHT ANTECUBITAL IV ACCESS INTACT, PATENT AND FLUSHING. PER PATIENT, HE HAS NOT PEED SINCE ADMISSION. ALL DUE MEDS GIVEN AND NEEDS ATTENDED. SAFETY PRECAUTIONS MAINTAINED. WILL ENDORSE TO AM RN FOR NOLBERTO.
--- NOTE | 2022-11-12 07:30 | NUR ---
POURER CRANE LADLE OPENING NOTES - RECEIVED PATIENT SLEEPING IN BED, ABLE TO VERBALIZED NEEDS. ALERT/ORIENTED X4, NO C/O OF SOB/ AND CHEST PAIN AT THIS TIME. SATURATING WELL ON ROOM AIR. ON TELE MONITOR READING SINUS RHYTHM AT 86 BPM. RIGHT ANTECUBITAL #20G IV ACCESS INTACT, PATENT AND FLUSHING. PER PATIENT, HE HAS NOT PEED SINCE ADMISSION. WILL ADMINISTER ALL DUE MEDS ORDERED, NEEDS ATTENDED. SAFETY PRECAUTIONS MAINTAINED. BED LOCKED IN LOWEST POSITION, SIDE RAILS UP X2, CALL LIGHT WITHIN REACH, WILL CONTINUE TO MONITOR.
[2022-11-12 07:36] LABS: CALCIUM, SERUM 8.9 mg/dL (8.5-10.1); POTASSIUM 3.7 mmol/L (3.5-5.1)
[2022-11-12] MEDS: SPIRONOLACTONE 25 MG TABLET PO SCH (08:15)
[2022-11-12] MEDS: SERTRALINE HCL 50 MG TABLET PO SCH ×2 (08:15→21:21)
[2022-11-12] MEDS: AMIODARONE HCL 200 MG TABLET PO SCH (08:16)
[2022-11-12] MEDS: CARVEDILOL 3.125 MG TABLET PO SCH ×2 (08:16→21:45)
[2022-11-12] MEDS: APIXABAN 5 MG TABLET PO SCH ×2 (08:17→21:23)
[2022-11-12 08:43] VITALS: BP 116/81; TEMP 97.5; O2SAT 98
--- NOTE | 2022-11-12 09:20 | NUR ---
RN NOTES TOOK OUT 2 MG ATIVAN FROM [facility], ADMINISTERED 1 MG OUT OF 2 MG TO PT AND WASTED 1 MG WITNESSED BY BITA BENSON.
[2022-11-12] MEDS: SACUBITRIL/VALSARTAN 1 EACH TABLET PO SCH ×2 (09:21→17:01)
--- NOTE | 2022-11-12 09:21 | NUR ---
RN NOTE I WITNESSED CLARITZA FARMER WASTING 1MG ATIVAN OUT OF 2 MG. -BITA MEDLEY RN
[2022-11-12] MEDS ORDERED: BUMETANIDE INJ 8 MG in IV NS 0.9% 48 ML IV ONE (09:30)
--- NOTE | 2022-11-12 16:15 | NUR ---
RN NOTES TOOK OUT 2 MG ATIVAN FROM [facility], ADMINISTERED 1 MG OUT OF 2 MG TO PT AND WASTED 1 MG WITNESSED BY MAIKOL BENSON.
[2022-11-12 16:28] VITALS: BP 109/62; TEMP 97.7; O2SAT 97
--- NOTE | 2022-11-12 16:30 | NUR ---
RN NOTE Witnessed wasting with MARCELINO Choi Ativan 1mg out of 2 mg.
--- NOTE | 2022-11-12 18:33 | NUR ---
DISABILITY MANAGER CLOSING NOTES - PATIENT RESTING IN BED, ABLE TO VERBALIZED NEEDS. ALERT/ORIENTED X4, NO C/O OF SOB/ AND CHEST PAIN AT THIS TIME. SATURATING WELL ON ROOM AIR. ON TELE MONITOR READING SINUS RHYTHM AT 75 BPM. PT HAD EPISODE OF PSVT 2 sec at 1745. RIGHT ANTECUBITAL #20G IV ACCESS WITH BUMETANIDE RUNNING. PER PATIENT, OUTPUT 2000 CC. ALL DUE MEDS GIVEN ORDERED, NEEDS ATTENDED. MAINTAIN STRICT I&Os. SAFETY PRECAUTIONS MAINTAINED. BED LOCKED IN LOWEST POSITION, SIDE RAILS UP X2, CALL LIGHT WITHIN REACH, WILL ENDORSE TO NEXT SHIFT.
--- NOTE | 2022-11-12 19:30 | NUR ---
forest biometrics professor Opening Note Received patient in bed; awake, alert and oriented x 4. On room air; tolerating well. Breathing even and nonlabored. Not in any form of respiratory or cardiac distress. Denies any pain or discomfort. On telemetry monitoring with reading of sinus rhythm with occasional pvc hr-65 bpm. With IV access on right antecubital 20g; patent, intact and saline locked. Able to make needs known. Safety precautions implemented: call light and table within reach, side rails up x 2, bed in lowest locked position. Will continue to monitor.
[2022-11-12 20:00] VITALS: BP 92/53; TEMP 98.4; O2SAT 95
--- NOTE | 2022-11-12 22:02 | NUR ---
RN Note Patient's bp 98/57 mm Hg, pr 65. Coreg 6.25 mg 2 tablets held. Will continue to monitor patient.
[2022-11-12] MEDS: *INSULIN REGULAR(HUMULIN R)HUM 100 UNIT/ML VIAL SQ PRN (22:25)
--- NOTE | 2022-11-12 22:25 | NUR ---
RN Note Blood sugar checked with result of 101 mg/dl. No regular insulin coverage given per sliding scale. Will continue to monitor for s/sx of hypoglycemia/hyperglycemia.
--- NOTE | 2022-11-12 22:32 | NUR ---
RN Note Took PRN Ativan 2 mg from [facility] and wasted 1 mg witnessed by MARCELINO Dao. 1 mg 0.5 ml given IV as ordered for restlessness and anxiety. Will continue to monitor.
--- NOTE | 2022-11-12 22:35 | NUR ---
RN NOTES I WITNESSED WASTING 1MG ATIVAN OUT OF 2MG.
[2022-11-13] VITALS: BP 123/82; TEMP 98; O2SAT 100
[2022-11-13 05:00] VITALS: BP 107/65; TEMP 97.8; O2SAT 96
[2022-11-13] MEDS: BLOOD SUGAR DIAGNOSTIC 1 EACH STRIP VI SCH ×4 (06:10→22:05)
[2022-11-13] MEDS: INSULIN REGULAR, HUMAN 100 UNIT/ML 3 ML VIAL SQ PRN ×3 (06:11→17:31)
--- NOTE | 2022-11-13 06:11 | NUR ---
RN Note Blood sugar checked with result of 123 mg/dl. No regular insulin coverage given per sliding scale. Will continue to monitor for s/sx of hypoglycemia/hyperglycemia.
[2022-11-13 06:19] LABS: BASOPHILS # (AUTO) 0.1 K/uL (0.0-0.2); BASOPHILS % (AUTO) 1.5 % (0.0-2.0); EOSINOPHILS % (AUTO) 5.3 % (0.0-6.0); HEMATOCRIT 33 % (39-51); HEMOGLOBIN 10.4 g/dL (13.5-17.5); LYMPHOCYTES % (AUTO) 16.8 % (20.0-44.0); MEAN CORPUSCULAR HGB CONC 31 g/dl (31.0-36.0); MEAN CORPUSCULAR VOLUME 86 fL (80-96); MONOCYTES # (AUTO) 0.6 K/uL (0.1-1.30); NEUTROPHILS # (AUTO) 4.1 K/uL (1.8-8.9); NEUTROPHILS % (AUTO) 66.4 % (43.0-81.0); PLATELET COUNT (AUTO) 278 K/uL (150-450); RED BLOOD CELL COUNT(AUTO) 3.86 MIL/uL (4.5-6.0); WHITE BLOOD COUNT (AUTO) 6.2 K/uL (4.3-11.0)
[2022-11-13] MEDS: LORAZEPAM INJ 2 MG/ML VIAL IV PRN ×3 (06:34→17:31)
--- NOTE | 2022-11-13 06:34 | NUR ---
RN Note Took PRN Ativan 2 mg from [facility] and wasted 1 mg witnessed by RN Cristina Atkins. 1 mg 0.5 ml given IV as ordered for restlessness and anxiety. Will continue to monitor.
[2022-11-13 06:36] LABS: ALBUMIN 2.8 g/dL (3.4-5.0); BILIRUBIN,TOTAL 1.7 mg/dL (0.2-1.0); CALCIUM, SERUM 8.8 mg/dL (8.5-10.1); CREATININE 0.9 mg/dL (0.6-1.3); MAGNESIUM 1.7 mg/dL (1.8-2.4); PHOSPHORUS 3.8 mg/dL (2.5-4.9); POTASSIUM 3.4 mmol/L (3.5-5.1)
--- NOTE | 2022-11-13 06:42 | NUR ---
STATIONARY STEAM ENGINEER WITNESS NOTE WITNESSED WASTING OF 1MG OUT OF 2MG ATIVAN BY JANNA PONCE RN.
--- NOTE | 2022-11-13 07:15 | NUR ---
thimble press operator Closing Note Patient in bed; awake, a/o x 4. Stable on room air. In no acute distress. Denies any pain or discomfort. On telemetry monitoring with reading of SR hr-65 bpm. With IV access on right antecubital 20g; patent, intact and saline locked. All needs met. All due meds given as ordered. Endorsed to MARCELINO Valerio for continuity of care.
[2022-11-13 08:00] VITALS: BP 111/72; TEMP 97.9; O2SAT 99
--- NOTE | 2022-11-13 08:00 | NUR ---
NIGHT COORDINATOR OPENING NOTE (DAY SHIFT) Received patient in bed: awake; alert; and oriented x 4. On room air, tolerating well. Breathing even and nonlabored. Not in any form of respiratory or cardiac distress. Denies any pain or discomfort. On telemetry monitoring with reading of sinus rhythm with hr-81 bpm. With IV access on right antecubital 20g, patent, intact and saline locked. Able to make needs known. Safety precautions implemented: call light and table within reach, side rails up x 2, bed in lowest locked position. Will continue to monitor AND CARE FOR PATIENT PER md'S poc.
[2022-11-13] MEDS ORDERED: SERT50TA PO (09:20)
[2022-11-13] MEDS ORDERED: DAPA10TA PO (09:20)
[2022-11-13] MEDS ORDERED: AMIO200T5 PO (09:20)
--- NOTE | 2022-11-13 10:30 | NUR ---
WASTE OF CONTROLLED MEDICATION Nurse Rolando Holloway witnessed nurse Teodoro Julian waste 1 mg/0.5 mLs ativan IV in white medication waste jug in back medication room of [address] [place] [address].
--- NOTE | 2022-11-13 10:30 | NUR ---
RN WASTE OF ATIVAN AT THIS TIME FOR JUMA (RN).
[2022-11-13] MEDS: FUROSEMIDE 100 MG/10 ML VIAL IV SCH ×3 (10:33→17:30)
[2022-11-13] MEDS: SPIRONOLACTONE 25 MG TABLET PO SCH (10:33)
[2022-11-13] MEDS: AMIODARONE HCL 200 MG TABLET PO SCH (10:34)
[2022-11-13] MEDS: CARVEDILOL 3.125 MG TABLET PO SCH ×2 (10:34→21:58)
[2022-11-13] MEDS: POTASSIUM CHLORIDE 20 MEQ TAB.PRT.SR PO SCH ×3 (10:35→11:53)
[2022-11-13] MEDS: SERTRALINE HCL 50 MG TABLET PO SCH ×2 (10:35→21:58)
[2022-11-13] MEDS: SACUBITRIL/VALSARTAN 1 EACH TABLET PO SCH ×2 (10:39→17:30)
[2022-11-13] MEDS: APIXABAN 5 MG TABLET PO SCH ×2 (10:41→22:00)
[2022-11-13] MEDS ORDERED: MAGNESIUM OXIDE 400 MG TABLET PO ONE (11:00)
[2022-11-13 12:00] VITALS: BP 119/71; TEMP 98.6; O2SAT 98
[2022-11-13 16:00] VITALS: BP 134/82; TEMP 98.3; O2SAT 99
--- NOTE | 2022-11-13 17:28 | NUR ---
WASTE OF CONTROLLED MEDICATION Nurse Dolores June witnessed nurse Teodoro Julian waste 1 mg/0.5 mLs of ativan IV in the white waste medication jug of the back medication room of [facility].
--- NOTE | 2022-11-13 18:56 | NUR ---
PROBATION MANAGER CLOSING NOTE (DAY SHIFT) PATIENT RESTING IN BED, ABLE TO VERBALIZE NEEDS. ALERT/ORIENTED X 4, NO C/O OF SOB NOR CHEST PAIN AT THIS TIME. SATURATING WELL ON ROOM AIR. ON TELE MONITOR READING SINUS RHYTHM 70S - 80S BPM RANGE. RIGHT ANTECUBITAL #20G IV ACCESS SALINE LOCKED. TOTAL PO INTAKE = 1,560 mLs.TOTAL URINE OUTPUT 1400 mLs. ALL DUE MEDS GIVEN ORDERED, NEEDS ATTENDED. MAINTAIN STRICT I&Os. SAFETY PRECAUTIONS MAINTAINED. BED LOCKED IN LOWEST POSITION, SIDE RAILS UP X 2, CALL LIGHT WITHIN REACH, WILL ENDORSE TO NEXT SHIFT.
[2022-11-13 20:00] VITALS: BP 106/71; TEMP 97.8; O2SAT 96
[2022-11-13] MEDS: *INSULIN REGULAR(HUMULIN R)HUM 100 UNIT/ML VIAL SQ PRN (22:06)
--- NOTE | 2022-11-13 22:08 | NUR ---
ACCU CHECK FSBG 88mg/dl. Held insulin dose per parameters.
[2022-11-14] MEDS: LORAZEPAM INJ 2 MG/ML VIAL IV PRN ×2 (02:43→11:50)
--- NOTE | 2022-11-14 02:43 | NUR ---
ANXIETY Patient pacing in his room, requesting Ativan. Patient stated, he's anxious. Denies SOB, no c/o chest pain. IV Ativan given, will monitor behavior. Ativan 2mg taken from [facility]. 1mg given and wasted 1mg, witnessed by MARCELINO DALAL.
--- NOTE | 2022-11-14 02:44 | NUR ---
RN WASTE NOTE WITNESSED WASTE OF ATIVAN 1 MG (0.5 ML) WITH ABELARDO BENSON AT THIS TIME.
[2022-11-14 06:05] LABS: BASOPHILS # (AUTO) 0.1 K/uL (0.0-0.2); BASOPHILS % (AUTO) 1.6 % (0.0-2.0); HEMATOCRIT 33 % (39-51); HEMOGLOBIN 10.6 g/dL (13.5-17.5); LYMPHOCYTES # (AUTO) 1.2 K/uL (0.8-4.8); LYMPHOCYTES % (AUTO) 19.9 % (20.0-44.0); MEAN CORPUSCULAR HGB CONC 32 g/dl (31.0-36.0); MEAN CORPUSCULAR VOLUME 86 fL (80-96); MONOCYTES # (AUTO) 0.6 K/uL (0.1-1.30); MONOCYTES % (AUTO) 10.4 % (2.0-12.0); NEUTROPHILS # (AUTO) 3.7 K/uL (1.8-8.9); NEUTROPHILS % (AUTO) 63.1 % (43.0-81.0); PLATELET COUNT (AUTO) 279 K/uL (150-450); RED BLOOD CELL COUNT(AUTO) 3.89 MIL/uL (4.5-6.0); WHITE BLOOD COUNT (AUTO) 5.9 K/uL (4.3-11.0)
[2022-11-14] MEDS: INSULIN REGULAR, HUMAN 100 UNIT/ML 3 ML VIAL SQ PRN ×2 (06:25→13:40)
[2022-11-14] MEDS: BLOOD SUGAR DIAGNOSTIC 1 EACH STRIP VI SCH ×4 (06:25→22:46)
--- NOTE | 2022-11-14 06:25 | NUR ---
ACCU CHECK FSBG 79mg/dl. Held insulin dose per parameters.
[2022-11-14 06:33] LABS: ALBUMIN 2.8 g/dL (3.4-5.0); BILIRUBIN,TOTAL 1.6 mg/dL (0.2-1.0); CALCIUM, SERUM 8.8 mg/dL (8.5-10.1); MAGNESIUM 1.7 mg/dL (1.8-2.4); PHOSPHORUS 3.9 mg/dL (2.5-4.9); POTASSIUM 3.7 mmol/L (3.5-5.1); TOTAL PROTEIN, SERUM 6.8 g/dL (6.4-8.2)
--- NOTE | 2022-11-14 07:30 | NUR ---
END OF SHIFT REPORT Patient in bed, Alert Oriented x4. Oxygen sat high 90's in RA, no respiratory distress during the night. Anxiety improved with IV Ativan, denies SOB. No episode of chest pain, denies N/V. Good appetite. Ambulating independently. Skin with scattered dry scabbing, no concern for scabies per plastic/surgery Dr. Celis. Care endorsed to MARCELINO Valerio.
--- NOTE | 2022-11-14 07:31 | NUR ---
MS RN OPENING NOTE (DAY SHIFT) Patient received in bed alert, oriented x 4, able to make needs known in Nepali. Pt has patent, intact, clean, dry, PIV catheter, 20 gauge to right AC space, saline locked. No c/o pain nor signs of distress at the moment. Safety precautions in place: bed in lowest position; bed brakes locked; bed side rails up x 2; call morales/light within easy reach of patient;and bed alarm on. Will continue to care for and monitor patient per MD'S POC..
[2022-11-14 07:41] VITALS: BP 118/76; TEMP 96.8; O2SAT 99
--- NOTE | 2022-11-14 07:56 | NUR ---
WASTE OF CONTROLLED MEDICATION Ativan 2mg (1 mLs) IVF taken from [facility] in front Med-Room of [address] [place] [address], 1 mg (0.5 mLs) IV given to patient and 1 mg (0.5mLs) wasted in the white Waste Meds Jug , witnessed by nurse Kiley.
[2022-11-14] MEDS: POTASSIUM CHLORIDE 20 MEQ TAB.PRT.SR PO SCH ×3 (08:53→10:44)
[2022-11-14] MEDS: FUROSEMIDE 100 MG/10 ML VIAL IV SCH ×3 (08:53→17:00)
[2022-11-14] MEDS: SPIRONOLACTONE 25 MG TABLET PO SCH (08:53)
[2022-11-14] MEDS: AMIODARONE HCL 200 MG TABLET PO SCH (08:54)
[2022-11-14] MEDS: SERTRALINE HCL 50 MG TABLET PO SCH ×2 (08:55→20:54)
[2022-11-14] MEDS: CARVEDILOL 3.125 MG TABLET PO SCH ×2 (08:55→20:56)
[2022-11-14] MEDS: SACUBITRIL/VALSARTAN 1 EACH TABLET PO SCH ×2 (08:55→17:01)
[2022-11-14] MEDS: DAPAGLIFLOZIN PROPANEDIOL 5 MG TABLET PO SCH (08:56)
[2022-11-14] MEDS: APIXABAN 5 MG TABLET PO SCH ×2 (08:58→20:55)
[2022-11-14] MEDS: MORPHINE SULFATE INJ 2 MG/ML DISP.SYRIN IV PRN ×3 (09:15→21:00)
[2022-11-14] MEDS ORDERED: MAGNESIUM OXIDE 400 MG TABLET PO ONE (11:30)
--- NOTE | 2022-11-14 11:50 | NUR ---
WASTE OF CONTROLLED MEDICATION Ativan 2 mg (1mLs) IV taken from [facility] in front Medication Room of [facility], 1 mg (0.5 mLs) IV given to patient and 1 mg (0.5 mLs) IV wasted in the white Waste Meds Jug in Med Room, witnessed by nurse Chau Chavez Jr.
--- NOTE | 2022-11-14 11:50 | NUR ---
Witnessed Lorazepam wasting of 1mg, noted per protocol
[2022-11-14 15:50] VITALS: BP 99/57; TEMP 97.1; O2SAT 96
--- NOTE | 2022-11-14 17:30 | NUR ---
Nurse flexed to leave shift early. Hand-off report given to nurse Rika to continue care of patient.
--- NOTE | 2022-11-14 18:47 | NUR ---
MS RN CLOSING NOTES PATIENT ENDORSED BY MARCELINO DENNISON AND ON BED AWAKE AND A/O X4 , ABLE OT MAKE NEEDS KNOWN AND C/O OF PAIN AND DISCOMFORT AND MORPHINE GIVEN ORDERED BLOOD SUGAR WAS CHECKED AND NO INSULIN COVERAGE GIVEN , ALL DUE MEDS GIVEN ORDERED , NO SOB OR CONTINUE PLAN OF CARE AND ENDORSED TO NEXT SHIFT
--- NOTE | 2022-11-14 19:20 | NUR ---
MS RN NOTES RECEIVED IN ROOM STANDING BY BEDSIDE WATCHING TV PROGRAM,NOTED MULTIPLE DRY WOUND WITH SCAB,SALINE LOCK RIGHT AC INTACT INTACT AND PATENT.AMBULATE WITH STEADY GAIT.DENIES DISCOMFORTS AT THE MOMENT.CALL LIGHT IN REACH,NEEDS ANTICIPATED.
[2022-11-14 20:00] VITALS: BP 103/62; TEMP 98.2; O2SAT 97
[2022-11-14 20:04] VITALS: BP 103/60; TEMP 98.2; O2SAT 97
--- NOTE | 2022-11-14 21:00 | NUR ---
MS RN NOTES PAIN MANAGEMENT HAVING CHEST PAIN 8/10 ON PAIN SCALE,MORPHINE 2MG IV GIVEN ORDERED.VITAL SIGNS STABLE.
--- NOTE | 2022-11-14 21:30 | NUR ---
MS RN NOTES ACCU-CHECK BLOOD SUGAR CHECK 104,NO INSULIN COVERAGE.
--- NOTE | 2022-11-14 22:30 | NUR ---
MS RN NOTES IV SITE LEAKING RIGHT AC WHEN FLUSHED.NEW SALINE LOCK PLACE ON LEFT FOREARM #20,KEPT PATENT AND SECURED.
[2022-11-15] MEDS: MORPHINE SULFATE INJ 2 MG/ML DISP.SYRIN IV PRN (02:22)
--- NOTE | 2022-11-15 02:22 | NUR ---
MS RN NOTES AWAKE,HAVING CHEST PAIN,MORPHINE 2MG IV GIVEN ORDERED FOR PAIN MANAGEMENT.
[2022-11-15] MEDS: LORAZEPAM INJ 2 MG/ML VIAL IV PRN (04:43)
--- NOTE | 2022-11-15 04:43 | NUR ---
RN NOTE WITNESSED SMITA TO WASTE ATIVAN 1MG IVP FROM TOTAL 2MG.
--- NOTE | 2022-11-15 04:43 | NUR ---
MS RN NOTES APPEARS ANXIOUS,PACING INSIDE HIS ROOM,MEDICATED WITH ATIVAN 1MG IV,PARTIAL DOSE OF 2 MG STOCK ON HAND,1MG WASTED WITNESSED BY RN PANTERA
--- NOTE | 2022-11-15 05:30 | NUR ---
MS RN NOTES ACCU-CHECK BLOOD SUGAR CHECK 80,AWAKE,ALERT,NO INSULIN COVERAGE PER SLIDING SCALE PROTOCOL
[2022-11-15] MEDS: BLOOD SUGAR DIAGNOSTIC 1 EACH STRIP VI SCH ×2 (05:35→11:59)
[2022-11-15 05:50] LABS: BASOPHILS # (AUTO) 0.1 K/uL (0.0-0.2); BASOPHILS % (AUTO) 2.2 % (0.0-2.0); EOSINOPHILS % (AUTO) 6.3 % (0.0-6.0); HEMATOCRIT 34 % (39-51); HEMOGLOBIN 11.1 g/dL (13.5-17.5); LYMPHOCYTES # (AUTO) 1.3 K/uL (0.8-4.8); LYMPHOCYTES % (AUTO) 23.9 % (20.0-44.0); MEAN CORPUSCULAR HGB CONC 32 g/dl (31.0-36.0); MEAN CORPUSCULAR VOLUME 85 fL (80-96); MONOCYTES # (AUTO) 0.6 K/uL (0.1-1.30); MONOCYTES % (AUTO) 10.8 % (2.0-12.0); NEUTROPHILS % (AUTO) 56.8 % (43.0-81.0); PLATELET COUNT (AUTO) 319 K/uL (150-450); RED BLOOD CELL COUNT(AUTO) 4.02 MIL/uL (4.5-6.0); WHITE BLOOD COUNT (AUTO) 5.3 K/uL (4.3-11.0)
--- NOTE | 2022-11-15 07:15 | NUR ---
MS RN NOTES SLEEP WITH INTERVALS,PAIN MANAGEMENT EFFECTIVE FOR CHEST PAIN.ANXIETY IMPROVED WITH ATIVAN [address] YEE THIS MORNING WITH NEW ORDER TO START THIS MORNING.AMBULATE WITH STEADY GAIT.CALL LIGHT IN REACH,NEEDS ATTENDED.
--- NOTE | 2022-11-15 07:16 | NUR ---
MS RN OPENING NOTES: RECEIVED PT IN BED AWAKE.ALERT AND ORIENTED X 4 AND ABLE TO MAKE NEEDS KNOWN. NO SOB OR CARDIAC DISTRESS NOTED. PT COMPLAINED PAIN ON HIS CHEST 2/10 AND HE DIDNT SLEEP PER PT. IV ACCESS ON LEFT HAND GAUGE 20 PATENT INTACT AND SALINE LOCKD. SAFETY MEASURES MAINTAINED. BED LOCKED AND IN LOWEST POSITION, SIDE RAILS UP X 2 CALL LIGHT IN EASY REACH AND WILL MONITOR PT ACCORDINGLY.
[2022-11-15 08:00] VITALS: BP 111/73; TEMP 98; O2SAT 95
[2022-11-15 08:05] LABS: CALCIUM, SERUM 9.3 mg/dL (8.5-10.1); MAGNESIUM 1.7 mg/dL (1.8-2.4); PHOSPHORUS 4.3 mg/dL (2.5-4.9); POTASSIUM 4.1 mmol/L (3.5-5.1); TOTAL PROTEIN, SERUM 7.3 g/dL (6.4-8.2)
[2022-11-15] MEDS ORDERED: FURO40TA5 PO (08:28)
[2022-11-15] MEDS: SPIRONOLACTONE 25 MG TABLET PO SCH (08:32)
[2022-11-15] MEDS: SERTRALINE HCL 50 MG TABLET PO SCH (08:32)
[2022-11-15] MEDS: AMIODARONE HCL 200 MG TABLET PO SCH (08:32)
[2022-11-15 08:33] VITALS: BP 111/73
[2022-11-15] MEDS: CARVEDILOL 3.125 MG TABLET PO SCH (08:33)
[2022-11-15] MEDS: DAPAGLIFLOZIN PROPANEDIOL 5 MG TABLET PO SCH (08:34)
[2022-11-15] MEDS: SACUBITRIL/VALSARTAN 1 EACH TABLET PO SCH (08:35)
[2022-11-15] MEDS: APIXABAN 5 MG TABLET PO SCH (08:35)
[2022-11-15] MEDS ORDERED: FUROSEMIDE 40 MG TABLET PO SCH (09:00)
[2022-11-15] MEDS ORDERED: POTASSIUM CHLORIDE 20 MEQ TAB.PRT.SR PO SCH (09:00)
[2022-11-15] MEDS ORDERED: MAGNESIUM OXIDE 400 MG TABLET PO ONE (09:30)
--- NOTE | 2022-11-15 14:05 | NUR ---
POPULATION HEALTH MANAGER NOTES: PATIENT DC HOME WITH HIS FATHER ASIM. PT IS ALERT AND ORIENTED X 3-4 AND ABLE TO MAKE NEEDS KNOWN. NO SOB OR CARDIAC DISTRESS NOTED. DENIES PAIN AT THIS TIME. DISCHARGE PACKET GIVE TO PATIENT AND INSTRUCTIONS GIVEN TO PT AND HIS FATHER. ALL BELONGINGS WITH PT, PT SIGNED THE FORM. BODY ASSESSMENT DONE AND PHOTOS TAKEN AND FILED TO PT'S CHART. IDENTIFICATION BAND REMOVED. IV ACCESS REMOVED AND SECURED WITH GAUZE AND TAPE. PT LEFT THE UNIT STABLE AND AMBULATORY, PT REFUSED WHEELCHAIR/ASSISTANCE FROM REVERSER.
== END 2022-11-15 14:36 | disposition home or self-care (01) | DRG 812 ==
LOC: ER 16:17 → TELE 19:15 → MED 11-13 16:18
PROVIDERS: ADMIT Internal Medicine; ATTEND Internal Medicine
DX: T43.651A Poisoning by methamphetamines accidental (unintentional), initial encounter (principal); I21.4 Non-ST elevation (NSTEMI) myocardial infarction; I50.43 Acute on chronic combined systolic (congestive) and diastolic (congestive) heart failure; I42.7 Cardiomyopathy due to drug and external agent; I11.0 Hypertensive heart disease with heart failure; F15.10 Other stimulant abuse, uncomplicated; Z95.810 Presence of automatic (implantable) cardiac defibrillator; Z79.899 Other long term (current) drug therapy; Z79.84 Long term (current) use of oral hypoglycemic drugs; F20.9 Schizophrenia, unspecified; I25.2 Old myocardial infarction; F41.9 Anxiety disorder, unspecified; F32.A Depression, unspecified; Z83.3 Family history of diabetes mellitus; Z86.711 Personal history of pulmonary embolism; Z87.891 Personal history of nicotine dependence; Y92.009 Unspecified place in unspecified non-institutional (private) residence as the place of occurrence of the external cause; R79.89 Other specified abnormal findings of blood chemistry; Z79.01 Long term (current) use of anticoagulants
CPT/HCPCS: 36415; 71045-TC; 80048-TC; 80053-TC; 80076-TC; 82962-TC; 83735-TC; 83880; 84100-TC; 84484-TC; 85025-TC; A4223; G0378; J1815; J1940; J2060; J2270; J3490; J7050

== ENCOUNTER 2022-11-23 22:51 | Inpatient (IN) | payer OTHER ==
[~2022-11-23] VITALS: Ht 182.9 cm; Wt 93.4 kg
[~2022-11-23 22:51] MED LIST changes: +AMIO200T5 PO; -AMIO200T7 PO; -FURO-144 PO; +FURO40TA5 PO
[2022-11-23] MEDS ORDERED: FUROSEMIDE 40 MG/4 ML VIAL IV ONE (23:30)
[2022-11-23] MEDS ORDERED: NITROGLYCERIN 0.4 MG/TAB BOTTLE SL ONE (23:30)
[2022-11-23] MEDS ORDERED: FUROSEMIDE 40 MG/4 ML VIAL ONE ×2 (23:41→23:45)
[2022-11-23] MEDS ORDERED: NITROGLYCERIN 0.4 MG/TAB BOTTLE ONE ×2 (23:41→23:45)
[2022-11-24] VITALS (10 sets, daily range): BP systolic 89–123; BP diastolic 54–86; TEMP 97.4–98.9; O2SAT 95–100
[2022-11-24 00:06] LABS: BASOPHILS # (AUTO) 0.1 K/uL (0.0-0.2); BASOPHILS % (AUTO) 1.5 % (0.0-2.0); EOSINOPHILS # (AUTO) 0.1 K/uL (0.0-0.7); EOSINOPHILS % (AUTO) 2.2 % (0.0-6.0); HEMATOCRIT 36 % (39-51); HEMOGLOBIN 11.5 g/dL (13.5-17.5); LYMPHOCYTES # (AUTO) 1.1 K/uL (0.8-4.8); LYMPHOCYTES % (AUTO) 19.8 % (20.0-44.0); MEAN CORPUSCULAR HEMOGLOBIN 27 PG (26.0-33.0); MEAN CORPUSCULAR HGB CONC 32 g/dl (31.0-36.0); MEAN CORPUSCULAR VOLUME 87 fL (80-96); MONOCYTES # (AUTO) 0.6 K/uL (0.1-1.30); MONOCYTES % (AUTO) 10.7 % (2.0-12.0); NEUTROPHILS # (AUTO) 3.8 K/uL (1.8-8.9); NEUTROPHILS % (AUTO) 65.8 % (43.0-81.0); PLATELET COUNT (AUTO) 278 K/uL (150-450); RED CELL DISTRIBUTION WIDTH 24.5 % (11.5-15.0); WHITE BLOOD COUNT (AUTO) 5.7 K/uL (4.3-11.0)
[2022-11-24 00:15] LABS: CARBON DIOXIDE 25 mmol/L (21-32); CHLORIDE 99 mmol/L (98-107); CREATININE 1.3 mg/dL (0.6-1.3); GLUCOSE 83 mg/dL (74-106); POTASSIUM 3.8 mmol/L (3.5-5.1); SODIUM SERUM 133 mmol/L (136-145); UREA NITROGEN, BLOOD 19 mg/dL (7-18)
[2022-11-24 00:18] LABS: INR 1.52 (0.91-1.10); PARTIAL THROMBOPLASTIN TIME 31.3 SEC (24.3-34.3); PROTHROMBIN TIME 15.6 SECS (9.2-11.1)
[2022-11-24 00:27] LABS: ALANINE AMINOTRANSFERASE 17 U/L (12-78); ALBUMIN 3.4 g/dL (3.4-5.0); ALKALINE PHOSPHATASE 141 U/L (46-116); ASPARTATE AMINOTRANSFERASE 25 U/L (15-37); BILIRUBIN,DIRECT 1.4 mg/dL (0.0-0.2); BILIRUBIN,TOTAL 2.2 mg/dL (0.2-1.0); NT-PRO BNP 5038 pg/mL (0-125); TOTAL PROTEIN, SERUM 7.8 g/dL (6.4-8.2)
[2022-11-24] MEDS ORDERED: ASPIRIN 325 MG TABLET PO ONE (01:00)
[2022-11-24] MEDS ORDERED: ASPIRIN 325 MG TABLET ONE (01:00)
[2022-11-24] MEDS ORDERED: MAG HYDROX/AL HYDROX/SIMETH 30 ML UDC PO PRN (01:30)
[2022-11-24] MEDS ORDERED: ONDANSETRON HCL/PF 4 MG/2 ML VIAL IVP PRN (01:30)
[2022-11-24] MEDS ORDERED: ACETAMINOPHEN 325 MG TABLET PO PRN (01:30)
[2022-11-24] MEDS ORDERED: DEXTROSE 50%-WATER 50 ML DISP.SYRIN IV PRN (01:30)
[2022-11-24] MEDS ORDERED: MAGNESIUM HYDROXIDE 30 ML UDC PO PRN (01:30)
[2022-11-24] MEDS ORDERED: Z GUARD REMEDY 4 OZ OINT TP PRN (01:30)
[2022-11-24] MEDS ORDERED: FUROSEMIDE 40 MG/4 ML VIAL IV ONE (05:30)
[2022-11-24] MEDS: BLOOD SUGAR DIAGNOSTIC 1 EACH STRIP IN SCH ×4 (06:30→21:56)
[2022-11-24] MEDS: NITROGLYCERIN 0.4 MG/TAB BOTTLE SL PRN (06:53)
[2022-11-24] MEDS: ASPIRIN 81 MG TAB.CHEW PO SCH (09:00)
[2022-11-24] MEDS: SACUBITRIL/VALSARTAN 1 EACH TABLET PO SCH ×2 (09:09→17:32)
[2022-11-24] MEDS: CARVEDILOL 3.125 MG TABLET PO SCH ×2 (09:09→21:27)
[2022-11-24] MEDS: SERTRALINE HCL 50 MG TABLET PO SCH ×2 (09:09→17:32)
[2022-11-24] MEDS: AMIODARONE HCL 200 MG TABLET PO SCH (09:10)
[2022-11-24] MEDS: POTASSIUM CHLORIDE 20 MEQ TAB.PRT.SR PO SCH ×3 (09:41→12:32)
[2022-11-24] MEDS: FUROSEMIDE 100 MG/10 ML VIAL IV SCH ×3 (09:41→17:33)
[2022-11-24] MEDS ORDERED: OLAN5TAB3 PO (10:06)
[2022-11-24] MEDS ORDERED: PANT40TA2 PO (10:06)
[2022-11-24] MEDS ORDERED: DIVA-78 PO (10:06)
[2022-11-24] MEDS ORDERED: METR500T PO (10:06)
[2022-11-24] MEDS: DAPAGLIFLOZIN PROPANEDIOL 5 MG TABLET PO SCH (10:36)
[2022-11-24] MEDS: INSULIN REGULAR, HUMAN 100 UNIT/ML 3 ML VIAL SQ PRN ×2 (11:27→16:58)
[2022-11-24] MEDS: APIXABAN 5 MG TABLET PO SCH ×2 (13:33→17:34)
[2022-11-24 13:37] LABS: PROTEIN, BODY FLUID 1.8 G/DL; WBC, BODY FLUID 182 /cu. mm. (0-200)
[2022-11-24 13:40] LABS: APPEARANCE,SPUN,BODY FLUID CLEAR (CLEAR); TOTAL VOLUME,BODY FLUID 1500 mL
[2022-11-24 17:05] LABS: MACROPHAGES, BODY FLUID 4; POLYNUCLEAR, BODY FLUID 10 % (0-25)
[2022-11-24] MEDS: ZOLPIDEM TARTRATE 5 MG TABLET PO PRN (21:27)
[2022-11-25] VITALS: BP 92/59; TEMP 97.9; O2SAT 96
[2022-11-25 04:00] VITALS: BP 77/42; TEMP 97.5; O2SAT 99
[2022-11-25 05:00] VITALS: BP 96/58; TEMP 98.4; O2SAT 97
[2022-11-25] MEDS: BLOOD SUGAR DIAGNOSTIC 1 EACH STRIP IN SCH ×4 (06:37→21:57)
[2022-11-25 06:38] LABS: BASOPHILS # (AUTO) 0.1 K/uL (0.0-0.2); BASOPHILS % (AUTO) 1.1 % (0.0-2.0); EOSINOPHILS # (AUTO) 0.2 K/uL (0.0-0.7); EOSINOPHILS % (AUTO) 3.6 % (0.0-6.0); HEMATOCRIT 33 % (39-51); HEMOGLOBIN 10.3 g/dL (13.5-17.5); LYMPHOCYTES # (AUTO) 1.1 K/uL (0.8-4.8); LYMPHOCYTES % (AUTO) 23.7 % (20.0-44.0); MEAN CORPUSCULAR HEMOGLOBIN 27 PG (26.0-33.0); MEAN CORPUSCULAR HGB CONC 32 g/dl (31.0-36.0); MEAN CORPUSCULAR VOLUME 86 fL (80-96); MONOCYTES # (AUTO) 0.5 K/uL (0.1-1.30); MONOCYTES % (AUTO) 10.9 % (2.0-12.0); NEUTROPHILS # (AUTO) 2.9 K/uL (1.8-8.9); NEUTROPHILS % (AUTO) 60.7 % (43.0-81.0); PLATELET COUNT (AUTO) 258 K/uL (150-450); RED BLOOD CELL COUNT(AUTO) 3.76 MIL/uL (4.5-6.0); WHITE BLOOD COUNT (AUTO) 4.8 K/uL (4.3-11.0)
[2022-11-25 06:58] LABS: ALBUMIN 2.6 g/dL (3.4-5.0); BILIRUBIN,TOTAL 1.9 mg/dL (0.2-1.0); CREATININE 1.3 mg/dL (0.6-1.3); MAGNESIUM 1.7 mg/dL (1.8-2.4); PHOSPHORUS 4.1 mg/dL (2.5-4.9); POTASSIUM 3.4 mmol/L (3.5-5.1); TOTAL PROTEIN, SERUM 6.3 g/dL (6.4-8.2)
[2022-11-25 08:00] VITALS: BP 99/64; TEMP 98.9; O2SAT 97
[2022-11-25] MEDS ORDERED: POTASSIUM CHLORIDE 20 MEQ TAB.PRT.SR PO SCH (08:30)
[2022-11-25] MEDS: CARVEDILOL 3.125 MG TABLET PO SCH ×2 (09:00→21:57)
[2022-11-25] MEDS: AMIODARONE HCL 200 MG TABLET PO SCH (09:00)
[2022-11-25] MEDS: SACUBITRIL/VALSARTAN 1 EACH TABLET PO SCH ×2 (09:00→17:28)
[2022-11-25] MEDS: POTASSIUM CHLORIDE 20 MEQ TAB.PRT.SR PO SCH ×3 (09:23→11:57)
[2022-11-25] MEDS: ASPIRIN 81 MG TAB.CHEW PO SCH (09:23)
[2022-11-25] MEDS: SERTRALINE HCL 50 MG TABLET PO SCH ×2 (09:23→17:25)
[2022-11-25] MEDS: APIXABAN 5 MG TABLET PO SCH ×2 (09:26→17:22)
[2022-11-25] MEDS: FUROSEMIDE 100 MG/10 ML VIAL IV SCH ×3 (09:28→17:00)
[2022-11-25] MEDS: Magnesium 1GM/D5W 100ML PREMIX 100 ML IV SCH ×2 (09:28→10:32)
[2022-11-25] MEDS: DAPAGLIFLOZIN PROPANEDIOL 5 MG TABLET PO SCH ×2 (10:14→17:25)
[2022-11-25 16:00] VITALS: BP 102/64; TEMP 98.2; O2SAT 96
[2022-11-25 20:00] VITALS: BP 108/63; TEMP 97.5; O2SAT 97
[2022-11-25] MEDS: INSULIN REGULAR, HUMAN 100 UNIT/ML 3 ML VIAL SQ PRN (21:57)
[2022-11-25] MEDS: ZOLPIDEM TARTRATE 5 MG TABLET PO PRN (21:59)
[2022-11-26] MEDS: INSULIN REGULAR, HUMAN 100 UNIT/ML 3 ML VIAL SQ PRN ×3 (06:42→16:59)
[2022-11-26 06:53] LABS: ALBUMIN 2.7 g/dL (3.4-5.0); BILIRUBIN,TOTAL 1.6 mg/dL (0.2-1.0); CALCIUM, SERUM 8.5 mg/dL (8.5-10.1); CREATININE 1.1 mg/dL (0.6-1.3); PHOSPHORUS 4.2 mg/dL (2.5-4.9); POTASSIUM 3.6 mmol/L (3.5-5.1); TOTAL PROTEIN, SERUM 6.6 g/dL (6.4-8.2)
[2022-11-26] MEDS: NITROGLYCERIN 0.4 MG/TAB BOTTLE SL PRN ×3 (06:53→07:07)
[2022-11-26 07:00] VITALS: BP 101/71; TEMP 97.4; O2SAT 100
[2022-11-26] MEDS: BLOOD SUGAR DIAGNOSTIC 1 EACH STRIP IN SCH ×4 (07:01→23:11)
[2022-11-26] MEDS: MORPHINE SULFATE INJ 2 MG/ML DISP.SYRIN IV PRN ×2 (07:46→17:05)
[2022-11-26] MEDS: CARVEDILOL 3.125 MG TABLET PO SCH ×2 (08:29→21:06)
[2022-11-26] MEDS: AMIODARONE HCL 200 MG TABLET PO SCH (08:29)
[2022-11-26] MEDS: SERTRALINE HCL 50 MG TABLET PO SCH ×2 (08:29→17:04)
[2022-11-26] MEDS: APIXABAN 5 MG TABLET PO SCH ×2 (08:30→17:07)
[2022-11-26] MEDS: ASPIRIN 81 MG TAB.CHEW PO SCH (08:30)
[2022-11-26] MEDS: SACUBITRIL/VALSARTAN 1 EACH TABLET PO SCH ×2 (08:33→17:05)
[2022-11-26] MEDS: DAPAGLIFLOZIN PROPANEDIOL 5 MG TABLET PO SCH (08:47)
[2022-11-26 16:00] VITALS: BP 95/54; TEMP 97.4; O2SAT 91
[2022-11-26 19:00] VITALS: BP 99/69; TEMP 97.8; O2SAT 100
[2022-11-27] MEDS: MORPHINE SULFATE INJ 2 MG/ML DISP.SYRIN IV PRN ×2 (02:20→13:16)
[2022-11-27] MEDS: BLOOD SUGAR DIAGNOSTIC 1 EACH STRIP IN SCH ×2 (06:42→12:11)
[2022-11-27 07:00] VITALS: BP_SYST 116; BP_SYST 160; BP_DIAS 74; BP_DIAS 76; TEMP 97.5; TEMP 98.5; O2SAT 97
[2022-11-27] MEDS: ASPIRIN 81 MG TAB.CHEW PO SCH (08:41)
[2022-11-27 09:20] VITALS: BP 160/74
[2022-11-27] MEDS: CARVEDILOL 3.125 MG TABLET PO SCH (09:20)
[2022-11-27] MEDS: AMIODARONE HCL 200 MG TABLET PO SCH (09:20)
[2022-11-27] MEDS: DAPAGLIFLOZIN PROPANEDIOL 5 MG TABLET PO SCH (09:22)
[2022-11-27] MEDS: SACUBITRIL/VALSARTAN 1 EACH TABLET PO SCH (09:22)
[2022-11-27] MEDS: SERTRALINE HCL 50 MG TABLET PO SCH (09:22)
[2022-11-27] MEDS: APIXABAN 5 MG TABLET PO SCH (09:22)
[2022-11-27] MEDS ORDERED: SACU1TAB PO (10:00)
[2022-11-27] MEDS ORDERED: APIX5TAB PO (10:00)
[2022-11-27] MEDS ORDERED: CARV6.25 PO (10:00)
[2022-11-27] MEDS ORDERED: SERT50TA PO (10:00)
[2022-11-27] MEDS ORDERED: ASPI-1169 PO (10:00)
[2022-11-27] MEDS ORDERED: AMIO200T5 PO (10:00)
[2022-11-27] MEDS ORDERED: MORP15TA PO (10:04)
[2022-11-27] MEDS ORDERED: NITR0.4T SL (10:04)
[2022-11-27] MEDS: INSULIN REGULAR, HUMAN 100 UNIT/ML 3 ML VIAL SQ PRN (13:12)
[2022-11-27] MEDS ORDERED: MORPHINE SULFATE IR 15 MG TABLET PO PRN (14:00)
== END 2022-11-27 15:15 | disposition home or self-care (01) | DRG 194 ==
LOC: ER 22:51 → TELE 11-24 03:40 → MED 11-25 12:16
PROVIDERS: ADMIT Nurse Practitioner Acute Care; ATTEND Nurse Practitioner Acute Care
PROC: 0W993ZX Drainage of Right Pleural Cavity, Percutaneous Approach, Diagnostic (ICD-10-PCS; principal; 2022-11-24)
DX: I11.0 Hypertensive heart disease with heart failure (principal); I21.4 Non-ST elevation (NSTEMI) myocardial infarction; I42.7 Cardiomyopathy due to drug and external agent; J90 Pleural effusion, not elsewhere classified; R18.8 Other ascites; Z20.822 Contact with and (suspected) exposure to COVID-19; I25.2 Old myocardial infarction; Z95.810 Presence of automatic (implantable) cardiac defibrillator; Z79.02 Long term (current) use of antithrombotics/antiplatelets; Z79.899 Other long term (current) drug therapy; F32.A Depression, unspecified; Z86.711 Personal history of pulmonary embolism; F20.9 Schizophrenia, unspecified; F15.10 Other stimulant abuse, uncomplicated; F41.9 Anxiety disorder, unspecified; Z87.891 Personal history of nicotine dependence; I50.84 End stage heart failure; G89.29 Other chronic pain; J98.11 Atelectasis; K74.60 Unspecified cirrhosis of liver; Z79.01 Long term (current) use of anticoagulants; Z79.82 Long term (current) use of aspirin; Z83.3 Family history of diabetes mellitus; I25.119 Atherosclerotic heart disease of native coronary artery with unspecified angina pectoris; I50.23 Acute on chronic systolic (congestive) heart failure
CPT/HCPCS: 36415; 71045-TC; 80048-TC; 80053-TC; 80061-TC; 80076-TC; 82962-TC; 83735-TC; 83880; 84100-TC; 84484-TC; 85025-TC; 85730-TC; 87102-TC; 88108-TC; 88305-TC; 89051-TC; A4223; C9803; G0378; J1815; J1940; J2270; J3475

== ENCOUNTER 2022-11-29 22:27 | Inpatient (IN) | payer OTHER ==
[~2022-11-29] VITALS: Ht 182.9 cm; Wt 79.4 kg
[~2022-11-29 22:27] MED LIST changes: +ASPI-1169 PO; -CARV3.122 PO; +CARV6.25 PO; -DAPA10TA PO; -FURO40TA5 PO; +MORP15TA PO; +NITR0.4T SL; +PANT40TA2 PO
[2022-11-29 23:18] LABS: BASOPHILS # (AUTO) 0.2 K/uL (0.0-0.2); BASOPHILS % (AUTO) 4.7 % (0.0-2.0); EOSINOPHILS % (AUTO) 0.6 % (0.0-6.0); HEMATOCRIT 33 % (39-51); HEMOGLOBIN 10.5 g/dL (13.5-17.5); LYMPHOCYTES # (AUTO) 0.8 K/uL (0.8-4.8); LYMPHOCYTES % (AUTO) 16.6 % (20.0-44.0); MEAN CORPUSCULAR HEMOGLOBIN 27 PG (26.0-33.0); MEAN CORPUSCULAR HGB CONC 32 g/dl (31.0-36.0); MEAN CORPUSCULAR VOLUME 85 fL (80-96); MONOCYTES # (AUTO) 0.7 K/uL (0.1-1.30); NEUTROPHILS # (AUTO) 3.3 K/uL (1.8-8.9); NEUTROPHILS % (AUTO) 64.1 % (43.0-81.0); PLATELET COUNT (AUTO) 265 K/uL (150-450); RED BLOOD CELL COUNT(AUTO) 3.87 MIL/uL (4.5-6.0); RED CELL DISTRIBUTION WIDTH 23.6 % (11.5-15.0); WHITE BLOOD COUNT (AUTO) 5.1 K/uL (4.3-11.0)
[2022-11-29 23:28] LABS: CALCIUM, SERUM 9.3 mg/dL (8.5-10.1); CARBON DIOXIDE 20 mmol/L (21-32); CHLORIDE 91 mmol/L (98-107); CREATININE 1.5 mg/dL (0.6-1.3); GLUCOSE 94 mg/dL (74-106); POTASSIUM 3.9 mmol/L (3.5-5.1); SODIUM SERUM 125 mmol/L (136-145); UREA NITROGEN, BLOOD 22 mg/dL (7-18)
[2022-11-29 23:32] LABS: INR 1.67 (0.91-1.10); PARTIAL THROMBOPLASTIN TIME 40.7 SEC (24.3-34.3)
[2022-11-29 23:42] LABS: ALANINE AMINOTRANSFERASE 14 U/L (12-78); ALBUMIN 3.2 g/dL (3.4-5.0); ALKALINE PHOSPHATASE 133 U/L (46-116); ASPARTATE AMINOTRANSFERASE 25 U/L (15-37); BILIRUBIN,DIRECT 1.5 mg/dL (0.0-0.2); BILIRUBIN,TOTAL 2.5 mg/dL (0.2-1.0); NT-PRO BNP 2149 pg/mL (0-125)
[2022-11-30] MEDS ORDERED: ASPIRIN 325 MG TABLET PO ONE
[2022-11-30] MEDS ORDERED: ASPIRIN 325 MG TABLET ONE (00:06)
[2022-11-30 01:31] LABS: AMPHETAMINE, URINE NEGATIVE (NEGATIVE); BARBITURATE, URINE NEGATIVE (NEGATIVE); BENZODIAZEPINE, URINE NEGATIVE (NEGATIVE); CANNABINOID, URINE NEGATIVE (NEGATIVE); COCCAINE, URINE NEGATIVE (NEGATIVE); PHENCYCLIDINE SCREEN,URINE NEGATIVE (NEGATIVE)
[2022-11-30 01:32] LABS: OPIATE, URINE POSITIVE (NEGATIVE)
[2022-11-30] MEDS ORDERED: ACETAMINOPHEN 325 MG TABLET PO PRN (06:00)
[2022-11-30] MEDS ORDERED: ENOXAPARIN SODIUM 40 MG/0.4 ML DISP.SYRIN SQ SCH (06:00)
[2022-11-30] MEDS ORDERED: ONDANSETRON HCL/PF 4 MG/2 ML VIAL IVP PRN (06:00)
[2022-11-30] MEDS ORDERED: MORPHINE SULFATE INJ 2 MG/ML DISP.SYRIN IV PRN (06:00)
[2022-11-30] MEDS ORDERED: HYDROCODONE/APAP 5/325MG TABLET PO PRN (06:00)
[2022-11-30] MEDS ORDERED: MORPHINE SULFATE IR 15 MG TABLET PO PRN (06:30)
[2022-11-30 06:45] LABS: BASOPHILS % (AUTO) 1.1 % (0.0-2.0); EOSINOPHILS % (AUTO) 0.8 % (0.0-6.0); HEMATOCRIT 33 % (39-51); HEMOGLOBIN 10.5 g/dL (13.5-17.5); LYMPHOCYTES # (AUTO) 0.7 K/uL (0.8-4.8); LYMPHOCYTES % (AUTO) 15.6 % (20.0-44.0); MEAN CORPUSCULAR HEMOGLOBIN 28 PG (26.0-33.0); MEAN CORPUSCULAR HGB CONC 32 g/dl (31.0-36.0); MEAN CORPUSCULAR VOLUME 86 fL (80-96); MONOCYTES # (AUTO) 0.5 K/uL (0.1-1.30); MONOCYTES % (AUTO) 12.4 % (2.0-12.0); NEUTROPHILS # (AUTO) 3.1 K/uL (1.8-8.9); NEUTROPHILS % (AUTO) 70.1 % (43.0-81.0); PLATELET COUNT (AUTO) 242 K/uL (150-450); RED BLOOD CELL COUNT(AUTO) 3.84 MIL/uL (4.5-6.0); RED CELL DISTRIBUTION WIDTH 23.5 % (11.5-15.0); WHITE BLOOD COUNT (AUTO) 4.4 K/uL (4.3-11.0)
[2022-11-30 06:52] LABS: CALCIUM, SERUM 8.7 mg/dL (8.5-10.1); CREATININE 1.3 mg/dL (0.6-1.3); POTASSIUM 3.7 mmol/L (3.5-5.1)
[2022-11-30] MEDS ORDERED: SERT50TA PO (08:23)
[2022-11-30] MEDS ORDERED: DAPA10TA PO (08:23)
[2022-11-30] MEDS ORDERED: APIX5TAB PO (08:23)
[2022-11-30] MEDS ORDERED: FURO-144 PO (08:23)
[2022-11-30] MEDS ORDERED: AMIO200T5 PO (08:23)
[2022-11-30] MEDS ORDERED: CARV3.12 PO (08:23)
[2022-11-30] MEDS ORDERED: CARVEDILOL 6.25 MG TABLET PO SCH (09:00)
[2022-11-30 09:20] VITALS: BP 109/64; TEMP 97.5; O2SAT 100
[2022-11-30] MEDS: ASPIRIN 81 MG TAB.CHEW PO SCH (09:56)
[2022-11-30] MEDS: SERTRALINE HCL 50 MG TABLET PO SCH ×2 (09:56→18:11)
[2022-11-30] MEDS: SPIRONOLACTONE 25 MG TABLET PO SCH (09:56)
[2022-11-30] MEDS: PANTOPRAZOLE 40 MG TABLET.DR PO SCH (09:56)
[2022-11-30] MEDS: AMIODARONE HCL 200 MG TABLET PO SCH (09:59)
[2022-11-30] MEDS: SACUBITRIL/VALSARTAN 1 EACH TABLET PO SCH ×2 (10:00→17:00)
[2022-11-30] MEDS: APIXABAN 5 MG TABLET PO SCH ×2 (10:02→18:12)
[2022-11-30 12:00] VITALS: BP 93/53; TEMP 97.6; O2SAT 99
[2022-11-30] MEDS ORDERED: IOHEXOL-350 100 ML VIAL IV ONE (12:51)
[2022-11-30] MEDS ORDERED: IV NS 0.9% 250 ML IV ONE (12:51)
[2022-11-30] MEDS: HYDROGEL DRESSING 90 GM TUBE TP SCH (13:30)
[2022-11-30 16:00] VITALS: BP 89/48; TEMP 98; O2SAT 95
[2022-11-30 16:25] VITALS: BP 95/57; TEMP 98; O2SAT 98
[2022-11-30] MEDS: CARVEDILOL 3.125 MG TABLET PO SCH (17:00)
[2022-11-30] MEDS ORDERED: SERTRALINE HCL 50 MG TABLET PO SCH (17:00)
[2022-11-30] MEDS ORDERED: APIXABAN 5 MG TABLET PO SCH (17:00)
[2022-11-30] MEDS: FUROSEMIDE 40 MG TABLET PO SCH (18:12)
[2022-11-30 20:00] VITALS: BP 89/52; TEMP 97.2; O2SAT 97
[2022-12-01] VITALS: BP 89/67; TEMP 97.4; O2SAT 98
[2022-12-01 04:00] VITALS: BP 89/57; TEMP 97.4; O2SAT 98
[2022-12-01 06:37] LABS: EOSINOPHIL,URINE None Seen
[2022-12-01 06:38] LABS: APPEARANCE,URINE CLEAR (CLEAR); BILIRUBIN,URINE NEGATIVE (NEGATIVE); BLOOD, URINE NEGATIVE Ery/uL (NEGATIVE); COLOR,URINE YELLOW (YELLOW); KETONES,URINE NEGATIVE (NEGATIVE); LEUKOCYTE ESTERASE ,URINE NEGATIVE (NEGATIVE); NITRITE, URINE NEGATIVE (NEGATIVE); PROTEIN,URINE NEGATIVE (NEGATIVE); UGLUCOSE TRACE mg/dL (NEGATIVE)
[2022-12-01 06:43] LABS: ADD URINE CULTURE NO; BACTERIA,URINE Rare /HPF (None Seen); RBC,URINE 0-2 /HPF (0-2); SQUAMOUS EPITHELIAL CELL,UR Few /HPF (None Seen); WBC,URINE 0-2 /HPF (0-3)
[2022-12-01 07:11] LABS: EOSINOPHILS % (AUTO) 0.5 % (0.0-6.0); HEMATOCRIT 33 % (39-51); HEMOGLOBIN 10.7 g/dL (13.5-17.5); LYMPHOCYTES # (AUTO) 0.7 K/uL (0.8-4.8); LYMPHOCYTES % (AUTO) 17.2 % (20.0-44.0); MEAN CORPUSCULAR HEMOGLOBIN 28 PG (26.0-33.0); MEAN CORPUSCULAR HGB CONC 32 g/dl (31.0-36.0); MEAN CORPUSCULAR VOLUME 86 fL (80-96); MONOCYTES # (AUTO) 0.6 K/uL (0.1-1.30); MONOCYTES % (AUTO) 14.7 % (2.0-12.0); NEUTROPHILS # (AUTO) 2.7 K/uL (1.8-8.9); NEUTROPHILS % (AUTO) 66.6 % (43.0-81.0); PLATELET COUNT (AUTO) 248 K/uL (150-450); RED BLOOD CELL COUNT(AUTO) 3.87 MIL/uL (4.5-6.0); RED CELL DISTRIBUTION WIDTH 24.1 % (11.5-15.0)
[2022-12-01 07:39] LABS: ALBUMIN 2.9 g/dL (3.4-5.0); CALCIUM, SERUM 9.2 mg/dL (8.5-10.1); CREATININE 1.2 mg/dL (0.6-1.3); PHOSPHORUS 4.1 mg/dL (2.5-4.9); POTASSIUM 3.6 mmol/L (3.5-5.1); TOTAL PROTEIN, SERUM 6.7 g/dL (6.4-8.2)
[2022-12-01 07:54] LABS: CREATININE, URINE 57.5 MG/DL (30.0-125.0); URINE TOTAL PROTEIN 7.4 mg/dL (0-11.9)
[2022-12-01 07:54] LABS: THYROID STIMULATING HORMONE 4.689 uIU/mL (0.358-3.74); URIC ACID 7.7 mg/dL (2.6-7.2)
[2022-12-01] MEDS: CARVEDILOL 3.125 MG TABLET PO SCH (09:00)
[2022-12-01] MEDS ORDERED: AMIODARONE HCL 200 MG TABLET PO SCH (09:00)
[2022-12-01] MEDS: ASPIRIN 81 MG TAB.CHEW PO SCH (09:03)
[2022-12-01] MEDS: FUROSEMIDE 40 MG TABLET PO SCH (09:04)
[2022-12-01] MEDS: PANTOPRAZOLE 40 MG TABLET.DR PO SCH (09:04)
[2022-12-01 09:05] VITALS: BP 111/80
[2022-12-01] MEDS: SERTRALINE HCL 50 MG TABLET PO SCH (09:05)
[2022-12-01] MEDS: AMIODARONE HCL 200 MG TABLET PO SCH (09:05)
[2022-12-01] MEDS: SPIRONOLACTONE 25 MG TABLET PO SCH (09:06)
[2022-12-01] MEDS: APIXABAN 5 MG TABLET PO SCH (09:12)
[2022-12-01] MEDS: HYDROGEL DRESSING 90 GM TUBE TP SCH (09:13)
[2022-12-01] MEDS: SACUBITRIL/VALSARTAN 1 EACH TABLET PO SCH (09:16)
== END 2022-12-01 12:05 | disposition home or self-care (01) | DRG 58 ==
LOC: ER 22:30 → TRANSITION 11-30 04:56 → TELE1 11-30 07:50
PROVIDERS: ADMIT Internal Medicine; ATTEND Internal Medicine
DX: G81.94 Hemiplegia, unspecified affecting left nondominant side (principal); I21.A1 Myocardial infarction type 2; E22.2 Syndrome of inappropriate secretion of antidiuretic hormone; I42.7 Cardiomyopathy due to drug and external agent; I50.32 Chronic diastolic (congestive) heart failure; I13.0 Hypertensive heart and chronic kidney disease with heart failure and stage 1 through stage 4 chronic kidney disease, or unspecified chronic kidney disease; R29.810 Facial weakness; N17.9 Acute kidney failure, unspecified; J90 Pleural effusion, not elsewhere classified; Z95.810 Presence of automatic (implantable) cardiac defibrillator; F15.10 Other stimulant abuse, uncomplicated; Z79.01 Long term (current) use of anticoagulants; Z79.82 Long term (current) use of aspirin; Z79.899 Other long term (current) drug therapy; Z86.79 Personal history of other diseases of the circulatory system; G89.4 Chronic pain syndrome; I25.2 Old myocardial infarction; Z86.711 Personal history of pulmonary embolism; E11.22 Type 2 diabetes mellitus with diabetic chronic kidney disease; N18.9 Chronic kidney disease, unspecified; F20.9 Schizophrenia, unspecified; F41.9 Anxiety disorder, unspecified; F32.A Depression, unspecified; E86.1 Hypovolemia; Z87.891 Personal history of nicotine dependence; T43.655A Adverse effect of methamphetamines, initial encounter; Y92.009 Unspecified place in unspecified non-institutional (private) residence as the place of occurrence of the external cause; E03.9 Hypothyroidism, unspecified; T43.225A Adverse effect of selective serotonin reuptake inhibitors, initial encounter; T46.2X5A Adverse effect of other antidysrhythmic drugs, initial encounter
CPT/HCPCS: 36415; 70450-TC; 70496-TC; 70498-TC; 71045-TC; 71250-TC; 80048-TC; 80053-TC; 80076-TC; 81001; 82550-TC; 82570-TC; 83735-TC; 83880; 83970; 84100-TC; 84300-TC; 84443-TC; 84484-TC; 84550-TC; 85025-TC; 85730-TC; 93880-TC; A6248; G0378; G0480; J2270; J2405; J7050; Q9967

== ENCOUNTER 2023-04-19 09:24 | Inpatient (IN) | payer OTHER ==
[~2023-04-19] VITALS: Ht 182.9 cm; Wt 90.7 kg
[~2023-04-19 09:24] MED LIST changes: -ASPI-1169 PO; +CARV3.12 PO; -CARV6.25 PO; +DAPA10TA PO; +FURO-144 PO; -MORP15TA PO; -NITR0.4T SL; -PANT40TA2 PO; -SACU1TAB PO
[2023-04-19] MEDS ORDERED: FUROSEMIDE 40 MG/4 ML VIAL ONE (10:13)
[2023-04-19] MEDS ORDERED: ALBUTEROL FS 2.5 MG/0.5 ML VIAL.NEB ONE (10:19)
[2023-04-19 10:24] VITALS: O2SAT 98
[2023-04-19] MEDS ORDERED: FUROSEMIDE 40 MG/4 ML VIAL IV ONE (10:30)
[2023-04-19] MEDS ORDERED: ALBUTEROL FS 2.5 MG/0.5 ML VIAL.NEB NEB ONE (10:30)
[2023-04-19 10:39] VITALS: O2SAT 100
[2023-04-19 10:44] LABS: CALCIUM, SERUM 9.1 mg/dL (8.5-10.1); CREATININE 1.2 mg/dL (0.6-1.3); POTASSIUM 3.8 mmol/L (3.5-5.1)
[2023-04-19] MEDS ORDERED: SACU1TAB PO (10:47)
[2023-04-19] MEDS ORDERED: ATOR20TA PO (10:47)
[2023-04-19] MEDS ORDERED: CANA100T PO (10:47)
[2023-04-19] MEDS ORDERED: FURO-145 PO (10:47)
[2023-04-19 10:50] LABS: APPEARANCE,URINE CLEAR (CLEAR); BILIRUBIN,URINE NEGATIVE (NEGATIVE); BLOOD, URINE NEGATIVE Ery/uL (NEGATIVE); COLOR,URINE YELLOW (YELLOW); KETONES,URINE NEGATIVE (NEGATIVE); LEUKOCYTE ESTERASE ,URINE NEGATIVE (NEGATIVE); NITRITE, URINE NEGATIVE (NEGATIVE); PH,URINE 5.5 (5.0-8.0); PROTEIN,URINE NEGATIVE (NEGATIVE); UGLUCOSE NEGATIVE (NEGATIVE); UROBILINOGEN,URINE 0.2 EU/dL (0.2)
[2023-04-19 10:58] LABS: ALBUMIN 3.7 g/dL (3.4-5.0); BILIRUBIN,TOTAL 2.3 mg/dL (0.2-1.0); TOTAL PROTEIN, SERUM 8.2 g/dL (6.4-8.2)
[2023-04-19 11:16] LABS: BASOPHILS % (AUTO) 0.8 % (0.0-2.0); EOSINOPHILS % (AUTO) 0.3 % (0.0-6.0); HEMATOCRIT 35 % (39-51); HEMOGLOBIN 11.5 g/dL (13.5-17.5); LYMPHOCYTES # (AUTO) 0.8 K/uL (0.8-4.8); LYMPHOCYTES % (AUTO) 13.1 % (20.0-44.0); MEAN CORPUSCULAR HEMOGLOBIN 30 PG (26.0-33.0); MEAN CORPUSCULAR HGB CONC 32 g/dl (31.0-36.0); MEAN CORPUSCULAR VOLUME 91 fL (80-96); MONOCYTES # (AUTO) 0.7 K/uL (0.1-1.30); MONOCYTES % (AUTO) 12.7 % (2.0-12.0); NEUTROPHILS # (AUTO) 4.3 K/uL (1.8-8.9); NEUTROPHILS % (AUTO) 73.1 % (43.0-81.0); PLATELET COUNT (AUTO) 316 K/uL (150-450); RED BLOOD CELL COUNT(AUTO) 3.88 MIL/uL (4.5-6.0); RED CELL DISTRIBUTION WIDTH 21.2 % (11.5-15.0); WHITE BLOOD COUNT (AUTO) 5.8 K/uL (4.3-11.0)
[2023-04-19 11:18] LABS: BARBITURATE, URINE NEGATIVE (NEGATIVE); BENZODIAZEPINE, URINE NEGATIVE (NEGATIVE); CANNABINOID, URINE NEGATIVE (NEGATIVE); COCCAINE, URINE NEGATIVE (NEGATIVE); OPIATE, URINE NEGATIVE (NEGATIVE); PHENCYCLIDINE SCREEN,URINE NEGATIVE (NEGATIVE)
[2023-04-19 11:19] LABS: AMPHETAMINE, URINE POSITIVE (NEGATIVE)
[2023-04-19] MEDS ORDERED: MAG HYDROX/AL HYDROX/SIMETH 30 ML UDC PO PRN (14:30)
[2023-04-19] MEDS ORDERED: MAGNESIUM HYDROXIDE 30 ML UDC PO PRN (14:30)
[2023-04-19] MEDS ORDERED: CEFEPIME 1 GM in IV D5W 50 ML IV SCH (14:30)
[2023-04-19] MEDS ORDERED: ACETAMINOPHEN 325 MG TABLET PO PRN (14:30)
[2023-04-19] MEDS ORDERED: Z GUARD REMEDY 4 OZ OINT TP PRN (14:30)
[2023-04-19] MEDS ORDERED: VANCOMYCIN 1.25 GM in IV D5W 250 ML IV SCH (15:00)
[2023-04-19] MEDS: CEFEPIME 2 GM in IV D5W 100 ML IV SCH (17:00)
[2023-04-19] MEDS ORDERED: APIXABAN 5 MG TABLET ONE (17:23)
[2023-04-19] MEDS ORDERED: CARVEDILOL 3.125 MG TABLET ONE (17:23)
[2023-04-19] MEDS: CARVEDILOL 3.125 MG TABLET PO SCH (17:27)
[2023-04-19] MEDS: APIXABAN 5 MG TABLET PO SCH (17:28)
[2023-04-19 18:20] VITALS: BP 118/79; TEMP 98.6; O2SAT 98
[2023-04-19] MEDS: SERTRALINE HCL 50 MG TABLET PO SCH (18:22)
[2023-04-19 20:00] VITALS: BP 106/74; TEMP 97.9; O2SAT 98
[2023-04-19] MEDS: VANCOMYCIN 1 GM in IV D5W 250 ML IV SCH (21:36)
[2023-04-19] MEDS: ATORVASTATIN 10 MG TABLET PO SCH (21:42)
[2023-04-20] VITALS: BP 122/85; TEMP 98.2; O2SAT 100
[2023-04-20] MEDS: CEFEPIME 2 GM in IV D5W 100 ML IV SCH ×4 (00:56→23:12)
[2023-04-20 04:00] VITALS: BP 118/87; TEMP 97.5; O2SAT 97
[2023-04-20] MEDS: VANCOMYCIN 1 GM in IV D5W 250 ML IV SCH (05:29)
[2023-04-20] MEDS: ONDANSETRON HCL/PF 4 MG/2 ML VIAL IVP PRN ×2 (06:00→16:12)
[2023-04-20 07:00] VITALS: BP 106/78; TEMP 97.7; O2SAT 95
[2023-04-20 07:20] LABS: BASOPHILS # (AUTO) 0.1 K/uL (0.0-0.2); EOSINOPHILS % (AUTO) 0.3 % (0.0-6.0); HEMATOCRIT 32 % (39-51); HEMOGLOBIN 10.8 g/dL (13.5-17.5); LYMPHOCYTES # (AUTO) 0.7 K/uL (0.8-4.8); LYMPHOCYTES % (AUTO) 11.1 % (20.0-44.0); MEAN CORPUSCULAR HEMOGLOBIN 30 PG (26.0-33.0); MEAN CORPUSCULAR HGB CONC 33 g/dl (31.0-36.0); MEAN CORPUSCULAR VOLUME 91 fL (80-96); MONOCYTES # (AUTO) 0.8 K/uL (0.1-1.30); MONOCYTES % (AUTO) 13.1 % (2.0-12.0); NEUTROPHILS # (AUTO) 4.6 K/uL (1.8-8.9); NEUTROPHILS % (AUTO) 74.5 % (43.0-81.0); PLATELET COUNT (AUTO) 301 K/uL (150-450); RED BLOOD CELL COUNT(AUTO) 3.55 MIL/uL (4.5-6.0); RED CELL DISTRIBUTION WIDTH 20.8 % (11.5-15.0); WHITE BLOOD COUNT (AUTO) 6.2 K/uL (4.3-11.0)
[2023-04-20 07:45] LABS: ALBUMIN 3.2 g/dL (3.4-5.0); BILIRUBIN,TOTAL 2.7 mg/dL (0.2-1.0); CALCIUM, SERUM 9.2 mg/dL (8.5-10.1); POTASSIUM 3.9 mmol/L (3.5-5.1); TOTAL PROTEIN, SERUM 7.4 g/dL (6.4-8.2)
[2023-04-20] MEDS ORDERED: FUROSEMIDE 20 MG TABLET PO SCH (09:00)
[2023-04-20] MEDS ORDERED: Medication Not On Formulary EA (Canagliflozin (Invokana) 100 MG) PO SCH (09:00)
[2023-04-20] MEDS: SPIRONOLACTONE 25 MG TABLET PO SCH (09:47)
[2023-04-20] MEDS: PANTOPRAZOLE 40 MG TABLET.DR PO SCH (09:48)
[2023-04-20] MEDS: SERTRALINE HCL 50 MG TABLET PO SCH ×2 (09:48→16:13)
[2023-04-20] MEDS: AMIODARONE HCL 200 MG TABLET PO SCH (09:48)
[2023-04-20] MEDS: CARVEDILOL 3.125 MG TABLET PO SCH ×2 (09:48→16:13)
[2023-04-20] MEDS: SACUBITRIL/VALSARTAN 1 EACH TABLET PO SCH (09:48)
[2023-04-20] MEDS: APIXABAN 5 MG TABLET PO SCH ×2 (09:49→16:15)
[2023-04-20] MEDS: MENTHOL/CETYLPYRD (CEPACOL) 1 LOZ LOZENGE PO PRN ×2 (10:11→12:23)
[2023-04-20] MEDS: FUROSEMIDE 20 MG/2 ML VIAL IV SCH ×2 (12:10→16:12)
[2023-04-20 12:12] VITALS: BP 100/74; TEMP 97.7; O2SAT 98
[2023-04-20 16:00] VITALS: BP 115/70; TEMP 97.6; O2SAT 99
[2023-04-20] MEDS: VANCOMYCIN 0.75 GM in IV D5W 250 ML IV SCH (21:13)
[2023-04-20] MEDS: ATORVASTATIN 10 MG TABLET PO SCH (21:13)
[2023-04-20 21:17] VITALS: BP 111/67; TEMP 97.9; O2SAT 96
[2023-04-21] MEDS: TRAZODONE 50 MG TABLET PO PRN (01:13)
[2023-04-21] MEDS: VANCOMYCIN 0.75 GM in IV D5W 250 ML IV SCH ×3 (05:44→22:00)
[2023-04-21 08:00] VITALS: BP 106/75; TEMP 98.6; O2SAT 95
[2023-04-21 08:01] LABS: CALCIUM, SERUM 8.9 mg/dL (8.5-10.1); CREATININE 1.1 mg/dL (0.6-1.3); POTASSIUM 3.6 mmol/L (3.5-5.1)
[2023-04-21 08:16] LABS: THYROID STIMULATING HORMONE 2.232 uIU/mL (0.358-3.74); URIC ACID 7.2 mg/dL (2.6-7.2)
[2023-04-21] MEDS: FUROSEMIDE 20 MG/2 ML VIAL IV SCH ×2 (08:40→17:45)
[2023-04-21] MEDS: CEFEPIME 2 GM in IV D5W 100 ML IV SCH ×3 (08:49→23:43)
[2023-04-21] MEDS: PANTOPRAZOLE 40 MG TABLET.DR PO SCH (09:00)
[2023-04-21] MEDS: SPIRONOLACTONE 25 MG TABLET PO SCH (09:00)
[2023-04-21] MEDS: SERTRALINE HCL 50 MG TABLET PO SCH ×2 (09:01→17:41)
[2023-04-21] MEDS: AMIODARONE HCL 200 MG TABLET PO SCH (09:01)
[2023-04-21] MEDS: CARVEDILOL 3.125 MG TABLET PO SCH ×2 (09:02→17:43)
[2023-04-21] MEDS: APIXABAN 5 MG TABLET PO SCH ×2 (09:07→17:43)
[2023-04-21] MEDS: SACUBITRIL/VALSARTAN 1 EACH TABLET PO SCH (09:09)
[2023-04-21 16:00] VITALS: BP 120/81; TEMP 98.2; O2SAT 99
[2023-04-21] MEDS: MENTHOL/CETYLPYRD (CEPACOL) 1 LOZ LOZENGE PO PRN (18:13)
[2023-04-21 20:00] VITALS: BP 108/70; TEMP 98.3; O2SAT 96
[2023-04-21] MEDS: ATORVASTATIN 10 MG TABLET PO SCH (21:54)
[2023-04-22 00:07] VITALS: BP 105/70; TEMP 98.2; O2SAT 95
[2023-04-22] MEDS: TRAZODONE 50 MG TABLET PO PRN (02:17)
[2023-04-22] MEDS: HYDROCODONE/APAP 5/325MG TABLET PO PRN (04:47)
[2023-04-22 05:23] VITALS: BP 106/71; TEMP 98; O2SAT 99
[2023-04-22] MEDS: VANCOMYCIN 0.75 GM in IV D5W 250 ML IV SCH ×3 (06:00→20:58)
[2023-04-22 07:00] VITALS: BP 109/72; TEMP 97.7; O2SAT 94
[2023-04-22 08:02] LABS: CALCIUM, SERUM 8.7 mg/dL (8.5-10.1); CREATININE 1.1 mg/dL (0.6-1.3); POTASSIUM 3.7 mmol/L (3.5-5.1)
[2023-04-22] MEDS: CEFEPIME 2 GM in IV D5W 100 ML IV SCH ×3 (08:30→23:23)
[2023-04-22] MEDS: FUROSEMIDE 20 MG/2 ML VIAL IV SCH ×2 (08:31→17:41)
[2023-04-22] MEDS: PANTOPRAZOLE 40 MG TABLET.DR PO SCH (08:36)
[2023-04-22] MEDS: CARVEDILOL 3.125 MG TABLET PO SCH ×2 (08:37→17:37)
[2023-04-22] MEDS: AMIODARONE HCL 200 MG TABLET PO SCH (08:38)
[2023-04-22] MEDS: SERTRALINE HCL 50 MG TABLET PO SCH ×2 (08:38→17:37)
[2023-04-22] MEDS: SPIRONOLACTONE 25 MG TABLET PO SCH (08:38)
[2023-04-22] MEDS: APIXABAN 5 MG TABLET PO SCH ×2 (08:46→17:39)
[2023-04-22] MEDS: SACUBITRIL/VALSARTAN 1 EACH TABLET PO SCH (08:47)
[2023-04-22 11:34] VITALS: BP 108/66; TEMP 98.1; O2SAT 95
[2023-04-22] MEDS: CHLORDIAZEPOXIDE HCL 25 MG CAPSULE PO SCH ×2 (15:33→21:00)
[2023-04-22 16:00] VITALS: BP 108/71; TEMP 97.7; O2SAT 97
[2023-04-22] MEDS: ATORVASTATIN 10 MG TABLET PO SCH (21:01)
[2023-04-23] MEDS: CHLORDIAZEPOXIDE HCL 25 MG CAPSULE PO SCH ×3 (04:58→20:30)
[2023-04-23 07:04] LABS: POTASSIUM 4.2 mmol/L (3.5-5.1)
[2023-04-23 07:30] VITALS: BP 116/66; TEMP 97.9; O2SAT 97
[2023-04-23] MEDS: PANTOPRAZOLE 40 MG TABLET.DR PO SCH (07:46)
[2023-04-23] MEDS: CEFEPIME 2 GM in IV D5W 100 ML IV SCH ×3 (07:46→23:13)
[2023-04-23] MEDS: APIXABAN 5 MG TABLET PO SCH ×2 (08:10→16:13)
[2023-04-23] MEDS: AMIODARONE HCL 200 MG TABLET PO SCH (08:11)
[2023-04-23] MEDS: FUROSEMIDE 20 MG/2 ML VIAL IV SCH ×2 (08:11→16:15)
[2023-04-23] MEDS: SPIRONOLACTONE 25 MG TABLET PO SCH (08:11)
[2023-04-23] MEDS: SERTRALINE HCL 50 MG TABLET PO SCH ×2 (08:11→16:10)
[2023-04-23] MEDS: SACUBITRIL/VALSARTAN 1 EACH TABLET PO SCH (08:12)
[2023-04-23] MEDS: CARVEDILOL 3.125 MG TABLET PO SCH ×2 (08:12→16:15)
[2023-04-23] MEDS: VANCOMYCIN 0.75 GM in IV D5W 250 ML IV SCH ×2 (09:59→20:21)
[2023-04-23 12:30] VITALS: BP 108/59; TEMP 97.7; O2SAT 99
[2023-04-23 16:00] VITALS: BP 110/72; TEMP 97.5; O2SAT 93
[2023-04-23] MEDS: ATORVASTATIN 10 MG TABLET PO SCH (20:31)
[2023-04-23 21:25] VITALS: BP 112/72; TEMP 97.9; O2SAT 100
[2023-04-24] VITALS: BP 90/47; TEMP 98.1; O2SAT 98
[2023-04-24 04:00] VITALS: BP 89/57; TEMP 98.3; O2SAT 95
[2023-04-24] MEDS: CHLORDIAZEPOXIDE HCL 25 MG CAPSULE PO SCH ×3 (04:23→21:46)
[2023-04-24 07:27] LABS: CALCIUM, SERUM 8.8 mg/dL (8.5-10.1); CREATININE 1.1 mg/dL (0.6-1.3)
[2023-04-24] MEDS: CEFEPIME 2 GM in IV D5W 100 ML IV SCH ×3 (08:19→23:49)
[2023-04-24] MEDS: PANTOPRAZOLE 40 MG TABLET.DR PO SCH (08:19)
[2023-04-24] MEDS: SPIRONOLACTONE 25 MG TABLET PO SCH (08:44)
[2023-04-24] MEDS: AMIODARONE HCL 200 MG TABLET PO SCH (08:46)
[2023-04-24] MEDS: SERTRALINE HCL 50 MG TABLET PO SCH ×2 (08:46→16:04)
[2023-04-24] MEDS: APIXABAN 5 MG TABLET PO SCH ×2 (08:48→16:04)
[2023-04-24] MEDS: CARVEDILOL 3.125 MG TABLET PO SCH ×2 (08:50→16:18)
[2023-04-24] MEDS: FUROSEMIDE 20 MG/2 ML VIAL IV SCH (08:51)
[2023-04-24] MEDS: VANCOMYCIN 0.75 GM in IV D5W 250 ML IV SCH ×2 (09:05→21:45)
[2023-04-24] MEDS: SACUBITRIL/VALSARTAN 1 EACH TABLET PO SCH (09:06)
[2023-04-24 10:32] VITALS: BP 118/70; TEMP 97.5; O2SAT 100
[2023-04-24] MEDS: HYDROCODONE/APAP 5/325MG TABLET PO PRN (10:36)
[2023-04-24] MEDS ORDERED: FUROSEMIDE 20 MG TABLET PO SCH (15:00)
[2023-04-24 20:00] VITALS: BP 97/61; TEMP 97.5; O2SAT 99
[2023-04-24] MEDS: ATORVASTATIN 10 MG TABLET PO SCH (21:46)
[2023-04-25] VITALS: BP 96/47; TEMP 97.7; O2SAT 98
[2023-04-25 04:00] VITALS: BP 93/66; TEMP 98.2; O2SAT 95
[2023-04-25] MEDS: CHLORDIAZEPOXIDE HCL 25 MG CAPSULE PO SCH ×2 (04:51→12:05)
[2023-04-25 07:24] LABS: BASOPHILS # (AUTO) 0.1 K/uL (0.0-0.2); BASOPHILS % (AUTO) 1.2 % (0.0-2.0); EOSINOPHILS # (AUTO) 0.1 K/uL (0.0-0.7); EOSINOPHILS % (AUTO) 1.1 % (0.0-6.0); HEMATOCRIT 34 % (39-51); LYMPHOCYTES # (AUTO) 0.5 K/uL (0.8-4.8); LYMPHOCYTES % (AUTO) 10.3 % (20.0-44.0); MEAN CORPUSCULAR HEMOGLOBIN 30 PG (26.0-33.0); MEAN CORPUSCULAR HGB CONC 33 g/dl (31.0-36.0); MEAN CORPUSCULAR VOLUME 92 fL (80-96); MONOCYTES # (AUTO) 0.7 K/uL (0.1-1.30); MONOCYTES % (AUTO) 14.4 % (2.0-12.0); NEUTROPHILS # (AUTO) 3.7 K/uL (1.8-8.9); PLATELET COUNT (AUTO) 244 K/uL (150-450); RED BLOOD CELL COUNT(AUTO) 3.64 MIL/uL (4.5-6.0); RED CELL DISTRIBUTION WIDTH 20.8 % (11.5-15.0)
[2023-04-25 07:27] LABS: CALCIUM, SERUM 9.1 mg/dL (8.5-10.1); CREATININE 1.1 mg/dL (0.6-1.3); MAGNESIUM 1.9 mg/dL (1.8-2.4); PHOSPHORUS 3.6 mg/dL (2.5-4.9); POTASSIUM 3.8 mmol/L (3.5-5.1)
[2023-04-25] MEDS: CEFEPIME 2 GM in IV D5W 100 ML IV SCH ×2 (08:16→15:12)
[2023-04-25] MEDS: PANTOPRAZOLE 40 MG TABLET.DR PO SCH (08:17)
[2023-04-25] MEDS: SPIRONOLACTONE 25 MG TABLET PO SCH (08:17)
[2023-04-25] MEDS: CARVEDILOL 3.125 MG TABLET PO SCH ×2 (08:17→17:00)
[2023-04-25] MEDS: SERTRALINE HCL 50 MG TABLET PO SCH ×2 (08:17→17:09)
[2023-04-25] MEDS: AMIODARONE HCL 200 MG TABLET PO SCH (08:18)
[2023-04-25] MEDS: SACUBITRIL/VALSARTAN 1 EACH TABLET PO SCH (08:21)
[2023-04-25] MEDS: APIXABAN 5 MG TABLET PO SCH ×2 (08:21→17:11)
[2023-04-25] MEDS: VANCOMYCIN 0.75 GM in IV D5W 250 ML IV SCH (09:03)
[2023-04-25] MEDS: HYDROCODONE/APAP 5/325MG TABLET PO PRN (13:59)
[2023-04-25] MEDS ORDERED: FURO-144 PO (14:05)
[2023-04-25 17:00] VITALS: BP 98/63
== END 2023-04-25 17:45 | disposition home or self-care (01) | DRG 137 ==
LOC: ER 09:34 → TELE 17:31
PROVIDERS: ADMIT Internal Medicine; ATTEND Nurse Practitioner Family
DX: J69.0 Pneumonitis due to inhalation of food and vomit (principal); I21.A1 Myocardial infarction type 2; I50.23 Acute on chronic systolic (congestive) heart failure; E87.1 Hypo-osmolality and hyponatremia; I42.9 Cardiomyopathy, unspecified; E86.9 Volume depletion, unspecified; I48.91 Unspecified atrial fibrillation; I11.0 Hypertensive heart disease with heart failure; D64.9 Anemia, unspecified; F20.9 Schizophrenia, unspecified; F15.90 Other stimulant use, unspecified, uncomplicated; F32.A Depression, unspecified; F41.9 Anxiety disorder, unspecified; G89.4 Chronic pain syndrome; I25.10 Atherosclerotic heart disease of native coronary artery without angina pectoris; I25.2 Old myocardial infarction; Z86.711 Personal history of pulmonary embolism; Z20.822 Contact with and (suspected) exposure to COVID-19; Z95.810 Presence of automatic (implantable) cardiac defibrillator; Z79.01 Long term (current) use of anticoagulants; Z79.899 Other long term (current) drug therapy; Z79.84 Long term (current) use of oral hypoglycemic drugs; Z87.891 Personal history of nicotine dependence; Z83.3 Family history of diabetes mellitus; T50.2X5A Adverse effect of carbonic-anhydrase inhibitors, benzothiadiazides and other diuretics, initial encounter; Y92.9 Unspecified place or not applicable; R79.89 Other specified abnormal findings of blood chemistry
CPT/HCPCS: 36415; 71045-TC; 80048-TC; 80053-TC; 80202-TC; 83735-TC; 83880; 84100-TC; 84443-TC; 84484-TC; 84550-TC; 85025-TC; 93971-TC; A4223; G0378; J0692; J1940; J2405; J3370; J7040; J7060

== ENCOUNTER 2023-05-05 18:31 | Inpatient (IN) | payer OTHER ==
[~2023-05-05] VITALS: Ht 182.9 cm; Wt 76.7 kg
[~2023-05-05 18:31] MED LIST changes: +ATOR20TA PO; +CANA100T PO; -DAPA10TA PO; +SACU1TAB PO
[2023-05-05] MEDS ORDERED: BENZONATATE 100 MG CAPSULE PO ONE (19:47)
[2023-05-05] MEDS: BENZONATATE 100 MG CAPSULE PO PRN (19:54)
[2023-05-05 20:16] LABS: BASOPHILS % (AUTO) 0.5 % (0.0-2.0); EOSINOPHILS # (AUTO) 0.1 K/uL (0.0-0.7); HEMATOCRIT 35 % (39-51); HEMOGLOBIN 11.2 g/dL (13.5-17.5); LYMPHOCYTES # (AUTO) 0.5 K/uL (0.8-4.8); LYMPHOCYTES % (AUTO) 10.1 % (20.0-44.0); MEAN CORPUSCULAR HEMOGLOBIN 30 PG (26.0-33.0); MEAN CORPUSCULAR HGB CONC 32 g/dl (31.0-36.0); MEAN CORPUSCULAR VOLUME 92 fL (80-96); MONOCYTES # (AUTO) 0.5 K/uL (0.1-1.30); NEUTROPHILS # (AUTO) 3.9 K/uL (1.8-8.9); NEUTROPHILS % (AUTO) 78.4 % (43.0-81.0); PLATELET COUNT (AUTO) 166 K/uL (150-450); RED CELL DISTRIBUTION WIDTH 21.6 % (11.5-15.0)
[2023-05-05 20:28] LABS: CALCIUM, SERUM 8.5 mg/dL (8.5-10.1); CARBON DIOXIDE 26 mmol/L (21-32); CHLORIDE 102 mmol/L (98-107); CREATININE 1.4 mg/dL (0.6-1.3); GLUCOSE 96 mg/dL (74-106); POTASSIUM 3.9 mmol/L (3.5-5.1); SODIUM SERUM 135 mmol/L (136-145); UREA NITROGEN, BLOOD 19 mg/dL (7-18)
[2023-05-05 20:40] LABS: ALANINE AMINOTRANSFERASE 19 U/L (12-78); ALBUMIN 2.9 g/dL (3.4-5.0); ALKALINE PHOSPHATASE 149 U/L (46-116); ASPARTATE AMINOTRANSFERASE 33 U/L (15-37); BILIRUBIN,DIRECT 1.1 mg/dL (0.0-0.2); BILIRUBIN,TOTAL 1.5 mg/dL (0.2-1.0); NT-PRO BNP 7243 pg/mL (0-125); TOTAL PROTEIN, SERUM 7.4 g/dL (6.4-8.2)
[2023-05-05] MEDS ORDERED: FUROSEMIDE 40 MG/4 ML VIAL ONE (22:12)
[2023-05-05] MEDS ORDERED: FUROSEMIDE 40 MG/4 ML VIAL IV ONE (22:30)
[2023-05-06] MEDS ORDERED: Z GUARD REMEDY 4 OZ OINT TP PRN (01:30)
[2023-05-06] MEDS ORDERED: ONDANSETRON HCL/PF 4 MG/2 ML VIAL IVP PRN (01:30)
[2023-05-06] MEDS ORDERED: MAG HYDROX/AL HYDROX/SIMETH 30 ML UDC PO PRN (01:30)
[2023-05-06] MEDS ORDERED: NITROGLYCERIN 0.4 MG/TAB BOTTLE SL PRN (01:30)
[2023-05-06] MEDS ORDERED: ZOLPIDEM TARTRATE 5 MG TABLET PO PRN (01:30)
[2023-05-06] MEDS ORDERED: MAGNESIUM HYDROXIDE 30 ML UDC PO PRN (01:30)
[2023-05-06] MEDS ORDERED: ACETAMINOPHEN 325 MG TABLET PO PRN (01:30)
[2023-05-06 04:00] VITALS: BP 104/62; TEMP 98.1; O2SAT 96
[2023-05-06 07:26] LABS: BASOPHILS % (AUTO) 0.6 % (0.0-2.0); EOSINOPHILS # (AUTO) 0.1 K/uL (0.0-0.7); EOSINOPHILS % (AUTO) 1.4 % (0.0-6.0); HEMATOCRIT 31 % (39-51); HEMOGLOBIN 10.1 g/dL (13.5-17.5); LYMPHOCYTES # (AUTO) 0.8 K/uL (0.8-4.8); LYMPHOCYTES % (AUTO) 16.2 % (20.0-44.0); MEAN CORPUSCULAR HEMOGLOBIN 30 PG (26.0-33.0); MEAN CORPUSCULAR HGB CONC 33 g/dl (31.0-36.0); MEAN CORPUSCULAR VOLUME 91 fL (80-96); MONOCYTES # (AUTO) 0.5 K/uL (0.1-1.30); MONOCYTES % (AUTO) 10.7 % (2.0-12.0); NEUTROPHILS # (AUTO) 3.4 K/uL (1.8-8.9); NEUTROPHILS % (AUTO) 71.1 % (43.0-81.0); PLATELET COUNT (AUTO) 157 K/uL (150-450); RED BLOOD CELL COUNT(AUTO) 3.37 MIL/uL (4.5-6.0); RED CELL DISTRIBUTION WIDTH 21.2 % (11.5-15.0); WHITE BLOOD COUNT (AUTO) 4.7 K/uL (4.3-11.0)
[2023-05-06 08:00] VITALS: BP 101/70; TEMP 98.6; O2SAT 97
[2023-05-06 08:09] LABS: CALCIUM, SERUM 8.3 mg/dL (8.5-10.1); MAGNESIUM 1.5 mg/dL (1.8-2.4); PHOSPHORUS 3.4 mg/dL (2.5-4.9); POTASSIUM 3.4 mmol/L (3.5-5.1)
[2023-05-06] MEDS ORDERED: PANTOPRAZOLE 40 MG VIAL IV SCH (09:00)
[2023-05-06] MEDS: FUROSEMIDE 40 MG/4 ML VIAL IV SCH ×2 (09:15→20:23)
[2023-05-06] MEDS: APIXABAN 5 MG TABLET PO SCH ×2 (09:16→20:24)
[2023-05-06] MEDS: SERTRALINE HCL 50 MG TABLET PO SCH ×2 (09:16→20:23)
[2023-05-06] MEDS: AMIODARONE HCL 200 MG TABLET PO SCH (09:54)
[2023-05-06] MEDS: CARVEDILOL 3.125 MG TABLET PO SCH ×2 (10:08→20:25)
[2023-05-06] MEDS: SACUBITRIL/VALSARTAN 1 EACH TABLET PO SCH (10:29)
[2023-05-06] MEDS ORDERED: MAGNESIUM OXIDE 400 MG TABLET PO ONE (11:00)
[2023-05-06] MEDS ORDERED: POTASSIUM CHLORIDE 20 MEQ TAB.PRT.SR PO ONE (11:00)
[2023-05-06 12:00] VITALS: BP 102/63; TEMP 98.1; O2SAT 97
[2023-05-06] MEDS: BENZONATATE 100 MG CAPSULE PO PRN (13:49)
[2023-05-06 16:00] VITALS: BP 98/70; TEMP 97.9; O2SAT 97
[2023-05-06 16:56] LABS: AMPHETAMINE, URINE NEGATIVE (NEGATIVE); BARBITURATE, URINE NEGATIVE (NEGATIVE); CANNABINOID, URINE NEGATIVE (NEGATIVE); COCCAINE, URINE NEGATIVE (NEGATIVE); OPIATE, URINE NEGATIVE (NEGATIVE); PHENCYCLIDINE SCREEN,URINE NEGATIVE (NEGATIVE)
[2023-05-06 16:58] LABS: BENZODIAZEPINE, URINE POSITIVE (NEGATIVE)
[2023-05-06 20:00] VITALS: BP 132/71; TEMP 98.2; O2SAT 99
[2023-05-06] MEDS ORDERED: ATORVASTATIN 10 MG TABLET PO SCH (22:00)
[2023-05-07] VITALS: BP 130/68; TEMP 97.8; O2SAT 99
[2023-05-07 04:00] VITALS: BP 128/70; TEMP 97.2; O2SAT 99
[2023-05-07 08:00] VITALS: BP 110/81; TEMP 97.7; O2SAT 94
[2023-05-07] MEDS: APIXABAN 5 MG TABLET PO SCH (08:45)
[2023-05-07] MEDS: FUROSEMIDE 40 MG/4 ML VIAL IV SCH (08:45)
[2023-05-07] MEDS: AMIODARONE HCL 200 MG TABLET PO SCH (08:46)
[2023-05-07] MEDS: SERTRALINE HCL 50 MG TABLET PO SCH (08:47)
[2023-05-07] MEDS: CARVEDILOL 3.125 MG TABLET PO SCH (08:47)
[2023-05-07] MEDS: SACUBITRIL/VALSARTAN 1 EACH TABLET PO SCH (08:52)
[2023-05-07] MEDS ORDERED: PANTOPRAZOLE 40 MG TABLET.DR PO SCH (09:00)
[2023-05-07 12:00] VITALS: BP 107/71; TEMP 97.7; O2SAT 95
[2023-05-07] MEDS ORDERED: DAPAGLIFLOZIN PROPANEDIOL 5 MG TABLET PO SCH (13:00)
[2023-05-07] MEDS ORDERED: PERMETHRIN 5% CRM 60 GM TUBE TP ONE (14:30)
== END 2023-05-07 15:45 | disposition home or self-care (01) | DRG 194 ==
LOC: ER 18:39 → TELE1 05-06 03:24 → MEDSG1 05-07 10:08
DX: I11.0 Hypertensive heart disease with heart failure (principal); I21.A1 Myocardial infarction type 2; I42.7 Cardiomyopathy due to drug and external agent; F15.90 Other stimulant use, unspecified, uncomplicated; F20.9 Schizophrenia, unspecified; B86 Scabies; I50.23 Acute on chronic systolic (congestive) heart failure; I25.10 Atherosclerotic heart disease of native coronary artery without angina pectoris; Z20.822 Contact with and (suspected) exposure to COVID-19; Z79.01 Long term (current) use of anticoagulants; Z79.899 Other long term (current) drug therapy; Z95.810 Presence of automatic (implantable) cardiac defibrillator; Z91.119 Patient's noncompliance with dietary regimen due to unspecified reason; Z91.148 Patient's other noncompliance with medication regimen for other reason; Z87.891 Personal history of nicotine dependence; F41.9 Anxiety disorder, unspecified; F32.A Depression, unspecified; Z83.3 Family history of diabetes mellitus; Z86.711 Personal history of pulmonary embolism; Z79.84 Long term (current) use of oral hypoglycemic drugs; G89.29 Other chronic pain
CPT/HCPCS: 36415; 71045-TC; 80048-TC; 80076-TC; 83735-TC; 83880; 84100-TC; 84484-TC; 85025-TC; 87081-TC; C9113; G0378; J1940

== ENCOUNTER 2023-06-11 14:53 | Inpatient (IN) | payer OTHER ==
[~2023-06-11] VITALS: Ht 182.9 cm; Wt 115.2 kg
[2023-06-11] MEDS ORDERED: FUROSEMIDE 40 MG/4 ML VIAL ONE (16:14)
[2023-06-11] MEDS ORDERED: FURO-144 PO (16:19)
[2023-06-11 16:21] LABS: BASOPHILS % (AUTO) 0.7 % (0.0-2.0); EOSINOPHILS # (AUTO) 0.1 K/uL (0.0-0.7); EOSINOPHILS % (AUTO) 1.1 % (0.0-6.0); HEMATOCRIT 32 % (39-51); HEMOGLOBIN 10.4 g/dL (13.5-17.5); LYMPHOCYTES # (AUTO) 0.4 K/uL (0.8-4.8); LYMPHOCYTES % (AUTO) 7.3 % (20.0-44.0); MEAN CORPUSCULAR HEMOGLOBIN 30 PG (26.0-33.0); MEAN CORPUSCULAR HGB CONC 32 g/dl (31.0-36.0); MEAN CORPUSCULAR VOLUME 92 fL (80-96); MONOCYTES # (AUTO) 0.6 K/uL (0.1-1.30); MONOCYTES % (AUTO) 9.5 % (2.0-12.0); NEUTROPHILS # (AUTO) 4.9 K/uL (1.8-8.9); NEUTROPHILS % (AUTO) 81.4 % (43.0-81.0); PLATELET COUNT (AUTO) 272 K/uL (150-450); RED BLOOD CELL COUNT(AUTO) 3.53 MIL/uL (4.5-6.0); RED CELL DISTRIBUTION WIDTH 22.4 % (11.5-15.0)
[2023-06-11] MEDS: FUROSEMIDE 40 MG/4 ML VIAL IV ONE (16:22)
[2023-06-11 16:34] LABS: CALCIUM, SERUM 8.6 mg/dL (8.5-10.1); CREATININE 1.3 mg/dL (0.6-1.3)
[2023-06-11 16:46] LABS: BILIRUBIN,DIRECT 1.7 mg/dL (0.0-0.2); BILIRUBIN,TOTAL 2.5 mg/dL (0.2-1.0); TOTAL PROTEIN, SERUM 7.6 g/dL (6.4-8.2)
[2023-06-11 16:48] LABS: POTASSIUM 2.7 mmol/L (3.5-5.1)
[2023-06-11] MEDS: POTASSIUM CHLORIDE 20 MEQ TAB.PRT.SR PO ONE (17:00)
[2023-06-11] MEDS ORDERED: POTASSIUM CL. PREMIX PERIPHER. 100 ML ONE (17:01)
[2023-06-11] MEDS ORDERED: POTASSIUM CHLORIDE 20 MEQ TAB.PRT.SR PO ONE (17:01)
[2023-06-11] MEDS: POTASSIUM CL. PREMIX PERIPHER. 50 ML IV SCH (17:07)
[2023-06-11] MEDS ORDERED: Magnesium 1GM/D5W 100ML PREMIX 100 ML IV ONE (17:33)
[2023-06-11] MEDS: Magnesium 1GM/D5W 100ML PREMIX 100 ML IV STA (17:41)
[2023-06-11 21:10] VITALS: BP 118/70; TEMP 97.7; O2SAT 98
[2023-06-11] MEDS ORDERED: ACETAMINOPHEN 325 MG TABLET PO PRN (23:00)
[2023-06-11] MEDS ORDERED: Z GUARD REMEDY 4 OZ OINT TP PRN (23:00)
[2023-06-11] MEDS ORDERED: HYDROCODONE/APAP 5/325MG TABLET PO PRN (23:00)
[2023-06-11] MEDS ORDERED: ONDANSETRON HCL/PF 4 MG/2 ML VIAL IVP PRN (23:00)
[2023-06-11] MEDS ORDERED: MAG HYDROX/AL HYDROX/SIMETH 30 ML UDC PO PRN (23:00)
[2023-06-11] MEDS ORDERED: MAGNESIUM HYDROXIDE 30 ML UDC PO PRN (23:00)
[2023-06-11] MEDS ORDERED: ZOLPIDEM TARTRATE 5 MG TABLET PO PRN (23:00)
[2023-06-12] VITALS: BP 124/80; TEMP 97.9; O2SAT 98
[2023-06-12] MEDS: POTASSIUM CL. PREMIX PERIPHER. 50 ML IV SCH (00:18)
[2023-06-12] MEDS: ENOXAPARIN SODIUM 40 MG/0.4 ML DISP.SYRIN SQ SCH (00:19)
[2023-06-12] MEDS: FUROSEMIDE 40 MG/4 ML VIAL IV SCH (00:23)
[2023-06-12] MEDS: diphenhydrAMINE HCL 50 MG/ML VIAL IV PRN (00:23)
[2023-06-12 04:00] VITALS: BP 124/80; TEMP 98.6; O2SAT 98
[2023-06-12 07:15] LABS: BASOPHILS % (AUTO) 0.5 % (0.0-2.0); EOSINOPHILS % (AUTO) 0.6 % (0.0-6.0); HEMATOCRIT 32 % (39-51); HEMOGLOBIN 10.3 g/dL (13.5-17.5); LYMPHOCYTES # (AUTO) 0.5 K/uL (0.8-4.8); LYMPHOCYTES % (AUTO) 9.1 % (20.0-44.0); MEAN CORPUSCULAR HEMOGLOBIN 30 PG (26.0-33.0); MEAN CORPUSCULAR HGB CONC 33 g/dl (31.0-36.0); MEAN CORPUSCULAR VOLUME 91 fL (80-96); MONOCYTES # (AUTO) 0.5 K/uL (0.1-1.30); MONOCYTES % (AUTO) 9.3 % (2.0-12.0); NEUTROPHILS # (AUTO) 4.2 K/uL (1.8-8.9); NEUTROPHILS % (AUTO) 80.5 % (43.0-81.0); PLATELET COUNT (AUTO) 251 K/uL (150-450); RED BLOOD CELL COUNT(AUTO) 3.47 MIL/uL (4.5-6.0); WHITE BLOOD COUNT (AUTO) 5.2 K/uL (4.3-11.0)
[2023-06-12 07:26] LABS: CALCIUM, SERUM 8.5 mg/dL (8.5-10.1); CREATININE 1.3 mg/dL (0.6-1.3); MAGNESIUM 1.9 mg/dL (1.8-2.4); PHOSPHORUS 2.4 mg/dL (2.5-4.9)
[2023-06-12] MEDS: PANTOPRAZOLE 40 MG TABLET.DR PO SCH (07:30)
[2023-06-12 07:46] LABS: POTASSIUM 2.8 mmol/L (3.5-5.1)
[2023-06-12 08:00] VITALS: BP 114/52; TEMP 98.6; O2SAT 97
[2023-06-12 08:23] LABS: THYROID STIMULATING HORMONE 6.707 uIU/mL (0.358-3.74)
[2023-06-12] MEDS: K PHOS NEUTRAL 250 MG TABLET PO ONE (09:53)
[2023-06-12] MEDS: VALSARTAN 80 MG TABLET PO SCH (09:53)
[2023-06-12] MEDS: SERTRALINE HCL 50 MG TABLET PO SCH (09:54)
[2023-06-12] MEDS: POTASSIUM CHLORIDE 20 MEQ TAB.PRT.SR PO ONE (09:54)
[2023-06-12] MEDS: AMIODARONE HCL 200 MG TABLET PO SCH (09:54)
[2023-06-12] MEDS: CARVEDILOL 3.125 MG TABLET PO SCH (09:54)
[2023-06-12] MEDS: SPIRONOLACTONE 25 MG TABLET PO SCH (09:59)
[2023-06-12] MEDS: APIXABAN 5 MG TABLET PO SCH (10:01)
[2023-06-12 11:49] VITALS: BP 115/78; TEMP 98.1; O2SAT 100
[2023-06-12] MEDS: NEOMY SULF/BACITRAC ZN/POLY 15 GM TUBE TP SCH (15:05)
[2023-06-12 16:00] VITALS: BP 96/62; TEMP 97.7; O2SAT 98
[2023-06-12 20:00] VITALS: BP 95/79; TEMP 97.8; O2SAT 100
[2023-06-12] MEDS: ATORVASTATIN 10 MG TABLET PO SCH (21:44)
[2023-06-13 04:00] VITALS: BP 91/53; TEMP 98.4; O2SAT 97
[2023-06-13 07:01] LABS: BASOPHILS % (AUTO) 0.4 % (0.0-2.0); EOSINOPHILS # (AUTO) 0.1 K/uL (0.0-0.7); EOSINOPHILS % (AUTO) 1.4 % (0.0-6.0); HEMATOCRIT 30 % (39-51); LYMPHOCYTES # (AUTO) 0.5 K/uL (0.8-4.8); LYMPHOCYTES % (AUTO) 8.9 % (20.0-44.0); MEAN CORPUSCULAR HEMOGLOBIN 30 PG (26.0-33.0); MEAN CORPUSCULAR HGB CONC 33 g/dl (31.0-36.0); MEAN CORPUSCULAR VOLUME 91 fL (80-96); MONOCYTES # (AUTO) 0.7 K/uL (0.1-1.30); MONOCYTES % (AUTO) 12.2 % (2.0-12.0); NEUTROPHILS # (AUTO) 4.5 K/uL (1.8-8.9); NEUTROPHILS % (AUTO) 77.1 % (43.0-81.0); PLATELET COUNT (AUTO) 231 K/uL (150-450); RED BLOOD CELL COUNT(AUTO) 3.34 MIL/uL (4.5-6.0); RED CELL DISTRIBUTION WIDTH 21.9 % (11.5-15.0); WHITE BLOOD COUNT (AUTO) 5.8 K/uL (4.3-11.0)
[2023-06-13 07:26] LABS: CALCIUM, SERUM 8.2 mg/dL (8.5-10.1); PHOSPHORUS 2.5 mg/dL (2.5-4.9)
[2023-06-13 07:27] LABS: POTASSIUM 2.8 mmol/L (3.5-5.1)
[2023-06-13 07:30] VITALS: BP 105/67; TEMP 97.5; O2SAT 100
[2023-06-13] MEDS: POTASSIUM CHLORIDE 20 MEQ TAB.PRT.SR PO SCH (10:50)
[2023-06-13] MEDS: FUROSEMIDE 40 MG/4 ML VIAL IV ONE (12:22)
[2023-06-13 16:00] VITALS: BP_SYST 139; BP_SYST 90; BP_DIAS 52; BP_DIAS 88; TEMP 97.7; TEMP 98.6; O2SAT 96; O2SAT 98
[2023-06-13 20:00] VITALS: BP 95/56; TEMP 97.9; O2SAT 97
[2023-06-14] VITALS: BP 91/57; TEMP 98.4; O2SAT 96
[2023-06-14 04:00] VITALS: BP 113/87; TEMP 98.6; O2SAT 99
[2023-06-14 06:53] LABS: BASOPHILS % (AUTO) 0.7 % (0.0-2.0); EOSINOPHILS # (AUTO) 0.1 K/uL (0.0-0.7); HEMATOCRIT 32 % (39-51); HEMOGLOBIN 10.4 g/dL (13.5-17.5); LYMPHOCYTES # (AUTO) 0.4 K/uL (0.8-4.8); LYMPHOCYTES % (AUTO) 7.8 % (20.0-44.0); MEAN CORPUSCULAR HEMOGLOBIN 30 PG (26.0-33.0); MEAN CORPUSCULAR HGB CONC 32 g/dl (31.0-36.0); MEAN CORPUSCULAR VOLUME 92 fL (80-96); MONOCYTES # (AUTO) 0.7 K/uL (0.1-1.30); MONOCYTES % (AUTO) 12.5 % (2.0-12.0); NEUTROPHILS # (AUTO) 4.5 K/uL (1.8-8.9); PLATELET COUNT (AUTO) 254 K/uL (150-450); RED BLOOD CELL COUNT(AUTO) 3.51 MIL/uL (4.5-6.0); RED CELL DISTRIBUTION WIDTH 21.7 % (11.5-15.0); WHITE BLOOD COUNT (AUTO) 5.7 K/uL (4.3-11.0)
[2023-06-14 07:30] VITALS: BP 115/71; TEMP 97.7; O2SAT 96
[2023-06-14 07:34] LABS: CALCIUM, SERUM 8.5 mg/dL (8.5-10.1); POTASSIUM 3.4 mmol/L (3.5-5.1)
[2023-06-14 08:46] VITALS: BP 115/71
[2023-06-14] MEDS ORDERED: Neomy Sulf/Bacitrac Zn/Poly TP (09:55)
[2023-06-14] MEDS: FUROSEMIDE 40 MG/4 ML VIAL IV ONE (10:52)
[2023-06-14] MEDS: POTASSIUM CHLORIDE 20 MEQ TAB.PRT.SR PO ONE (10:52)
== END 2023-06-14 14:24 | disposition home or self-care (01) | DRG 194 ==
LOC: ER 14:56 → TELE 20:28
PROVIDERS: ATTEND Nurse Practitioner Acute Care
DX: I11.0 Hypertensive heart disease with heart failure (principal); I21.A1 Myocardial infarction type 2; I42.9 Cardiomyopathy, unspecified; I50.23 Acute on chronic systolic (congestive) heart failure; E87.6 Hypokalemia; F20.9 Schizophrenia, unspecified; I25.10 Atherosclerotic heart disease of native coronary artery without angina pectoris; Z95.810 Presence of automatic (implantable) cardiac defibrillator; Z86.711 Personal history of pulmonary embolism; Z79.01 Long term (current) use of anticoagulants; F15.10 Other stimulant abuse, uncomplicated; Z79.899 Other long term (current) drug therapy; R60.9 Edema, unspecified; L30.9 Dermatitis, unspecified; G89.29 Other chronic pain; F32.A Depression, unspecified; F41.9 Anxiety disorder, unspecified; Z79.84 Long term (current) use of oral hypoglycemic drugs; Z87.891 Personal history of nicotine dependence; Z91.119 Patient's noncompliance with dietary regimen due to unspecified reason; Z91.199 Patient's noncompliance with other medical treatment and regimen due to unspecified reason; J90 Pleural effusion, not elsewhere classified; J98.11 Atelectasis
CPT/HCPCS: 36415; 71045-TC; 80048-TC; 80061-TC; 80076-TC; 83735-TC; 83880; 84100-TC; 84443-TC; 84484-TC; 85025-TC; 93307-TC; 97110-TC; 97116-TC; 97530-TC; A4223; G0378; J1200; J1650; J1940; J3475; J3480

== ENCOUNTER 2023-06-29 21:14 | Emergency (ER) | payer OTHER ==
[~2023-06-29] VITALS: Ht 177.8 cm; Wt 83.9 kg
[~2023-06-29 21:14] MED LIST changes: +Neomy Sulf/Bacitrac Zn/Poly TP
[2023-06-29] MEDS ORDERED: LORAZEPAM INJ 2 MG/ML VIAL ONE (22:34)
[2023-06-29] MEDS ORDERED: diphenhydrAMINE HCL 50 MG/ML VIAL ONE (22:34)
[2023-06-29] MEDS: LORAZEPAM INJ 2 MG/ML VIAL IM ONE (22:37)
[2023-06-29] MEDS: diphenhydrAMINE HCL 50 MG/ML VIAL IM ONE (22:37)
[2023-06-29 22:59] LABS: BASOPHILS # (AUTO) 0.1 K/uL (0.0-0.2); BASOPHILS % (AUTO) 1.3 % (0.0-2.0); EOSINOPHILS # (AUTO) 0.1 K/uL (0.0-0.7); EOSINOPHILS % (AUTO) 1.4 % (0.0-6.0); HEMATOCRIT 35 % (39-51); HEMOGLOBIN 10.9 g/dL (13.5-17.5); LYMPHOCYTES # (AUTO) 0.5 K/uL (0.8-4.8); LYMPHOCYTES % (AUTO) 7.8 % (20.0-44.0); MEAN CORPUSCULAR HEMOGLOBIN 30 PG (26.0-33.0); MEAN CORPUSCULAR HGB CONC 31 g/dl (31.0-36.0); MEAN CORPUSCULAR VOLUME 95 fL (80-96); MONOCYTES # (AUTO) 0.6 K/uL (0.1-1.30); NEUTROPHILS # (AUTO) 5.2 K/uL (1.8-8.9); NEUTROPHILS % (AUTO) 80.5 % (43.0-81.0); PLATELET COUNT (AUTO) 387 K/uL (150-450); RED BLOOD CELL COUNT(AUTO) 3.65 MIL/uL (4.5-6.0); RED CELL DISTRIBUTION WIDTH 21.2 % (11.5-15.0); WHITE BLOOD COUNT (AUTO) 6.5 K/uL (4.3-11.0)
[2023-06-29 23:09] LABS: CALCIUM, SERUM 9.2 mg/dL (8.5-10.1); CARBON DIOXIDE 21 mmol/L (21-32); CHLORIDE 91 mmol/L (98-107); CREATININE 1.3 mg/dL (0.6-1.3); GLUCOSE 71 mg/dL (74-106); POTASSIUM 5.6 mmol/L (3.5-5.1); SODIUM SERUM 122 mmol/L (136-145); UREA NITROGEN, BLOOD 32 mg/dL (7-18)
[2023-06-29 23:15] LABS: ALANINE AMINOTRANSFERASE 16 U/L (12-78); ALBUMIN 2.7 g/dL (3.4-5.0); ALCOHOL, BLOOD < 3 mg/dL (0-10); ALKALINE PHOSPHATASE 155 U/L (46-116); ASPARTATE AMINOTRANSFERASE 28 U/L (15-37); BILIRUBIN,DIRECT 1.1 mg/dL (0.0-0.2); BILIRUBIN,TOTAL 1.7 mg/dL (0.2-1.0); TOTAL PROTEIN, SERUM 7.6 g/dL (6.4-8.2)
[2023-06-29 23:17] LABS: ACETAMINOPHEN <10 ug/ml (10-30); SALICYLATE < 0.2 mg/dL (2.8-20.0)
[2023-06-30] MEDS ORDERED: LORAZEPAM INJ 2 MG/ML VIAL ONE (00:27)
[2023-06-30] MEDS: LORAZEPAM INJ 2 MG/ML VIAL IM ONE (00:30)
[2023-06-30 00:53] LABS: APPEARANCE,URINE CLEAR (CLEAR); BILIRUBIN,URINE 1+ (NEGATIVE); BLOOD, URINE NEGATIVE Ery/uL (NEGATIVE); COLOR,URINE YELLOW (YELLOW); KETONES,URINE NEGATIVE (NEGATIVE); LEUKOCYTE ESTERASE ,URINE NEGATIVE (NEGATIVE); NITRITE, URINE NEGATIVE (NEGATIVE); PROTEIN,URINE 1+ mg/dl (NEGATIVE); UGLUCOSE NEGATIVE (NEGATIVE)
[2023-06-30 01:01] LABS: ADD URINE CULTURE NO; BACTERIA,URINE None seen /HPF (None Seen); BARBITURATE, URINE NEGATIVE (NEGATIVE); BENZODIAZEPINE, URINE NEGATIVE (NEGATIVE); CANNABINOID, URINE NEGATIVE (NEGATIVE); COCCAINE, URINE NEGATIVE (NEGATIVE); OPIATE, URINE NEGATIVE (NEGATIVE); PHENCYCLIDINE SCREEN,URINE NEGATIVE (NEGATIVE); RBC,URINE 0-2 /HPF (0-2); SQUAMOUS EPITHELIAL CELL,UR Few /HPF (None Seen); WBC,URINE 0-2 /HPF (0-3)
[2023-06-30 01:03] LABS: AMPHETAMINE, URINE POSITIVE (NEGATIVE)
[2023-06-30 05:49] VITALS: BP 141/98; TEMP 98.9; O2SAT 98
== END 2023-06-30 05:50 | disposition home or self-care (01) ==
LOC: ER 21:20
DX: T50.991A Poisoning by other drugs, medicaments and biological substances, accidental (unintentional), initial encounter (principal); Z20.822 Contact with and (suspected) exposure to COVID-19; Z98.890 Other specified postprocedural states; Z79.899 Other long term (current) drug therapy; Y92.89 Other specified places as the place of occurrence of the external cause
CPT/HCPCS: 99284; 96372 ×3; 85025; 80048; 80076; 36415; 87426; 80143; 80320; 80307; 81001; J2060 ×2; J1200; G0480

== ENCOUNTER 2023-09-10 20:13 | Inpatient (IN) | payer MEDICAID, OTHER ==
[~2023-09-10] VITALS: Ht 182.9 cm; Wt 94.3 kg
[2023-09-10 21:01] LABS: BASOPHILS % (AUTO) 1.2 % (0.0-2.0); EOSINOPHILS % (AUTO) 0.7 % (0.0-6.0); HEMATOCRIT 32 % (39-51); HEMOGLOBIN 10.2 g/dL (13.5-17.5); LYMPHOCYTES # (AUTO) 0.5 K/uL (0.8-4.8); LYMPHOCYTES % (AUTO) 11.8 % (20.0-44.0); MEAN CORPUSCULAR HEMOGLOBIN 30 PG (26.0-33.0); MEAN CORPUSCULAR HGB CONC 33 g/dl (31.0-36.0); MEAN CORPUSCULAR VOLUME 91 fL (80-96); MONOCYTES # (AUTO) 0.5 K/uL (0.1-1.30); MONOCYTES % (AUTO) 12.6 % (2.0-12.0); NEUTROPHILS # (AUTO) 2.9 K/uL (1.8-8.9); NEUTROPHILS % (AUTO) 73.7 % (43.0-81.0); PLATELET COUNT (AUTO) 232 K/uL (150-450); RED BLOOD CELL COUNT(AUTO) 3.45 MIL/uL (4.5-6.0); RED CELL DISTRIBUTION WIDTH 19.6 % (11.5-15.0); WHITE BLOOD COUNT (AUTO) 3.9 K/uL (4.3-11.0)
[2023-09-10 21:08] LABS: CALCIUM, SERUM 9.8 mg/dL (8.5-10.1); CARBON DIOXIDE 24 mmol/L (21-32); CHLORIDE 97 mmol/L (98-107); GLUCOSE 93 mg/dL (74-106); POTASSIUM 3.8 mmol/L (3.5-5.1); SODIUM SERUM 132 mmol/L (136-145); UREA NITROGEN, BLOOD 25 mg/dL (7-18)
[2023-09-10] MEDS ORDERED: diphenhydrAMINE HCL 50 MG/ML VIAL ONE (21:11)
[2023-09-10] MEDS ORDERED: MORPHINE SULFATE INJ 4 MG/ML DISP.SYRIN ONE (21:11)
[2023-09-10] MEDS: diphenhydrAMINE HCL 50 MG/ML VIAL IV ONE (21:20)
[2023-09-10] MEDS: MORPHINE SULFATE INJ 2 MG/ML DISP.SYRIN IV ONE (21:24)
[2023-09-10 21:28] VITALS: O2SAT 98
[2023-09-10] MEDS ORDERED: ONDANSETRON HCL/PF 4 MG/2 ML VIAL IVP PRN (22:30)
[2023-09-10] MEDS ORDERED: MAGNESIUM HYDROXIDE 30 ML UDC PO PRN (22:30)
[2023-09-10] MEDS ORDERED: MAG HYDROX/AL HYDROX/SIMETH 30 ML UDC PO PRN (22:30)
[2023-09-10] MEDS ORDERED: Z GUARD REMEDY 4 OZ OINT TP PRN (22:30)
[2023-09-10 22:45] LABS: BARBITURATE, URINE NEGATIVE (NEGATIVE); BENZODIAZEPINE, URINE NEGATIVE (NEGATIVE); CANNABINOID, URINE NEGATIVE (NEGATIVE); COCCAINE, URINE NEGATIVE (NEGATIVE); PHENCYCLIDINE SCREEN,URINE NEGATIVE (NEGATIVE)
[2023-09-10 22:49] LABS: AMPHETAMINE, URINE POSITIVE (NEGATIVE); OPIATE, URINE POSITIVE (NEGATIVE)
[2023-09-11] MEDS: FUROSEMIDE 40 MG/4 ML VIAL IV SCH (00:01)
[2023-09-11] MEDS: MORPHINE SULFATE INJ 2 MG/ML DISP.SYRIN IV PRN (03:55)
[2023-09-11 06:31] LABS: BASOPHILS # (AUTO) 0.1 K/uL (0.0-0.2); BASOPHILS % (AUTO) 1.2 % (0.0-2.0); EOSINOPHILS % (AUTO) 0.6 % (0.0-6.0); HEMATOCRIT 33 % (39-51); HEMOGLOBIN 10.9 g/dL (13.5-17.5); LYMPHOCYTES # (AUTO) 0.8 K/uL (0.8-4.8); LYMPHOCYTES % (AUTO) 15.7 % (20.0-44.0); MEAN CORPUSCULAR HEMOGLOBIN 30 PG (26.0-33.0); MEAN CORPUSCULAR HGB CONC 33 g/dl (31.0-36.0); MEAN CORPUSCULAR VOLUME 91 fL (80-96); MONOCYTES # (AUTO) 0.6 K/uL (0.1-1.30); MONOCYTES % (AUTO) 11.6 % (2.0-12.0); NEUTROPHILS # (AUTO) 3.6 K/uL (1.8-8.9); NEUTROPHILS % (AUTO) 70.9 % (43.0-81.0); PLATELET COUNT (AUTO) 277 K/uL (150-450); RED CELL DISTRIBUTION WIDTH 19.5 % (11.5-15.0); WHITE BLOOD COUNT (AUTO) 5.1 K/uL (4.3-11.0)
[2023-09-11 06:45] LABS: INR 1.51 (0.91-1.10); PROTHROMBIN TIME 15.6 SECS (9.2-11.1)
[2023-09-11 07:01] LABS: CALCIUM, SERUM 9.5 mg/dL (8.5-10.1); CREATININE 1.3 mg/dL (0.6-1.3); MAGNESIUM 1.9 mg/dL (1.8-2.4); PHOSPHORUS 4.8 mg/dL (2.5-4.9); POTASSIUM 4.1 mmol/L (3.5-5.1)
[2023-09-11] MEDS ORDERED: BUSP10TA3 PO (07:42)
[2023-09-11 08:00] VITALS: BP 129/95; TEMP 97.4; O2SAT 96
[2023-09-11] MEDS: SPIRONOLACTONE 25 MG TABLET PO SCH (08:14)
[2023-09-11] MEDS: AMIODARONE HCL 200 MG TABLET PO SCH (08:15)
[2023-09-11] MEDS: CARVEDILOL 3.125 MG TABLET PO SCH (08:15)
[2023-09-11] MEDS: SERTRALINE HCL 50 MG TABLET PO SCH (08:15)
[2023-09-11] MEDS: PANTOPRAZOLE 40 MG VIAL IV SCH (08:16)
[2023-09-11] MEDS: APIXABAN 5 MG TABLET PO SCH (08:17)
[2023-09-11] MEDS: ACETAMINOPHEN 325 MG TABLET PO PRN (08:26)
[2023-09-11] MEDS: SACUBITRIL/VALSARTAN 1 EACH TABLET PO SCH (08:26)
[2023-09-11] MEDS ORDERED: Medication Not On Formulary EA (Canagliflozin (Invokana) 100 MG) PO SCH (09:00)
[2023-09-11 12:00] VITALS: BP 108/69; TEMP 97.2; O2SAT 97
[2023-09-11] MEDS: METHOCARBAMOL (750MG) 750 MG TABLET PO PRN (12:47)
[2023-09-11 14:34] LABS: APPEARANCE,URINE CLEAR (CLEAR); BILIRUBIN,URINE NEGATIVE (NEGATIVE); BLOOD, URINE NEGATIVE Ery/uL (NEGATIVE); COLOR,URINE YELLOW (YELLOW); KETONES,URINE NEGATIVE (NEGATIVE); LEUKOCYTE ESTERASE ,URINE NEGATIVE (NEGATIVE); NITRITE, URINE NEGATIVE (NEGATIVE); PROTEIN,URINE NEGATIVE (NEGATIVE); UGLUCOSE NEGATIVE (NEGATIVE); UROBILINOGEN,URINE 0.2 EU/dL (0.2)
[2023-09-11 14:51] LABS: CREATININE, URINE 51.2 MG/DL (30.0-125.0)
[2023-09-11 16:00] VITALS: BP 108/73; TEMP 97.9; O2SAT 97
[2023-09-11 17:36] LABS: EOSINOPHIL,URINE None Seen
[2023-09-11 20:22] VITALS: BP 105/73; TEMP 97.7; O2SAT 96
[2023-09-11] MEDS ORDERED: diphenhydrAMINE HCL 25 MG CAPSULE PO PRN (21:00)
[2023-09-11] MEDS: ATORVASTATIN 10 MG TABLET PO SCH (21:21)
[2023-09-12 00:34] VITALS: BP 106/67; TEMP 97.5; O2SAT 100
[2023-09-12 04:44] VITALS: BP 115/80; TEMP 97.5; O2SAT 100
[2023-09-12 07:00] VITALS: BP 114/74; TEMP 94.5; O2SAT 100
[2023-09-12 07:15] LABS: BASOPHILS % (AUTO) 1.2 % (0.0-2.0); EOSINOPHILS % (AUTO) 0.4 % (0.0-6.0); HEMATOCRIT 30 % (39-51); LYMPHOCYTES # (AUTO) 0.6 K/uL (0.8-4.8); LYMPHOCYTES % (AUTO) 14.3 % (20.0-44.0); MEAN CORPUSCULAR HEMOGLOBIN 30 PG (26.0-33.0); MEAN CORPUSCULAR HGB CONC 34 g/dl (31.0-36.0); MEAN CORPUSCULAR VOLUME 90 fL (80-96); MONOCYTES # (AUTO) 0.5 K/uL (0.1-1.30); MONOCYTES % (AUTO) 11.9 % (2.0-12.0); NEUTROPHILS % (AUTO) 72.2 % (43.0-81.0); PLATELET COUNT (AUTO) 230 K/uL (150-450); RED BLOOD CELL COUNT(AUTO) 3.28 MIL/uL (4.5-6.0); RED CELL DISTRIBUTION WIDTH 19.2 % (11.5-15.0); WHITE BLOOD COUNT (AUTO) 4.2 K/uL (4.3-11.0)
[2023-09-12 07:47] LABS: BILIRUBIN,TOTAL 2.5 mg/dL (0.2-1.0); CALCIUM, SERUM 9.1 mg/dL (8.5-10.1); CREATININE 1.3 mg/dL (0.6-1.3); MAGNESIUM 1.8 mg/dL (1.8-2.4); POTASSIUM 3.7 mmol/L (3.5-5.1); TOTAL PROTEIN, SERUM 7.1 g/dL (6.4-8.2)
[2023-09-12] MEDS: PANTOPRAZOLE 40 MG TABLET.DR PO SCH (08:22)
[2023-09-12 10:31] LABS: URINE SODIUM, RANDOM 104 mmol/l (40-220)
[2023-09-12 11:30] VITALS: BP 110/74; TEMP 97.5; O2SAT 96
[2023-09-13 08:09] LABS: PTH, INTACT 43 pg/mL (15-65)
[2023-09-14 06:07] LABS: *SPE ALBUMIN 3.4 g/dL (2.9-4.4); *SPE ALPHA-1-GLOBULIN 0.3 g/dL (0.0-0.4); *SPE ALPHA-2-GLOBULIN 0.5 g/dL (0.4-1.0); *SPE BETA GLOBULIN 1.2 g/dL (0.7-1.3); *SPE GLOBULIN, TOTAL 3.5 g/dL (2.2-3.9); *SPE M-SPIKE Not Observed g/dL (Not Observed); *SPE PROTEIN TOTAL 6.9 g/dL (6.0-8.5); *SPEGAMMA GLOBULIN 1.5 g/dL (0.4-1.8)
[2023-09-14 15:51] LABS: OSMOLALITY,URINE 326 mOS/kg (340-1090)
== END 2023-09-12 15:15 | disposition home or self-care (01) | DRG 48 ==
LOC: ER 20:17 → TELE 22:42
PROVIDERS: ATTEND Nurse Practitioner Family
DX: G90.8 Other disorders of autonomic nervous system (principal); N17.0 Acute kidney failure with tubular necrosis; I21.A1 Myocardial infarction type 2; I50.23 Acute on chronic systolic (congestive) heart failure; Z95.810 Presence of automatic (implantable) cardiac defibrillator; N18.9 Chronic kidney disease, unspecified; I13.0 Hypertensive heart and chronic kidney disease with heart failure and stage 1 through stage 4 chronic kidney disease, or unspecified chronic kidney disease; I25.10 Atherosclerotic heart disease of native coronary artery without angina pectoris; F15.10 Other stimulant abuse, uncomplicated; Z79.01 Long term (current) use of anticoagulants; Z79.899 Other long term (current) drug therapy; Z86.711 Personal history of pulmonary embolism; F32.A Depression, unspecified; F20.9 Schizophrenia, unspecified; F41.9 Anxiety disorder, unspecified; Z83.3 Family history of diabetes mellitus; Z87.891 Personal history of nicotine dependence; I42.9 Cardiomyopathy, unspecified; D64.9 Anemia, unspecified; E87.1 Hypo-osmolality and hyponatremia; Z79.84 Long term (current) use of oral hypoglycemic drugs; M89.8X9 Other specified disorders of bone, unspecified site; J90 Pleural effusion, not elsewhere classified
CPT/HCPCS: 36415; 71045-TC; 72125-TC; 73030-TC; 80048-TC; 80053-TC; 82550-TC; 82570-TC; 83735-TC; 83880; 83935-TC; 83970; 84100-TC; 84155; 84165; 84300-TC; 84484-TC; 85025-TC; 85730-TC; 93307-TC; 97112-TC; 97116-TC; 97530-TC; A6403; C9113; G0378; J1200; J1940; J2270

== ENCOUNTER 2023-11-20 06:52 | Inpatient (IN) | payer OTHER ==
[~2023-11-20] VITALS: Ht 182.9 cm; Wt 134.1 kg
[~2023-11-20 06:52] MED LIST changes: +BUSP10TA3 PO; -Neomy Sulf/Bacitrac Zn/Poly TP
[2023-11-20] MEDS ORDERED: IV NS 0.9% 1,000 ML BAG IV ONE (07:00)
[2023-11-20 07:46] LABS: APPEARANCE,URINE CLEAR (CLEAR); BILIRUBIN,URINE 1+ (NEGATIVE); BLOOD, URINE NEGATIVE Ery/uL (NEGATIVE); COLOR,URINE DARK YELLOW (YELLOW); KETONES,URINE NEGATIVE (NEGATIVE); LEUKOCYTE ESTERASE ,URINE NEGATIVE (NEGATIVE); NITRITE, URINE NEGATIVE (NEGATIVE); PROTEIN,URINE 1+ mg/dl (NEGATIVE); UGLUCOSE NEGATIVE (NEGATIVE)
[2023-11-20 07:54] LABS: BASOPHILS # (AUTO) 0.1 K/uL (0.0-0.2); BASOPHILS % (AUTO) 1.6 % (0.0-2.0); EOSINOPHILS % (AUTO) 0.1 % (0.0-6.0); HEMATOCRIT 30 % (39-51); HEMOGLOBIN 9.7 g/dL (13.5-17.5); LYMPHOCYTES # (AUTO) 0.7 K/uL (0.8-4.8); MEAN CORPUSCULAR HEMOGLOBIN 28 PG (26.0-33.0); MEAN CORPUSCULAR HGB CONC 32 g/dl (31.0-36.0); MEAN CORPUSCULAR VOLUME 88 fL (80-96); MONOCYTES # (AUTO) 0.8 K/uL (0.1-1.30); MONOCYTES % (AUTO) 15.5 % (2.0-12.0); NEUTROPHILS # (AUTO) 3.8 K/uL (1.8-8.9); NEUTROPHILS % (AUTO) 69.8 % (43.0-81.0); PLATELET COUNT (AUTO) 309 K/uL (150-450); RED BLOOD CELL COUNT(AUTO) 3.42 MIL/uL (4.5-6.0); RED CELL DISTRIBUTION WIDTH 20.9 % (11.5-15.0); WHITE BLOOD COUNT (AUTO) 5.4 K/uL (4.3-11.0)
[2023-11-20 08:08] LABS: ALBUMIN 3.2 g/dL (3.4-5.0); BILIRUBIN,DIRECT 1.5 mg/dL (0.0-0.2); BILIRUBIN,TOTAL 3.7 mg/dL (0.2-1.0); CALCIUM, SERUM 8.9 mg/dL (8.5-10.1); CREATININE 1.4 mg/dL (0.6-1.3); POTASSIUM 4.5 mmol/L (3.5-5.1); TOTAL PROTEIN, SERUM 7.4 g/dL (6.4-8.2)
[2023-11-20 08:12] LABS: NT-PRO BNP 5094 pg/mL (0-125)
[2023-11-20 08:18] LABS: ADD URINE CULTURE NO; BACTERIA,URINE None seen /HPF (None Seen); RBC,URINE 0-2 /HPF (0-2); SQUAMOUS EPITHELIAL CELL,UR None Seen /HPF (None Seen); WBC,URINE NONE SEEN /HPF (0-3)
[2023-11-20] MEDS: FUROSEMIDE 40 MG/4 ML VIAL IV ONE (09:00)
[2023-11-20] MEDS: ASPIRIN 81 MG TAB.CHEW PO ONE (09:00)
[2023-11-20 10:57] LABS: ANISOCYTOSIS 1+; BASOPHILS % (MANUAL) 0 % (0.0-2.0); EOSINOPHILS % (MANUAL) 0 % (0-4); HYPOCHROMASIA 1+; LYMPHOCYTES % (MANUAL) 18 % (16-48); MONOCYTES % (MANUAL) 11 % (0-11.0); NEUTROPHILS % (MANUAL) 71 (42-76); OVALOCYTES RARE; PLATELET ESTIMATE ADEQUATE
[2023-11-20] MEDS ORDERED: ZOLP5TAB2 PO (11:01)
[2023-11-20] MEDS ORDERED: busPIRone HCL 10 MG TABLET PO SCH (11:30)
[2023-11-20] MEDS ORDERED: Medication Not On Formulary EA (Canagliflozin (Invokana) 100 MG) PO SCH (11:30)
[2023-11-20] MEDS: SERTRALINE HCL 50 MG TABLET PO SCH (13:10)
[2023-11-20] MEDS: AMIODARONE HCL 200 MG TABLET PO SCH (13:10)
[2023-11-20] MEDS: CARVEDILOL 3.125 MG TABLET PO SCH (13:11)
[2023-11-20] MEDS: FUROSEMIDE 40 MG TABLET PO SCH (13:11)
[2023-11-20] MEDS: APIXABAN 5 MG TABLET PO SCH (13:11)
[2023-11-20] MEDS: SPIRONOLACTONE 25 MG TABLET PO SCH (13:13)
[2023-11-20] MEDS: SACUBITRIL/VALSARTAN 24/26MG TABLET PO SCH (13:40)
[2023-11-20] MEDS: DAPAGLIFLOZIN PROPANEDIOL 5 MG TABLET PO SCH (15:19)
[2023-11-20] MEDS ORDERED: ONDANSETRON HCL/PF 4 MG/2 ML VIAL IVP PRN (16:00)
[2023-11-20] MEDS: MORPHINE SULFATE INJ 2 MG/ML DISP.SYRIN IV PRN (16:53)
[2023-11-20 20:00] VITALS: BP 109/67; TEMP 98.4; O2SAT 98
[2023-11-20] MEDS: ATORVASTATIN 10 MG TABLET PO SCH (21:21)
[2023-11-20] MEDS: ZOLPIDEM TARTRATE 5 MG TABLET PO PRN (22:22)
[2023-11-21] VITALS: BP 127/84; TEMP 98.2; O2SAT 98
[2023-11-21 04:00] VITALS: BP 100/66; TEMP 97.9; O2SAT 95
[2023-11-21 06:55] LABS: BASOPHILS # (AUTO) 0.1 K/uL (0.0-0.2); BASOPHILS % (AUTO) 1.1 % (0.0-2.0); EOSINOPHILS % (AUTO) 0.6 % (0.0-6.0); HEMATOCRIT 31 % (39-51); HEMOGLOBIN 9.8 g/dL (13.5-17.5); LYMPHOCYTES # (AUTO) 0.6 K/uL (0.8-4.8); LYMPHOCYTES % (AUTO) 11.6 % (20.0-44.0); MEAN CORPUSCULAR HEMOGLOBIN 29 PG (26.0-33.0); MEAN CORPUSCULAR HGB CONC 32 g/dl (31.0-36.0); MEAN CORPUSCULAR VOLUME 89 fL (80-96); MONOCYTES # (AUTO) 0.6 K/uL (0.1-1.30); MONOCYTES % (AUTO) 12.9 % (2.0-12.0); NEUTROPHILS # (AUTO) 3.7 K/uL (1.8-8.9); NEUTROPHILS % (AUTO) 73.8 % (43.0-81.0); PLATELET COUNT (AUTO) 290 K/uL (150-450); RED BLOOD CELL COUNT(AUTO) 3.44 MIL/uL (4.5-6.0); RED CELL DISTRIBUTION WIDTH 20.2 % (11.5-15.0)
[2023-11-21 07:22] LABS: CALCIUM, SERUM 8.6 mg/dL (8.5-10.1); CREATININE 1.3 mg/dL (0.6-1.3); MAGNESIUM 2.1 mg/dL (1.8-2.4); PHOSPHORUS 3.7 mg/dL (2.5-4.9); POTASSIUM 3.8 mmol/L (3.5-5.1)
[2023-11-21] MEDS: PANTOPRAZOLE 40 MG TABLET.DR PO SCH (07:30)
[2023-11-21 08:00] VITALS: BP 119/72; TEMP 97.7; O2SAT 95
[2023-11-21] MEDS: busPIRone 5 MG TABLET PO SCH (09:00)
[2023-11-21 16:00] VITALS: BP 127/77; TEMP 97.7; O2SAT 100
[2023-11-21 20:00] VITALS: BP 99/57; TEMP 97.5; O2SAT 92
[2023-11-22 08:00] VITALS: BP 107/68; TEMP 98.1; O2SAT 98
[2023-11-22 13:11] LABS: BASOPHILS # (AUTO) 0.1 K/uL (0.0-0.2); BASOPHILS % (AUTO) 1.3 % (0.0-2.0); EOSINOPHILS % (AUTO) 0.8 % (0.0-6.0); HEMATOCRIT 31 % (39-51); LYMPHOCYTES # (AUTO) 0.5 K/uL (0.8-4.8); MEAN CORPUSCULAR HEMOGLOBIN 28 PG (26.0-33.0); MEAN CORPUSCULAR HGB CONC 32 g/dl (31.0-36.0); MEAN CORPUSCULAR VOLUME 88 fL (80-96); MONOCYTES # (AUTO) 0.6 K/uL (0.1-1.30); MONOCYTES % (AUTO) 14.1 % (2.0-12.0); NEUTROPHILS % (AUTO) 71.8 % (43.0-81.0); PLATELET COUNT (AUTO) 294 K/uL (150-450); RED BLOOD CELL COUNT(AUTO) 3.54 MIL/uL (4.5-6.0); WHITE BLOOD COUNT (AUTO) 4.2 K/uL (4.3-11.0)
[2023-11-22 13:27] LABS: ALBUMIN 2.8 g/dL (3.4-5.0); BILIRUBIN,DIRECT 1.1 mg/dL (0.0-0.2); BILIRUBIN,TOTAL 1.7 mg/dL (0.2-1.0); CALCIUM, SERUM 8.3 mg/dL (8.5-10.1); CREATININE 1.1 mg/dL (0.6-1.3); POTASSIUM 4.2 mmol/L (3.5-5.1)
[2023-11-22 16:09] VITALS: BP 123/79; TEMP 97.7; O2SAT 100
[2023-11-22] MEDS: PIPERACILLIN /TAZOBACTAM 3.375 G in IV D5W 50 ML IV SCH (18:05)
[2023-11-22 20:00] VITALS: BP 100/62; TEMP 98.2; O2SAT 98
[2023-11-23 07:30] VITALS: BP 116/62; TEMP 97.3; O2SAT 98
[2023-11-23 07:51] LABS: BASOPHILS # (AUTO) 0.1 K/uL (0.0-0.2); BASOPHILS % (AUTO) 1.5 % (0.0-2.0); EOSINOPHILS % (AUTO) 0.5 % (0.0-6.0); HEMATOCRIT 32 % (39-51); HEMOGLOBIN 9.8 g/dL (13.5-17.5); LYMPHOCYTES # (AUTO) 0.6 K/uL (0.8-4.8); LYMPHOCYTES % (AUTO) 15.5 % (20.0-44.0); MEAN CORPUSCULAR HEMOGLOBIN 29 PG (26.0-33.0); MEAN CORPUSCULAR HGB CONC 31 g/dl (31.0-36.0); MEAN CORPUSCULAR VOLUME 93 fL (80-96); MONOCYTES # (AUTO) 0.5 K/uL (0.1-1.30); MONOCYTES % (AUTO) 14.3 % (2.0-12.0); NEUTROPHILS # (AUTO) 2.6 K/uL (1.8-8.9); NEUTROPHILS % (AUTO) 68.2 % (43.0-81.0); PLATELET COUNT (AUTO) 258 K/uL (150-450); RED BLOOD CELL COUNT(AUTO) 3.43 MIL/uL (4.5-6.0); RED CELL DISTRIBUTION WIDTH 21.1 % (11.5-15.0); WHITE BLOOD COUNT (AUTO) 3.8 K/uL (4.3-11.0)
[2023-11-23 07:59] LABS: CALCIUM, SERUM 8.3 mg/dL (8.5-10.1); CREATININE 1.2 mg/dL (0.6-1.3); MAGNESIUM 2.1 mg/dL (1.8-2.4); PHOSPHORUS 3.4 mg/dL (2.5-4.9); POTASSIUM 4.6 mmol/L (3.5-5.1)
[2023-11-23 10:34] LABS: INR 1.45 (0.91-1.10)
[2023-11-23 16:00] VITALS: BP 105/68; TEMP 98.2; O2SAT 99
[2023-11-23] MEDS: APIXABAN 5 MG TABLET PO SCH (16:30)
[2023-11-23 17:29] LABS: PROTEIN, BODY FLUID 2.2 G/DL
[2023-11-23 17:57] LABS: APPEARANCE,SPUN,BODY FLUID CLEAR (CLEAR); TOTAL VOLUME,BODY FLUID 1500 mL
[2023-11-23 18:01] LABS: WBC, BODY FLUID 138 /cu. mm. (0-200)
[2023-11-23 18:08] LABS: MONOCYTES,BODY FLUID 26 %
[2023-11-23 18:22] LABS: POLYNUCLEAR, BODY FLUID 1 % (0-25)
[2023-11-23 20:00] VITALS: BP 100/57; TEMP 97.5; O2SAT 95
[2023-11-24 08:00] VITALS: BP 111/72; TEMP 97.8; O2SAT 94
[2023-11-24 16:29] VITALS: BP 100/69; TEMP 98.1; O2SAT 100
[2023-11-24] MEDS: ACETAMINOPHEN 325 MG TABLET PO PRN (16:39)
[2023-11-24 20:00] VITALS: BP 108/69; TEMP 97.2; O2SAT 98
[2023-11-25 07:30] VITALS: BP 102/60; TEMP 97.5; O2SAT 94
[2023-11-25 11:08] LABS: BASOPHILS % (AUTO) 1.1 % (0.0-2.0); EOSINOPHILS % (AUTO) 1.4 % (0.0-6.0); HEMATOCRIT 31 % (39-51); HEMOGLOBIN 9.9 g/dL (13.5-17.5); LYMPHOCYTES # (AUTO) 0.5 K/uL (0.8-4.8); LYMPHOCYTES % (AUTO) 16.1 % (20.0-44.0); MEAN CORPUSCULAR HEMOGLOBIN 28 PG (26.0-33.0); MEAN CORPUSCULAR HGB CONC 32 g/dl (31.0-36.0); MEAN CORPUSCULAR VOLUME 89 fL (80-96); MONOCYTES # (AUTO) 0.4 K/uL (0.1-1.30); MONOCYTES % (AUTO) 13.3 % (2.0-12.0); NEUTROPHILS # (AUTO) 2.1 K/uL (1.8-8.9); NEUTROPHILS % (AUTO) 68.1 % (43.0-81.0); PLATELET COUNT (AUTO) 244 K/uL (150-450); RED BLOOD CELL COUNT(AUTO) 3.48 MIL/uL (4.5-6.0); RED CELL DISTRIBUTION WIDTH 21.1 % (11.5-15.0); WHITE BLOOD COUNT (AUTO) 3.1 K/uL (4.3-11.0)
[2023-11-25 11:58] LABS: ALBUMIN 2.6 g/dL (3.4-5.0); BILIRUBIN,DIRECT 0.8 mg/dL (0.0-0.2); BILIRUBIN,TOTAL 1.3 mg/dL (0.2-1.0); CALCIUM, SERUM 8.3 mg/dL (8.5-10.1); CREATININE 1.3 mg/dL (0.6-1.3); POTASSIUM 4.2 mmol/L (3.5-5.1); TOTAL PROTEIN, SERUM 6.6 g/dL (6.4-8.2)
[2023-11-25 16:00] VITALS: BP 97/50; TEMP 97.3; O2SAT 98
[2023-11-25 20:23] VITALS: BP 96/59; TEMP 97.5; O2SAT 99
[2023-11-26 07:30] VITALS: BP 110/58; TEMP 98.2; O2SAT 99
[2023-11-26 16:00] VITALS: BP 108/68; TEMP 97.5; O2SAT 99
[2023-11-26 20:03] VITALS: BP 100/55; TEMP 98.1; O2SAT 99
[2023-11-27 07:02] LABS: BASOPHILS # (AUTO) 0.1 K/uL (0.0-0.2); EOSINOPHILS # (AUTO) 0.1 K/uL (0.0-0.7); EOSINOPHILS % (AUTO) 1.6 % (0.0-6.0); HEMATOCRIT 28 % (39-51); HEMOGLOBIN 8.9 g/dL (13.5-17.5); LYMPHOCYTES # (AUTO) 0.4 K/uL (0.8-4.8); LYMPHOCYTES % (AUTO) 11.5 % (20.0-44.0); MEAN CORPUSCULAR HEMOGLOBIN 29 PG (26.0-33.0); MEAN CORPUSCULAR HGB CONC 33 g/dl (31.0-36.0); MEAN CORPUSCULAR VOLUME 88 fL (80-96); MONOCYTES # (AUTO) 0.5 K/uL (0.1-1.30); MONOCYTES % (AUTO) 14.1 % (2.0-12.0); NEUTROPHILS # (AUTO) 2.3 K/uL (1.8-8.9); NEUTROPHILS % (AUTO) 70.8 % (43.0-81.0); PLATELET COUNT (AUTO) 211 K/uL (150-450); RED BLOOD CELL COUNT(AUTO) 3.14 MIL/uL (4.5-6.0); RED CELL DISTRIBUTION WIDTH 20.3 % (11.5-15.0); WHITE BLOOD COUNT (AUTO) 3.2 K/uL (4.3-11.0)
[2023-11-27 07:29] LABS: CALCIUM, SERUM 8.4 mg/dL (8.5-10.1); CREATININE 1.5 mg/dL (0.6-1.3); MAGNESIUM 2.3 mg/dL (1.8-2.4); POTASSIUM 4.3 mmol/L (3.5-5.1)
[2023-11-27 07:34] LABS: ALBUMIN 2.5 g/dL (3.4-5.0); BILIRUBIN,DIRECT 0.8 mg/dL (0.0-0.2); BILIRUBIN,TOTAL 1.2 mg/dL (0.2-1.0); TOTAL PROTEIN, SERUM 6.4 g/dL (6.4-8.2)
[2023-11-27 10:39] VITALS: BP 106/51; TEMP 98.4; O2SAT 93
[2023-11-27 15:55] VITALS: BP 99/60; TEMP 97.8; O2SAT 95
[2023-11-27 20:40] VITALS: BP 110/69; TEMP 97.7; O2SAT 99
[2023-11-28 06:34] LABS: BASOPHILS # (AUTO) 0.1 K/uL (0.0-0.2); BASOPHILS % (AUTO) 2.3 % (0.0-2.0); EOSINOPHILS # (AUTO) 0.1 K/uL (0.0-0.7); EOSINOPHILS % (AUTO) 2.3 % (0.0-6.0); HEMATOCRIT 29 % (39-51); HEMOGLOBIN 9.3 g/dL (13.5-17.5); LYMPHOCYTES # (AUTO) 0.4 K/uL (0.8-4.8); LYMPHOCYTES % (AUTO) 13.3 % (20.0-44.0); MEAN CORPUSCULAR HEMOGLOBIN 29 PG (26.0-33.0); MEAN CORPUSCULAR HGB CONC 32 g/dl (31.0-36.0); MEAN CORPUSCULAR VOLUME 88 fL (80-96); MONOCYTES # (AUTO) 0.5 K/uL (0.1-1.30); MONOCYTES % (AUTO) 15.2 % (2.0-12.0); NEUTROPHILS # (AUTO) 2.1 K/uL (1.8-8.9); NEUTROPHILS % (AUTO) 66.9 % (43.0-81.0); PLATELET COUNT (AUTO) 193 K/uL (150-450); RED BLOOD CELL COUNT(AUTO) 3.27 MIL/uL (4.5-6.0); RED CELL DISTRIBUTION WIDTH 20.4 % (11.5-15.0); WHITE BLOOD COUNT (AUTO) 3.1 K/uL (4.3-11.0)
[2023-11-28 06:55] LABS: CREATININE 1.2 mg/dL (0.6-1.3); MAGNESIUM 2.3 mg/dL (1.8-2.4); PHOSPHORUS 3.7 mg/dL (2.5-4.9); POTASSIUM 4.6 mmol/L (3.5-5.1)
[2023-11-28 08:00] VITALS: BP 100/61; TEMP 97.7; O2SAT 99
[2023-11-28] MEDS ORDERED: NALOXONE PREFILLED SYRINGE 2 MG/2 ML SYRINGE IV PRN (13:30)
[2023-11-28] MEDS ORDERED: MIDAZOLAM HCL 2 MG/2ML VIAL IV PRN (13:30)
[2023-11-28] MEDS ORDERED: FLUMAZENIL 0.5 MG VIAL IV PRN (13:30)
[2023-11-28] MEDS ORDERED: FENTANYL PF 250MCG/5ML AMPUL IV PRN (13:30)
[2023-11-28] MEDS ORDERED: FENTANYL PF 100MCG/2ML AMPUL IV ONE (14:36)
[2023-11-28 16:00] VITALS: BP 98/57; TEMP 97.7; O2SAT 99
[2023-11-28 20:00] VITALS: BP 111/65; TEMP 98.5; O2SAT 99
[2023-11-28] MEDS: HYDROCODONE/APAP 5/325MG TABLET PO PRN (20:41)
[2023-11-29 07:26] LABS: BASOPHILS % (AUTO) 0.8 % (0.0-2.0); EOSINOPHILS # (AUTO) 0.1 K/uL (0.0-0.7); EOSINOPHILS % (AUTO) 1.5 % (0.0-6.0); HEMATOCRIT 29 % (39-51); HEMOGLOBIN 9.2 g/dL (13.5-17.5); LYMPHOCYTES # (AUTO) 0.4 K/uL (0.8-4.8); LYMPHOCYTES % (AUTO) 8.8 % (20.0-44.0); MEAN CORPUSCULAR HEMOGLOBIN 28 PG (26.0-33.0); MEAN CORPUSCULAR HGB CONC 32 g/dl (31.0-36.0); MEAN CORPUSCULAR VOLUME 89 fL (80-96); MONOCYTES # (AUTO) 0.5 K/uL (0.1-1.30); MONOCYTES % (AUTO) 12.1 % (2.0-12.0); NEUTROPHILS # (AUTO) 3.2 K/uL (1.8-8.9); NEUTROPHILS % (AUTO) 76.8 % (43.0-81.0); PLATELET COUNT (AUTO) 200 K/uL (150-450); RED BLOOD CELL COUNT(AUTO) 3.29 MIL/uL (4.5-6.0); RED CELL DISTRIBUTION WIDTH 20.1 % (11.5-15.0); WHITE BLOOD COUNT (AUTO) 4.1 K/uL (4.3-11.0)
[2023-11-29 07:28] LABS: CALCIUM, SERUM 8.7 mg/dL (8.5-10.1); CREATININE 1.1 mg/dL (0.6-1.3); MAGNESIUM 2.5 mg/dL (1.8-2.4); PHOSPHORUS 3.5 mg/dL (2.5-4.9); POTASSIUM 4.3 mmol/L (3.5-5.1)
[2023-11-29 08:00] VITALS: BP 90/55; TEMP 98.1; O2SAT 96
[2023-11-29 16:00] VITALS: BP 104/68; TEMP 98; O2SAT 97
[2023-11-29 20:50] VITALS: BP 100/60; TEMP 97.5; O2SAT 99
[2023-11-30 07:02] LABS: BASOPHILS % (AUTO) 0.6 % (0.0-2.0); EOSINOPHILS % (AUTO) 0.5 % (0.0-6.0); HEMATOCRIT 30 % (39-51); HEMOGLOBIN 9.5 g/dL (13.5-17.5); LYMPHOCYTES # (AUTO) 0.3 K/uL (0.8-4.8); LYMPHOCYTES % (AUTO) 5.9 % (20.0-44.0); MEAN CORPUSCULAR HEMOGLOBIN 28 PG (26.0-33.0); MEAN CORPUSCULAR HGB CONC 32 g/dl (31.0-36.0); MEAN CORPUSCULAR VOLUME 88 fL (80-96); MONOCYTES # (AUTO) 0.8 K/uL (0.1-1.30); MONOCYTES % (AUTO) 16.9 % (2.0-12.0); NEUTROPHILS # (AUTO) 3.6 K/uL (1.8-8.9); NEUTROPHILS % (AUTO) 76.1 % (43.0-81.0); PLATELET COUNT (AUTO) 179 K/uL (150-450); RED BLOOD CELL COUNT(AUTO) 3.42 MIL/uL (4.5-6.0); RED CELL DISTRIBUTION WIDTH 20.5 % (11.5-15.0); WHITE BLOOD COUNT (AUTO) 4.8 K/uL (4.3-11.0)
[2023-11-30 07:30] LABS: CALCIUM, SERUM 8.8 mg/dL (8.5-10.1); MAGNESIUM 2.2 mg/dL (1.8-2.4); PHOSPHORUS 3.3 mg/dL (2.5-4.9); POTASSIUM 4.5 mmol/L (3.5-5.1)
[2023-11-30 08:00] VITALS: BP 103/66; TEMP 98.2; O2SAT 96
[2023-11-30 16:00] VITALS: BP 100/54; TEMP 98.2; O2SAT 96
[2023-11-30 20:00] VITALS: BP 96/61; TEMP 98.1; O2SAT 98
[2023-11-30 20:50] VITALS: BP 96/61; TEMP 98.1; O2SAT 98
[2023-12-01 07:00] VITALS: BP 102/63; TEMP 98.4; O2SAT 96
[2023-12-01 09:00] VITALS: BP 102/63
[2023-12-01] MEDS ORDERED: IBUP-1490 PO (10:17)
[2023-12-01] MEDS ORDERED: HYDR-3980 PO (10:19)
== END 2023-12-01 13:30 | disposition home health service (06) ==
LOC: ER 06:54 → TRANSITION 10:44 → TELE 12:31 → MED 11-22 04:24
PROVIDERS: ADMIT Nurse Practitioner Acute Care; ATTEND Internal Medicine
PROC: 0W993ZZ Drainage of Right Pleural Cavity, Percutaneous Approach (ICD-10-PCS; 2023-11-23)
PROC: 0F9430Z Drainage of Gallbladder with Drainage Device, Percutaneous Approach (ICD-10-PCS; principal; 2023-11-29)
PROC: 0W993ZX Drainage of Right Pleural Cavity, Percutaneous Approach, Diagnostic (ICD-10-PCS; 2023-11-29)
DX: K80.01 Calculus of gallbladder with acute cholecystitis with obstruction (principal); N17.0 Acute kidney failure with tubular necrosis; I21.A1 Myocardial infarction type 2; I50.23 Acute on chronic systolic (congestive) heart failure; E87.1 Hypo-osmolality and hyponatremia; I27.20 Pulmonary hypertension, unspecified; R18.8 Other ascites; K80.11 Calculus of gallbladder with chronic cholecystitis with obstruction; I42.9 Cardiomyopathy, unspecified; K74.60 Unspecified cirrhosis of liver; E86.1 Hypovolemia; E73.9 Lactose intolerance, unspecified; D64.9 Anemia, unspecified; F15.10 Other stimulant abuse, uncomplicated; Z95.810 Presence of automatic (implantable) cardiac defibrillator; I25.10 Atherosclerotic heart disease of native coronary artery without angina pectoris; I25.2 Old myocardial infarction; F41.9 Anxiety disorder, unspecified; F32.A Depression, unspecified; F20.9 Schizophrenia, unspecified; Z87.891 Personal history of nicotine dependence; Z83.3 Family history of diabetes mellitus; Z79.01 Long term (current) use of anticoagulants; Z79.84 Long term (current) use of oral hypoglycemic drugs; Z79.899 Other long term (current) drug therapy; Z86.711 Personal history of pulmonary embolism; I13.0 Hypertensive heart and chronic kidney disease with heart failure and stage 1 through stage 4 chronic kidney disease, or unspecified chronic kidney disease; N18.9 Chronic kidney disease, unspecified; K76.0 Fatty (change of) liver, not elsewhere classified; J90 Pleural effusion, not elsewhere classified
CPT/HCPCS: 36415; 71045-TC; 71250-TC; 76705-TC; 78226; 80048-TC; 80076-TC; 81001; 83690-TC; 83735-TC; 83880; 84100-TC; 84484-TC; 85025-TC; 85610-TC; 87102-TC; 89051-TC; 93970-TC; A4223; A6253; A6403; A9537; G0378; J1940; J2270; J2543; J3010; J7030; J7050; J7060

== ENCOUNTER 2023-12-04 09:22 | Emergency (ER) | payer OTHER ==
[~2023-12-04] VITALS: Ht 182.9 cm; Wt 90.3 kg
[~2023-12-04 09:22] MED LIST changes: +HYDR-3980 PO; +IBUP-1490 PO; +ZOLP5TAB2 PO
[2023-12-04 09:38] VITALS: BP 116/67; TEMP 98.5
[2023-12-04 09:51] VITALS: O2SAT 97
== END 2023-12-04 09:52 | disposition home or self-care (01) ==
LOC: ER 09:27
DX: G89.18 Other acute postprocedural pain (principal); R10.9 Unspecified abdominal pain; I11.0 Hypertensive heart disease with heart failure; I50.9 Heart failure, unspecified; F15.10 Other stimulant abuse, uncomplicated; Z90.49 Acquired absence of other specified parts of digestive tract; Z98.890 Other specified postprocedural states

== ENCOUNTER 2023-12-05 21:20 | Emergency (ER) | payer OTHER | END 2023-12-05 22:41 | disposition left against medical advice (07) | LOC: ER 21:22 | DX: R52 Pain, unspecified (principal); Z53.21 Procedure and treatment not carried out due to patient leaving prior to being seen by health care provider ==

== ENCOUNTER 2023-12-10 19:10 | Emergency (ER) | payer OTHER ==
[~2023-12-10] VITALS: Ht 182.9 cm; Wt 90.7 kg
[2023-12-10 20:24] LABS: BASOPHILS # (AUTO) 0.1 K/uL (0.0-0.2); EOSINOPHILS # (AUTO) 0.1 K/uL (0.0-0.7); HEMATOCRIT 29 % (39-51); LYMPHOCYTES # (AUTO) 0.5 K/uL (0.8-4.8); MEAN CORPUSCULAR HEMOGLOBIN 28 PG (26.0-33.0); MEAN CORPUSCULAR HGB CONC 32 g/dl (31.0-36.0); MEAN CORPUSCULAR VOLUME 88 fL (80-96); MONOCYTES # (AUTO) 0.4 K/uL (0.1-1.30); MONOCYTES % (AUTO) 10.2 % (2.0-12.0); NEUTROPHILS # (AUTO) 3.1 K/uL (1.8-8.9); NEUTROPHILS % (AUTO) 73.8 % (43.0-81.0); PLATELET COUNT (AUTO) 276 K/uL (150-450); RED BLOOD CELL COUNT(AUTO) 3.27 MIL/uL (4.5-6.0); RED CELL DISTRIBUTION WIDTH 21.1 % (11.5-15.0); WHITE BLOOD COUNT (AUTO) 4.2 K/uL (4.3-11.0)
[2023-12-10 20:37] LABS: CALCIUM, SERUM 8.9 mg/dL (8.5-10.1); POTASSIUM 4.5 mmol/L (3.5-5.1)
[2023-12-10 20:39] LABS: C-REACTIVE PROTEIN 1.49 mg/dL (0.0-0.30)
[2023-12-10 20:41] LABS: ERYTHROCYTE SEDIMENTATION RATE 36 MM/HR (0-15)
[2023-12-10 22:19] VITALS: BP 121/80; TEMP 97.7; O2SAT 100
== END 2023-12-10 22:32 | disposition home or self-care (01) ==
LOC: ER 19:14
DX: Z48.815 Encounter for surgical aftercare following surgery on the digestive system (principal); I10 Essential (primary) hypertension; F19.10 Other psychoactive substance abuse, uncomplicated; Z90.49 Acquired absence of other specified parts of digestive tract; Z86.79 Personal history of other diseases of the circulatory system
CPT/HCPCS: 36415; 80048-TC; 85025-TC; 85652-TC; 86140-TC

== ENCOUNTER 2024-01-20 23:18 | Emergency (ER) | payer OTHER ==
[~2024-01-20] VITALS: Ht 182.9 cm; Wt 86.2 kg
[2024-01-21 00:40] LABS: BASOPHILS % (AUTO) 0.3 % (0.0-2.0); HEMATOCRIT 30 % (39-51); HEMOGLOBIN 9.4 g/dL (13.5-17.5); LYMPHOCYTES # (AUTO) 0.4 K/uL (0.8-4.8); LYMPHOCYTES % (AUTO) 5.3 % (20.0-44.0); MEAN CORPUSCULAR HEMOGLOBIN 29 PG (26.0-33.0); MEAN CORPUSCULAR HGB CONC 32 g/dl (31.0-36.0); MEAN CORPUSCULAR VOLUME 90 fL (80-96); MONOCYTES % (AUTO) 12.8 % (2.0-12.0); NEUTROPHILS # (AUTO) 6.3 K/uL (1.8-8.9); NEUTROPHILS % (AUTO) 81.6 % (43.0-81.0); PLATELET COUNT (AUTO) 304 K/uL (150-450); RED BLOOD CELL COUNT(AUTO) 3.29 MIL/uL (4.5-6.0); WHITE BLOOD COUNT (AUTO) 7.7 K/uL (4.3-11.0)
[2024-01-21 00:48] LABS: CALCIUM, SERUM 8.2 mg/dL (8.5-10.1); CARBON DIOXIDE 23 mmol/L (21-32); CHLORIDE 105 mmol/L (98-107); CREATININE 0.9 mg/dL (0.6-1.3); GLUCOSE 95 mg/dL (74-106); POTASSIUM 3.7 mmol/L (3.5-5.1); SODIUM SERUM 138 mmol/L (136-145); UREA NITROGEN, BLOOD 13 mg/dL (7-18)
[2024-01-21 00:55] LABS: ALANINE AMINOTRANSFERASE 6 U/L (12-78); ALBUMIN 2.8 g/dL (3.4-5.0); ALKALINE PHOSPHATASE 141 U/L (46-116); ASPARTATE AMINOTRANSFERASE 8 U/L (15-37); BILIRUBIN,DIRECT 0.9 mg/dL (0.0-0.2); BILIRUBIN,TOTAL 1.9 mg/dL (0.2-1.0); TOTAL PROTEIN, SERUM 6.9 g/dL (6.4-8.2)
[2024-01-21 00:57] LABS: LACTIC ACID 1.2 mmol/L (0.4-2.0)
[2024-01-21] MEDS ORDERED: PIPERACI/TAZO 3.375GM/D5W 50ML PB IV ONE (01:02)
[2024-01-21] MEDS ORDERED: ONDANSETRON HCL/PF 4 MG/2 ML VIAL ONE (01:02)
[2024-01-21] MEDS ORDERED: ACETAMINOPHEN ES 500 MG TABLET ONE (01:02)
[2024-01-21 01:05] LABS: INR 1.61 (0.91-1.10); PARTIAL THROMBOPLASTIN TIME 37.9 SEC (24.3-34.3); PROTHROMBIN TIME 16.5 SECS (9.2-11.1)
[2024-01-21] MEDS: MORPHINE SULFATE INJ 2 MG/ML DISP.SYRIN IV ONE (01:13)
[2024-01-21] MEDS: IV NS 0.9% 1,000 ML BAG IV ONE (01:13)
[2024-01-21] MEDS: PIPERACILLIN /TAZOBACTAM 3.375 G in IV D5W 50 ML IV ONE (01:13)
[2024-01-21] MEDS: ONDANSETRON HCL/PF 4 MG/2 ML VIAL IVP ONE (01:14)
[2024-01-21] MEDS: ACETAMINOPHEN ES 500 MG TABLET PO ONE (01:14)
[2024-01-21 02:25] LABS: APPEARANCE,URINE SLIGHTLY CLOUDY (CLEAR); BILIRUBIN,URINE 2+ (NEGATIVE); BLOOD, URINE NEGATIVE Ery/uL (NEGATIVE); COLOR,URINE YELLOW (YELLOW); KETONES,URINE TRACE mg/dL (NEGATIVE); LEUKOCYTE ESTERASE ,URINE NEGATIVE (NEGATIVE); NITRITE, URINE POSITIVE (NEGATIVE); PH,URINE 6.5 (5.0-8.0); PROTEIN,URINE 2+ mg/dl (NEGATIVE); UGLUCOSE TRACE mg/dL (NEGATIVE)
[2024-01-21 02:40] LABS: AMPHETAMINE, URINE NEGATIVE (NEGATIVE); BARBITURATE, URINE NEGATIVE (NEGATIVE); BENZODIAZEPINE, URINE NEGATIVE (NEGATIVE); CANNABINOID, URINE NEGATIVE (NEGATIVE); COCCAINE, URINE NEGATIVE (NEGATIVE); OPIATE, URINE NEGATIVE (NEGATIVE); PHENCYCLIDINE SCREEN,URINE NEGATIVE (NEGATIVE)
[2024-01-21 02:41] LABS: ADD URINE CULTURE YES; BACTERIA,URINE 1+ /HPF (None Seen); MUCUS,URINE Moderate /LPF (None Seen); RBC,URINE 0-2 /HPF (0-2); SQUAMOUS EPITHELIAL CELL,UR None Seen /HPF (None Seen)
[2024-01-21] MEDS ORDERED: HYDR-3980 PO (03:50)
[2024-01-21] MEDS ORDERED: IBUP-1490 PO (03:50)
[2024-01-21 04:13] VITALS: BP 102/60; TEMP 99.4; O2SAT 95
== END 2024-01-21 04:14 | disposition home or self-care (01) ==
LOC: ER 23:21
DX: T85.598A Other mechanical complication of other gastrointestinal prosthetic devices, implants and grafts, initial encounter (principal); I10 Essential (primary) hypertension; I42.9 Cardiomyopathy, unspecified; D64.9 Anemia, unspecified; J90 Pleural effusion, not elsewhere classified; K76.6 Portal hypertension; K74.60 Unspecified cirrhosis of liver; F15.10 Other stimulant abuse, uncomplicated; F19.10 Other psychoactive substance abuse, uncomplicated; Z79.01 Long term (current) use of anticoagulants; Z79.84 Long term (current) use of oral hypoglycemic drugs; Z79.899 Other long term (current) drug therapy; Z95.810 Presence of automatic (implantable) cardiac defibrillator; Z87.19 Personal history of other diseases of the digestive system; Z86.79 Personal history of other diseases of the circulatory system; Y84.8 Other medical procedures as the cause of abnormal reaction of the patient, or of later complication, without mention of misadventure at the time of the procedure; Y92.89 Other specified places as the place of occurrence of the external cause
CPT/HCPCS: 36415; 71045-TC; 80048-TC; 80076-TC; 81001; 83605-TC; 84484-TC; 85025-TC; 85730-TC; 87040-TC; 87086-TC; J2405; J2543; J7060

== ENCOUNTER 2024-02-23 18:28 | Emergency (ER) | payer OTHER ==
[~2024-02-23] VITALS: Ht 175.3 cm; Wt 70.3 kg
[2024-02-23] MEDS ORDERED: ACETAMINOPHEN ES 500 MG TABLET ONE (20:31)
[2024-02-23] MEDS ORDERED: diphenhydrAMINE HCL 25 MG CAPSULE ONE (20:32)
[2024-02-23] MEDS ORDERED: METOCLOPRAMIDE HCL 10 MG TABLET ONE (20:32)
[2024-02-23] MEDS: METOCLOPRAMIDE HCL 10 MG TABLET PO ONE (20:36)
[2024-02-23] MEDS: ACETAMINOPHEN ES 500 MG TABLET PO ONE (20:36)
[2024-02-23] MEDS: DIPHENHYDRAMINE HCL 12.5 MG/5 ML UDC PO ONE (20:36)
[2024-02-23 22:45] VITALS: BP 128/82; TEMP 98.9; O2SAT 99
== END 2024-02-23 22:45 | disposition home or self-care (01) ==
LOC: ER 18:28
DX: R51.9 Headache, unspecified (principal); I10 Essential (primary) hypertension; Z79.01 Long term (current) use of anticoagulants; Z79.84 Long term (current) use of oral hypoglycemic drugs
CPT/HCPCS: 99284; Q0163 ×2; J8597

== ENCOUNTER → 2024-04-30 | Emergency (ER) | payer OTHER ==
[~2024-04-30] VITALS: Ht 182.9 cm; Wt 95.3 kg
[~2024-04-30] MED LIST changes: +ASPIRIN 325 MG TABLET ONE; +QUETIAPINE FUMARATE 100 MG TABLET ONE; +diphenhydrAMINE HCL ELIX 25 MG/10 ML UDC ONE
[2024-04-30 18:44] LABS: BASOPHILS % (AUTO) 0.9 % (0.0-2.0); EOSINOPHILS # (AUTO) 0.1 K/uL (0.0-0.7); EOSINOPHILS % (AUTO) 2.1 % (0.0-6.0); HEMATOCRIT 30 % (39-51); HEMOGLOBIN 9.8 g/dL (13.5-17.5); LYMPHOCYTES # (AUTO) 0.6 K/uL (0.8-4.8); LYMPHOCYTES % (AUTO) 15.7 % (20.0-44.0); MEAN CORPUSCULAR HEMOGLOBIN 33 PG (26.0-33.0); MEAN CORPUSCULAR HGB CONC 33 g/dl (31.0-36.0); MEAN CORPUSCULAR VOLUME 100 fL (80-96); MONOCYTES # (AUTO) 0.4 K/uL (0.1-1.30); MONOCYTES % (AUTO) 9.9 % (2.0-12.0); NEUTROPHILS # (AUTO) 2.9 K/uL (1.8-8.9); NEUTROPHILS % (AUTO) 71.4 % (43.0-81.0); PLATELET COUNT (AUTO) 138 K/uL (150-450); RED CELL DISTRIBUTION WIDTH 22.1 % (11.5-15.0)
[2024-04-30 18:53] LABS: CARBON DIOXIDE 29 mmol/L (21-32); CHLORIDE 104 mmol/L (98-107); GLUCOSE 88 mg/dL (74-106); POTASSIUM 3.5 mmol/L (3.5-5.1); SODIUM SERUM 139 mmol/L (136-145); UREA NITROGEN, BLOOD 16 mg/dL (7-18)
[2024-04-30 19:05] LABS: ALANINE AMINOTRANSFERASE 72 U/L (12-78); ALBUMIN 3.3 g/dL (3.4-5.0); ALKALINE PHOSPHATASE 175 U/L (46-116); ASPARTATE AMINOTRANSFERASE 52 U/L (15-37); BILIRUBIN,DIRECT 0.6 mg/dL (0.0-0.2); BILIRUBIN,TOTAL 1.1 mg/dL (0.2-1.0); NT-PRO BNP 2535 pg/mL (0-125); TOTAL PROTEIN, SERUM 6.9 g/dL (6.4-8.2)
[2024-04-30 19:09] VITALS: TEMP 98
[2024-04-30] MEDS: ASPIRIN 325 MG TABLET PO ONE (19:43)
[2024-04-30] MEDS: DIPHENHYDRAMINE HCL 12.5 MG/5 ML UDC PO ONE (20:36)
[2024-04-30 20:51] VITALS: BP 143/96; O2SAT 100
[2024-04-30] MEDS: FUROSEMIDE 20 MG/2 ML VIAL IV ONE (21:03)
[2024-04-30] MEDS: QUETIAPINE FUMARATE 100 MG TABLET PO SCH (22:12)
== END ==
LOC: ER 17:58
DX: R07.89 Other chest pain (principal); R06.02 Shortness of breath; I11.0 Hypertensive heart disease with heart failure; I50.9 Heart failure, unspecified; Z79.01 Long term (current) use of anticoagulants; Z79.84 Long term (current) use of oral hypoglycemic drugs; Z79.899 Other long term (current) drug therapy; Z95.0 Presence of cardiac pacemaker
CPT/HCPCS: 99291; 96374; 93005; 71045; 85025; 80048; 80076; 36415; 84484; 83880; 98960; Q0163 ×2; J1940

== ENCOUNTER 2024-06-04 17:10 | Inpatient (IN) | payer OTHER ==
[~2024-06-04] VITALS: Ht 182.9 cm; Wt 99.8 kg
[~2024-06-04 17:10] MED LIST changes: -ASPIRIN 325 MG TABLET ONE; -QUETIAPINE FUMARATE 100 MG TABLET ONE; -diphenhydrAMINE HCL ELIX 25 MG/10 ML UDC ONE
[2024-06-04 17:30] VITALS: O2SAT 100
[2024-06-04] MEDS ORDERED: ASPIRIN 81 MG TAB.CHEW ONE ×2 (17:33→17:51)
[2024-06-04] MEDS: ASPIRIN 81 MG TAB.CHEW PO ONE (17:36)
[2024-06-04] MEDS ORDERED: ASPIRIN EC 81 MG TABLET.DR PO ONE (17:49)
[2024-06-04] MEDS ORDERED: LORAZEPAM INJ 2 MG/ML VIAL ONE (17:49)
[2024-06-04 17:52] LABS: RED BLOOD CELL COUNT(AUTO) 4.07 MIL/uL (4.5-6.0); WHITE BLOOD COUNT (AUTO) 6.8 K/uL (4.3-11.0)
[2024-06-04 17:53] LABS: BASOPHILS # (AUTO) 0.1 K/uL (0.0-0.2); BASOPHILS % (AUTO) 1.3 % (0.0-2.0); EOSINOPHILS % (AUTO) 0.4 % (0.0-6.0); HEMATOCRIT 40 % (39-51); HEMOGLOBIN 13.5 g/dL (13.5-17.5); LYMPHOCYTES # (AUTO) 0.9 K/uL (0.8-4.8); LYMPHOCYTES % (AUTO) 13.4 % (20.0-44.0); MEAN CORPUSCULAR HEMOGLOBIN 33 PG (26.0-33.0); MEAN CORPUSCULAR HGB CONC 34 g/dl (31.0-36.0); MEAN CORPUSCULAR VOLUME 98 fL (80-96); MONOCYTES # (AUTO) 0.6 K/uL (0.1-1.30); MONOCYTES % (AUTO) 8.7 % (2.0-12.0); NEUTROPHILS # (AUTO) 5.2 K/uL (1.8-8.9); NEUTROPHILS % (AUTO) 76.2 % (43.0-81.0); PLATELET COUNT (AUTO) 233 K/uL (150-450); RED CELL DISTRIBUTION WIDTH 17.4 % (11.5-15.0)
[2024-06-04] MEDS: LORAZEPAM INJ 2 MG/ML VIAL IV ONE (18:00)
[2024-06-04 18:05] LABS: CREATININE 1.7 mg/dL (0.6-1.3); POTASSIUM 4.3 mmol/L (3.5-5.1)
[2024-06-04] MEDS: FUROSEMIDE 40 MG/4 ML VIAL IV ONE (19:55)
[2024-06-04] MEDS ORDERED: ONDANSETRON HCL/PF 4 MG/2 ML VIAL IVP PRN (21:00)
[2024-06-04] MEDS ORDERED: LORAZEPAM INJ 2 MG/ML VIAL IV PRN (21:00)
[2024-06-04] MEDS ORDERED: Z GUARD REMEDY 4 OZ OINT TP PRN (21:00)
[2024-06-04] MEDS ORDERED: ACETAMINOPHEN 325 MG TABLET PO PRN (21:00)
[2024-06-04 22:05] VITALS: BP 131/91; TEMP 98.1; O2SAT 96
[2024-06-04] MEDS: LORAZEPAM INJ 2 MG/ML VIAL IM PRN (22:36)
[2024-06-05] VITALS: BP 127/85; TEMP 98; O2SAT 100
[2024-06-05] MEDS ORDERED: ZOLPIDEM TARTRATE 5 MG TABLET PO PRN (01:30)
[2024-06-05 04:00] VITALS: BP 130/91; TEMP 97.8; O2SAT 98
[2024-06-05 06:43] LABS: BASOPHILS # (AUTO) 0.1 K/uL (0.0-0.2); BASOPHILS % (AUTO) 1.5 % (0.0-2.0); EOSINOPHILS % (AUTO) 0.5 % (0.0-6.0); HEMATOCRIT 38 % (39-51); HEMOGLOBIN 12.3 g/dL (13.5-17.5); LYMPHOCYTES # (AUTO) 0.8 K/uL (0.8-4.8); MEAN CORPUSCULAR HEMOGLOBIN 32 PG (26.0-33.0); MEAN CORPUSCULAR HGB CONC 33 g/dl (31.0-36.0); MEAN CORPUSCULAR VOLUME 97 fL (80-96); MONOCYTES # (AUTO) 0.6 K/uL (0.1-1.30); MONOCYTES % (AUTO) 10.7 % (2.0-12.0); NEUTROPHILS % (AUTO) 72.3 % (43.0-81.0); PLATELET COUNT (AUTO) 234 K/uL (150-450); RED BLOOD CELL COUNT(AUTO) 3.89 MIL/uL (4.5-6.0); RED CELL DISTRIBUTION WIDTH 17.6 % (11.5-15.0); WHITE BLOOD COUNT (AUTO) 5.5 K/uL (4.3-11.0)
[2024-06-05 07:00] VITALS: BP 121/81; TEMP 98.1; O2SAT 97
[2024-06-05] MEDS: PANTOPRAZOLE 40 MG TABLET.DR PO SCH (07:17)
[2024-06-05 07:20] LABS: CALCIUM, SERUM 8.8 mg/dL (8.5-10.1); CREATININE 1.5 mg/dL (0.6-1.3); MAGNESIUM 2.1 mg/dL (1.8-2.4); PHOSPHORUS 3.9 mg/dL (2.5-4.9); POTASSIUM 3.8 mmol/L (3.5-5.1)
[2024-06-05 07:41] LABS: PREALBUMIN 16.9 MG/DL (18.0-35.7); THYROID STIMULATING HORMONE 5.73 uIU/mL (0.358-3.74)
[2024-06-05] MEDS: FUROSEMIDE 100 MG/10 ML VIAL IV SCH (08:24)
[2024-06-05] MEDS: SPIRONOLACTONE 25 MG TABLET PO SCH (08:24)
[2024-06-05] MEDS: POTASSIUM CHLORIDE 20 MEQ TAB.PRT.SR PO SCH (08:24)
[2024-06-05] MEDS: busPIRone 5 MG TABLET PO SCH (08:24)
[2024-06-05] MEDS: AMIODARONE HCL 200 MG TABLET PO SCH (08:25)
[2024-06-05] MEDS: SERTRALINE HCL 50 MG TABLET PO SCH (08:25)
[2024-06-05] MEDS: CARVEDILOL 3.125 MG TABLET PO SCH (08:25)
[2024-06-05] MEDS: HEPARIN SODIUM, PORCINE 5000 UNITS/1 ML VIAL SQ SCH (08:26)
[2024-06-05] MEDS ORDERED: FUROSEMIDE 20 MG/2 ML VIAL IV SCH (09:00)
[2024-06-05] MEDS ORDERED: Medication Not On Formulary EA (Canagliflozin (Invokana) 100 MG) PO SCH (09:00)
[2024-06-05] MEDS: SACUBITRIL/VALSARTAN 24/26MG TABLET PO SCH (09:19)
[2024-06-05 11:30] VITALS: BP 102/68; TEMP 97.3; O2SAT 100
[2024-06-05] MEDS: HYDROCODONE/APAP 5/325MG TABLET PO ONE (13:35)
[2024-06-05] MEDS: APIXABAN 5 MG TABLET PO SCH (16:08)
[2024-06-05 17:11] LABS: APPEARANCE,URINE CLEAR (CLEAR); BILIRUBIN,URINE NEGATIVE (NEGATIVE); BLOOD, URINE NEGATIVE Ery/uL (NEGATIVE); COLOR,URINE YELLOW (YELLOW); CREATININE, URINE 84.9 MG/DL (30.0-125.0); KETONES,URINE NEGATIVE (NEGATIVE); LEUKOCYTE ESTERASE ,URINE NEGATIVE (NEGATIVE); NITRITE, URINE NEGATIVE (NEGATIVE); PROTEIN,URINE NEGATIVE (NEGATIVE); UGLUCOSE NEGATIVE (NEGATIVE); URINE TOTAL PROTEIN 11.7 mg/dL (0-11.9)
[2024-06-05 18:28] LABS: ADD URINE CULTURE NO; BACTERIA,URINE None seen /HPF (None Seen); RBC,URINE 0-2 /HPF (0-2); SQUAMOUS EPITHELIAL CELL,UR 0-2 /HPF (None Seen); WBC,URINE NONE SEEN /HPF (0-3)
[2024-06-05 19:47] LABS: EOSINOPHIL,URINE None Seen
[2024-06-05] MEDS ORDERED: ATORVASTATIN 10 MG TABLET PO SCH (22:00)
== END 2024-06-05 17:30 | disposition home or self-care (01) | DRG 194 ==
LOC: ER 17:16 → TELE 21:20
PROVIDERS: ADMIT Nurse Practitioner Family
DX: I13.0 Hypertensive heart and chronic kidney disease with heart failure and stage 1 through stage 4 chronic kidney disease, or unspecified chronic kidney disease (principal); N17.0 Acute kidney failure with tubular necrosis; I21.A1 Myocardial infarction type 2; I25.10 Atherosclerotic heart disease of native coronary artery without angina pectoris; E87.1 Hypo-osmolality and hyponatremia; Z95.810 Presence of automatic (implantable) cardiac defibrillator; Z90.49 Acquired absence of other specified parts of digestive tract; Z79.899 Other long term (current) drug therapy; Z79.84 Long term (current) use of oral hypoglycemic drugs; Z86.711 Personal history of pulmonary embolism; F15.10 Other stimulant abuse, uncomplicated; I25.2 Old myocardial infarction; F20.9 Schizophrenia, unspecified; F17.200 Nicotine dependence, unspecified, uncomplicated; Z79.01 Long term (current) use of anticoagulants; N18.9 Chronic kidney disease, unspecified; F41.9 Anxiety disorder, unspecified; D64.9 Anemia, unspecified; M89.8X9 Other specified disorders of bone, unspecified site; I50.23 Acute on chronic systolic (congestive) heart failure
CPT/HCPCS: 36415; 71045-TC; 80048-TC; 81001; 82570-TC; 83735-TC; 83880; 84100-TC; 84134-TC; 84300-TC; 84439-TC; 84443-TC; 84484-TC; 85025-TC; 93307-TC; G0378; J1644; J1940; J2060

== ENCOUNTER 2024-07-06 21:02 | Inpatient (IN) | payer OTHER ==
[~2024-07-06] VITALS: Ht 182.9 cm; Wt 105.2 kg
[~2024-07-06 21:02] MED LIST changes: -IBUP-1490 PO
[2024-07-06 22:31] LABS: BASOPHILS # (AUTO) 0.1 K/uL (0.0-0.2); BASOPHILS % (AUTO) 1.4 % (0.0-2.0); EOSINOPHILS % (AUTO) 1.1 % (0.0-6.0); HEMATOCRIT 40 % (39-51); LYMPHOCYTES # (AUTO) 0.7 K/uL (0.8-4.8); LYMPHOCYTES % (AUTO) 14.3 % (20.0-44.0); MEAN CORPUSCULAR HEMOGLOBIN 31 PG (26.0-33.0); MEAN CORPUSCULAR HGB CONC 32 g/dl (31.0-36.0); MEAN CORPUSCULAR VOLUME 96 fL (80-96); MONOCYTES # (AUTO) 0.5 K/uL (0.1-1.30); MONOCYTES % (AUTO) 11.2 % (2.0-12.0); NEUTROPHILS # (AUTO) 3.3 K/uL (1.8-8.9); PLATELET COUNT (AUTO) 268 K/uL (150-450); RED BLOOD CELL COUNT(AUTO) 4.17 MIL/uL (4.5-6.0); RED CELL DISTRIBUTION WIDTH 17.2 % (11.5-15.0); WHITE BLOOD COUNT (AUTO) 4.6 K/uL (4.3-11.0)
[2024-07-06] MEDS ORDERED: ALBUTEROL FS 2.5 MG/3 ML VIAL.NEB ONE (22:38)
[2024-07-06 22:39] LABS: CALCIUM, SERUM 9.2 mg/dL (8.5-10.1); CREATININE 1.1 mg/dL (0.6-1.3); POTASSIUM 4.5 mmol/L (3.5-5.1)
[2024-07-06] MEDS ORDERED: FUROSEMIDE 40 MG/4 ML VIAL ONE (22:43)
[2024-07-06] MEDS: FUROSEMIDE 40 MG/4 ML VIAL IV ONE (22:45)
[2024-07-06] MEDS: ALBUTEROL FS 2.5 MG/3 ML VIAL.NEB NEB ONE (22:49)
[2024-07-06 22:51] LABS: ALBUMIN 3.8 g/dL (3.4-5.0); BILIRUBIN,TOTAL 1.8 mg/dL (0.2-1.0); TOTAL PROTEIN, SERUM 8.2 g/dL (6.4-8.2)
[2024-07-06 23:08] LABS: APPEARANCE,URINE CLEAR (CLEAR); BILIRUBIN,URINE 1+ (NEGATIVE); BLOOD, URINE NEGATIVE Ery/uL (NEGATIVE); COLOR,URINE DARK YELLOW (YELLOW); KETONES,URINE NEGATIVE (NEGATIVE); LEUKOCYTE ESTERASE ,URINE NEGATIVE (NEGATIVE); NITRITE, URINE NEGATIVE (NEGATIVE); PROTEIN,URINE 2+ mg/dl (NEGATIVE); UGLUCOSE NEGATIVE (NEGATIVE)
[2024-07-06 23:11] LABS: ADD URINE CULTURE NO; BACTERIA,URINE Rare /HPF (None Seen); RBC,URINE 0-2 /HPF (0-2); SQUAMOUS EPITHELIAL CELL,UR Few /HPF (None Seen); WBC,URINE 0-2 /HPF (0-3)
[2024-07-06 23:18] LABS: AMPHETAMINE, URINE NEGATIVE (NEGATIVE); BARBITURATE, URINE NEGATIVE (NEGATIVE); CANNABINOID, URINE NEGATIVE (NEGATIVE); COCCAINE, URINE NEGATIVE (NEGATIVE); OPIATE, URINE NEGATIVE (NEGATIVE); PHENCYCLIDINE SCREEN,URINE NEGATIVE (NEGATIVE)
[2024-07-06 23:28] LABS: BENZODIAZEPINE, URINE POSITIVE (NEGATIVE)
[2024-07-07] MEDS ORDERED: LORAZEPAM INJ 2 MG/ML VIAL ONE (01:00)
[2024-07-07] MEDS: LORAZEPAM INJ 2 MG/ML VIAL IV ONE (01:09)
[2024-07-07] MEDS ORDERED: MAG HYDROX/AL HYDROX/SIMETH 30 ML UDC PO PRN (03:30)
[2024-07-07] MEDS ORDERED: ONDANSETRON HCL/PF 4 MG/2 ML VIAL IVP PRN (03:30)
[2024-07-07] MEDS ORDERED: ENOXAPARIN SODIUM 40 MG/0.4 ML DISP.SYRIN SQ ONE (03:36)
[2024-07-07] MEDS: ENOXAPARIN SODIUM 40 MG/0.4 ML DISP.SYRIN SQ SCH (03:47)
[2024-07-07] MEDS ORDERED: FUROSEMIDE 40 MG/4 ML VIAL ONE ×2 (04:57→08:34)
[2024-07-07] MEDS: FUROSEMIDE 40 MG/4 ML VIAL IV SCH (05:04)
[2024-07-07 05:36] LABS: BASOPHILS # (AUTO) 0.1 K/uL (0.0-0.2); BASOPHILS % (AUTO) 1.2 % (0.0-2.0); EOSINOPHILS # (AUTO) 0.1 K/uL (0.0-0.7); EOSINOPHILS % (AUTO) 1.4 % (0.0-6.0); HEMATOCRIT 38 % (39-51); HEMOGLOBIN 12.6 g/dL (13.5-17.5); LYMPHOCYTES # (AUTO) 0.9 K/uL (0.8-4.8); LYMPHOCYTES % (AUTO) 19.4 % (20.0-44.0); MEAN CORPUSCULAR HEMOGLOBIN 32 PG (26.0-33.0); MEAN CORPUSCULAR HGB CONC 33 g/dl (31.0-36.0); MEAN CORPUSCULAR VOLUME 95 fL (80-96); MONOCYTES # (AUTO) 0.5 K/uL (0.1-1.30); MONOCYTES % (AUTO) 10.8 % (2.0-12.0); NEUTROPHILS # (AUTO) 3.3 K/uL (1.8-8.9); NEUTROPHILS % (AUTO) 67.2 % (43.0-81.0); PLATELET COUNT (AUTO) 267 K/uL (150-450); RED BLOOD CELL COUNT(AUTO) 3.96 MIL/uL (4.5-6.0); RED CELL DISTRIBUTION WIDTH 16.9 % (11.5-15.0); WHITE BLOOD COUNT (AUTO) 4.9 K/uL (4.3-11.0)
[2024-07-07 05:47] LABS: CALCIUM, SERUM 9.2 mg/dL (8.5-10.1); CREATININE 1.2 mg/dL (0.6-1.3); PHOSPHORUS 3.5 mg/dL (2.5-4.9); POTASSIUM 4.5 mmol/L (3.5-5.1)
[2024-07-07] MEDS: APIXABAN 5 MG TABLET PO SCH (10:00)
[2024-07-07] MEDS ORDERED: Medication Not On Formulary EA (Canagliflozin (Invokana) 100 MG) PO SCH (10:00)
[2024-07-07] MEDS: SPIRONOLACTONE 25 MG TABLET PO SCH (10:00)
[2024-07-07] MEDS: AMIODARONE HCL 200 MG TABLET PO SCH (10:00)
[2024-07-07] MEDS: CARVEDILOL 3.125 MG TABLET PO SCH (10:00)
[2024-07-07] MEDS: busPIRone HCL 10 MG TABLET PO SCH (10:00)
[2024-07-07] MEDS ORDERED: APIXABAN 5 MG TABLET ONE ×2 (10:20→17:45)
[2024-07-07] MEDS ORDERED: AMIODARONE HCL 200 MG TABLET ONE (10:21)
[2024-07-07] MEDS ORDERED: CARVEDILOL 3.125 MG TABLET ONE ×2 (10:21→17:46)
[2024-07-07] MEDS ORDERED: busPIRone 5 MG TABLET ONE (10:21)
[2024-07-07] MEDS ORDERED: SPIRONOLACTONE 25 MG TABLET ONE (10:22)
[2024-07-07] MEDS ORDERED: ACETAMINOPHEN 325 MG TABLET ONE (11:44)
[2024-07-07] MEDS: ACETAMINOPHEN 325 MG TABLET PO PRN (11:55)
[2024-07-07] MEDS: LORAZEPAM INJ 2 MG/ML VIAL IV PRN (22:16)
[2024-07-07] MEDS: ATORVASTATIN 10 MG TABLET PO SCH (22:17)
[2024-07-08] VITALS: BP 125/87; TEMP 96; O2SAT 100
[2024-07-08 04:00] VITALS: BP 126/97; TEMP 96.6; O2SAT 97
[2024-07-08 06:45] LABS: BASOPHILS # (AUTO) 0.1 K/uL (0.0-0.2); BASOPHILS % (AUTO) 1.6 % (0.0-2.0); EOSINOPHILS # (AUTO) 0.1 K/uL (0.0-0.7); EOSINOPHILS % (AUTO) 1.3 % (0.0-6.0); HEMATOCRIT 37 % (39-51); HEMOGLOBIN 12.2 g/dL (13.5-17.5); LYMPHOCYTES # (AUTO) 0.8 K/uL (0.8-4.8); LYMPHOCYTES % (AUTO) 19.4 % (20.0-44.0); MEAN CORPUSCULAR HEMOGLOBIN 31 PG (26.0-33.0); MEAN CORPUSCULAR HGB CONC 33 g/dl (31.0-36.0); MEAN CORPUSCULAR VOLUME 95 fL (80-96); MONOCYTES # (AUTO) 0.6 K/uL (0.1-1.30); MONOCYTES % (AUTO) 14.4 % (2.0-12.0); NEUTROPHILS # (AUTO) 2.7 K/uL (1.8-8.9); NEUTROPHILS % (AUTO) 63.3 % (43.0-81.0); PLATELET COUNT (AUTO) 250 K/uL (150-450); RED BLOOD CELL COUNT(AUTO) 3.92 MIL/uL (4.5-6.0); RED CELL DISTRIBUTION WIDTH 16.9 % (11.5-15.0); WHITE BLOOD COUNT (AUTO) 4.3 K/uL (4.3-11.0)
[2024-07-08 07:23] LABS: CREATININE 1.2 mg/dL (0.6-1.3); PHOSPHORUS 3.3 mg/dL (2.5-4.9); POTASSIUM 4.1 mmol/L (3.5-5.1)
[2024-07-08 08:00] VITALS: BP 127/87; TEMP 98.1; O2SAT 97
[2024-07-08] MEDS: FUROSEMIDE 40 MG/4 ML VIAL IV SCH (08:10)
[2024-07-08] MEDS: SACUBITRIL/VALSARTAN 24/26MG TABLET PO SCH (08:12)
[2024-07-08] MEDS: busPIRone 5 MG TABLET PO SCH ×2 (08:42→13:16)
[2024-07-08 09:09] VITALS: BP 135/95
[2024-07-08] MEDS: CARVEDILOL 3.125 MG TABLET PO SCH (09:09)
[2024-07-08] MEDS: ALPRAZOLAM 0.25 MG TABLET PO PRN (10:38)
[2024-07-08 12:00] VITALS: TEMP 98
[2024-07-08] MEDS ORDERED: BUSP5TAB3 PO (14:19)
[2024-07-08] MEDS ORDERED: CARV3.122 PO (14:19)
== END 2024-07-08 19:08 | disposition home or self-care (01) | DRG 194 ==
LOC: ER 21:05 → TRANSITION 07-07 06:27 → TELE1 07-07 18:31 → TELE-TD 07-07 20:49 → MEDSG1 07-08 09:35
PROVIDERS: ATTEND Student in an Organized Health Care Education/Training Program
DX: I11.0 Hypertensive heart disease with heart failure (principal); J96.01 Acute respiratory failure with hypoxia; I21.A1 Myocardial infarction type 2; E87.1 Hypo-osmolality and hyponatremia; K74.60 Unspecified cirrhosis of liver; Z79.01 Long term (current) use of anticoagulants; I25.10 Atherosclerotic heart disease of native coronary artery without angina pectoris; I50.23 Acute on chronic systolic (congestive) heart failure; Z95.810 Presence of automatic (implantable) cardiac defibrillator; Z86.711 Personal history of pulmonary embolism; F20.9 Schizophrenia, unspecified; F32.A Depression, unspecified; Z90.49 Acquired absence of other specified parts of digestive tract; F15.90 Other stimulant use, unspecified, uncomplicated; Z79.899 Other long term (current) drug therapy; Z87.891 Personal history of nicotine dependence; Z79.84 Long term (current) use of oral hypoglycemic drugs
CPT/HCPCS: 36415; 71045-TC; 80048-TC; 80053-TC; 81001; 83735-TC; 83880; 84100-TC; 84484-TC; 85025-TC; 94799-TC; G0378; J1650; J1940; J2060

== ENCOUNTER 2024-07-28 16:57 | Emergency (ER) | payer OTHER ==
[~2024-07-28] VITALS: Ht 182.9 cm; Wt 63.0 kg
[~2024-07-28 16:57] MED LIST changes: -BUSP10TA3 PO; +BUSP5TAB3 PO; -CARV3.12 PO; +CARV3.122 PO; -HYDR-3980 PO; -SERT50TA PO
[2024-07-28 18:17] LABS: BASOPHILS % (AUTO) 0.7 % (0.0-2.0); EOSINOPHILS # (AUTO) 0.1 K/uL (0.0-0.7); EOSINOPHILS % (AUTO) 1.8 % (0.0-6.0); HEMATOCRIT 43 % (39-51); HEMOGLOBIN 13.9 g/dL (13.5-17.5); LYMPHOCYTES # (AUTO) 0.7 K/uL (0.8-4.8); LYMPHOCYTES % (AUTO) 14.9 % (20.0-44.0); MEAN CORPUSCULAR HEMOGLOBIN 31 PG (26.0-33.0); MEAN CORPUSCULAR HGB CONC 33 g/dl (31.0-36.0); MEAN CORPUSCULAR VOLUME 93 fL (80-96); MONOCYTES # (AUTO) 0.5 K/uL (0.1-1.30); NEUTROPHILS # (AUTO) 3.3 K/uL (1.8-8.9); NEUTROPHILS % (AUTO) 72.6 % (43.0-81.0); PLATELET COUNT (AUTO) 330 K/uL (150-450); RED BLOOD CELL COUNT(AUTO) 4.56 MIL/uL (4.5-6.0); RED CELL DISTRIBUTION WIDTH 17.1 % (11.5-15.0); WHITE BLOOD COUNT (AUTO) 4.6 K/uL (4.3-11.0)
[2024-07-28] MEDS ORDERED: LORAZEPAM INJ 2 MG/ML VIAL ONE ×2 (18:17→19:20)
[2024-07-28 18:22] LABS: CALCIUM, SERUM 9.6 mg/dL (8.5-10.1); POTASSIUM 4.2 mmol/L (3.5-5.1)
[2024-07-28] MEDS: LORAZEPAM INJ 2 MG/ML VIAL IM ONE (18:22)
[2024-07-28 18:29] LABS: ALBUMIN 3.9 g/dL (3.4-5.0); BILIRUBIN,TOTAL 1.7 mg/dL (0.2-1.0); TOTAL PROTEIN, SERUM 8.8 g/dL (6.4-8.2)
[2024-07-28] MEDS: IV NS 0.9% 500 ML BAG IV ONE (18:52)
[2024-07-28] MEDS: LORAZEPAM INJ 2 MG/ML VIAL IV ONE (19:27)
[2024-07-28 20:38] VITALS: BP 109/67; TEMP 98.2; O2SAT 99
== END 2024-07-28 20:38 | disposition home or self-care (01) ==
LOC: ER 17:02
DX: G47.00 Insomnia, unspecified (principal); F41.9 Anxiety disorder, unspecified; I11.0 Hypertensive heart disease with heart failure; I50.9 Heart failure, unspecified; I25.10 Atherosclerotic heart disease of native coronary artery without angina pectoris; F20.9 Schizophrenia, unspecified; Z79.01 Long term (current) use of anticoagulants; Z87.898 Personal history of other specified conditions; Z86.711 Personal history of pulmonary embolism; Z79.84 Long term (current) use of oral hypoglycemic drugs; Z79.899 Other long term (current) drug therapy
CPT/HCPCS: 99284; 96374; 96361; 85025; 36415; 80053; 96372; J2060 ×2; J7040

== ENCOUNTER 2024-09-08 16:43 | Emergency (ER) | payer OTHER ==
[~2024-09-08] VITALS: Ht 185.4 cm; Wt 111.1 kg
[2024-09-08] MEDS ORDERED: ONDANSETRON HCL/PF 4 MG/2 ML VIAL ONE (16:59)
[2024-09-08] MEDS ORDERED: NITROGLYCERIN 0.4 MG/TAB BOTTLE ONE (17:00)
[2024-09-08] MEDS ORDERED: MORPHINE SULFATE INJ 4 MG/ML DISP.SYRIN ONE (17:00)
[2024-09-08 17:15] LABS: BASOPHILS % (AUTO) 1.1 % (0.0-2.0); EOSINOPHILS # (AUTO) 0.1 K/uL (0.0-0.7); EOSINOPHILS % (AUTO) 3.1 % (0.0-6.0); HEMATOCRIT 32 % (39-51); HEMOGLOBIN 10.7 g/dL (13.5-17.5); LYMPHOCYTES # (AUTO) 0.6 K/uL (0.8-4.8); LYMPHOCYTES % (AUTO) 16.7 % (20.0-44.0); MEAN CORPUSCULAR HEMOGLOBIN 32 PG (26.0-33.0); MEAN CORPUSCULAR HGB CONC 33 g/dl (31.0-36.0); MEAN CORPUSCULAR VOLUME 96 fL (80-96); MONOCYTES # (AUTO) 0.5 K/uL (0.1-1.30); NEUTROPHILS # (AUTO) 2.6 K/uL (1.8-8.9); NEUTROPHILS % (AUTO) 67.1 % (43.0-81.0); PLATELET COUNT (AUTO) 213 K/uL (150-450); RED BLOOD CELL COUNT(AUTO) 3.33 MIL/uL (4.5-6.0); RED CELL DISTRIBUTION WIDTH 18.3 % (11.5-15.0); WHITE BLOOD COUNT (AUTO) 3.9 K/uL (4.3-11.0)
[2024-09-08] MEDS: MORPHINE SULFATE INJ 2 MG/ML DISP.SYRIN IV ONE (17:19)
[2024-09-08] MEDS: ONDANSETRON HCL/PF 4 MG/2 ML VIAL IVP ONE (17:19)
[2024-09-08] MEDS: NITROGLYCERIN 0.4 MG/TAB BOTTLE SL ONE (17:19)
[2024-09-08 17:31] LABS: CALCIUM, SERUM 8.6 mg/dL (8.5-10.1); CARBON DIOXIDE 27 mmol/L (21-32); CHLORIDE 104 mmol/L (98-107); CREATININE 1.2 mg/dL (0.6-1.3); GLUCOSE 98 mg/dL (74-106); POTASSIUM 4.2 mmol/L (3.5-5.1); SODIUM SERUM 138 mmol/L (136-145); UREA NITROGEN, BLOOD 19 mg/dL (7-18)
[2024-09-08 17:32] LABS: ALCOHOL, BLOOD < 3 mg/dL (0-10)
[2024-09-08 17:34] LABS: INR 1.18 (0.91-1.10); PARTIAL THROMBOPLASTIN TIME 31.3 SEC (24.3-34.3); PROTHROMBIN TIME 12.4 SECS (9.2-11.1)
[2024-09-08 17:44] LABS: NT-PRO BNP 3436 pg/mL (0-125)
[2024-09-08 18:13] LABS: AMPHETAMINE, URINE NEGATIVE (NEGATIVE); BARBITURATE, URINE NEGATIVE (NEGATIVE); BENZODIAZEPINE, URINE NEGATIVE (NEGATIVE); CANNABINOID, URINE NEGATIVE (NEGATIVE); COCCAINE, URINE NEGATIVE (NEGATIVE); OPIATE, URINE POSITIVE (NEGATIVE); PHENCYCLIDINE SCREEN,URINE NEGATIVE (NEGATIVE)
[2024-09-08 18:49] VITALS: BP 112/79; TEMP 97.4; O2SAT 98
== END 2024-09-08 18:49 | disposition home or self-care (01) ==
LOC: ER 17:09
DX: I42.9 Cardiomyopathy, unspecified (principal); I11.0 Hypertensive heart disease with heart failure; I50.9 Heart failure, unspecified; K74.60 Unspecified cirrhosis of liver; F19.11 Other psychoactive substance abuse, in remission; I25.10 Atherosclerotic heart disease of native coronary artery without angina pectoris; Z79.01 Long term (current) use of anticoagulants; Z79.84 Long term (current) use of oral hypoglycemic drugs; Z79.899 Other long term (current) drug therapy; Z95.0 Presence of cardiac pacemaker
CPT/HCPCS: 99285; 96374; 96375; 93005 ×2; 71045; 85025; 80048; 36415; 84443; 84484; 85730; 83880; 80320; 80307; J2270; J2405; G0480

== ENCOUNTER 2024-11-09 00:07 | Emergency (ER) | payer OTHER ==
[~2024-11-09] VITALS: Ht 182.9 cm; Wt 90.7 kg
[2024-11-09 00:19] VITALS: TEMP 97.4
[2024-11-09] MEDS ORDERED: FUROSEMIDE 40 MG/4 ML VIAL ONE (00:29)
[2024-11-09] MEDS: FUROSEMIDE 40 MG/4 ML VIAL IV ONE (00:33)
[2024-11-09 01:05] LABS: PLATELET COUNT (AUTO) 274 K/uL (150-450); RED BLOOD CELL COUNT(AUTO) 4.07 MIL/uL (4.5-6.0); RED CELL DISTRIBUTION WIDTH 16.8 % (11.5-15.0); WHITE BLOOD COUNT (AUTO) 5.5 K/uL (4.3-11.0)
[2024-11-09 01:26] LABS: CALCIUM, SERUM 9.0 mg/dL (8.5-10.1); CREATININE 1.0 mg/dL (0.6-1.3); SODIUM SERUM 130.0 mmol/L (136-145); UREA NITROGEN, BLOOD 25.0 mg/dL (7-18)
[2024-11-09 01:37] LABS: ASPARTATE AMINOTRANSFERASE 28.0 U/L (15-37); NT-PRO BNP 2871.0 pg/mL (0-125); TOTAL PROTEIN, SERUM 8.0 g/dL (6.4-8.2)
[2024-11-09] MEDS ORDERED: LORAZEPAM INJ 2 MG/ML VIAL ONE (02:59)
[2024-11-09] MEDS: LORAZEPAM 4 MG/ML VIAL IV ONE (03:03)
[2024-11-09] MEDS ORDERED: FURO-144 PO (03:57)
[2024-11-09 11:00] VITALS: BP 132/88; O2SAT 98
== END 2024-11-09 11:17 ==
LOC: ER 00:18
DX: I11.0 Hypertensive heart disease with heart failure (principal); I50.9 Heart failure, unspecified; R06.02 Shortness of breath; F19.11 Other psychoactive substance abuse, in remission; E78.5 Hyperlipidemia, unspecified; Z79.01 Long term (current) use of anticoagulants; Z79.84 Long term (current) use of oral hypoglycemic drugs; Z79.899 Other long term (current) drug therapy; Z95.0 Presence of cardiac pacemaker; Z20.822 Contact with and (suspected) exposure to COVID-19
CPT/HCPCS: 99291; 96374; 96375; 87426; 93005; 71045; 85025; 83735; 36415; 80053; 84484 ×2; 83880; J2060 ×2; J1938

== ENCOUNTER 2025-02-23 11:04 | Inpatient (IN) | payer OTHER ==
[~2025-02-23] VITALS: Ht 182.9 cm; Wt 97.5 kg
[2025-02-23] VITALS (9 sets, daily range): BP systolic 89–102; BP diastolic 53–67; TEMP 97.7–98.8; O2SAT 89–100
[~2025-02-23 11:04] MED LIST changes: +RISP1TAB7 PO
[2025-02-23] MEDS: IV NS 0.9% 500 ML BAG IV ONE (11:35)
[2025-02-23 11:52] LABS: PLATELET COUNT (AUTO) 292 K/uL (150-450); RED BLOOD CELL COUNT(AUTO) 3.36 MIL/uL (4.5-6.0); RED CELL DISTRIBUTION WIDTH 19.1 % (11.5-15.0); WHITE BLOOD COUNT (AUTO) 4.8 K/uL (4.3-11.0)
[2025-02-23 12:03] LABS: CALCIUM, SERUM 8.6 mg/dL (8.5-10.1); CREATININE 1.4 mg/dL (0.6-1.3); SODIUM SERUM 131 mmol/L (136-145); UREA NITROGEN, BLOOD 11 mg/dL (7-18)
[2025-02-23 12:05] LABS: LACTIC ACID 1.3 mmol/L (0.4-2.0)
[2025-02-23 12:10] LABS: ASPARTATE AMINOTRANSFERASE 25 U/L (15-37); TOTAL PROTEIN, SERUM 7.0 g/dL (6.4-8.2)
[2025-02-23] MEDS: IV NS 0.9% 1,000 ML BAG IV ONE (13:13)
[2025-02-23] MEDS ORDERED: ONDANSETRON HCL/PF 4 MG/2 ML VIAL IVP PRN (14:30)
[2025-02-23] MEDS ORDERED: Z GUARD REMEDY 4 OZ OINT TP PRN (14:30)
[2025-02-23] MEDS ORDERED: MAGNESIUM HYDROXIDE 30 ML UDC PO PRN (14:30)
[2025-02-23] MEDS ORDERED: MAG HYDROX/AL HYDROX/SIMETH 30 ML UDC PO PRN (14:30)
[2025-02-23] MEDS ORDERED: ZOLPIDEM TARTRATE 5 MG TABLET PO PRN ×2 (14:30)
[2025-02-23] MEDS ORDERED: ACETAMINOPHEN 325 MG TABLET PO PRN (14:30)
[2025-02-23] MEDS ORDERED: ENOXAPARIN SODIUM 40 MG/0.4 ML DISP.SYRIN SQ SCH (14:30)
[2025-02-23] MEDS: IV NS 0.9% 1,000 ML IV PRN (16:48)
[2025-02-23] MEDS: CARVEDILOL 6.25 MG TABLET PO SCH (17:00)
[2025-02-23] MEDS: APIXABAN 5 MG TABLET PO SCH (17:14)
[2025-02-23 17:37] LABS: APPEARANCE,URINE CLEAR (CLEAR); BLOOD, URINE NEGATIVE Ery/uL (NEGATIVE); LEUKOCYTE ESTERASE ,URINE TRACE (NEGATIVE); NITRITE, URINE NEGATIVE (NEGATIVE); UGLUCOSE NEGATIVE (NEGATIVE)
[2025-02-23 17:45] LABS: ADD URINE CULTURE YES; SQUAMOUS EPITHELIAL CELL,UR Rare /HPF (None Seen)
[2025-02-23] MEDS: ATORVASTATIN 40 MG TABLET PO SCH (21:18)
[2025-02-23] MEDS ORDERED: NOREPINEPHRINE 8 MG in IV NS 0.9% 242 ML IV PRN (22:30)
[2025-02-23] MEDS: TRAZODONE 50 MG TABLET PO ONE (23:00)
[2025-02-24] VITALS (30 sets, daily range): BP systolic 91–119; BP diastolic 57–80; TEMP 97.1–98.8; O2SAT 94–100
[2025-02-24 04:37] LABS: PLATELET COUNT (AUTO) 246 K/uL (150-450); RED BLOOD CELL COUNT(AUTO) 3.19 MIL/uL (4.5-6.0); RED CELL DISTRIBUTION WIDTH 19.6 % (11.5-15.0); WHITE BLOOD COUNT (AUTO) 4.2 K/uL (4.3-11.0)
[2025-02-24 04:56] LABS: ASPARTATE AMINOTRANSFERASE 19.0 U/L (15-37); CALCIUM, SERUM 8.6 mg/dL (8.5-10.1); CREATININE 0.9 mg/dL (0.6-1.3); PHOSPHORUS 3.9 mg/dL (2.5-4.9); SODIUM SERUM 137.0 mmol/L (136-145); TOTAL PROTEIN, SERUM 6.3 g/dL (6.4-8.2); UREA NITROGEN, BLOOD 9.0 mg/dL (7-18)
[2025-02-24] MEDS: AMIODARONE HCL 200 MG TABLET PO SCH (08:40)
[2025-02-24] MEDS: PANTOPRAZOLE 40 MG TABLET.DR PO SCH (08:47)
[2025-02-24] MEDS: QUETIAPINE FUMARATE 100 MG TABLET PO SCH (09:43)
[2025-02-24] MEDS: HYDROCODONE/APAP 5/325MG TABLET PO PRN (09:53)
[2025-02-24 10:25] LABS: INR 1.45 (0.91-1.10)
[2025-02-24 17:35] LABS: CREATININE, URINE 154.5 MG/DL (30.0-125.0); URINE SODIUM, RANDOM 20.0 mmol/l (40-220); URINE TOTAL PROTEIN 42.6 mg/dL (0-11.9)
[2025-02-24 18:46] LABS: PROTEIN, BODY FLUID 3.2 G/DL
[2025-02-24 18:49] LABS: WBC, BODY FLUID 156 /cu. mm. (0-200)
[2025-02-24 19:01] LABS: APPEARANCE,SPUN,BODY FLUID CLEAR (CLEAR); TOTAL VOLUME,BODY FLUID 1150 mL
[2025-02-24 20:04] LABS: MACROPHAGES, BODY FLUID 9
[2025-02-25] VITALS: BP 97/67; TEMP 97.7; O2SAT 99
[2025-02-25 04:00] VITALS: BP 102/79; TEMP 97.7; O2SAT 96
[2025-02-25 07:25] LABS: CALCIUM, SERUM 8.7 mg/dL (8.5-10.1); CREATININE 1.0 mg/dL (0.6-1.3); SODIUM SERUM 138.0 mmol/L (136-145); UREA NITROGEN, BLOOD 8.0 mg/dL (7-18)
[2025-02-25 07:34] LABS: PLATELET COUNT (AUTO) 261 K/uL (150-450); RED BLOOD CELL COUNT(AUTO) 3.34 MIL/uL (4.5-6.0); RED CELL DISTRIBUTION WIDTH 19.8 % (11.5-15.0); WHITE BLOOD COUNT (AUTO) 4.6 K/uL (4.3-11.0)
[2025-02-25 08:00] VITALS: BP 103/63; TEMP 98.4; O2SAT 96
[2025-02-25 12:00] VITALS: BP 117/77; TEMP 97.7; O2SAT 96
== END 2025-02-25 12:47 | disposition home health service (06) | DRG 205 ==
LOC: ER 11:07 → ICU 13:18 → TELE-TD 14:29 → ICU 14:43 → TELE1 02-24 18:11
PROVIDERS: ADMIT Student in an Organized Health Care Education/Training Program; ATTEND Internal Medicine
PROC: 0W993ZX Drainage of Right Pleural Cavity, Percutaneous Approach, Diagnostic (ICD-10-PCS; principal; 2025-02-24)
DX: I42.7 Cardiomyopathy due to drug and external agent (principal); R57.0 Cardiogenic shock; N17.0 Acute kidney failure with tubular necrosis; J90 Pleural effusion, not elsewhere classified; D64.9 Anemia, unspecified; K74.60 Unspecified cirrhosis of liver; F15.10 Other stimulant abuse, uncomplicated; I13.0 Hypertensive heart and chronic kidney disease with heart failure and stage 1 through stage 4 chronic kidney disease, or unspecified chronic kidney disease; N18.9 Chronic kidney disease, unspecified; F20.9 Schizophrenia, unspecified; I50.22 Chronic systolic (congestive) heart failure; I95.9 Hypotension, unspecified; E87.1 Hypo-osmolality and hyponatremia; I25.10 Atherosclerotic heart disease of native coronary artery without angina pectoris; Z95.810 Presence of automatic (implantable) cardiac defibrillator; Z90.49 Acquired absence of other specified parts of digestive tract; Z79.01 Long term (current) use of anticoagulants; Z79.899 Other long term (current) drug therapy; M89.8X9 Other specified disorders of bone, unspecified site; Z91.199 Patient's noncompliance with other medical treatment and regimen due to unspecified reason; Z87.891 Personal history of nicotine dependence; Z86.74 Personal history of sudden cardiac arrest; Z86.711 Personal history of pulmonary embolism; Z79.84 Long term (current) use of oral hypoglycemic drugs
CPT/HCPCS: 36415; 71045-TC; 71250-TC; 80048-TC; 80076-TC; 81001; 82570-TC; 83605-TC; 83615-TC; 83735-TC; 83880; 84100-TC; 84155-TC; 84300-TC; 84484-TC; 85025-TC; 85610-TC; 87040-TC; 87070-TC; 87075-TC; 87081-TC; 87086-TC; 87102-TC; 88108-TC; 88305-TC; 89051-TC; 97112-TC; 97116-TC; 97530-TC; A4223; A6254; G0378; J7030; J7040; J7050